=== PATIENT | male | born 1935 | race Caucasian/White ===

== ENCOUNTER → 2016-07-24 | Day surgery (SDC) | payer OTHER ==
[~2016-07-24] MED LIST: ASPI325T4 PO; ATEN25TA PO; CLON1TAB23 PO; CLOP75TA PO; CRESTOR40 MG PO; FAMO40TA4 PO; FENTANYL PF 100 MCG/2 ML VIAL. IV PRN; FLUT16SP2 NS; HYDR-2762 PO; HYDROMORPHONE 2 MG/ML VIAL. IV PRN; IV RINGERS,LACTATED 1000ML 1,000 ML IV SCH; LIDOCAINE 1% 1 ML SYRINGE. ID PRN; LIDOCAINE 2% PF Vial for OR 5 ML VIAL. ONE; METR70GE14 TOP; MIDAZOLAM HCL 2 MG/2 ML VIAL. IV PRN; MORPHINE SULFATE 2 MG/ML DISP.SYRIN. IV PRN; MULT-18 PO; NIFE30TA17 PO; NITR0.4T6 SL; OMEG-33 PO; OMEP40CA5 PO; ONABOTULINUMTOXINA 100 UNIT VIAL. ID ONE; ONDANSETRON PF 4 MG/2 ML VIAL. IV PRN; PROCHLORPERAZINE 10 MG/2 ML VIAL. IV PRN; PROPOFOL 20 ML IV ONE; PROPOFOL 40 ML IV ONE; TAMS0.4C2 PO; TRAM50TA PO
--- NOTE | 2016-07-24 09:49 | PDOC1 ---
HISTORY & PHYSICAL H&P Abdias Yeager [id number] 1935 07/05/2016 01:30 PM 05/14 [place] OUR PATIENTS COME FIRST [address] [place], [place] [id number] . [phone] Patient: Abdias Yeager Date of : 1935 Date: 07/05/2016 1:30 PM Visit Type: Consult This 81 year old male presents for H/o colorectal polyp and Dysphagia. History of Present Illness: 1. H/o colorectal polyp Prior screening: colonoscopy. Denies risk factors. Pertinent negatives include abdominal pain, change in bowel habits, change in stool caliber, constipation, decreased appetite, diarrhea, melena, nausea, rectal bleeding, vomiting, weight gain and weight loss. Additional information: No family history of colon cancer, No family history of Crohn's/colitis, No NSAID/ASA use and Patient had adenomatous colonic polyp removed 3 yrs ago. 2. Dysphagia The symptoms occur with solids and liquids which cause choking and gagging with food sticking in the lower chest. The symptoms are felt to be related to meals. The symptoms are not related to history of stroke. There is no history of Osullivan's esophagus, reflux or stroke. The patient denies aggravating factors. The patient denies relieving factors. The patient is also experiencing choking and food sticking. The patient denies anorexia, bloating, chest pain, decreased appetite, hoarseness, nausea, vomiting, weight gain or weight loss. Additional information: Patient had achalasia and had previous Botox injection and also had Heller's Myotomy. He has been having recurrent symptoms now. PROBLEM LIST: Problem Description Onset Date Right leg swelling 11/29/2015 Venous insufficiency of right leg 11/29/2015 Periodic limb movement disorder 01/09/2013 Ankle fracture, right, closed, with routine healing, subsequent encounter 2015 Diffuse spasm of esophagus 04/19/2012 Screening PSA (prostate specific antigen) 12/28/2015 GERD without esophagitis 06/29/2015 Venous insufficiency 12/13/2015 Coronary atherosclerosis 12/08/2009 Benign essential hypertension 12/08/2009 Hyperlipidemia 12/08/2009 Benign prostatic hyperplasia 12/28/2014 PAST MEDICAL/SURGICAL HISTORY (Detailed) Disease/disorder Onset Date Management Date Comments Angioplasty Shoulder Surgery Knee surgery EGD 03/2008 Hypertensive Lower esophageal sphincter, Botulinum toxin injection done with very good results. Diverticulosis, Tublar Adenoma cardiac cath 2011 Prostate Surgery 09/26/2011 right TKA 2010 bilateral rotator cuff surgery coronary angioplasty and stent circumflex 2007 coronary angioplasty LAD 1995 Tonsillectomy Achalasia laparoscopic Heller myotomy w\anterior fundoplication 05/22/2012 achalasia laparoscopy heller myotomy with anterior fundoplication 05/22/2012 Osullivan's esophagus 03/07/2012 EGD with biopsy (dilation) 03/07/2012 benign prostatic hypertrophy 2011 turp 2011 Colonic polyps colonoscopy with biopsy 07/2013 Coronary Artery Disease Diverticulosis Esophageal Dysmotility Disorder GERD High cholesterol Hypertension Internal hemorrhoids obesity DIAGNOSTICS HISTORY: Test Ordered Interpretation Result completed UPPER GI ENDOSCOPY, BIOPSY 12/02/2009 Abnormal Imp: Lower esphageal stricture.BX :Mild inflammation with small lymphoid aggregate involving glandular epithelium at GE junction.C 12/02/2009 ESOPH ENDOSCOPY, DILATION 08/04/2010 Abnormal BX: Rare H-pylori identified, Mild foveolar hyperplasia, gastritis. 08/04/2010 COLONOSCOPY AND BIOPSY 08/04/2010 Abnormal BX: Tubular Adenoma. 08/04/2010 UPPR GI SCOPE DILATE STRICTR 04/13/2011 Abnormal Imp:Esophageal motility disorder. Tortuous esophagus. tight ileus which was treated w\ Botox injections completely paralyzing the ileus and dilation done. BX: Osullivan's esophagus. 05/2010 UPPR GI SCOPE DILATE STRICTR 01/23/2012 abnormal 01/25/2012 UPPR GI SCOPE DILATE STRICTR 02/20/2012 abnormal Imp: Hypertensive LES. Tortuosity of the esophagus. Dilated esophagus secondary to motility disorder. Boxtox injection. BX:Osullivan's esophagus. 03/07/2012 COLONOSCOPY AND BIOPSY 07/21/2013 Imp: polyps, (bx). LImited diverticulosis. Internal hemorrhoids. BX: Tubular adenoma. 08/07/2013 UPPER GI ENDOSCOPY, BIOPSY 07/21/2013 Imp: Esophagitis, (bx). Status post fundoplication. Gastritis. No other lesions. BX: Osullivan's esophagus. 08/07/2013 Test Ordered Ordering Comments Modifier UPPER GI ENDOSCOPY, BIOPSY 12/02/2009 ESOPH ENDOSCOPY, DILATION 08/04/2010 COLONOSCOPY AND BIOPSY 08/04/2010 UPPR GI SCOPE DILATE STRICTR 04/13/2011 Gastroenterology UPPR GI SCOPE DILATE STRICTR 01/23/2012 UPPR GI SCOPE DILATE STRICTR 02/20/2012 COLONOSCOPY AND BIOPSY 07/21/2013 UPPER GI ENDOSCOPY, BIOPSY 07/21/2013 Medications (Active): Started Medication Directions Instruction Stopped 11/29/2015 aspirin 325 mg tablet take 1 tablet by oral route every day 06/27/2016 atenolol 25 mg tablet TAKE 1 TABLET TWICE DAILY 90 day supply - 06/27/2016 atorvastatin 80 mg tablet TAKE 1 TABLET EVERY DAY AT BEDTIME ( REPLACES CRESTOR) 90 Day Supply 06/27/2016 clonazepam 1 mg tablet 1 po every hs 90 day supply - 06/27/2016 clopidogrel 75 mg tablet take 1 tablet (75MG) by oral route every day 90 day supply 09/17/2015 famotidine 40 mg tablet TAKE 1 TABLET EVERY DAY AT BEDTIME 90 day supply - ID# [id number] 11/19/2013 Flomax 0.4 mg capsule TAKE 1 CAPSULE TWICE DAILY 07/18/2012 Flonase 50 mcg/actuation Nasal [place] spray 2 spray by intranasal route every day in each nostril 07/04/2016 FUROSEMIDE 20 MG TABLET TAKE 1 TABLET BY MOUTH EVERY DAY 07/18/2012 Metrogel 1 % Topical apply by topical route every day to the affected area(s) ; rub in gently and completely 04/15/2013 multivitamin Tab take 1 tablet by ORAL route every day with food 04/03/2016 nitroglycerin 0.[address] 1 tablet (0.4MG) by sublingual route before meals TID 03/28/2016 [place] 7.5 mg-325 mg tablet take 1 tablet by oral route every 6 hours as needed for pain 08/30/2009 omega-3 fatty acids-vitamin E 1,000 mg Cap 2 daily 06/27/2016 omeprazole 40 mg capsule,delayed release TAKE 1 CAPSULE EVERY DAY BEFORE A MEAL 90 Day Supply 12/28/2014 tramadol 50 mg tablet take 1 tablet (50MG) by ORAL route every 6 hours as needed 90 day supply - ID# [id number] Allergies: Ingredient Reaction Medication Name Comment POVIDONE-IODINE rash Betadine SOAP rash Betadine IODINATED CONTRAST MEDIA - ORAL AND IV DYE AMLODIPINE BESYLATE Norvasc SIMVASTATIN Zocor PENICILLINS hives NIACIN flushing REVIEW OF SYSTEMS System Neg/Pos Details Constitutional Negative Chills, fever, malaise, weight gain and weight loss. ENMT Negative Hoarseness and sore throat. Eyes Negative Double vision. Respiratory Negative Dyspnea and wheezing. Cardio Negative Chest pain and irregular heartbeat/palpitations. GI Positive Choking, Food sticking, See HPI. GI Negative Abdominal pain, anorexia, bloating, change in bowel habits, change in stool caliber, constipation, decreased appetite, diarrhea, melena, nausea, see HPI, rectal bleeding and vomiting. Negative Dysuria and hematuria. Endocrine Negative Cold intolerance and heat intolerance. Psych Negative Anxiety. Integumentary Negative Hives and rash. MS Negative Joint pain. Eriberto/Lymph Negative Easy bleeding and easy bruising. Allergic/Immuno Negative Food allergies. PHYSICAL EXAM: Exam Findings Details Constitutional Normal Well developed. Eyes Normal Conjunctiva - Right: Normal, Left: Normal. Sclera - Right: Normal, Left: Normal. Nasopharynx Normal Lips/teeth/gums - Normal. Neck Exam Normal Inspection - Normal. Thyroid gland - Normal. Respiratory Normal Inspection - Normal. Auscultation - Normal. Cardiovascular Normal Regular rate and rhythm. No murmurs, gallops, or rubs. Vascular Normal Pulses - Carotids: Normal, Femoral: Normal, Dorsalis pedis: Normal. Abdomen Normal Inspection - Normal. Anterior palpation - No guarding. No abdominal tenderness. No hepatic enlargement. No splenic enlargement. No hernia. No ascites. Skin Normal Inspection - Normal. Extremity Normal No edema. Psychiatric * Oriented to time, place, person and situation. Psychiatric Normal Appropriate mood and effect. Assessment/Plan # Detail Type Description 1. Assessment Achalasia (K22.0). Patient Plan EGD with Botox treatment. Plan Orders Further diagnostic evaluations ordered today include(s) EGD to be performed today. 2. Assessment Dysphagia, unspecified type (R13.10). Patient Plan Await EGD and treatment. 3. Assessment History of colon polyps (Z86.010). Patient Plan schedule colonoscopy at [facility] Plan Orders Further diagnostic evaluations ordered today include(s) Colonoscopy to be performed today. He is to schedule a follow-up visit with Konrad Yepez MD upon completion of work-up Electronically signed by: Konrad Yepez MD 07/05/2016 01:50 PM Document generated by: Konrad Yepez 07/05/2016 01:50 PM Ana Tracy MD, Family Practice; Elmo Lorenz MD Internal Medicine; Gale Lam MD, Internal Medicine; Ermelinda Yepez MD Internal Medicine; Konrad Yepez MD, Gastroenterology; Bran De La O MD, Rheumatology, S. Jayme Spencer, Physical Medicine/Rehab J. Ellen BANKSN ------ 07/24/16 Patient seen and examined. No change in H&P. KONRAD YEPEZ MD Jul 24, 2016 09:16
--- NOTE | 2016-07-24 10:50 | PDOC4 ---
GI OP Report - Dr. Cote Date/Time DATE: 07/24/16 TIME: 10:48 Attending Physician Konrad Cote MD Referring Physician Indications Dysphagia, Follow-up of achalasia Pre-Op See the Anesthesia note for documentation of the administered medications Procedures Upper GI endoscopy Findings - The esophageal examination was consistent with achalasia. Injected with botulinum toxin. - LA Grade A esophagitis. - A August fundoplication was found. - Normal examined duodenum. - No specimens collected. Plan - Discharge patient to home. - Patient has a contact number available for emergencies. The signs and symptoms of potential delayed complications were discussed with the patient. Return to normal activities tomorrow. Written discharge instructions were provided to the patient. - Resume regular diet. - Continue present medications. - Return to my office in 2 weeks. KONRAD COTE MD Jul 24, 2016 10:50
--- NOTE | 2016-07-24 10:55 | PDOC4 ---
GI OP Report - Dr. Cote Date/Time DATE: 07/24/16 TIME: 10:50 Attending Physician Konrad Cote MD Referring Physician Indications Personal history of colonic polyps Pre-Op See the Anesthesia note for documentation of the administered medications Procedures Colonoscopy Findings - One 7 mm polyp in the cecum. Resected and retrieved. - One 5 mm polyp in the transverse colon. Resected and retrieved. - The examination was otherwise normal on direct and retroflexion views. Plan - Discharge patient to home. - Patient has a contact number available for emergencies. The signs and symptoms of potential delayed complications were discussed with the patient. Return to normal activities tomorrow. Written discharge instructions were provided to the patient. - Resume regular diet. - Continue present medications. - Await pathology results. - Repeat colonoscopy in 3 - 5 years for surveillance based on pathology results. - Return to my office in 2 weeks. KONRAD COTE MD Jul 24, 2016 10:54
[2016-07-24 11:06] VITALS: BP 119/58
--- NOTE | 2016-07-25 13:25 | PATHOLOGY ---
PATHOLOGY REPORT * * * * * * * * FINAL DIAGNOSIS: A. Colon biopsy, cecal polyp: - Tubular adenoma. B. Colon biopsy, transverse colon polyp: - Consistent with hyperplastic polyp/prominent fold. COMMENT: There is no high-grade dysplasia or evidence of malignancy. (JPM:; d/t: 07/25/16) REPORT ELECTRONICALLY SIGNED BY: Nato Angeles M.D. DATE/TIME: 07/25/2016 13:23 * * * * * * * * GROSS PATHOLOGY: A. Received in formalin labeled "Abdias Orozco, cecal polyp," is a segment of moyer soft tissue measuring 0.3 cm in maximum dimension. The specimen is submitted entirely in cassette A1. B. Received in formalin labeled "Abdias Orozco, transverse colon polyp," is a segment of moyer soft tissue admixed with vegetative material measuring 0.4 cm in maximum dimension. The specimen is submitted entirely in cassette B1. (KAH; 07/24/2016) INITIAL CPT CODE(S): A; 04048 B; 77759 Professional services [place] [place] [address] Technical services performed by [facility] at [address] [place] [address], [facility] [address] [address]. SPECIMEN(S) RECEIVED: A.Cecal polyp B.Transverse colon polyp CLINICAL HISTORY: History of polyps PATIENT: ABDIAS OROZCO /AGE: 1 1935 (Age: 81) PATIENT #: [id number] ALT CASE #: SPECIMEN COLLECTION DATE: 07/24/2016 SPECIMEN RECEIVED DATE: 07/24/2016 [facility] - [address] [place] [address] - PHONE: [phone] * * * END OF REPORT * * *
== END | disposition home or self-care (01) ==
LOC: ENDOS 08:55
PROVIDERS: ATTEND Internal Medicine Gastroenterology
DX: D12.0 Benign neoplasm of cecum (principal); D12.3 Benign neoplasm of transverse colon; K20.9 Esophagitis, unspecified; K22.0 Achalasia of cardia; I25.10 Atherosclerotic heart disease of native coronary artery without angina pectoris; E78.00 Pure hypercholesterolemia, unspecified; I10 Essential (primary) hypertension
CPT/HCPCS: 43236; 45385; J0585; J2704; 88305

== ENCOUNTER 2016-08-13 07:49 | Inpatient (IN) | payer OTHER ==
[~2016-08-13] VITALS: Ht 177.8 cm; Wt 116.6 kg
[~2016-08-13 07:49] MED LIST changes: -FENTANYL PF 100 MCG/2 ML VIAL. IV PRN; -HYDROMORPHONE 2 MG/ML VIAL. IV PRN; -IV RINGERS,LACTATED 1000ML 1,000 ML IV SCH; -LIDOCAINE 1% 1 ML SYRINGE. ID PRN; -LIDOCAINE 2% PF Vial for OR 5 ML VIAL. ONE; -MIDAZOLAM HCL 2 MG/2 ML VIAL. IV PRN; -MORPHINE SULFATE 2 MG/ML DISP.SYRIN. IV PRN; -ONABOTULINUMTOXINA 100 UNIT VIAL. ID ONE; -ONDANSETRON PF 4 MG/2 ML VIAL. IV PRN; -PROCHLORPERAZINE 10 MG/2 ML VIAL. IV PRN; -PROPOFOL 20 ML IV ONE; -PROPOFOL 40 ML IV ONE
--- NOTE | 2016-08-13 08:14 | PHYS DOC ---
Past Medical History Past Medical History: GERD, High Cholesterol, Hypertension, Other Additional Past Medical Histor: ECHOLALIA Past Surgical History: Tonsillectomy, Other Additional Past Surgical Histo: R KNEE REPL, LEFT KNEE SX, BILATERAL SHOULDER, ESOPHAGUS, CARDIAC STENT X2 Alcohol Use: None Drug Use: None Adult General Chief Complaint Chief Complaint: CHEST PAIN HPI HPI Patient is a 81 year old male who presents with chest pressure and SOB. Patient reports for the past two days he has been having intermittent lower substernal chest pressure accompanied by SOB. Patient reports he has been sitting a lot over these two days to catch his breath as walking will bring the symptoms on (although not always). Does have h/o 2 coronary stents and says he has another known blockage that has not been stented as it was too dangerous to do so. He has not taken anything for symptoms today. No other acute complaints. Review of Systems Review of Systems Constitutional: Denies fever or chills Eyes: Denies change in visual acuity or eye pain HENT: Denies nasal congestion or sore throat Respiratory: Shortness of breath Cardiovascular: Lower chest pressure GI: Denies abdominal pain, nausea, vomiting, bloody stools or diarrhea : Denies dysuria or hematuria Musculoskeletal: Denies back pain or joint pain Integument: Denies rash or skin lesions Neurologic: Denies headache, focal weakness or sensory changes Current Medications Current Medications Current Medications Medications (Trade) Dose Ordered Sig/Lyric Start Time Stop Time Status Last Admin Dose Admin Aspirin (Children'S Aspirin) 324 mg 1X ONCE 08/13/16 09:00 08/13/16 09:01 08/13/16 08:19 324 MG Atenolol (Tenormin) 25 mg 1X ONCE 08/13/16 09:00 08/13/16 09:01 08/13/16 08:20 25 MG Allergies Allergies Allergies Coded Allergies Type Severity Reaction Last Updated Verified Iodinated Contrast Media - Oral and Allergy Mild Rash 07/24/16 Yes Penicillins Allergy Mild Hives 07/24/16 Yes amlodipine Allergy Mild Rash 07/24/16 Yes niacin Allergy Mild Unknown 07/24/16 Yes simvastatin Allergy Mild Hives 07/24/16 Yes Physical Exam Physical Exam Constitutional: Well developed, well nourished, no acute distress, non-toxic appearance HENT: Normocephalic, atraumatic, bilateral external ears normal Eyes: EOMI, conjunctiva normal, no discharge Neck: Normal range of motion, no stridor Cardiovascular: Heart rate normal, regular rhythm, no murmur Lungs & Thorax: Bilateral breath sounds clear to auscultation Abdomen: Bowel sounds normal, soft, non-distended, no TTP Skin: Warm, dry, no erythema, no rash Extremities: No obvious deformity, no edema Neurologic: Alert and oriented X 3, no gross deficits noted Psychologic: Affect normal, judgement normal, mood normal Current Patient Data Vital Signs Vital Signs Date Time Temp Pulse Resp B/P Pulse Ox O2 Delivery O2 Flow Rate FiO2 08/13/16 08:25 64 21 190/84 94 Room Air 08/13/16 07:56 98.4 98.4 Lab Values Laboratory Tests Test 08/13/16 08:00 White Blood Count 8.2x10^3/uL (4.0-11.0) Red Blood Count 4.37x10^6/uL (4.30-5.70) Hemoglobin 13.3g/dL (13.0-17.5) Hematocrit 40.5% (39.0-53.0) Mean Corpuscular Volume 93fL (79-100) Mean Corpuscular Hemoglobin 30pg (25-35) Mean Corpuscular Hemoglobin Concent 33g/dL (31-37) Red Cell Distribution Width 13.8% (11.5-14.5) Platelet Count 169x10^3/uL (140-400) Neutrophils (%) (Auto) 65% (31-73) Lymphocytes (%) (Auto) 23% (24-48) L Monocytes (%) (Auto) 8% (0-9) Eosinophils (%) (Auto) 3% (0-3) Basophils (%) (Auto) 1% (0-3) Neutrophils # (Auto) 5.4x10^3uL (1.8-7.7) Lymphocytes # (Auto) 1.9x10^3/uL (1.0-4.8) Monocytes # (Auto) 0.6x10^3/uL (0.0-1.1) Eosinophils # (Auto) 0.3x10^3/uL (0.0-0.7) Basophils # (Auto) 0.1x10^3/uL (0.0-0.2) Sodium Level 145mmol/L (136-145) Potassium Level 3.7mmol/L (3.5-5.1) Chloride Level 111mmol/L (98-107) H Carbon Dioxide Level 28mmol/L (21-32) Anion Gap 6 (6-14) Blood Urea Nitrogen 23mg/dL (8-26) Creatinine 1.1mg/dL (0.7-1.3) Estimated GFR (Cockcroft-Gault) 64.1 Glucose Level 110mg/dL (70-99) H Calcium Level 8.6mg/dL (8.5-10.1) Troponin I Quantitative < 0.017ng/mL (0.000-0.055) MZ-Bnp-J-Type Natriuretic Peptide 1951pg/mL (0-449) H Laboratory Tests 08/13/16 08:00 Laboratory Tests 08/13/16 08:00 EKG EKG EKG (my read): sinus rhythm, rate 90, borderline LAD, no acute ST/T changes Radiology/Procedures Radiology/Procedures CXR: IMPRESSION: No acute pulmonary finding. Course & Med Decision Making Course & Med Decision Making Pertinent Labs and Imaging studies reviewed. (See chart for details) Patient is 81 year old male who presents with chest pressure and SOB. Obvious concern for possibility of ACS. Will check EKG, CXR, labs to evaluate. ASA ordered as well as home dose of atenolol given hypertension. Patient declines need for nitro or other pain medication at this time. EKG and CXR reads as above. Labs notable for elevated BNP (nearly 2000); troponin wnl. As no overt pulmonary edema on CXR, will not diurese while in ED. Discussed results with patient and family. Discussed with Dr. Lorenz, will admit under his care for further evaluation and treatment. Dragon Disclaimer Dragon Disclaimer This electronic medical record was generated, in whole or in part, using a voice recognition dictation system. Departure Departure Impression: Primary Impression: Chest pressure Additional Impression: SOB (shortness of breath) Disposition: ADMITTED INPATIENT Admitting Physician: Elmo Lorenz Condition: STABLE Referrals: ELMO LORENZ MD (PCP) Problem Qualifiers MARIAJOSE BERG MD Aug 13, 2016 08:14
[2016-08-13 08:19] LABS: BASO # 0.1 x10^3/uL (0.0-0.2); BASO % 1 % (0-3); EOS % 3 % (0-3); HEMATOCRIT 40.5 % (39.0-53.0); HEMOGLOBIN 13.3 g/dL (13.0-17.5); LYMPH # 1.9 x10^3/uL (1.0-4.8); LYMPH % 23 % (24-48); MEAN CORPUSCULAR HEMOGLOBIN 30 pg (25-35); MEAN CORPUSCULAR HGB CONC 33 g/dL (31-37); MEAN CORPUSCULAR VOLUME 93 fL (79-100); MONO % 8 % (0-9); NEUT % 65 % (31-73); PLATELET COUNT 169 x10^3/uL (140-400); RED BLOOD COUNT 4.37 x10^6/uL (4.30-5.70); RED CELL DISTRIBUTION WIDTH 13.8 % (11.5-14.5); WHITE BLOOD COUNT 8.2 x10^3/uL (4.0-11.0)
--- NOTE | 2016-08-13 08:21 | RAD ---
EXAM: Chest, single view. HISTORY: Chest pressure. COMPARISON: 09/03/2015. FINDINGS: A frontal view of the chest is obtained. There is no infiltrate, effusion or pneumothorax. The heart is normal in size. IMPRESSION: No acute pulmonary finding.
--- NOTE | 2016-08-13 08:21 | EKG ---
[facility] [address] [place] [address] Test Date: 2016-08-13 Test Time: 07:58:21 Pat Name: MARIO OROZCO Department: Room: Gender: M Broth Mixer: : 1935 Requested By: MARIAJOSE BERG Order Number: [id number] Reading MD: Dawna Gabriel Measurements Intervals [place] Rate: 90 P: SC: QRS: -2 QRSD: 94 T: 30 QT: 372 QTc: 459 Interpretive Statements SINUS RHYTHM LEFTWARD AXIS Electronically Signed On 08-13-2016 19:28:26 CDT by Dawna Gabriel
[2016-08-13 08:23] LABS: CALCIUM 8.6 mg/dL (8.5-10.1); CREATININE 1.1 mg/dL (0.7-1.3); GFR 64.1; POTASSIUM 3.7 mmol/L (3.5-5.1)
[2016-08-13] MEDS ORDERED: ONDANSETRON PF 4 MG/2 ML VIAL. IV PRN (09:00)
[2016-08-13] MEDS ORDERED: ACETAMINOPHEN 325 MG TABLET. PO PRN ×2 (09:00→11:45)
[2016-08-13] MEDS ORDERED: ATENOLOL 50 MG TABLET. PO ONE (09:00)
[2016-08-13] MEDS ORDERED: NITROGLYCERIN SUBLINGUAL 0.4 MG BOTTLE OF 25. SL PRN ×2 (09:00→11:45)
[2016-08-13] MEDS ORDERED: MORPHINE SULFATE 4 MG/ML DISP.SYRIN. IV PRN (09:00)
[2016-08-13] MEDS ORDERED: ASPIRIN CHEWABLE 81 MG TABLET. PO ONE (09:00)
[2016-08-13 09:35] VITALS: BP 149/84
--- NOTE | 2016-08-13 11:35 | ACF ---
Admission Forms Criteria CARDIOLOGY GRG Clinical Indications for Admission to Inpatient Care ( Place 'X' for any and all applicable criteria): Hospital admission is needed for appropriate care of the patient because of ANY ONE of the following (1): [ ] I. Hemodynamic instability as indicated by ALL of the following (1)(2)(3) (4)(5) [ ]a) Vital signs or other findings not as expected for chronic patient condition or baseline [ ]b) Instability indicated by ANY ONE of the following: [ ]i) Hypotension [ ]ii) Symptomatic Tachycardia unresponsive to treatment ( e.g., analgesia, fluids, sedation as indicated) [ ]iii) Inadequate perfusion indicated by ANY ONE of the following: [ ] 1) Lactic acidosis (> 2 mmol/L) [ ] 2) New abnormal capillary refill (> 3 seconds) [ ] 3) Reduced urine output [ ] 4) New altered mental status [ ]iv) Orthostatic vital sign changes unresponsive to treatment (e.g., fluids) [ ]v) IV inotropic or vasopressor medication required to maintain adequate blood pressure or perfusion [ ] II. Severe heart failure as indicated by ANY ONE of the following(17)(18) [ ]a) Respiratory distress [ ]b) Hypotension [ ]c) Anasarca (refractory to outpatient therapy) [ ]d) Cardiac arrhythmias of immediate concern [ ]e) Myocardial ischemia [ ] III. Cardiac arrhythmias or findings of immediate concern indicated by ANY ONE of the following (19)(20): [ ] a) Heart rhythms that are inherently dangerous or unstable indicated by ANY ONE of the following (21)(22)(23): [ ] i) Resuscitated ventricular fibrillation or cardiac arrest [ ] ii) Ventricular escape rhythm [ ] iii) Sustained ventricular tachycardia (30 seconds or more of ventricular rhythm at greater than 100 beats per minute) [ ] iv) Nonsustained ventricular tachycardia and ANY ONE of the following: [ ] 1) Suspected cardiac ischemia as cause or consequence of ventricular tachycardia [ ] 2) In setting of acute myocarditis [ ] b) Unstable cardiac conduction defects indicated by ANY ONE of the following(23)(24)(25) [ ] i) Type II second-degree atrioventricular block [ ]ii) Third-degree atrioventricular block [ ]iii) New-onset left bundle branch block with suspected myocardial ischemia [ ]c) Any heart rhythm and ANY ONE of the following (21)(22)(26)(27) (28) [ ] i) Continuous long-term ECG monitoring needed (e.g., initiation of drug requiring monitoring for more than 24 hours) [ ] ii) Patient has automatic implanted cardioverter defibrillator that is repeatedly firing, malfunctioning, or in need of immediate adjustment of settings beyond the scope of ambulatory or observation care [ ]d) Heart rhythms of concern due to ANY ONE of the following: [ ] i) Hypotension [ ] ii) Respiratory distress [ ] iii) Association with other significant symptoms (e.g., bradycardia with syncope or ongoing dizziness, supraventricular tachycardia with chest pain (14)(15)(17) [ ] IV. Monitoring for cardiac contusion beyond the scope of observation care needed [A](30)(31)(32) [ ] V. Surgical or device complication (e.g., valve replacement complication , pacemaker dysfunction) (35)(41)(44)(45)(46) [ ] . Inpatient palliative care needed. [B](49) Also use Inpatient Palliative Care Criteria [ ] VII. Nonbacterial thrombotic (marantic) endocarditis (36)(43)(47)(48) [X] VIII. Cardiology condition, symptom, or finding for which emergency and observation care has failed or are not considered appropriate. [ ] IX. Acute valvular disease requiring inpatient as indicated by ANY ONE of the following (41) [ ]a) Acute valvular regurgitation (42) [ ]b) Noninfectious valvulitis (43) [ ]c) Obstructive valve thrombosis [ ]d) Paravalvular leak [ ]e) Other significant valvular disorder remaining after emergency or observation level of care (as appropriate) [ ]X. Pericardial disease requiring inpatient treatment as indicated by ANY ONE of the following (33)(34)(35)(36)(37) [ ]a) Suspected tamponade (38)(39)(40) [ ]b) Hemopericardium [ ]c) Other significant pericardial disorder remaining after emergency or observation level of care (as appropriate) [ ] XI. Cardiac ischemia beyond scope of emergency and observation care. [ ] XII. Hypertension requiring inpatient treatment as indicated by ANY ONE of the following (6)(7)(8) [ ]a) SBP greater than 220 mm Hg or DBP greater than 120 mmHg despite treatment [ ]b) SBP greater than 140 mm Hg or DBP greater than 100 mm Hg with evidence of acute end organ damage as indicated by ANY ONE of the following [ ] i) Encephalopathy [ ] ii) Acute renal failure as indicated by new onset of ANY ONE of the following (9)(10)(11)(12)(13) [ ]1) 3-fold rise in serum creatinine from baseline [ ]2) Serum creatinine greater than 4 mg/dL ( 354 micromoles/L) with acute rise greater than 0.5 mg/dL (44.2 micromoles/L) [ ]3) Reduction of more than 75% in estimated glomerular filtration rate from baseline [ ]4) Estimated glomerular filtration rate less than 35 mL/min/1.73m2 (0.59 mL/sec/1.73m2) in child up to 18 years of age [ ]5) Cessation of urine output indicated by ALL of the following [ ]A. Adequate volume status [ ]B. Inadequate urine output as indicated by ANY ONE of the following [ ]a. Urine output less than 0.3 mL/kg/hr for 24 hours [ ]b. Anuria (urine output less than 0.1 mL/kg/hr) for 12 hours [ ] iii) Aortic dissection [ ] iv) Myocardial Ischemia [ ] v) Left ventricular heart failure [ ]vi) Retinal Hemorrhage [ ]vii) Other significant finding [ ]c) Hypertension in child requiring inpatient treatment as indicated by ALL of the following(14)(15)(16) [ ] i) Outpatient treatment not effective, not available, or not appropriate [ ]ii) SBP or DBP greater than 95th percentile for age [ ]iii) Evidence of acute end organ damage as indicated by ANY ONE of the following [ ]1) Altered mental status [ ]2) Acute renal failure as indicated by new onset of ANY ONE of the following(9)(10)(11)(12)(13) [ ]A. 3-fold rise in serum creatinine from baseline [ ]B. Serum creatinine greater than 4 mg/dL (354 micromoles/L) with acute rise greater than 0.5 mg/dL (44.2 micromoles/L) [ ]C. Reduction of more than 75% in estimated glomerular filtration rate from baseline [ ]D. Estimated glomerular filtration rate less than 35 mL/min/1.73m2 (0.59 mL/sec/1.73m2) in child up to 18 years of age [ ]E. Cessation of urine output indicated by ALL of the following [ ]a. Adequate volume status [ ]b. Inadequate urine output as indicated by ANY ONE of the following [ ]i) Urine output less than 0.3 mL/kg/hr for 24 hours [ ]ii) Anuria ( urine output less than 0.1 mL/kg/hr) for 12 hours [ ]3) Severe headache [ ]4) Visual disturbance [ ]5) Retinal hemorrhage [ ]6) Other significant finding [ ]XIII. Complications of transplanted heart indicated by ANY ONE of the following(61): [ ]a) Acute graft rejection requiring inpatient management (eg, intravenous immunosuppression)(62)(63) [ ]b) Acute graft heart failure indicated by ANY ONE of the following(64): [ ]i) Hemodynamic instability [ ]ii) Cardiac arrhythmias of immediate concern [ ]iii) Pulmonary edema that is very severe (eg, mechanical ventilation needed, imminent or likely, need for 100% oxygen to keep oxygen saturation above 90%) [ ]iv) Pulmonary edema that is persistent as indicated by ALL of the following: [ ]1) New need for oxygen therapy to keep oxygen saturation above 90% (or increased FiO2 need from baseline) [ ]2) Has not improved sufficiently with emergency department or observation care IV diuretics or other heart failure treatments[E] [ ]v) Altered mental status that is severe or persistent [ ]vi) Increased creatinine (new on laboratory test) with reduction of more than 50% in estimated glomerular filtration rate from baseline [ ]vii) Progressively (ongoing) rising creatinine (known from past laboratory test) with reduction of more than 25% in estimated glomerular filtration rate from baseline [ ]viii) Acute renal failure [ ]ix) Acute peripheral ischemia (eg, examination shows pulseless, cool, mottled, or cyanotic extremity) [ ]x) Pulmonary artery catheter monitoring needed [ ]xi) Other sign or symptom of heart failure requiring inpatient treatment (ie, too severe or not responsive to outpatient and observation care treatment) [ ]c) Infection requiring inpatient management (eg, Hemodynamic instability, need for intravenous antimicrobial treatment)(66)(67)(68)(69)(70) [ ]d) Cardiac allograft vasculopathy requiring inpatient management ( eg evidence of cardiac ischemia)(71) [ ]e) Other complication of transplanted heart (eg, stroke, severe pulmonary hypertension, severe valvular dysfunction) requiring inpatient management(72) The original [facility] content created by [facility] has been revised. The portions of the content which have been revised are identified through the use of italic text or in bold, and [facility] has neither reviewed nor approved the modified material. All other unmodified content is copyright [facility]. Please see references footnoted in the original [facility] edition 2016 Admission Criteria Met?: Yes DEMI NEGRETE Aug 13, 2016 11:35
[2016-08-13] MEDS ORDERED: MAGNESIUM HYDROXIDE 2,400 MG/30 ML ORAL.SUSP. PO PRN (11:45)
--- NOTE | 2016-08-13 11:58 | PDOC ---
Provider Note Provider Note history and physical dictated # [id number] HELEN WARREN MD Aug 13, 2016 11:58
--- NOTE | 2016-08-13 12:55 | HP ---
ADMIT DATE: 08/13/2016 LOCATION: He is in room 207. HISTORY OF PRESENT ILLNESS: The patient is an 81-year-old white male with a history of coronary artery disease, hypertension, hyperlipidemia, esophageal dysmotility syndrome and periodic limb disorder who was admitted to [facility] through the Emergency Room on 08/13/2016 with a 2-day history of exertional chest pressure and shortness of breath. He says he can walk about 35 feet, develop chest pressure and shortness of breath which will continue after he stops walking and last about 5 minutes. He did not take sublingual nitroglycerin, which he does have at home. He does have a history of known coronary artery disease and has had 2 coronary artery angioplasty and stents. He does not believe he has had a cardiac catheterization for several years and he denies having a stress test in the last several years. His EKG showed no acute change. His troponin level was elevated, but his initial troponin level was negative. His EKG showed no acute change. Chest x-ray was negative and he was admitted to the hospital for further evaluation of his exertional chest pressure and shortness of breath. He did have an EGD about 3 weeks ago, as he has a history of esophageal dysmotility and had a Botox injection, which he has had before. Since the procedure, he is still having problems with dysphagia, especially with bread. ALLERGIES AND INTOLERANCES: INCLUDE IV IODINE, PENICILLIN, AMLODIPINE, NIACIN AND SIMVASTATIN. MEDICATIONS: Prior to admission include hydrochlorothiazide 25 mg every day, atorvastatin 80 mg at bedtime, aspirin 325 mg every day, Plavix 75 mg every day, atenolol 25 mg every day, clonazepam 1 mg at bedtime, Flomax 0.4 mg b.i.d., omeprazole 40 mg in the morning, famotidine 40 mg at bedtime and tramadol 50 mg every 6 hours p.r.n. PAST MEDICAL HISTORY: Significant for knee and shoulder surgery, coronary artery angioplasty and stent placed x 2. He had a cardiac catheterization in 2011. Prostate surgery in 2011, right knee arthroplasty in 2009, bilateral rotator cuff surgery and he had a coronary angioplasty and stent placed to the circumflex coronary artery in 2007 and also to his left anterior descending coronary artery in 1994. He had a tonsillectomy, laparoscopic Heller myotomy with an anterior fundoplication in 2013. He has had colon polyps in the past and Osullivan's esophagus in 2012 and has a history of internal hemorrhoids. He does have a history of coronary artery disease, hypertension, hyperlipidemia, gastroesophageal reflux disease, decreased hearing, periodic limb movement disorder, esophageal dysmotility disorder and benign prostatic hypertrophy. SOCIAL HISTORY: He is , retired. Does not drink any alcohol nor does he smoke cigarettes. FAMILY HISTORY: Noncontributory. REVIEW OF SYSTEMS: GENERAL: No fever, chills or sweats in the last 3 days. CARDIOVASCULAR: He has had the chest pressure and shortness of breath with exertion. PULMONARY: No cough. GASTROINTESTINAL: He has had problems with dysphagia with bread. ENDOCRINE: No diabetes mellitus. SKIN: No rashes. NEUROLOGIC: No focal weakness. The rest of systems reviewed, are negative except as stated in the history of present illness. PHYSICAL EXAMINATION: VITAL SIGNS: Temperature is 98.4 degrees, apical pulse is regular at 66, respiratory rate is 18, blood pressure is 174/84 earlier, but in the room was 149/86. Oxygen saturation is 94% room air. HEENT: Eyes: Gaze is conjugate. Mouth: Tongue is midline. He is edentulous. NECK: No cervical lymphadenopathy or carotid bruits. HEART: Reveals an S1, S2. There is no S3 or murmur. LUNGS: Clear. ABDOMEN: Soft in the sitting position. EXTREMITIES: Lower extremities without edema. Dorsalis pedis pulses are 2+ bilaterally. SKIN: No rashes. NEUROLOGIC: He is hard of hearing, incoherent. He has got no focal weakness in the arms or legs. LABORATORY DATA: White count 8.2, hemoglobin 13.3, platelet count 169,000 with 65 polys and 23 lymphocytes. Sodium 145, potassium 3.7, chloride 111, total CO2 was 28 with a BUN of 23, creatinine 1.1, blood sugar 110. BNP was increased to 1951. Troponin levels less than 0.017. Chest x-ray showed no acute pulmonary findings. There is no infiltrate, effusion or pneumothorax and heart size was normal. Lungs were clear. Electrocardiogram per the Emergency Room doctor showed no acute abnormality. I could not download the EKG in the computer. ASSESSMENT AND PLAN: 1. A 2-day history of exertional chest pressure and shortness of breath concerning for unstable angina pectoris. It should be noted that long-acting nitrates including nitro patch caused headaches in the past, but he can tolerate sublingual nitroglycerin. It should also be noted that he was off of his atenolol for a couple of weeks because of low blood pressure. According to his , it has been ____ atenolol once a day for the last week. 2. Coronary artery disease with previous history of coronary angioplasty and stent to the circumflex artery and left anterior descending coronary artery. 3. Hypertension. His blood pressure has been elevated. 4. Hyperlipidemia. 5. 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 6. Periodic limb movement disorder. PLAN: At this time is to proceed with cardiac enzymes x 3. We will obtain an echocardiogram. Consult with Dr. Dang and be evaluated for cardiac catheterization. We will also discontinue the atenolol and put him on metoprolol succinate 25 mg every day, sublingual nitroglycerin p.r.n. He was told to notify the nurse if he has any chest pressure or chest pain. We will order the hydrochlorothiazide and continue the metoprolol and adjust his blood pressure medicine accordingly. We will check a CBC, BMP and lipid profile tomorrow and get a D-dimer. Order an echocardiogram. Continue with his home medications and consult Dr. Michel for his dysphagia. Continue the omeprazole, which will be substituted with Protonix in the morning and famotidine at bedtime. We will decrease the Flomax to 0.4 mg once a day, as he was apparently having some problems with low blood pressure a couple weeks ago. We will continue with his aspirin and Plavix. HELEN WARREN MD DR: YANCI/raquel JOB#: [id number] / [id number]
[2016-08-13] MEDS: METOPROLOL SUCC 24HR ER 25 MG TAB.ER.24H. PO SCH (13:00)
[2016-08-13] MEDS: HYDROCHLOROTHIAZIDE 25 MG TABLET PO SCH (13:00)
--- NOTE | 2016-08-13 13:04 | PDOC2 ---
CONSULT Date of Consult Date of Consult DATE: 08/13/16 TIME: 12:42 Reason for Consult Reason for Consult: Achalasia Referring Physician Referring Physician: Dr. Lorenz Source Source: Chart review, Patient History of Present Illness Reason for Visit: 81 y/o male admitted for evaluation of exertional chest pain in setting of known CAD/prior PCI. Due a history of achalasia and some ongoing issues. we were asked to see. Diagnosis of achalasia made some years ago by Dr. Konrad Yepez and confirmed manometrically by Dr. Cornelius. Initially got BOTOX, I believe , but ultimately underwent Heller myotomy with partial fundoplication here by Dr. Conn. Has over time developed some recurrent issues. Describes occasional dysphagia, usually handled well with drinking extra fluid bolus and w /o regurgitation of the offending bolus. Of more import, has nocturnal/ recumbent coughing frequently. Never issue when upright. Recent EGD 07/[address] Yepez showed low-grade reflux and intact fundoplication apparently w/o stricture; BOTOX was injected. Patient reports perhaps mild improvement in swallowing with this. Has not had repeat esophageal imaging or manometry since time of surgery in 2012. Believes prior h/o PUD. On PPI in AM and H2RA in the evening chronically. Denies GB, liver or pancreatic history. Former smoker. Never alcohol. On ASA and Plavix; no NSAID use. Occasional constipation. No diarrhea or overt bleeding. Wt/appetite OK. Several colonoscopies in the past , last 07/28 this year; polyps often found, some adenomas. No nausea or vomiting. Past Medical History Cardiovascular: CAD, HTN, Hyperlipidemia Musculoskeletal: Osteoarthritis, Other (prior ankle fracture) Renal/: Benign prostatic enlarg. Past Surgical History Past Surgical History: Total knee replacement, Other (TURP) Family History Family History Non-contributory due to age. Social History Social History . Quit ALCOHOL: none Drugs: None Lives: with Family Current Problem List Problem List Problems Medical Problems: (1) CAD (coronary artery disease) Status: Acute (2) Chest pressure Status: Acute (3) Chest pressure Status: Acute (4) SOB (shortness of breath) Status: Acute Current Medications Current Medications Current Medications Aspirin (Children'S Aspirin) 324 mg 1X ONCE PO Last administered on 08/13/16t 08:19; Start 08/13/16 at 09:00; Stop 08/13/16 at 09:01; Status DC Atenolol (Tenormin) 25 mg 1X ONCE PO Last administered on 08/13/16t 08:20; Start 08/13/16 at 09:00; Stop 08/13/16 at 09:01; Status DC Ondansetron HCl (Zofran) 4 mg PRN Q8HRS PRN IV NAUSEA/VOMITING; Start 08/13/16 at 09:00; Stop 08/14/16 at 08:59 Morphine Sulfate 4 mg PRN Q2HR PRN IV PAIN; Start 08/13/16 at 09:00; Stop at 08:59 Acetaminophen (Tylenol) 650 mg PRN Q4HRS PRN PO FEVER; Start 08/13/16 at 09:00; Stop 08/13/16 at 11:58; Status DC Nitroglycerin (Nitrostat) 0.4 mg PRN Q5MIN PRN SL CHEST PAIN; Start 08/13/16 at 09:00; Stop 08/13/16 at 11:58; Status DC Acetaminophen (Tylenol) 650 mg PRN Q4HRS PRN PO MILD PAIN / TEMP; Start at 11:45 Aspirin (Ultriva Aspirin) 325 mg DAILYWBKFT PO ; Start 08/13/16 at 13:00 Hydrochlorothiazide (Hydrodiuril) 25 mg DAILY PO ; Start 08/13/16 at 13:00 Atorvastatin Calcium (Lipitor) 80 mg QHS PO ; Start 08/13/16 at 21:00 Famotidine (Pepcid) 40 mg QHS PO ; Start 08/13/16 at 21:00 Tamsulosin HCl (Flomax) 0.4 mg QHS PO ; Start 08/13/16 at 21:00 Pantoprazole Sodium (Protonix) 40 mg DAILYAC PO ; Start 08/13/16 at 13:00 Tramadol HCl (Ultram) 50 mg PRN Q6HRS PRN PO PAIN; Start 08/13/16 at 11:45 Nitroglycerin (Nitrostat) 0.4 mg PRN Q5MIN PRN SL CHEST PAIN; Start 08/13/16 at 11:45 Metoprolol Succinate (Toprol Xl) 25 mg DAILY PO ; Start 08/13/16 at 13:00 Clonazepam (Klonopin) 1 mg QHS PO ; Start 08/13/16 at 21:00 Clopidogrel Bisulfate (Plavix) 75 mg DAILYWBKFT PO ; Start 08/13/16 at 13:00 Magnesium Hydroxide (Milk Of Magnesia) 2,400 mg PRN DAILY PRN PO CONSTIPATION; Start 08/13/16 at 11:45 Active Scripts Active Reported Tramadol Hcl 50 Mg Tablet 50 Mg PO NEEDED Tamsulosin Hcl 0.4 Mg Cap.er.24h 0.4 Mg PO BID Omeprazole 40 Mg Capsule.dr 40 Mg PO DAILY NITROGLYCERIN SubLingual (Nitroglycerin) 0.4 Mg Tab.subl 0.4 Mg SL DAILY Nifedipine Er (Nifedipine) 30 Mg Tab.er.24 30 Mg PO DAILY Daily Vitamin (Multivitamin) 1 Each Tablet 1 Each PO DAILY Hydrocodone-Apap 7.5-325 (Hydrocodone Bit/Acetaminophen) 1 Each Tablet 1 Each PO NEEDED Flonase (Fluticasone Propionate) 16 Gm [place].susp 16 Gm NS DAILY Famotidine 40 Mg Tablet 40 Mg PO DAILY Crestor (Rosuvastatin Calcium) 40 Mg Tablet 40 Mg PO DAILY Clopidogrel (Clopidogrel Bisulfate) 75 Mg Tablet 75 Mg PO DAILY Clonazepam Odt (Clonazepam) 1 Mg Tab.rapdis 1 Mg PO HS Atenolol 25 Mg Tablet 25 Mg PO DAILY Allergies Allergies: Coded Allergies: Iodinated Contrast Media - Oral and (Verified Allergy, Mild, Rash, 07/24/16 ) Penicillins (Verified Allergy, Mild, Hives, 07/24/16) amlodipine (Verified Allergy, Mild, Rash, 07/24/16) niacin (Verified Allergy, Mild, Unknown, 07/24/16) FLUSHING simvastatin (Verified Allergy, Mild, Hives, 07/24/16) ROS Review of System Except for admitting complaints and above, 10-point review negative. Physical Exam General: Alert, Oriented X3, Cooperative, No acute distress Lungs: Clear to auscultation Heart: Regular rate, Normal S1, Normal S2, No murmurs Abdomen: Normal bowel sounds, Soft, No tenderness, No hepatosplenomegaly, No masses Extremities: No cyanosis, No edema Skin: No significant lesion Neuro: Normal speech, Strength at 5/5 X4 ext, Normal tone, Sensation intact, Cranial nerves 3-12 NL, Reflexes 2+ Psych/Mental Status: Mental status NL, Mood NL MUSCULOSKELETAL: No deformity, No swelling Vitals VITALS Vital Signs Date Time Temp Pulse Resp B/P Pulse Ox O2 Delivery O2 Flow Rate FiO2 08/13/16 09:18 50 23 174/84 94 Room Air 08/13/16 07:56 98.4 98.4 Labs Labs Laboratory Tests Test 08/13/16 08:00 White Blood Count 8.2x10^3/uL (4.0-11.0) Red Blood Count 4.37x10^6/uL (4.30-5.70) Hemoglobin 13.3g/dL (13.0-17.5) Hematocrit 40.5% (39.0-53.0) Mean Corpuscular Volume 93fL (79-100) Mean Corpuscular Hemoglobin 30pg (25-35) Mean Corpuscular Hemoglobin Concent 33g/dL (31-37) Red Cell Distribution Width 13.8% (11.5-14.5) Platelet Count 169x10^3/uL (140-400) Neutrophils (%) (Auto) 65% (31-73) Lymphocytes (%) (Auto) 23% (24-48) Monocytes (%) (Auto) 8% (0-9) Eosinophils (%) (Auto) 3% (0-3) Basophils (%) (Auto) 1% (0-3) Neutrophils # (Auto) 5.4x10^3uL (1.8-7.7) Lymphocytes # (Auto) 1.9x10^3/uL (1.0-4.8) Monocytes # (Auto) 0.6x10^3/uL (0.0-1.1) Eosinophils # (Auto) 0.3x10^3/uL (0.0-0.7) Basophils # (Auto) 0.1x10^3/uL (0.0-0.2) Sodium Level 145mmol/L (136-145) Potassium Level 3.7mmol/L (3.5-5.1) Chloride Level 111mmol/L (98-107) Carbon Dioxide Level 28mmol/L (21-32) Anion Gap 6 (6-14) Blood Urea Nitrogen 23mg/dL (8-26) Creatinine 1.1mg/dL (0.7-1.3) Estimated GFR (Cockcroft-Gault) 64.1 Glucose Level 110mg/dL (70-99) Calcium Level 8.6mg/dL (8.5-10.1) Troponin I Quantitative < 0.017ng/mL (0.000-0.055) GS-Ojf-Z-Type Natriuretic Peptide 1951pg/mL (0-449) Laboratory Tests Test 08/13/16 08:00 White Blood Count 8.2x10^3/uL (4.0-11.0) Red Blood Count 4.37x10^6/uL (4.30-5.70) Hemoglobin 13.3g/dL (13.0-17.5) Hematocrit 40.5% (39.0-53.0) Mean Corpuscular Volume 93fL (79-100) Mean Corpuscular Hemoglobin 30pg (25-35) Mean Corpuscular Hemoglobin Concent 33g/dL (31-37) Red Cell Distribution Width 13.8% (11.5-14.5) Platelet Count 169x10^3/uL (140-400) Neutrophils (%) (Auto) 65% (31-73) Lymphocytes (%) (Auto) 23% (24-48) Monocytes (%) (Auto) 8% (0-9) Eosinophils (%) (Auto) 3% (0-3) Basophils (%) (Auto) 1% (0-3) Neutrophils # (Auto) 5.4x10^3uL (1.8-7.7) Lymphocytes # (Auto) 1.9x10^3/uL (1.0-4.8) Monocytes # (Auto) 0.6x10^3/uL (0.0-1.1) Eosinophils # (Auto) 0.3x10^3/uL (0.0-0.7) Basophils # (Auto) 0.1x10^3/uL (0.0-0.2) Sodium Level 145mmol/L (136-145) Potassium Level 3.7mmol/L (3.5-5.1) Chloride Level 111mmol/L (98-107) Carbon Dioxide Level 28mmol/L (21-32) Anion Gap 6 (6-14) Blood Urea Nitrogen 23mg/dL (8-26) Creatinine 1.1mg/dL (0.7-1.3) Estimated GFR (Cockcroft-Gault) 64.1 Glucose Level 110mg/dL (70-99) Calcium Level 8.6mg/dL (8.5-10.1) Troponin I Quantitative < 0.017ng/mL (0.000-0.055) NW-Drk-A-Type Natriuretic Peptide 1951pg/mL (0-449) Assessment/Plan Assessment/Plan IMP: 1. Achalasia, s/p myotomy w/fundoplication, now with nocturnal issues. Suspect either retaining secretions in poorly-emptying esophagus or having nocturnal reflux to a large degree. Would expect even a full fundoplication to loosen over time. 2. Occasional dysphagia; suspect this is largely due to esophageal dysmotility as stricture not seen at last EGD. 3. H/o colonic adenomas, last surveillance 07/28/16. 4. Exertional chest pain as admitting issue. REC: 1. Continue cardiac evaluation. 2. Continue PPI 3. Should keep head up > or = 30 degrees at all times and bent only at hip, not torso (as this increases intra-abdominal pressure). 4. Would do barium esophagram once cardiac evaluation done; this will give us a better "functional" assessment of the esophagus than can really appreciate with EGD. --other pending. Thank you for allowing me to assist in the care of this patient. Please call if questions. HELEN RODRIGUEZ MD Aug 13, 2016 13:04
--- NOTE | 2016-08-13 14:44 | PDOC2 ---
CONSULT Date of Consult Date of Consult DATE: 08/13/16 TIME: 14:29 Reason for Consult Reason for Consult: Chest tightness Referring Physician Referring Physician: Dr. Lorenz Identification/Chief Complaint Chief Complaint Chest tightness History of Present Illness Reason for Visit: This patient is an 81-year-old gentleman that has a long cardiac history with known coronary artery disease. He's had stenting of the LAD in and the circumflex in 2007. The last heart catheterization I believe was around 2011. He has been having problems with hypotension at home for about 2 weeks and last week he called my office and I instructed him to cut down on the atenolol from twice a day to once a day to see how he would do. The patient started developing exertional chest tightness 2 days ago with dyspnea. The tightness is to the epigastric and subxiphoid area and he has taking some sublingual nitroglycerin in the past. He has had problems with long-acting nitrates before due to headaches. The patient came into the ER today after an episode of chest tightness and he was found to have the first troponin to be normal and no acute ST segment changes however he is in atrial flutter with bradycardia and having close to 2 second pauses at times. The patient denies having any loss of consciousness or syncope. No chest pains at the time that I examined him. No palpitations. No rest dyspnea. He has a history of multiple medical problems in addition to coronary artery disease. Past Medical History Cardiovascular: CAD, HTN, [place], Hyperlipidemia GI: GERD, Other (Osullivan's esophagus) Musculoskeletal: Osteoarthritis, Other (prior ankle fracture) Renal/: Benign prostatic enlarg. Past Surgical History Past Surgical History: Total knee replacement, Other (TURP) Social History Quit ALCOHOL: none Drugs: None Lives: with Family Current Problem List Problem List Problems Medical Problems: (1) CAD (coronary artery disease) Status: Acute (2) Chest pressure Status: Acute (3) Chest pressure Status: Acute (4) SOB (shortness of breath) Status: Acute Current Medications Current Medications Current Medications Aspirin (Children'S Aspirin) 324 mg 1X ONCE PO Last administered on 08/13/16 08:19; Start 08/13/16 at 09:00; Stop 08/13/16 at 09:01; Status DC Atenolol (Tenormin) 25 mg 1X ONCE PO Last administered on 4/2/17at 08:20; Start 08/13/16 at 09:00; Stop 08/13/16 at 09:01; Status DC Ondansetron HCl (Zofran) 4 mg PRN Q8HRS PRN IV NAUSEA/VOMITING; Start 08/13/16 at 09:00; Stop 08/14/16 at 08:59 Morphine Sulfate 4 mg PRN Q2HR PRN IV PAIN; Start 08/13/16 at 09:00; Stop at 08:59 Acetaminophen (Tylenol) 650 mg PRN Q4HRS PRN PO FEVER; Start 08/13/16 at 09:00; Stop 08/13/16 at 11:58; Status DC Nitroglycerin (Nitrostat) 0.4 mg PRN Q5MIN PRN SL CHEST PAIN; Start 08/13/16 at 09:00; Stop 08/13/16 at 11:58; Status DC Acetaminophen (Tylenol) 650 mg PRN Q4HRS PRN PO MILD PAIN / TEMP; Start at 11:45 Aspirin (Nel Aspirin) 325 mg DAILYWBKFT PO ; Start 08/13/16 at 13:00 Hydrochlorothiazide (Hydrodiuril) 25 mg DAILY PO ; Start 08/13/16 at 13:00 Atorvastatin Calcium (Lipitor) 80 mg QHS PO ; Start 08/13/16 at 21:00 Famotidine (Pepcid) 40 mg QHS PO ; Start 08/13/16 at 21:00 Tamsulosin HCl (Flomax) 0.4 mg QHS PO ; Start 08/13/16 at 21:00 Pantoprazole Sodium (Protonix) 40 mg DAILYAC PO ; Start 08/13/16 at 13:00 Tramadol HCl (Ultram) 50 mg PRN Q6HRS PRN PO PAIN; Start 08/13/16 at 11:45 Nitroglycerin (Nitrostat) 0.4 mg PRN Q5MIN PRN SL CHEST PAIN; Start 08/13/16 at 11:45 Metoprolol Succinate (Toprol Xl) 25 mg DAILY PO ; Start 08/13/16 at 13:00 Clonazepam (Klonopin) 1 mg QHS PO ; Start 08/13/16 at 21:00 Clopidogrel Bisulfate (Plavix) 75 mg DAILYWBKFT PO ; Start 08/13/16 at 13:00 Magnesium Hydroxide (Milk Of Magnesia) 2,400 mg PRN DAILY PRN PO CONSTIPATION; Start 08/13/16 at 11:45 Active Scripts Active Reported Tramadol Hcl 50 Mg Tablet 50 Mg PO NEEDED Tamsulosin Hcl 0.4 Mg Cap.er.24h 0.4 Mg PO BID Omeprazole 40 Mg Capsule.dr 40 Mg PO DAILY NITROGLYCERIN SubLingual (Nitroglycerin) 0.4 Mg Tab.subl 0.4 Mg SL DAILY Nifedipine Er (Nifedipine) 30 Mg Tab.er.24 30 Mg PO DAILY Daily Vitamin (Multivitamin) 1 Each Tablet 1 Each PO DAILY Hydrocodone-Apap 7.5-325 (Hydrocodone Bit/Acetaminophen) 1 Each Tablet 1 Each PO NEEDED Flonase (Fluticasone Propionate) 16 Gm [place].susp 16 Gm NS DAILY Famotidine 40 Mg Tablet 40 Mg PO DAILY Crestor (Rosuvastatin Calcium) 40 Mg Tablet 40 Mg PO DAILY Clopidogrel (Clopidogrel Bisulfate) 75 Mg Tablet 75 Mg PO DAILY Clonazepam Odt (Clonazepam) 1 Mg Tab.rapdis 1 Mg PO HS Atenolol 25 Mg Tablet 25 Mg PO DAILY Allergies Allergies: Coded Allergies: Iodinated Contrast Media - Oral and (Verified Allergy, Mild, Rash, 07/24/16 ) Penicillins (Verified Allergy, Mild, Hives, 07/24/16) amlodipine (Verified Allergy, Mild, Rash, 07/24/16) niacin (Verified Allergy, Mild, Unknown, 07/24/16) FLUSHING simvastatin (Verified Allergy, Mild, Hives, 07/24/16) Physical Exam General: Alert, Oriented X3, Cooperative HEENT: Atraumatic, PERRLA Lungs: Clear to auscultation, Normal air movement Heart: Other (irregularly irregular normal S1 normal S2 no murmur) Abdomen: Normal bowel sounds, Soft Extremities: No edema Psych/Mental Status: Mental status NL Vitals VITALS Vital Signs Date Time Temp Pulse Resp B/P Pulse Ox O2 Delivery O2 Flow Rate FiO2 08/13/16 09:35 98.0 61 20 149/84 96 Room Air 98.0 Labs Labs Laboratory Tests Test 08/13/16 08:00 White Blood Count 8.2x10^3/uL (4.0-11.0) Red Blood Count 4.37x10^6/uL (4.30-5.70) Hemoglobin 13.3g/dL (13.0-17.5) Hematocrit 40.5% (39.0-53.0) Mean Corpuscular Volume 93fL (79-100) Mean Corpuscular Hemoglobin 30pg (25-35) Mean Corpuscular Hemoglobin Concent 33g/dL (31-37) Red Cell Distribution Width 13.8% (11.5-14.5) Platelet Count 169x10^3/uL (140-400) Neutrophils (%) (Auto) 65% (31-73) Lymphocytes (%) (Auto) 23% (24-48) Monocytes (%) (Auto) 8% (0-9) Eosinophils (%) (Auto) 3% (0-3) Basophils (%) (Auto) 1% (0-3) Neutrophils # (Auto) 5.4x10^3uL (1.8-7.7) Lymphocytes # (Auto) 1.9x10^3/uL (1.0-4.8) Monocytes # (Auto) 0.6x10^3/uL (0.0-1.1) Eosinophils # (Auto) 0.3x10^3/uL (0.0-0.7) Basophils # (Auto) 0.1x10^3/uL (0.0-0.2) Sodium Level 145mmol/L (136-145) Potassium Level 3.7mmol/L (3.5-5.1) Chloride Level 111mmol/L (98-107) Carbon Dioxide Level 28mmol/L (21-32) Anion Gap 6 (6-14) Blood Urea Nitrogen 23mg/dL (8-26) Creatinine 1.1mg/dL (0.7-1.3) Estimated GFR (Cockcroft-Gault) 64.1 Glucose Level 110mg/dL (70-99) Calcium Level 8.6mg/dL (8.5-10.1) Troponin I Quantitative < 0.017ng/mL (0.000-0.055) NP-Pqq-H-Type Natriuretic Peptide 1951pg/mL (0-449) Laboratory Tests Test 08/13/16 08:00 White Blood Count 8.2x10^3/uL (4.0-11.0) Red Blood Count 4.37x10^6/uL (4.30-5.70) Hemoglobin 13.3g/dL (13.0-17.5) Hematocrit 40.5% (39.0-53.0) Mean Corpuscular Volume 93fL (79-100) Mean Corpuscular Hemoglobin 30pg (25-35) Mean Corpuscular Hemoglobin Concent 33g/dL (31-37) Red Cell Distribution Width 13.8% (11.5-14.5) Platelet Count 169x10^3/uL (140-400) Neutrophils (%) (Auto) 65% (31-73) Lymphocytes (%) (Auto) 23% (24-48) Monocytes (%) (Auto) 8% (0-9) Eosinophils (%) (Auto) 3% (0-3) Basophils (%) (Auto) 1% (0-3) Neutrophils # (Auto) 5.4x10^3uL (1.8-7.7) Lymphocytes # (Auto) 1.9x10^3/uL (1.0-4.8) Monocytes # (Auto) 0.6x10^3/uL (0.0-1.1) Eosinophils # (Auto) 0.3x10^3/uL (0.0-0.7) Basophils # (Auto) 0.1x10^3/uL (0.0-0.2) Sodium Level 145mmol/L (136-145) Potassium Level 3.7mmol/L (3.5-5.1) Chloride Level 111mmol/L (98-107) Carbon Dioxide Level 28mmol/L (21-32) Anion Gap 6 (6-14) Blood Urea Nitrogen 23mg/dL (8-26) Creatinine 1.1mg/dL (0.7-1.3) Estimated GFR (Cockcroft-Gault) 64.1 Glucose Level 110mg/dL (70-99) Calcium Level 8.6mg/dL (8.5-10.1) Troponin I Quantitative < 0.017ng/mL (0.000-0.055) UD-Qrh-T-Type Natriuretic Peptide 1951pg/mL (0-449) Assessment/Plan Assessment/Plan This patient with a known history of coronary artery disease and previous two- vessel stenting comes in with exertional chest tightness that may be angina but after arrival the patient was found to be in atrial flutter and to be having frequent pauses. Some of the patient's discomfort may be related to the bradycardia, I would like to DC the atenolol and see what his rhythm does as well as his symptoms and get an echocardiogram to evaluate the left ventricular function. At this time I don't think that the patient requires to have a stress test but very likely he will need to have a heart catheterization done but before that is done I'd like to see what his rhythm does as well as the left ventricular function. He may need a permanent pacemaker. Thank you very much for asking me to participate in the care of this patient MARISSA MCKEON MD Aug 13, 2016 14:44
[2016-08-13] MEDS: ASPIRIN 325 MG TABLET PO SCH (15:03)
[2016-08-13] MEDS: PANTOPRAZOLE 40 MG TABLET.DR. PO SCH (15:03)
[2016-08-13] MEDS: CLOPIDOGREL BISULFATE 75 MG TABLET PO SCH (15:03)
[2016-08-13 15:30] VITALS: BP 157/73
[2016-08-13 19:25] VITALS: BP 131/68
[2016-08-13] MEDS: ATORVASTATIN CALCIUM 40 MG TABLET. PO SCH (21:48)
[2016-08-13] MEDS: CLONAZEPAM 1 MG TABLET. PO SCH (21:49)
[2016-08-13] MEDS: TAMSULOSIN 0.4 MG CAP.ER.24H. PO SCH (21:49)
[2016-08-13] MEDS: FAMOTIDINE 20 MG TABLET. PO SCH (21:49)
[2016-08-13] MEDS ORDERED: MAG HYDROX/ALUMINUM HYD/SIMETH 30 ML ORAL.SUSP PO PRN (22:15)
[2016-08-13 23:30] VITALS: BP 116/62
[2016-08-14 03:20] VITALS: BP 141/83
[2016-08-14 03:59] LABS: BASO # 0.1 x10^3/uL (0.0-0.2); BASO % 1 % (0-3); EOS % 5 % (0-3); HEMATOCRIT 36.7 % (39.0-53.0); HEMOGLOBIN 12.2 g/dL (13.0-17.5); LYMPH % 29 % (24-48); MEAN CORPUSCULAR HEMOGLOBIN 31 pg (25-35); MEAN CORPUSCULAR HGB CONC 33 g/dL (31-37); MEAN CORPUSCULAR VOLUME 93 fL (79-100); MONO % 9 % (0-9); NEUT % 57 % (31-73); PLATELET COUNT 153 x10^3/uL (140-400); RED BLOOD COUNT 3.97 x10^6/uL (4.30-5.70); RED CELL DISTRIBUTION WIDTH 13.7 % (11.5-14.5); WHITE BLOOD COUNT 7.2 x10^3/uL (4.0-11.0)
[2016-08-14 04:08] LABS: INR 1.2 (0.8-1.1); PROTHROMBIN TIME PATIENT 14.4 SEC (11.7-14.0)
[2016-08-14 04:28] LABS: ALBUMIN 3.3 g/dL (3.4-5.0); ALBUMIN/GLOBULIN RATIO 1.2 (1.0-1.7); CALCIUM 8.3 mg/dL (8.5-10.1); CREATININE 1.1 mg/dL (0.7-1.3); GFR 64.1; POTASSIUM 4.1 mmol/L (3.5-5.1); TOTAL BILIRUBIN 0.6 mg/dL (0.2-1.0)
[2016-08-14 04:32] LABS: CHOLESTEROL/HDL RATIO 3.4
[2016-08-14 07:00] VITALS: BP 134/84
[2016-08-14] MEDS: METOPROLOL SUCC 24HR ER 25 MG TAB.ER.24H. PO SCH (09:00)
--- NOTE | 2016-08-14 10:44 | PDOC ---
PROGRESS NOTES Subjective Subjective he is in atrial flutter with slow VR 50s and 64 on my exam. blood pressure is okay. denies chest pain or shortness of breath. cardiac enzymes neg times 3. Objective Objective Vital Signs Date Time Temp Pulse Resp B/P Pulse Ox O2 Delivery O2 Flow Rate FiO2 08/14/16 08:00 Room Air 08/14/16 07:00 98.4 62 20 134/84 95 98.4 Intake and Output 08/14/16 07:00 Intake Total 1000 ml Output Total 1475 ml Balance -475 ml Intake Oral 1000 ml Output Urine Total 1475 ml # Voids 7 # Bowel Movements 2 Physical Exam Abdomen: Soft Heart: Normal S1, Normal S2 Extremities: Other (trace edema legs) General: Alert HEENT: Atraumatic Lungs: Clear to auscultation Neuro: Normal speech Psych/Mental Status: Mental status NL Skin: No rashes Assessment Assessment Problems Medical Problems:1. chest pain . acute AK ruled out. concern for unstable angina atrial flutter with slow ventricular response 2. Coronary artery disease with previous history of coronary angioplasty and stent to the circumflex artery and left anterior descending coronary artery. 3. Hypertension. His blood pressure has been elevated. 4. Hyperlipidemia. 5. 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 6. Periodic limb movement disorder. (1) CAD (coronary artery disease) Status: Acute (2) Chest pressure Status: Acute (3) Chest pressure Status: Acute (4) SOB (shortness of breath) Status: Acute Plan Plan of Care discussed with nurse who will call dr. galloway concerning plans for cardiac cath. and evaluate anticoagulation with lovenox and eventually coumadin. the novel anticoagulants will be too expensive for him. will decrease metoprolol and hold if AP less than 60. consider pacemaker if VR remains low. echocardiogram today. he is currently receiving aspirin and plavix. Comment Review of Relevant I have reviewed the following items gela (where applicable) has been applied. Labs Laboratory Tests Test 08/13/16 08:00 08/13/16 14:45 08/13/16 20:53 08/14/16 03:40 White Blood Count 8.2x10^3/uL (4.0-11.0) 7.2x10^3/uL (4.0-11.0) Red Blood Count 4.37x10^6/uL (4.30-5.70) 3.97x10^6/uL (4.30-5.70) Hemoglobin 13.3g/dL (13.0-17.5) 12.2g/dL (13.0-17.5) Hematocrit 40.5% (39.0-53.0) 36.7% (39.0-53.0) Mean Corpuscular Volume 93fL (79-100) 93fL (79-100) Mean Corpuscular Hemoglobin 30pg (25-35) 31pg (25-35) Mean Corpuscular Hemoglobin Concent 33g/dL (31-37) 33g/dL (31-37) Red Cell Distribution Width 13.8% (11.5-14.5) 13.7% (11.5-14.5) Platelet Count 169x10^3/uL (140-400) 153x10^3/uL (140-400) Neutrophils (%) (Auto) 65% (31-73) 57% (31-73) Lymphocytes (%) (Auto) 23% (24-48) 29% (24-48) Monocytes (%) (Auto) 8% (0-9) 9% (0-9) Eosinophils (%) (Auto) 3% (0-3) 5% (0-3) Basophils (%) (Auto) 1% (0-3) 1% (0-3) Neutrophils # (Auto) 5.4x10^3uL (1.8-7.7) 4.1x10^3uL (1.8-7.7) Lymphocytes # (Auto) 1.9x10^3/uL (1.0-4.8) 2.0x10^3/uL (1.0-4.8) Monocytes # (Auto) 0.6x10^3/uL (0.0-1.1) 0.6x10^3/uL (0.0-1.1) Eosinophils # (Auto) 0.3x10^3/uL (0.0-0.7) 0.4x10^3/uL (0.0-0.7) Basophils # (Auto) 0.1x10^3/uL (0.0-0.2) 0.1x10^3/uL (0.0-0.2) Sodium Level 145mmol/L (136-145) 145mmol/L (136-145) Potassium Level 3.7mmol/L (3.5-5.1) 4.1mmol/L (3.5-5.1) Chloride Level 111mmol/L (98-107) 110mmol/L (98-107) Carbon Dioxide Level 28mmol/L (21-32) 29mmol/L (21-32) Anion Gap 6 (6-14) 6 (6-14) Blood Urea Nitrogen 23mg/dL (8-26) 19mg/dL (8-26) Creatinine 1.1mg/dL (0.7-1.3) 1.1mg/dL (0.7-1.3) Estimated GFR (Cockcroft-Gault) 64.1 64.1 Glucose Level 110mg/dL (70-99) 96mg/dL (70-99) Calcium Level 8.6mg/dL (8.5-10.1) 8.3mg/dL (8.5-10.1) Troponin I Quantitative < 0.017ng/mL (0.000-0.055) < 0.017ng/mL (0.000-0.055) < 0.017ng/mL (0.000-0.055) BW-Crq-D-Type Natriuretic Peptide 1951pg/mL (0-449) Prothrombin Time 14.4SEC (11.7-14.0) Prothromb Time International Ratio 1.2 (0.8-1.1) Activated Partial Thromboplast Time 34SEC (24-38) D-Dimer (Cecile) 0.40ug/mlFEU (0.00-0.50) BUN/Creatinine Ratio 17 (6-20) Total Bilirubin 0.6mg/dL (0.2-1.0) Aspartate Amino Transf (AST/SGOT) 11U/L (15-37) Alanine Aminotransferase (ALT/SGPT) 17U/L (16-63) Alkaline Phosphatase 72U/L (46-116) Total Protein 6.0g/dL (6.4-8.2) Albumin 3.3g/dL (3.4-5.0) Albumin/Globulin Ratio 1.2 (1.0-1.7) Triglycerides Level 63mg/dL (0-150) Cholesterol Level 124mg/dL (0-200) LDL Cholesterol, Calculated 75mg/dL (0-100) VLDL Cholesterol, Calculated 13mg/dL (0-40) HDL Cholesterol 36mg/dL (40-60) Cholesterol/HDL Ratio 3.4 Laboratory Tests Test 08/13/16 14:45 08/13/16 20:53 08/14/16 03:40 Troponin I Quantitative < 0.017ng/mL (0.000-0.055) < 0.017ng/mL (0.000-0.055) White Blood Count 7.2x10^3/uL (4.0-11.0) Red Blood Count 3.97x10^6/uL (4.30-5.70) Hemoglobin 12.2g/dL (13.0-17.5) Hematocrit 36.7% (39.0-53.0) Mean Corpuscular Volume 93fL (79-100) Mean Corpuscular Hemoglobin 31pg (25-35) Mean Corpuscular Hemoglobin Concent 33g/dL (31-37) Red Cell Distribution Width 13.7% (11.5-14.5) Platelet Count 153x10^3/uL (140-400) Neutrophils (%) (Auto) 57% (31-73) Lymphocytes (%) (Auto) 29% (24-48) Monocytes (%) (Auto) 9% (0-9) Eosinophils (%) (Auto) 5% (0-3) Basophils (%) (Auto) 1% (0-3) Neutrophils # (Auto) 4.1x10^3uL (1.8-7.7) Lymphocytes # (Auto) 2.0x10^3/uL (1.0-4.8) Monocytes # (Auto) 0.6x10^3/uL (0.0-1.1) Eosinophils # (Auto) 0.4x10^3/uL (0.0-0.7) Basophils # (Auto) 0.1x10^3/uL (0.0-0.2) Prothrombin Time 14.4SEC (11.7-14.0) Prothromb Time International Ratio 1.2 (0.8-1.1) Activated Partial Thromboplast Time 34SEC (24-38) D-Dimer (Cecile) 0.40ug/mlFEU (0.00-0.50) Sodium Level 145mmol/L (136-145) Potassium Level 4.1mmol/L (3.5-5.1) Chloride Level 110mmol/L (98-107) Carbon Dioxide Level 29mmol/L (21-32) Anion Gap 6 (6-14) Blood Urea Nitrogen 19mg/dL (8-26) Creatinine 1.1mg/dL (0.7-1.3) Estimated GFR (Cockcroft-Gault) 64.1 BUN/Creatinine Ratio 17 (6-20) Glucose Level 96mg/dL (70-99) Calcium Level 8.3mg/dL (8.5-10.1) Total Bilirubin 0.6mg/dL (0.2-1.0) Aspartate Amino Transf (AST/SGOT) 11U/L (15-37) Alanine Aminotransferase (ALT/SGPT) 17U/L (16-63) Alkaline Phosphatase 72U/L (46-116) Total Protein 6.0g/dL (6.4-8.2) Albumin 3.3g/dL (3.4-5.0) Albumin/Globulin Ratio 1.2 (1.0-1.7) Triglycerides Level 63mg/dL (0-150) Cholesterol Level 124mg/dL (0-200) LDL Cholesterol, Calculated 75mg/dL (0-100) VLDL Cholesterol, Calculated 13mg/dL (0-40) HDL Cholesterol 36mg/dL (40-60) Cholesterol/HDL Ratio 3.4 Medications Current Medications Aspirin (Children'S Aspirin) 324 mg 1X ONCE PO Last administered on 08/13/16 08:19; Start 08/13/16 at 09:00; Stop 08/13/16 at 09:01; Status DC Atenolol (Tenormin) 25 mg 1X ONCE PO Last administered on 08/13/16 08:20; Start 08/13/16 at 09:00; Stop 08/13/16 at 09:01; Status DC Ondansetron HCl (Zofran) 4 mg PRN Q8HRS PRN IV NAUSEA/VOMITING; Start 08/13/16 at 09:00; Stop 08/14/16 at 08:59; Status DC Morphine Sulfate 4 mg PRN Q2HR PRN IV PAIN; Start 08/13/16 at 09:00; Stop at 08:59; Status DC Acetaminophen (Tylenol) 650 mg PRN Q4HRS PRN PO FEVER; Start 08/13/16 at 09:00; Stop 08/13/16 at 11:58; Status DC Nitroglycerin (Nitrostat) 0.4 mg PRN Q5MIN PRN SL CHEST PAIN; Start 08/13/16 at 09:00; Stop 08/13/16 at 11:58; Status DC Acetaminophen (Tylenol) 650 mg PRN Q4HRS PRN PO MILD PAIN / TEMP; Start at 11:45 Aspirin (Nel Aspirin) 325 mg DAILYWBKFT PO Last administered on 08/13/16 15: 03; Start 08/13/16 at 13:00 Hydrochlorothiazide (Hydrodiuril) 25 mg DAILY PO ; Start 08/13/16 at 13:00 Atorvastatin Calcium (Lipitor) 80 mg QHS PO Last administered on 08/13/16 21:48 ; Start 08/13/16 at 21:00 Famotidine (Pepcid) 40 mg QHS PO Last administered on 08/13/16 21:49; Start 08/13/16 at 21:00 Tamsulosin HCl (Flomax) 0.4 mg QHS PO Last administered on 08/13/16 21:49; Start 08/13/16 at 21:00 Pantoprazole Sodium (Protonix) 40 mg DAILYAC PO Last administered on 08/13/16 15:03; Start 08/13/16 at 13:00 Tramadol HCl (Ultram) 50 mg PRN Q6HRS PRN PO PAIN; Start 08/13/16 at 11:45 Nitroglycerin (Nitrostat) 0.4 mg PRN Q5MIN PRN SL CHEST PAIN; Start 08/13/16 at 11:45 Metoprolol Succinate (Toprol Xl) 25 mg DAILY PO ; Start 08/13/16 at 13:00 Clonazepam (Klonopin) 1 mg QHS PO Last administered on 08/13/16 21:49; Start at 21:00 Clopidogrel Bisulfate (Plavix) 75 mg DAILYWBKFT PO Last administered on t 15:03; Start 08/13/16 at 13:00 Magnesium Hydroxide (Milk Of Magnesia) 2,400 mg PRN DAILY PRN PO CONSTIPATION; Start 08/13/16 at 11:45 Al Hydroxide/Mg Hydroxide (Mylanta Plus Xs) 30 ml PRN Q2HR PRN PO HEARTBURN / GAS; Start 08/13/16 at 22:15 Active Scripts Active Reported Tramadol Hcl 50 Mg Tablet 50 Mg PO NEEDED Tamsulosin Hcl 0.4 Mg Cap.er.24h 0.4 Mg PO BID Omeprazole 40 Mg Capsule.dr 40 Mg PO DAILY NITROGLYCERIN SubLingual (Nitroglycerin) 0.4 Mg Tab.subl 0.4 Mg SL DAILY Nifedipine Er (Nifedipine) 30 Mg Tab.er.24 30 Mg PO DAILY Daily Vitamin (Multivitamin) 1 Each Tablet 1 Each PO DAILY Hydrocodone-Apap 7.5-325 (Hydrocodone Bit/Acetaminophen) 1 Each Tablet 1 Each PO NEEDED Flonase (Fluticasone Propionate) 16 Gm [place].susp 16 Gm NS DAILY Famotidine 40 Mg Tablet 40 Mg PO DAILY Crestor (Rosuvastatin Calcium) 40 Mg Tablet 40 Mg PO DAILY Clopidogrel (Clopidogrel Bisulfate) 75 Mg Tablet 75 Mg PO DAILY Clonazepam Odt (Clonazepam) 1 Mg Tab.rapdis 1 Mg PO HS Atenolol 25 Mg Tablet 25 Mg PO DAILY Vitals/I & O Vital Sign - Last 24 Hours 08/13/16 08/13/16 08/13/16 08/13/16 15:30 19:25 20:00 23:30 Temp 98.4 98.0 98.4 98.4 98.0 98.4 Pulse 47 61 49 Resp 20 20 16 B/P 157/73 131/68 116/62 Pulse Ox 96 97 95 O2 Delivery Room Air Room Air Room Air Room Air 08/14/16 08/14/16 08/14/16 03:20 07:00 08:00 Temp 98.4 98.4 98.4 98.4 Pulse 52 62 Resp 18 20 B/P 141/83 134/84 Pulse Ox 97 95 O2 Delivery Room Air Room Air Room Air Intake and Output 08/13/16 08/13/16 08/14/16 15:00 23:00 07:00 Intake Total 1000 ml Output Total 1100 ml 375 ml Balance -100 ml -375 ml HELEN WARREN MD Aug 14, 2016 10:44
[2016-08-14 11:44] VITALS: BP 169/68
[2016-08-14 11:55] VITALS: BP 160/93
[2016-08-14] MEDS: CLOPIDOGREL BISULFATE 75 MG TABLET PO SCH (12:04)
[2016-08-14] MEDS: HYDROCHLOROTHIAZIDE 25 MG TABLET PO SCH (12:05)
[2016-08-14] MEDS: ASPIRIN 325 MG TABLET PO SCH (12:06)
[2016-08-14] MEDS: PANTOPRAZOLE 40 MG TABLET.DR. PO SCH (12:06)
[2016-08-14] MEDS: TAMSULOSIN 0.4 MG CAP.ER.24H. PO SCH ×2 (12:30→21:00)
--- NOTE | 2016-08-14 13:11 | PDOC ---
G I PROGRESS NOTE Subjective Slept in chair last night, therefore no choking. Physical Exam Lungs clear. RRR Abdomen soft, not tender nor distended. Review of Relevant I have reviewed the following items gela (where applicable) has been applied. Labs Laboratory Tests Test 08/13/16 08:00 08/13/16 14:45 08/13/16 20:53 08/14/16 03:40 White Blood Count 8.2x10^3/uL (4.0-11.0) 7.2x10^3/uL (4.0-11.0) Red Blood Count 4.37x10^6/uL (4.30-5.70) 3.97x10^6/uL (4.30-5.70) Hemoglobin 13.3g/dL (13.0-17.5) 12.2g/dL (13.0-17.5) Hematocrit 40.5% (39.0-53.0) 36.7% (39.0-53.0) Mean Corpuscular Volume 93fL (79-100) 93fL (79-100) Mean Corpuscular Hemoglobin 30pg (25-35) 31pg (25-35) Mean Corpuscular Hemoglobin Concent 33g/dL (31-37) 33g/dL (31-37) Red Cell Distribution Width 13.8% (11.5-14.5) 13.7% (11.5-14.5) Platelet Count 169x10^3/uL (140-400) 153x10^3/uL (140-400) Neutrophils (%) (Auto) 65% (31-73) 57% (31-73) Lymphocytes (%) (Auto) 23% (24-48) 29% (24-48) Monocytes (%) (Auto) 8% (0-9) 9% (0-9) Eosinophils (%) (Auto) 3% (0-3) 5% (0-3) Basophils (%) (Auto) 1% (0-3) 1% (0-3) Neutrophils # (Auto) 5.4x10^3uL (1.8-7.7) 4.1x10^3uL (1.8-7.7) Lymphocytes # (Auto) 1.9x10^3/uL (1.0-4.8) 2.0x10^3/uL (1.0-4.8) Monocytes # (Auto) 0.6x10^3/uL (0.0-1.1) 0.6x10^3/uL (0.0-1.1) Eosinophils # (Auto) 0.3x10^3/uL (0.0-0.7) 0.4x10^3/uL (0.0-0.7) Basophils # (Auto) 0.1x10^3/uL (0.0-0.2) 0.1x10^3/uL (0.0-0.2) Sodium Level 145mmol/L (136-145) 145mmol/L (136-145) Potassium Level 3.7mmol/L (3.5-5.1) 4.1mmol/L (3.5-5.1) Chloride Level 111mmol/L (98-107) 110mmol/L (98-107) Carbon Dioxide Level 28mmol/L (21-32) 29mmol/L (21-32) Anion Gap 6 (6-14) 6 (6-14) Blood Urea Nitrogen 23mg/dL (8-26) 19mg/dL (8-26) Creatinine 1.1mg/dL (0.7-1.3) 1.1mg/dL (0.7-1.3) Estimated GFR (Cockcroft-Gault) 64.1 64.1 Glucose Level 110mg/dL (70-99) 96mg/dL (70-99) Calcium Level 8.6mg/dL (8.5-10.1) 8.3mg/dL (8.5-10.1) Troponin I Quantitative < 0.017ng/mL (0.000-0.055) < 0.017ng/mL (0.000-0.055) < 0.017ng/mL (0.000-0.055) SI-Zce-I-Type Natriuretic Peptide 1951pg/mL (0-449) Prothrombin Time 14.4SEC (11.7-14.0) Prothromb Time International Ratio 1.2 (0.8-1.1) Activated Partial Thromboplast Time 34SEC (24-38) D-Dimer (Cecile) 0.40ug/mlFEU (0.00-0.50) BUN/Creatinine Ratio 17 (6-20) Total Bilirubin 0.6mg/dL (0.2-1.0) Aspartate Amino Transf (AST/SGOT) 11U/L (15-37) Alanine Aminotransferase (ALT/SGPT) 17U/L (16-63) Alkaline Phosphatase 72U/L (46-116) Total Protein 6.0g/dL (6.4-8.2) Albumin 3.3g/dL (3.4-5.0) Albumin/Globulin Ratio 1.2 (1.0-1.7) Triglycerides Level 63mg/dL (0-150) Cholesterol Level 124mg/dL (0-200) LDL Cholesterol, Calculated 75mg/dL (0-100) VLDL Cholesterol, Calculated 13mg/dL (0-40) HDL Cholesterol 36mg/dL (40-60) Cholesterol/HDL Ratio 3.4 Laboratory Tests Test 08/13/16 14:45 08/13/16 20:53 08/14/16 03:40 Troponin I Quantitative < 0.017ng/mL (0.000-0.055) < 0.017ng/mL (0.000-0.055) White Blood Count 7.2x10^3/uL (4.0-11.0) Red Blood Count 3.97x10^6/uL (4.30-5.70) Hemoglobin 12.2g/dL (13.0-17.5) Hematocrit 36.7% (39.0-53.0) Mean Corpuscular Volume 93fL (79-100) Mean Corpuscular Hemoglobin 31pg (25-35) Mean Corpuscular Hemoglobin Concent 33g/dL (31-37) Red Cell Distribution Width 13.7% (11.5-14.5) Platelet Count 153x10^3/uL (140-400) Neutrophils (%) (Auto) 57% (31-73) Lymphocytes (%) (Auto) 29% (24-48) Monocytes (%) (Auto) 9% (0-9) Eosinophils (%) (Auto) 5% (0-3) Basophils (%) (Auto) 1% (0-3) Neutrophils # (Auto) 4.1x10^3uL (1.8-7.7) Lymphocytes # (Auto) 2.0x10^3/uL (1.0-4.8) Monocytes # (Auto) 0.6x10^3/uL (0.0-1.1) Eosinophils # (Auto) 0.4x10^3/uL (0.0-0.7) Basophils # (Auto) 0.1x10^3/uL (0.0-0.2) Prothrombin Time 14.4SEC (11.7-14.0) Prothromb Time International Ratio 1.2 (0.8-1.1) Activated Partial Thromboplast Time 34SEC (24-38) D-Dimer (Cecile) 0.40ug/mlFEU (0.00-0.50) Sodium Level 145mmol/L (136-145) Potassium Level 4.1mmol/L (3.5-5.1) Chloride Level 110mmol/L (98-107) Carbon Dioxide Level 29mmol/L (21-32) Anion Gap 6 (6-14) Blood Urea Nitrogen 19mg/dL (8-26) Creatinine 1.1mg/dL (0.7-1.3) Estimated GFR (Cockcroft-Gault) 64.1 BUN/Creatinine Ratio 17 (6-20) Glucose Level 96mg/dL (70-99) Calcium Level 8.3mg/dL (8.5-10.1) Total Bilirubin 0.6mg/dL (0.2-1.0) Aspartate Amino Transf (AST/SGOT) 11U/L (15-37) Alanine Aminotransferase (ALT/SGPT) 17U/L (16-63) Alkaline Phosphatase 72U/L (46-116) Total Protein 6.0g/dL (6.4-8.2) Albumin 3.3g/dL (3.4-5.0) Albumin/Globulin Ratio 1.2 (1.0-1.7) Triglycerides Level 63mg/dL (0-150) Cholesterol Level 124mg/dL (0-200) LDL Cholesterol, Calculated 75mg/dL (0-100) VLDL Cholesterol, Calculated 13mg/dL (0-40) HDL Cholesterol 36mg/dL (40-60) Cholesterol/HDL Ratio 3.4 Medications Current Medications Aspirin (Children'S Aspirin) 324 mg 1X ONCE PO Last administered on 08/13/16 08:19; Start 08/13/16 at 09:00; Stop 08/13/16 at 09:01; Status DC Atenolol (Tenormin) 25 mg 1X ONCE PO Last administered on 08/13/16 08:20; Start 08/13/16 at 09:00; Stop 08/13/16 at 09:01; Status DC Ondansetron HCl (Zofran) 4 mg PRN Q8HRS PRN IV NAUSEA/VOMITING; Start 08/13/16 at 09:00; Stop 08/14/16 at 08:59; Status DC Morphine Sulfate 4 mg PRN Q2HR PRN IV PAIN; Start 08/13/16 at 09:00; Stop at 08:59; Status DC Acetaminophen (Tylenol) 650 mg PRN Q4HRS PRN PO FEVER; Start 08/13/16 at 09:00; Stop 08/13/16 at 11:58; Status DC Nitroglycerin (Nitrostat) 0.4 mg PRN Q5MIN PRN SL CHEST PAIN; Start 08/13/16 at 09:00; Stop 08/13/16 at 11:58; Status DC Acetaminophen (Tylenol) 650 mg PRN Q4HRS PRN PO MILD PAIN / TEMP; Start at 11:45 Aspirin (Nel Aspirin) 325 mg DAILYWBKFT PO Last administered on 08/14/16 12: 06; Start 08/13/16 at 13:00 Hydrochlorothiazide (Hydrodiuril) 25 mg DAILY PO Last administered on 08/14/16 12:05; Start 08/13/16 at 13:00 Atorvastatin Calcium (Lipitor) 80 mg QHS PO Last administered on 08/13/16 21:48 ; Start 08/13/16 at 21:00 Famotidine (Pepcid) 40 mg QHS PO Last administered on 08/13/16 21:49; Start 08/13/16 at 21:00 Tamsulosin HCl (Flomax) 0.4 mg QHS PO Last administered on 08/13/16 21:49; Start 08/13/16 at 21:00 Pantoprazole Sodium (Protonix) 40 mg DAILYAC PO Last administered on 4/3/17at 12:06; Start 08/13/16 at 13:00 Tramadol HCl (Ultram) 50 mg PRN Q6HRS PRN PO PAIN; Start 08/13/16 at 11:45 Nitroglycerin (Nitrostat) 0.4 mg PRN Q5MIN PRN SL CHEST PAIN; Start 08/13/16 at 11:45 Metoprolol Succinate (Toprol Xl) 25 mg DAILY PO ; Start 08/13/16 at 13:00; Stop 08/14/16 at 10:38; Status DC Clonazepam (Klonopin) 1 mg QHS PO Last administered on 08/13/16 21:49; Start at 21:00 Clopidogrel Bisulfate (Plavix) 75 mg DAILYWBKFT PO Last administered on 12:04; Start 08/13/16 at 13:00 Magnesium Hydroxide (Milk Of Magnesia) 2,400 mg PRN DAILY PRN PO CONSTIPATION; Start 08/13/16 at 11:45 Al Hydroxide/Mg Hydroxide (Mylanta Plus Xs) 30 ml PRN Q2HR PRN PO HEARTBURN / GAS; Start 08/13/16 at 22:15 Metoprolol Succinate (Toprol Xl) 12.5 mg DAILY PO ; Start 08/15/16 at 09:00 Active Scripts Active Reported Tramadol Hcl 50 Mg Tablet 50 Mg PO NEEDED Tamsulosin Hcl 0.4 Mg Cap.er.24h 0.4 Mg PO BID Omeprazole 40 Mg Capsule.dr 40 Mg PO DAILY NITROGLYCERIN SubLingual (Nitroglycerin) 0.4 Mg Tab.subl 0.4 Mg SL DAILY Nifedipine Er (Nifedipine) 30 Mg Tab.er.24 30 Mg PO DAILY Daily Vitamin (Multivitamin) 1 Each Tablet 1 Each PO DAILY Hydrocodone-Apap 7.5-325 (Hydrocodone Bit/Acetaminophen) 1 Each Tablet 1 Each PO NEEDED Flonase (Fluticasone Propionate) 16 Gm [place].susp 16 Gm NS DAILY Famotidine 40 Mg Tablet 40 Mg PO DAILY Crestor (Rosuvastatin Calcium) 40 Mg Tablet 40 Mg PO DAILY Clopidogrel (Clopidogrel Bisulfate) 75 Mg Tablet 75 Mg PO DAILY Clonazepam Odt (Clonazepam) 1 Mg Tab.rapdis 1 Mg PO HS Atenolol 25 Mg Tablet 25 Mg PO DAILY Vitals/I & O Vital Sign - Last 24 Hours 08/13/16 08/13/16 08/13/16 08/13/16 15:30 19:25 20:00 23:30 Temp 98.4 98.0 98.4 98.4 98.0 98.4 Pulse 47 61 49 Resp 20 20 16 B/P 157/73 131/68 116/62 Pulse Ox 96 97 95 O2 Delivery Room Air Room Air Room Air Room Air 08/14/16 08/14/16 08/14/16 08/14/16 03:20 07:00 08:00 11:55 Temp 98.4 98.4 97.3 98.4 98.4 97.3 Pulse 52 62 62 Resp 18 20 18 B/P 141/83 134/84 160/93 Pulse Ox 97 95 92 O2 Delivery Room Air Room Air Room Air Room Air Intake and Output 08/13/16 08/13/16 08/14/16 15:00 23:00 07:00 Intake Total 1000 ml Output Total 1100 ml 375 ml Balance -100 ml -375 ml Problem List Problems Medical Problems: (1) CAD (coronary artery disease) Status: Acute (2) Chest pressure Status: Acute (3) Chest pressure Status: Acute (4) SOB (shortness of breath) Status: Acute Assessment Achalasia, post-repair, with nocturnal choking. Understandably better when upright. Plan of Care: Continue current Tx, Mgmt Plan of Care Note Continue cardiac w/u. Barium esophagram (not video swallow) when cardiac evaluation done or nearly so. HELEN RODRIGUEZ MD Aug 14, 2016 13:11
--- NOTE | 2016-08-14 13:20 | PDOC ---
PROGRESS NOTES Subjective Subjective Patient states that he is feeling well today. He denies any chest pain/pressure/ tightness this morning nor any shortness of breath. Patient also denies any palpitations, sweating, nausea or vomiting. Objective Objective Vital Signs Date Time Temp Pulse Resp B/P Pulse Ox O2 Delivery O2 Flow Rate FiO2 08/14/16 11:55 97.3 62 18 160/93 92 Room Air 97.3 Intake and Output 08/14/16 06:59 Intake Total 1000 ml Output Total 1475 ml Balance -475 ml Intake Oral 1000 ml Output Urine Total 1475 ml # Voids 7 # Bowel Movements 2 Physical Exam Physical Exam GENERAL: patient sitting up resting comfortably in chair, no acute distress HEART: irregularly irregular, bradycardia CHEST: no costochondral or epigastric tenderness to palpation LUNGS: clear bilaterally EXTREMITIES: no pedal edema noted bilaterally Assessment Assessment Patient still experiencing episodes of bradycardia with intermittent pauses and atrial flutter. Problems Medical Problems: (1) CAD (coronary artery disease) Status: Acute (2) Chest pressure Status: Acute (3) Chest pressure Status: Acute (4) SOB (shortness of breath) Status: Acute Plan Plan of Care Will start patient on Lovenox. Holding Warfarin at this time pending catheterization/pacemaker plans. Awaiting results of Echocardiogram. Comment Review of Relevant I have reviewed the following items gela (where applicable) has been applied. Labs Laboratory Tests Test 08/13/16 08:00 08/13/16 14:45 08/13/16 20:53 08/14/16 03:40 White Blood Count 8.2x10^3/uL (4.0-11.0) 7.2x10^3/uL (4.0-11.0) Red Blood Count 4.37x10^6/uL (4.30-5.70) 3.97x10^6/uL (4.30-5.70) Hemoglobin 13.3g/dL (13.0-17.5) 12.2g/dL (13.0-17.5) Hematocrit 40.5% (39.0-53.0) 36.7% (39.0-53.0) Mean Corpuscular Volume 93fL (79-100) 93fL (79-100) Mean Corpuscular Hemoglobin 30pg (25-35) 31pg (25-35) Mean Corpuscular Hemoglobin Concent 33g/dL (31-37) 33g/dL (31-37) Red Cell Distribution Width 13.8% (11.5-14.5) 13.7% (11.5-14.5) Platelet Count 169x10^3/uL (140-400) 153x10^3/uL (140-400) Neutrophils (%) (Auto) 65% (31-73) 57% (31-73) Lymphocytes (%) (Auto) 23% (24-48) 29% (24-48) Monocytes (%) (Auto) 8% (0-9) 9% (0-9) Eosinophils (%) (Auto) 3% (0-3) 5% (0-3) Basophils (%) (Auto) 1% (0-3) 1% (0-3) Neutrophils # (Auto) 5.4x10^3uL (1.8-7.7) 4.1x10^3uL (1.8-7.7) Lymphocytes # (Auto) 1.9x10^3/uL (1.0-4.8) 2.0x10^3/uL (1.0-4.8) Monocytes # (Auto) 0.6x10^3/uL (0.0-1.1) 0.6x10^3/uL (0.0-1.1) Eosinophils # (Auto) 0.3x10^3/uL (0.0-0.7) 0.4x10^3/uL (0.0-0.7) Basophils # (Auto) 0.1x10^3/uL (0.0-0.2) 0.1x10^3/uL (0.0-0.2) Sodium Level 145mmol/L (136-145) 145mmol/L (136-145) Potassium Level 3.7mmol/L (3.5-5.1) 4.1mmol/L (3.5-5.1) Chloride Level 111mmol/L (98-107) 110mmol/L (98-107) Carbon Dioxide Level 28mmol/L (21-32) 29mmol/L (21-32) Anion Gap 6 (6-14) 6 (6-14) Blood Urea Nitrogen 23mg/dL (8-26) 19mg/dL (8-26) Creatinine 1.1mg/dL (0.7-1.3) 1.1mg/dL (0.7-1.3) Estimated GFR (Cockcroft-Gault) 64.1 64.1 Glucose Level 110mg/dL (70-99) 96mg/dL (70-99) Calcium Level 8.6mg/dL (8.5-10.1) 8.3mg/dL (8.5-10.1) Troponin I Quantitative < 0.017ng/mL (0.000-0.055) < 0.017ng/mL (0.000-0.055) < 0.017ng/mL (0.000-0.055) WM-Lsx-Y-Type Natriuretic Peptide 1951pg/mL (0-449) Prothrombin Time 14.4SEC (11.7-14.0) Prothromb Time International Ratio 1.2 (0.8-1.1) Activated Partial Thromboplast Time 34SEC (24-38) D-Dimer (Cecile) 0.40ug/mlFEU (0.00-0.50) BUN/Creatinine Ratio 17 (6-20) Total Bilirubin 0.6mg/dL (0.2-1.0) Aspartate Amino Transf (AST/SGOT) 11U/L (15-37) Alanine Aminotransferase (ALT/SGPT) 17U/L (16-63) Alkaline Phosphatase 72U/L (46-116) Total Protein 6.0g/dL (6.4-8.2) Albumin 3.3g/dL (3.4-5.0) Albumin/Globulin Ratio 1.2 (1.0-1.7) Triglycerides Level 63mg/dL (0-150) Cholesterol Level 124mg/dL (0-200) LDL Cholesterol, Calculated 75mg/dL (0-100) VLDL Cholesterol, Calculated 13mg/dL (0-40) HDL Cholesterol 36mg/dL (40-60) Cholesterol/HDL Ratio 3.4 Laboratory Tests Test 08/13/16 14:45 08/13/16 20:53 08/14/16 03:40 Troponin I Quantitative < 0.017ng/mL (0.000-0.055) < 0.017ng/mL (0.000-0.055) White Blood Count 7.2x10^3/uL (4.0-11.0) Red Blood Count 3.97x10^6/uL (4.30-5.70) Hemoglobin 12.2g/dL (13.0-17.5) Hematocrit 36.7% (39.0-53.0) Mean Corpuscular Volume 93fL (79-100) Mean Corpuscular Hemoglobin 31pg (25-35) Mean Corpuscular Hemoglobin Concent 33g/dL (31-37) Red Cell Distribution Width 13.7% (11.5-14.5) Platelet Count 153x10^3/uL (140-400) Neutrophils (%) (Auto) 57% (31-73) Lymphocytes (%) (Auto) 29% (24-48) Monocytes (%) (Auto) 9% (0-9) Eosinophils (%) (Auto) 5% (0-3) Basophils (%) (Auto) 1% (0-3) Neutrophils # (Auto) 4.1x10^3uL (1.8-7.7) Lymphocytes # (Auto) 2.0x10^3/uL (1.0-4.8) Monocytes # (Auto) 0.6x10^3/uL (0.0-1.1) Eosinophils # (Auto) 0.4x10^3/uL (0.0-0.7) Basophils # (Auto) 0.1x10^3/uL (0.0-0.2) Prothrombin Time 14.4SEC (11.7-14.0) Prothromb Time International Ratio 1.2 (0.8-1.1) Activated Partial Thromboplast Time 34SEC (24-38) D-Dimer (Cecile) 0.40ug/mlFEU (0.00-0.50) Sodium Level 145mmol/L (136-145) Potassium Level 4.1mmol/L (3.5-5.1) Chloride Level 110mmol/L (98-107) Carbon Dioxide Level 29mmol/L (21-32) Anion Gap 6 (6-14) Blood Urea Nitrogen 19mg/dL (8-26) Creatinine 1.1mg/dL (0.7-1.3) Estimated GFR (Cockcroft-Gault) 64.1 BUN/Creatinine Ratio 17 (6-20) Glucose Level 96mg/dL (70-99) Calcium Level 8.3mg/dL (8.5-10.1) Total Bilirubin 0.6mg/dL (0.2-1.0) Aspartate Amino Transf (AST/SGOT) 11U/L (15-37) Alanine Aminotransferase (ALT/SGPT) 17U/L (16-63) Alkaline Phosphatase 72U/L (46-116) Total Protein 6.0g/dL (6.4-8.2) Albumin 3.3g/dL (3.4-5.0) Albumin/Globulin Ratio 1.2 (1.0-1.7) Triglycerides Level 63mg/dL (0-150) Cholesterol Level 124mg/dL (0-200) LDL Cholesterol, Calculated 75mg/dL (0-100) VLDL Cholesterol, Calculated 13mg/dL (0-40) HDL Cholesterol 36mg/dL (40-60) Cholesterol/HDL Ratio 3.4 Medications Current Medications Aspirin (Children'S Aspirin) 324 mg 1X ONCE PO Last administered on 08/13/16 08:19; Start 08/13/16 at 09:00; Stop 08/13/16 at 09:01; Status DC Atenolol (Tenormin) 25 mg 1X ONCE PO Last administered on 08/13/16 08:20; Start 08/13/16 at 09:00; Stop 08/13/16 at 09:01; Status DC Ondansetron HCl (Zofran) 4 mg PRN Q8HRS PRN IV NAUSEA/VOMITING; Start 08/13/16 at 09:00; Stop 08/14/16 at 08:59; Status DC Morphine Sulfate 4 mg PRN Q2HR PRN IV PAIN; Start 08/13/16 at 09:00; Stop at 08:59; Status DC Acetaminophen (Tylenol) 650 mg PRN Q4HRS PRN PO FEVER; Start 08/13/16 at 09:00; Stop 08/13/16 at 11:58; Status DC Nitroglycerin (Nitrostat) 0.4 mg PRN Q5MIN PRN SL CHEST PAIN; Start 08/13/16 at 09:00; Stop 08/13/16 at 11:58; Status DC Acetaminophen (Tylenol) 650 mg PRN Q4HRS PRN PO MILD PAIN / TEMP; Start at 11:45 Aspirin (Nel Aspirin) 325 mg DAILYWBKFT PO Last administered on 08/14/16 12: 06; Start 08/13/16 at 13:00 Hydrochlorothiazide (Hydrodiuril) 25 mg DAILY PO Last administered on 08/14/16 12:05; Start 08/13/16 at 13:00 Atorvastatin Calcium (Lipitor) 80 mg QHS PO Last administered on 08/13/16 21:48 ; Start 08/13/16 at 21:00 Famotidine (Pepcid) 40 mg QHS PO Last administered on 08/13/16 21:49; Start 08/13/16 at 21:00 Tamsulosin HCl (Flomax) 0.4 mg QHS PO Last administered on 08/13/16 21:49; Start 08/13/16 at 21:00 Pantoprazole Sodium (Protonix) 40 mg DAILYAC PO Last administered on 08/14/16 12:06; Start 08/13/16 at 13:00 Tramadol HCl (Ultram) 50 mg PRN Q6HRS PRN PO PAIN; Start 08/13/16 at 11:45 Nitroglycerin (Nitrostat) 0.4 mg PRN Q5MIN PRN SL CHEST PAIN; Start 08/13/16 at 11:45 Metoprolol Succinate (Toprol Xl) 25 mg DAILY PO ; Start 08/13/16 at 13:00; Stop 08/14/16 at 10:38; Status DC Clonazepam (Klonopin) 1 mg QHS PO Last administered on 08/13/16 21:49; Start at 21:00 Clopidogrel Bisulfate (Plavix) 75 mg DAILYWBKFT PO Last administered on 12:04; Start 08/13/16 at 13:00 Magnesium Hydroxide (Milk Of Magnesia) 2,400 mg PRN DAILY PRN PO CONSTIPATION; Start 08/13/16 at 11:45 Al Hydroxide/Mg Hydroxide (Mylanta Plus Xs) 30 ml PRN Q2HR PRN PO HEARTBURN / GAS; Start 08/13/16 at 22:15 Metoprolol Succinate (Toprol Xl) 12.5 mg DAILY PO ; Start 08/15/16 at 09:00 Active Scripts Active Reported Tramadol Hcl 50 Mg Tablet 50 Mg PO NEEDED Tamsulosin Hcl 0.4 Mg Cap.er.24h 0.4 Mg PO BID Omeprazole 40 Mg Capsule.dr 40 Mg PO DAILY NITROGLYCERIN SubLingual (Nitroglycerin) 0.4 Mg Tab.subl 0.4 Mg SL DAILY Nifedipine Er (Nifedipine) 30 Mg Tab.er.24 30 Mg PO DAILY Daily Vitamin (Multivitamin) 1 Each Tablet 1 Each PO DAILY Hydrocodone-Apap 7.5-325 (Hydrocodone Bit/Acetaminophen) 1 Each Tablet 1 Each PO NEEDED Flonase (Fluticasone Propionate) 16 Gm [place].susp 16 Gm NS DAILY Famotidine 40 Mg Tablet 40 Mg PO DAILY Crestor (Rosuvastatin Calcium) 40 Mg Tablet 40 Mg PO DAILY Clopidogrel (Clopidogrel Bisulfate) 75 Mg Tablet 75 Mg PO DAILY Clonazepam Odt (Clonazepam) 1 Mg Tab.rapdis 1 Mg PO HS Atenolol 25 Mg Tablet 25 Mg PO DAILY Vitals/I & O Vital Sign - Last 24 Hours 08/13/16 08/13/16 08/13/16 08/13/16 15:30 19:25 20:00 23:30 Temp 98.4 98.0 98.4 98.4 98.0 98.4 Pulse 47 61 49 Resp 20 20 16 B/P 157/73 131/68 116/62 Pulse Ox 96 97 95 O2 Delivery Room Air Room Air Room Air Room Air 08/14/16 08/14/16 08/14/16 08/14/16 03:20 07:00 08:00 11:55 Temp 98.4 98.4 97.3 98.4 98.4 97.3 Pulse 52 62 62 Resp 18 20 18 B/P 141/83 134/84 160/93 Pulse Ox 97 95 92 O2 Delivery Room Air Room Air Room Air Room Air Intake and Output 08/13/16 08/13/16 08/14/16 14:59 22:59 06:59 Intake Total 1000 ml Output Total 1100 ml 375 ml Balance -100 ml -375 ml MARISSA MCKEON MD Aug 14, 2016 13:20
--- NOTE | 2016-08-14 18:37 | CARD ---
APPROVED REPORT EXAM: Two-dimensional and M-mode echocardiogram with Doppler and color Doppler. Other Information Quality : GoodHR: 58bpm Rhythm : Bradycardia INDICATION Cardiac Disease: CAD Chest Pain Shortness of air, 2D DIMENSIONS RVDd2.7 (2.9-3.5cm)Left Atrium(2D)4.6 (1.6-4.0cm) IVSd1.1 (0.7-1.1cm)Aortic Root(2D)3.2 (2.0-3.7cm) LVDd6.5 (3.9-5.9cm)LVOT Diameter2.4 (1.8-2.4cm) PWd1.1 (0.7-1.1cm)LVDs4.0 (2.5-4.0cm) FS (%) 39.1 %SV150.2 ml LVEF(%)60.0 (>50%) Mitral Valve MV E Xsjfppoy906.0cm/sMV DECEL [id number] MV A Nbemfyku44.7cm/sE/A Ratio1.9 MV A Osfvctfu90gz Pulmonary Valve PV Peak Siqaathl064.9cm/s Tricuspid Valve TR P. Xdvossou427ll/sRAP [id number] TR Peak Gr.[id number] LEFT VENTRICLE The left ventricle is normal size. There is mild concentric left ventricular hypertrophy. The left ve ntricular systolic function is normal and the ejection fraction is within normal range. The Ejection Fraction is 60%. There is normal LV segmental wall motion. The left ventricular diastolic function an d filling is normal for age. RIGHT VENTRICLE The right ventricle is normal size. There is normal right ventricular wall thickness. The right ventr icular systolic function is normal. ATRIA The left atrium size is normal. The right atrium size is normal. The interatrial septum is intact wit h no evidence for an atrial septal defect or patent foramen ovale as noted on 2-D or Doppler imaging. AORTIC VALVE The aortic valve is mildly thickened. The aortic valve is trileaflet. Doppler and Color Flow revealed no significant aortic regurgitation. There is no significant aortic valvular stenosis. MITRAL VALVE The mitral valve leaflets are thickened. There is no evidence of mitral valve prolapse. There is no m itral valve stenosis. Doppler and Color Flow revealed trace mitral regurgitation. TRICUSPID VALVE Doppler and Color Flow revealed mild tricuspid regurgitation. The pulmonary artery systolic pressure is estimated at 44 mmHg. There is mild pulmonary hypertension. PULMONIC VALVE Doppler and Color Flow revealed mild pulmonic valvular regurgitation. GREAT VESSELS The aortic root is normal in size. The ascending aorta is normal in size. The pulmonary artery is nor mal. The IVC is normal in size and collapses >50% with inspiration. PERICARDIAL EFFUSION There is no evidence of significant pericardial effusion. Critical Notification Critical Value: No <Conclusion> The left ventricular systolic function is normal and the ejection fraction is within normal range. The Ejection Fraction is 60%. There is mild concentric left ventricular hypertrophy. The left atrium size is normal. The right atrium size is normal. The aortic valve is mildly thickened. The aortic valve is trileaflet. The mitral valve leaflets are thickened. Doppler and Color Flow revealed trace mitral regurgitation. Doppler and Color Flow revealed mild tricuspid regurgitation. The pulmonary artery systolic pressure is estimated at 44 mmHg. There is mild pulmonary hypertension. Doppler and Color Flow revealed mild pulmonic valvular regurgitation. There is no evidence of significant pericardial effusion.
[2016-08-14 19:40] VITALS: BP 142/79
[2016-08-14] MEDS: CLONAZEPAM 1 MG TABLET. PO SCH (20:36)
[2016-08-14] MEDS: FAMOTIDINE 20 MG TABLET. PO SCH (20:36)
[2016-08-14] MEDS: ATORVASTATIN CALCIUM 40 MG TABLET. PO SCH (20:37)
[2016-08-14 23:25] VITALS: BP 139/78
[2016-08-15 03:15] VITALS: BP 130/81
[2016-08-15 05:18] LABS: INR 1.3 (0.8-1.1); PROTHROMBIN TIME PATIENT 15.1 SEC (11.7-14.0)
[2016-08-15 05:40] LABS: CALCIUM 8.6 mg/dL (8.5-10.1); GFR 71.5; POTASSIUM 3.6 mmol/L (3.5-5.1)
[2016-08-15 07:18] VITALS: BP 144/74
--- NOTE | 2016-08-15 09:14 | PDOC ---
PROGRESS NOTES Subjective Subjective denies chest pain or shortness of breath. in atrial flutter VR 75. echocardiogram showed preserved LVEF. Objective Objective Vital Signs Date Time Temp Pulse Resp B/P Pulse Ox O2 Delivery O2 Flow Rate FiO2 08/15/16 07:45 Room Air 08/15/16 07:18 97.2 65 18 144/74 95 97.2 Intake and Output 08/15/16 07:00 Intake Total 480 ml Output Total 1300 ml Balance -820 ml Intake Oral 480 ml Output Urine Total 1300 ml Physical Exam Abdomen: Soft Heart: Normal S1, Normal S2 Extremities: No edema General: Alert HEENT: Atraumatic Lungs: Clear to auscultation Neuro: Normal speech Psych/Mental Status: Mental status NL Skin: No rashes Assessment Assessment Problems Medical Problems:. chest pain . acute IA ruled out. concern for unstable angina 2. Coronary artery disease with previous history of coronary angioplasty and stent to the circumflex artery and left anterior descending coronary artery. 3. Hypertension. 4. Hyperlipidemia. 5. 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 6. Periodic limb movement disorder. atrial flutter with controlled VR (1) CAD (coronary artery disease) Status: Acute (2) Chest pressure Status: Acute (3) Chest pressure Status: Acute (4) SOB (shortness of breath) Status: Acute Plan Plan of Care await dr. Dang input concerning cardiac cath and pacemaker continue lovenox continue metoprolol continue aspirin and plavix continue protonix and famotidine Comment Review of Relevant I have reviewed the following items gela (where applicable) has been applied. Labs Laboratory Tests Test 08/13/16 14:45 08/13/16 20:53 08/14/16 03:40 08/15/16 04:20 Troponin I Quantitative < 0.017ng/mL (0.000-0.055) < 0.017ng/mL (0.000-0.055) White Blood Count 7.2x10^3/uL (4.0-11.0) Red Blood Count 3.97x10^6/uL (4.30-5.70) Hemoglobin 12.2g/dL (13.0-17.5) Hematocrit 36.7% (39.0-53.0) Mean Corpuscular Volume 93fL (79-100) Mean Corpuscular Hemoglobin 31pg (25-35) Mean Corpuscular Hemoglobin Concent 33g/dL (31-37) Red Cell Distribution Width 13.7% (11.5-14.5) Platelet Count 153x10^3/uL (140-400) Neutrophils (%) (Auto) 57% (31-73) Lymphocytes (%) (Auto) 29% (24-48) Monocytes (%) (Auto) 9% (0-9) Eosinophils (%) (Auto) 5% (0-3) Basophils (%) (Auto) 1% (0-3) Neutrophils # (Auto) 4.1x10^3uL (1.8-7.7) Lymphocytes # (Auto) 2.0x10^3/uL (1.0-4.8) Monocytes # (Auto) 0.6x10^3/uL (0.0-1.1) Eosinophils # (Auto) 0.4x10^3/uL (0.0-0.7) Basophils # (Auto) 0.1x10^3/uL (0.0-0.2) Prothrombin Time 14.4SEC (11.7-14.0) 15.1SEC (11.7-14.0) Prothromb Time International Ratio 1.2 (0.8-1.1) 1.3 (0.8-1.1) Activated Partial Thromboplast Time 34SEC (24-38) D-Dimer (Cecile) 0.40ug/mlFEU (0.00-0.50) Sodium Level 145mmol/L (136-145) 145mmol/L (136-145) Potassium Level 4.1mmol/L (3.5-5.1) 3.6mmol/L (3.5-5.1) Chloride Level 110mmol/L (98-107) 108mmol/L (98-107) Carbon Dioxide Level 29mmol/L (21-32) 29mmol/L (21-32) Anion Gap 6 (6-14) 8 (6-14) Blood Urea Nitrogen 19mg/dL (8-26) 15mg/dL (8-26) Creatinine 1.1mg/dL (0.7-1.3) 1.0mg/dL (0.7-1.3) Estimated GFR (Cockcroft-Gault) 64.1 71.5 BUN/Creatinine Ratio 17 (6-20) Glucose Level 96mg/dL (70-99) 101mg/dL (70-99) Calcium Level 8.3mg/dL (8.5-10.1) 8.6mg/dL (8.5-10.1) Total Bilirubin 0.6mg/dL (0.2-1.0) Aspartate Amino Transf (AST/SGOT) 11U/L (15-37) Alanine Aminotransferase (ALT/SGPT) 17U/L (16-63) Alkaline Phosphatase 72U/L (46-116) Total Protein 6.0g/dL (6.4-8.2) Albumin 3.3g/dL (3.4-5.0) Albumin/Globulin Ratio 1.2 (1.0-1.7) Triglycerides Level 63mg/dL (0-150) Cholesterol Level 124mg/dL (0-200) LDL Cholesterol, Calculated 75mg/dL (0-100) VLDL Cholesterol, Calculated 13mg/dL (0-40) HDL Cholesterol 36mg/dL (40-60) Cholesterol/HDL Ratio 3.4 Thyroid Stimulating Hormone (TSH) 2.359uIU/mL (0.358-3.74) Laboratory Tests Test 08/15/16 04:20 Prothrombin Time 15.1SEC (11.7-14.0) Prothromb Time International Ratio 1.3 (0.8-1.1) Sodium Level 145mmol/L (136-145) Potassium Level 3.6mmol/L (3.5-5.1) Chloride Level 108mmol/L (98-107) Carbon Dioxide Level 29mmol/L (21-32) Anion Gap 8 (6-14) Blood Urea Nitrogen 15mg/dL (8-26) Creatinine 1.0mg/dL (0.7-1.3) Estimated GFR (Cockcroft-Gault) 71.5 Glucose Level 101mg/dL (70-99) Calcium Level 8.6mg/dL (8.5-10.1) Thyroid Stimulating Hormone (TSH) 2.359uIU/mL (0.358-3.74) Medications Current Medications Aspirin (Children'S Aspirin) 324 mg 1X ONCE PO Last administered on 08/13/16t 08:19; Start 08/13/16 at 09:00; Stop 08/13/16 at 09:01; Status DC Atenolol (Tenormin) 25 mg 1X ONCE PO Last administered on 08/13/16 08:20; Start 08/13/16 at 09:00; Stop 08/13/16 at 09:01; Status DC Ondansetron HCl (Zofran) 4 mg PRN Q8HRS PRN IV NAUSEA/VOMITING; Start 08/13/16 at 09:00; Stop 08/14/16 at 08:59; Status DC Morphine Sulfate 4 mg PRN Q2HR PRN IV PAIN; Start 08/13/16 at 09:00; Stop at 08:59; Status DC Acetaminophen (Tylenol) 650 mg PRN Q4HRS PRN PO FEVER; Start 08/13/16 at 09:00; Stop 08/13/16 at 11:58; Status DC Nitroglycerin (Nitrostat) 0.4 mg PRN Q5MIN PRN SL CHEST PAIN; Start 08/13/16 at 09:00; Stop 08/13/16 at 11:58; Status DC Acetaminophen (Tylenol) 650 mg PRN Q4HRS PRN PO MILD PAIN / TEMP; Start at 11:45 Aspirin (Nel Aspirin) 325 mg DAILYWBKFT PO Last administered on 08/14/16 12: 06; Start 08/13/16 at 13:00 Hydrochlorothiazide (Hydrodiuril) 25 mg DAILY PO Last administered on 08/14/16 12:05; Start 08/13/16 at 13:00 Atorvastatin Calcium (Lipitor) 80 mg QHS PO Last administered on 08/14/16 20:37 ; Start 08/13/16 at 21:00 Famotidine (Pepcid) 40 mg QHS PO Last administered on 08/14/16 20:36; Start 08/13/16 at 21:00 Tamsulosin HCl (Flomax) 0.4 mg QHS PO Last administered on 08/13/16 21:49; Start 08/13/16 at 21:00; Stop 08/14/16 at 20:50; Status DC Pantoprazole Sodium (Protonix) 40 mg DAILYAC PO Last administered on 08/14/16 12:06; Start 08/13/16 at 13:00 Tramadol HCl (Ultram) 50 mg PRN Q6HRS PRN PO PAIN; Start 08/13/16 at 11:45 Nitroglycerin (Nitrostat) 0.4 mg PRN Q5MIN PRN SL CHEST PAIN; Start 08/13/16 at 11:45 Metoprolol Succinate (Toprol Xl) 25 mg DAILY PO ; Start 08/13/16 at 13:00; Stop 08/14/16 at 10:38; Status DC Clonazepam (Klonopin) 1 mg QHS PO Last administered on 08/14/16 20:36; Start at 21:00 Clopidogrel Bisulfate (Plavix) 75 mg DAILYWBKFT PO Last administered on 12:04; Start 08/13/16 at 13:00 Magnesium Hydroxide (Milk Of Magnesia) 2,400 mg PRN DAILY PRN PO CONSTIPATION; Start 08/13/16 at 11:45 Al Hydroxide/Mg Hydroxide (Mylanta Plus Xs) 30 ml PRN Q2HR PRN PO HEARTBURN / GAS; Start 08/13/16 at 22:15 Metoprolol Succinate (Toprol Xl) 12.5 mg DAILY PO ; Start 08/15/16 at 09:00 Enoxaparin Sodium (Lovenox 120mg Syringe) 120 mg Q12HR SQ Last administered on 08/14/16 20:35; Start 08/14/16 at 21:00 Tamsulosin HCl (Flomax) 0.4 mg QHS PO Last administered on 08/14/16 21:00; Start 08/14/16 at 21:00 Active Scripts Active Reported Tramadol Hcl 50 Mg Tablet 50 Mg PO NEEDED Tamsulosin Hcl 0.4 Mg Cap.er.24h 0.4 Mg PO BID Omeprazole 40 Mg Capsule.dr 40 Mg PO DAILY NITROGLYCERIN SubLingual (Nitroglycerin) 0.4 Mg Tab.subl 0.4 Mg SL DAILY Nifedipine Er (Nifedipine) 30 Mg Tab.er.24 30 Mg PO DAILY Daily Vitamin (Multivitamin) 1 Each Tablet 1 Each PO DAILY Hydrocodone-Apap 7.5-325 (Hydrocodone Bit/Acetaminophen) 1 Each Tablet 1 Each PO NEEDED Flonase (Fluticasone Propionate) 16 Gm [place].susp 16 Gm NS DAILY Famotidine 40 Mg Tablet 40 Mg PO DAILY Crestor (Rosuvastatin Calcium) 40 Mg Tablet 40 Mg PO DAILY Clopidogrel (Clopidogrel Bisulfate) 75 Mg Tablet 75 Mg PO DAILY Clonazepam Odt (Clonazepam) 1 Mg Tab.rapdis 1 Mg PO HS Atenolol 25 Mg Tablet 25 Mg PO DAILY Vitals/I & O Vital Sign - Last 24 Hours 08/14/16 08/14/16 08/14/16 08/14/16 11:55 19:40 20:00 23:25 Temp 97.3 98.7 97.5 97.3 98.7 97.5 Pulse 62 58 65 Resp 18 20 18 B/P 160/93 142/79 139/78 Pulse Ox 92 97 96 O2 Delivery Room Air Room Air Room Air Room Air 08/15/16 08/15/16 08/15/16 03:15 07:18 07:45 Temp 98.2 97.2 98.2 97.2 Pulse 77 65 Resp 20 18 B/P 130/81 144/74 Pulse Ox 96 95 O2 Delivery Room Air Room Air Room Air Intake and Output 08/14/16 08/14/16 08/15/16 15:00 23:00 07:00 Intake Total 480 ml Output Total 950 ml 350 ml Balance -950 ml 130 ml HELEN WARREN MD Aug 15, 2016 09:14
[2016-08-15] MEDS: ASPIRIN 325 MG TABLET PO SCH (09:28)
[2016-08-15] MEDS: PANTOPRAZOLE 40 MG TABLET.DR. PO SCH (09:28)
[2016-08-15] MEDS: CLOPIDOGREL BISULFATE 75 MG TABLET PO SCH (09:28)
[2016-08-15] MEDS: HYDROCHLOROTHIAZIDE 25 MG TABLET PO SCH (09:31)
[2016-08-15] MEDS: METOPROLOL SUCC 24HR ER 25 MG TAB.ER.24H. PO SCH (09:31)
[2016-08-15] MEDS ORDERED: AMIODARONE 150 MG in IV DEXTROSE 5% 100 ML IV ONE (10:00)
[2016-08-15] MEDS ORDERED: AMIODARONE 900 MG in IV DEXTROSE 5% 500 ML IV PRN (10:00)
[2016-08-15 10:12] VITALS: BP 118/65
--- NOTE | 2016-08-15 13:00 | PDOC ---
Subjective: Subjective: Says plans for pacemaker placement tomorrow. Has concerns w/ multiple drug allergies, wonders about barium. Does recall esophagram in the past which he tolerated. Objective: Vital Signs: Vital Signs Date Time Temp Pulse Resp B/P Pulse Ox O2 Delivery O2 Flow Rate FiO2 08/15/16 10:36 76 143/79 08/15/16 10:12 97.9 20 94 Room Air 97.9 PE: GEN: NAD, up to chair LUNGS: CTAB HEART: RRR ABD: NABS, S/ND/NT NEURO/PSYCH: A & O 3 A/P: Achalasia post-repair w/ nocturnal choking -- Await pacemaker, complete cardiac workup. Barium esophagram later. VIRGEN BARNES Aug 15, 2016 13:00
--- NOTE | 2016-08-15 13:22 | PDOC ---
PROGRESS NOTES Subjective Subjective Patient denies any chest tightness/pressure, shortness of breath or palpitations. He states that he feels well and has been tolerating the current meds. Objective Objective Vital Signs Date Time Temp Pulse Resp B/P Pulse Ox O2 Delivery O2 Flow Rate FiO2 08/15/16 10:36 76 143/79 08/15/16 10:12 97.9 20 94 Room Air 97.9 Intake and Output 08/15/16 06:59 Intake Total 480 ml Output Total 1300 ml Balance -820 ml Intake Oral 480 ml Output Urine Total 1300 ml Physical Exam Physical Exam GENERAL: patient resting comfortably in recliner, no acute distress HEART: irregular rhythm at regular rate EXTREMITIES: no pedal edema noted bilaterally Assessment Assessment Echocardiogram showed LVEF 60%. Rhythm strip still showing intermittent rhythm changes and pauses. Problems Medical Problems: (1) CAD (coronary artery disease) Status: Acute (2) Chest pressure Status: Acute (3) Chest pressure Status: Acute (4) SOB (shortness of breath) Status: Acute Plan Plan of Care Continue Lovenox, hold Warfarin at this time in preparation for L Heart Cath and pacemaker placement tomorrow. I have discussed the situation, options and the procedure with the pt and he agrees with this approach. Comment Review of Relevant I have reviewed the following items gela (where applicable) has been applied. Labs Laboratory Tests Test 08/13/16 14:45 08/13/16 20:53 08/14/16 03:40 08/15/16 04:20 Troponin I Quantitative < 0.017ng/mL (0.000-0.055) < 0.017ng/mL (0.000-0.055) White Blood Count 7.2x10^3/uL (4.0-11.0) Red Blood Count 3.97x10^6/uL (4.30-5.70) Hemoglobin 12.2g/dL (13.0-17.5) Hematocrit 36.7% (39.0-53.0) Mean Corpuscular Volume 93fL (79-100) Mean Corpuscular Hemoglobin 31pg (25-35) Mean Corpuscular Hemoglobin Concent 33g/dL (31-37) Red Cell Distribution Width 13.7% (11.5-14.5) Platelet Count 153x10^3/uL (140-400) Neutrophils (%) (Auto) 57% (31-73) Lymphocytes (%) (Auto) 29% (24-48) Monocytes (%) (Auto) 9% (0-9) Eosinophils (%) (Auto) 5% (0-3) Basophils (%) (Auto) 1% (0-3) Neutrophils # (Auto) 4.1x10^3uL (1.8-7.7) Lymphocytes # (Auto) 2.0x10^3/uL (1.0-4.8) Monocytes # (Auto) 0.6x10^3/uL (0.0-1.1) Eosinophils # (Auto) 0.4x10^3/uL (0.0-0.7) Basophils # (Auto) 0.1x10^3/uL (0.0-0.2) Prothrombin Time 14.4SEC (11.7-14.0) 15.1SEC (11.7-14.0) Prothromb Time International Ratio 1.2 (0.8-1.1) 1.3 (0.8-1.1) Activated Partial Thromboplast Time 34SEC (24-38) D-Dimer (Cecile) 0.40ug/mlFEU (0.00-0.50) Sodium Level 145mmol/L (136-145) 145mmol/L (136-145) Potassium Level 4.1mmol/L (3.5-5.1) 3.6mmol/L (3.5-5.1) Chloride Level 110mmol/L (98-107) 108mmol/L (98-107) Carbon Dioxide Level 29mmol/L (21-32) 29mmol/L (21-32) Anion Gap 6 (6-14) 8 (6-14) Blood Urea Nitrogen 19mg/dL (8-26) 15mg/dL (8-26) Creatinine 1.1mg/dL (0.7-1.3) 1.0mg/dL (0.7-1.3) Estimated GFR (Cockcroft-Gault) 64.1 71.5 BUN/Creatinine Ratio 17 (6-20) Glucose Level 96mg/dL (70-99) 101mg/dL (70-99) Calcium Level 8.3mg/dL (8.5-10.1) 8.6mg/dL (8.5-10.1) Total Bilirubin 0.6mg/dL (0.2-1.0) Aspartate Amino Transf (AST/SGOT) 11U/L (15-37) Alanine Aminotransferase (ALT/SGPT) 17U/L (16-63) Alkaline Phosphatase 72U/L (46-116) Total Protein 6.0g/dL (6.4-8.2) Albumin 3.3g/dL (3.4-5.0) Albumin/Globulin Ratio 1.2 (1.0-1.7) Triglycerides Level 63mg/dL (0-150) Cholesterol Level 124mg/dL (0-200) LDL Cholesterol, Calculated 75mg/dL (0-100) VLDL Cholesterol, Calculated 13mg/dL (0-40) HDL Cholesterol 36mg/dL (40-60) Cholesterol/HDL Ratio 3.4 Thyroid Stimulating Hormone (TSH) 2.359uIU/mL (0.358-3.74) Laboratory Tests Test 08/15/16 04:20 Prothrombin Time 15.1SEC (11.7-14.0) Prothromb Time International Ratio 1.3 (0.8-1.1) Sodium Level 145mmol/L (136-145) Potassium Level 3.6mmol/L (3.5-5.1) Chloride Level 108mmol/L (98-107) Carbon Dioxide Level 29mmol/L (21-32) Anion Gap 8 (6-14) Blood Urea Nitrogen 15mg/dL (8-26) Creatinine 1.0mg/dL (0.7-1.3) Estimated GFR (Cockcroft-Gault) 71.5 Glucose Level 101mg/dL (70-99) Calcium Level 8.6mg/dL (8.5-10.1) Thyroid Stimulating Hormone (TSH) 2.359uIU/mL (0.358-3.74) Medications Current Medications Aspirin (Children'S Aspirin) 324 mg 1X ONCE PO Last administered on 08/13/16 08:19; Start 08/13/16 at 09:00; Stop 08/13/16 at 09:01; Status DC Atenolol (Tenormin) 25 mg 1X ONCE PO Last administered on 08/13/16 08:20; Start 08/13/16 at 09:00; Stop 08/13/16 at 09:01; Status DC Ondansetron HCl (Zofran) 4 mg PRN Q8HRS PRN IV NAUSEA/VOMITING; Start 08/13/16 at 09:00; Stop 08/14/16 at 08:59; Status DC Morphine Sulfate 4 mg PRN Q2HR PRN IV PAIN; Start 08/13/16 at 09:00; Stop at 08:59; Status DC Acetaminophen (Tylenol) 650 mg PRN Q4HRS PRN PO FEVER; Start 08/13/16 at 09:00; Stop 08/13/16 at 11:58; Status DC Nitroglycerin (Nitrostat) 0.4 mg PRN Q5MIN PRN SL CHEST PAIN; Start 08/13/16 at 09:00; Stop 08/13/16 at 11:58; Status DC Acetaminophen (Tylenol) 650 mg PRN Q4HRS PRN PO MILD PAIN / TEMP; Start at 11:45 Aspirin (Nel Aspirin) 325 mg DAILYWBKFT PO Last administered on 08/15/16 09: 28; Start 08/13/16 at 13:00 Hydrochlorothiazide (Hydrodiuril) 25 mg DAILY PO Last administered on 08/15/16 09:31; Start 08/13/16 at 13:00 Atorvastatin Calcium (Lipitor) 80 mg QHS PO Last administered on 08/14/16 20:37 ; Start 08/13/16 at 21:00 Famotidine (Pepcid) 40 mg QHS PO Last administered on 08/14/16 20:36; Start 08/13/16 at 21:00 Tamsulosin HCl (Flomax) 0.4 mg QHS PO Last administered on 08/13/16 21:49; Start 08/13/16 at 21:00; Stop 08/14/16 at 20:50; Status DC Pantoprazole Sodium (Protonix) 40 mg DAILYAC PO Last administered on 08/15/16 09:28; Start 08/13/16 at 13:00 Tramadol HCl (Ultram) 50 mg PRN Q6HRS PRN PO PAIN; Start 08/13/16 at 11:45 Nitroglycerin (Nitrostat) 0.4 mg PRN Q5MIN PRN SL CHEST PAIN; Start 08/13/16 at 11:45 Metoprolol Succinate (Toprol Xl) 25 mg DAILY PO ; Start 08/13/16 at 13:00; Stop 08/14/16 at 10:38; Status DC Clonazepam (Klonopin) 1 mg QHS PO Last administered on 08/14/16 20:36; Start at 21:00 Clopidogrel Bisulfate (Plavix) 75 mg DAILYWBKFT PO Last administered on 09:28; Start 08/13/16 at 13:00 Magnesium Hydroxide (Milk Of Magnesia) 2,400 mg PRN DAILY PRN PO CONSTIPATION; Start 08/13/16 at 11:45 Al Hydroxide/Mg Hydroxide (Mylanta Plus Xs) 30 ml PRN Q2HR PRN PO HEARTBURN / GAS; Start 08/13/16 at 22:15 Metoprolol Succinate (Toprol Xl) 12.5 mg DAILY PO Last administered on 09:31; Start 08/15/16 at 09:00 Enoxaparin Sodium (Lovenox 120mg Syringe) 120 mg Q12HR SQ Last administered on 08/15/16 09:32; Start 08/14/16 at 21:00 Tamsulosin HCl 0.4 mg 0.4 mg QHS PO Last administered on 08/14/16 21:00; Start 08/14/16 at 21:00 Amiodarone HCl 150 mg/Dextrose 103 ml @ 618 mls/hr 1X ONCE IV Last administered on 08/15/16 10:36; Start 08/15/16 at 10:00; Stop 08/15/16 at 10:09; Status DC Amiodarone HCl/ Dextrose (Cordarone) 518 ml @ 0 mls/hr CONT PRN IV SEE I/O RECORD Last administered on 08/15/16 10:32; Start 08/15/16 at 10:00; Stop at 10:36; Status DC Active Scripts Active Reported Tramadol Hcl 50 Mg Tablet 50 Mg PO NEEDED Tamsulosin Hcl 0.4 Mg Cap.er.24h 0.4 Mg PO BID Omeprazole 40 Mg Capsule.dr 40 Mg PO DAILY NITROGLYCERIN SubLingual (Nitroglycerin) 0.4 Mg Tab.subl 0.4 Mg SL DAILY Nifedipine Er (Nifedipine) 30 Mg Tab.er.24 30 Mg PO DAILY Daily Vitamin (Multivitamin) 1 Each Tablet 1 Each PO DAILY Hydrocodone-Apap 7.5-325 (Hydrocodone Bit/Acetaminophen) 1 Each Tablet 1 Each PO NEEDED Flonase (Fluticasone Propionate) 16 Gm [place].susp 16 Gm NS DAILY Famotidine 40 Mg Tablet 40 Mg PO DAILY Crestor (Rosuvastatin Calcium) 40 Mg Tablet 40 Mg PO DAILY Clopidogrel (Clopidogrel Bisulfate) 75 Mg Tablet 75 Mg PO DAILY Clonazepam Odt (Clonazepam) 1 Mg Tab.rapdis 1 Mg PO HS Atenolol 25 Mg Tablet 25 Mg PO DAILY Vitals/I & O Vital Sign - Last 24 Hours 08/14/16 08/14/16 08/14/16 08/15/16 19:40 20:00 23:25 03:15 Temp 98.7 97.5 98.2 98.7 97.5 98.2 Pulse 58 65 77 Resp 20 18 20 B/P 142/79 139/78 130/81 Pulse Ox 97 96 96 O2 Delivery Room Air Room Air Room Air Room Air 08/15/16 08/15/16 08/15/16 08/15/16 07:18 07:45 09:31 10:12 Temp 97.2 97.9 97.2 97.9 Pulse 65 79 80 Resp 18 20 B/P 144/74 144/79 118/65 Pulse Ox 95 94 O2 Delivery Room Air Room Air Room Air 08/15/16 10:36 Pulse 76 B/P 143/79 Intake and Output 08/14/16 08/14/16 08/15/16 14:59 22:59 06:59 Intake Total 480 ml Output Total 950 ml 350 ml Balance -950 ml 130 ml MARISSA MCKEON MD Aug 15, 2016 13:22
[2016-08-15 14:16] VITALS: BP 124/57
[2016-08-15] MEDS ORDERED: IV 1/2 NORMAL SALINE 1,000 ML IV SCH (17:17)
--- NOTE | 2016-08-15 17:17 | PDOC ---
MODERATE SEDATION ASSESSMENT RISKS/ALTERNATIVES Risks/Alternatives Risks and alternatives of this type of sedation and procedure discussed with: RISK/ALTERNATIVES: Patient H & P ON CHART H & P H & P on chart and reviewed for co-morbid conditions and appropriate labs. H&P ON CHART: Yes STATUS PREG STATUS ASSESSED: Yes MEDS/ALLERGIES REVIEWED Meds/Allergies Reviewed Medications and Allergies including time and route of recently administered narcotics and sedatives. MEDS/ALLERGIES REVIEWED: Yes ASA RATING ASA RATING: II AIRWAY ASSESSMENT Airway Assessment Airway patency, oral function limitations, presence of caps, crowns, dentures, partials, and ability to extend neck assessed. AIRWAY ASSESSMENT: Yes MALLAMPATI SCORE MALLAMPATI SCORE: II PRE-SEDATION ASSESSMENT PRE-SEDATION ASSESSMENT: Yes MARISSA MCKEON MD Aug 15, 2016 17:17
[2016-08-15] MEDS ORDERED: CEFAZOLIN 2GM PREMIX 50 ML IV ONE (17:45)
[2016-08-15 19:35] VITALS: BP 133/73
[2016-08-15] MEDS: TRAMADOL 50 MG TABLET. PO PRN (20:52)
[2016-08-15] MEDS: FAMOTIDINE 20 MG TABLET. PO SCH (20:52)
[2016-08-15] MEDS: TAMSULOSIN 0.4 MG CAP.ER.24H. PO SCH (20:52)
[2016-08-15] MEDS: ATORVASTATIN CALCIUM 40 MG TABLET. PO SCH (20:52)
[2016-08-15] MEDS: CLONAZEPAM 1 MG TABLET. PO SCH (20:52)
[2016-08-15 22:45] VITALS: BP 117/58
[2016-08-16] VITALS (14 sets, daily range): BP systolic 83–165; BP diastolic 49–80
[2016-08-16 08:49] LABS: BASO # 0.1 x10^3/uL (0.0-0.2); BASO % 1 % (0-3); EOS % 3 % (0-3); HEMATOCRIT 41.2 % (39.0-53.0); LYMPH # 1.9 x10^3/uL (1.0-4.8); LYMPH % 27 % (24-48); MEAN CORPUSCULAR HEMOGLOBIN 31 pg (25-35); MEAN CORPUSCULAR HGB CONC 34 g/dL (31-37); MEAN CORPUSCULAR VOLUME 90 fL (79-100); MONO % 9 % (0-9); NEUT % 61 % (31-73); PLATELET COUNT 179 x10^3/uL (140-400); RED BLOOD COUNT 4.57 x10^6/uL (4.30-5.70); RED CELL DISTRIBUTION WIDTH 13.6 % (11.5-14.5); WHITE BLOOD COUNT 7.1 x10^3/uL (4.0-11.0)
[2016-08-16 08:59] LABS: CALCIUM 8.9 mg/dL (8.5-10.1); CREATININE 1.2 mg/dL (0.7-1.3); POTASSIUM 4.2 mmol/L (3.5-5.1)
[2016-08-16] MEDS: METOPROLOL SUCC 24HR ER 25 MG TAB.ER.24H. PO SCH (09:00)
[2016-08-16] MEDS: HYDROCHLOROTHIAZIDE 25 MG TABLET PO SCH (09:00)
[2016-08-16] MEDS ORDERED: HYDROCORTISONE SOD SUCC/PF 100 MG/2 ML VIAL. IV ONE (09:30)
[2016-08-16] MEDS ORDERED: FAMOTIDINE 20 MG TABLET. PO ONE (09:30)
[2016-08-16] MEDS ORDERED: DIPHENHYDRAMINE HCL 25 MG CAPSULE PO ONE (09:30)
[2016-08-16] MEDS ORDERED: AMIODARONE 900 MG in IV DEXTROSE 5% 500 ML IV PRN (09:30)
--- NOTE | 2016-08-16 09:32 | PDOC ---
PROGRESS NOTES Subjective Subjective denies chest pain or shortness of breath. still in atrial flutter. on iv amiodarone drip.lab reviewed. Objective Objective Vital Signs Date Time Temp Pulse Resp B/P Pulse Ox O2 Delivery O2 Flow Rate FiO2 08/16/16 07:00 98.3 73 20 165/80 98 Room Air 98.3 Intake and Output 08/16/16 07:00 Intake Total 944 ml Output Total 2850 ml Balance -1906 ml Intake Oral 440 ml IV Total 504 ml Output Urine Total 2850 ml # Voids 1 Physical Exam Abdomen: Soft Heart: Regular rate, Normal S1, Normal S2 Extremities: No edema General: Alert HEENT: Atraumatic Lungs: Clear to auscultation Neuro: Normal speech Psych/Mental Status: Mental status NL Skin: No rashes Assessment Assessment Problems Medical Problems:chest pain . acute OR ruled out. concern for unstable angina 2. Coronary artery disease with previous history of coronary angioplasty and stent to the circumflex artery and left anterior descending coronary artery. 3. Hypertension. 4. Hyperlipidemia. 5. 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 6. Periodic limb movement disorder. atrial flutter with controlled VR (1) CAD (coronary artery disease) Status: Acute (2) Chest pressure Status: Acute (3) Chest pressure Status: Acute (4) SOB (shortness of breath) Status: Acute Plan Plan of Care cardiac cath today permanent pacemaker today iv amiodarone Comment Review of Relevant I have reviewed the following items gela (where applicable) has been applied. Labs Laboratory Tests Test 08/15/16 04:20 08/16/16 08:15 Prothrombin Time 15.1SEC (11.7-14.0) Prothromb Time International Ratio 1.3 (0.8-1.1) Sodium Level 145mmol/L (136-145) 142mmol/L (136-145) Potassium Level 3.6mmol/L (3.5-5.1) 4.2mmol/L (3.5-5.1) Chloride Level 108mmol/L (98-107) 107mmol/L (98-107) Carbon Dioxide Level 29mmol/L (21-32) 26mmol/L (21-32) Anion Gap 8 (6-14) 9 (6-14) Blood Urea Nitrogen 15mg/dL (8-26) 16mg/dL (8-26) Creatinine 1.0mg/dL (0.7-1.3) 1.2mg/dL (0.7-1.3) Estimated GFR (Cockcroft-Gault) 71.5 58.0 Glucose Level 101mg/dL (70-99) 100mg/dL (70-99) Calcium Level 8.6mg/dL (8.5-10.1) 8.9mg/dL (8.5-10.1) Thyroid Stimulating Hormone (TSH) 2.359uIU/mL (0.358-3.74) White Blood Count 7.1x10^3/uL (4.0-11.0) Red Blood Count 4.57x10^6/uL (4.30-5.70) Hemoglobin 14.0g/dL (13.0-17.5) Hematocrit 41.2% (39.0-53.0) Mean Corpuscular Volume 90fL (79-100) Mean Corpuscular Hemoglobin 31pg (25-35) Mean Corpuscular Hemoglobin Concent 34g/dL (31-37) Red Cell Distribution Width 13.6% (11.5-14.5) Platelet Count 179x10^3/uL (140-400) Neutrophils (%) (Auto) 61% (31-73) Lymphocytes (%) (Auto) 27% (24-48) Monocytes (%) (Auto) 9% (0-9) Eosinophils (%) (Auto) 3% (0-3) Basophils (%) (Auto) 1% (0-3) Neutrophils # (Auto) 4.3x10^3uL (1.8-7.7) Lymphocytes # (Auto) 1.9x10^3/uL (1.0-4.8) Monocytes # (Auto) 0.6x10^3/uL (0.0-1.1) Eosinophils # (Auto) 0.2x10^3/uL (0.0-0.7) Basophils # (Auto) 0.1x10^3/uL (0.0-0.2) Laboratory Tests Test 08/16/16 08:15 White Blood Count 7.1x10^3/uL (4.0-11.0) Red Blood Count 4.57x10^6/uL (4.30-5.70) Hemoglobin 14.0g/dL (13.0-17.5) Hematocrit 41.2% (39.0-53.0) Mean Corpuscular Volume 90fL (79-100) Mean Corpuscular Hemoglobin 31pg (25-35) Mean Corpuscular Hemoglobin Concent 34g/dL (31-37) Red Cell Distribution Width 13.6% (11.5-14.5) Platelet Count 179x10^3/uL (140-400) Neutrophils (%) (Auto) 61% (31-73) Lymphocytes (%) (Auto) 27% (24-48) Monocytes (%) (Auto) 9% (0-9) Eosinophils (%) (Auto) 3% (0-3) Basophils (%) (Auto) 1% (0-3) Neutrophils # (Auto) 4.3x10^3uL (1.8-7.7) Lymphocytes # (Auto) 1.9x10^3/uL (1.0-4.8) Monocytes # (Auto) 0.6x10^3/uL (0.0-1.1) Eosinophils # (Auto) 0.2x10^3/uL (0.0-0.7) Basophils # (Auto) 0.1x10^3/uL (0.0-0.2) Sodium Level 142mmol/L (136-145) Potassium Level 4.2mmol/L (3.5-5.1) Chloride Level 107mmol/L (98-107) Carbon Dioxide Level 26mmol/L (21-32) Anion Gap 9 (6-14) Blood Urea Nitrogen 16mg/dL (8-26) Creatinine 1.2mg/dL (0.7-1.3) Estimated GFR (Cockcroft-Gault) 58.0 Glucose Level 100mg/dL (70-99) Calcium Level 8.9mg/dL (8.5-10.1) Medications Current Medications Aspirin (Children'S Aspirin) 324 mg 1X ONCE PO Last administered on 08/13/16t 08:19; Start 08/13/16 at 09:00; Stop 08/13/16 at 09:01; Status DC Atenolol (Tenormin) 25 mg 1X ONCE PO Last administered on 08/13/16 08:20; Start 08/13/16 at 09:00; Stop 08/13/16 at 09:01; Status DC Ondansetron HCl (Zofran) 4 mg PRN Q8HRS PRN IV NAUSEA/VOMITING; Start 08/13/16 at 09:00; Stop 08/14/16 at 08:59; Status DC Morphine Sulfate 4 mg PRN Q2HR PRN IV PAIN; Start 08/13/16 at 09:00; Stop at 08:59; Status DC Acetaminophen (Tylenol) 650 mg PRN Q4HRS PRN PO FEVER; Start 08/13/16 at 09:00; Stop 08/13/16 at 11:58; Status DC Nitroglycerin (Nitrostat) 0.4 mg PRN Q5MIN PRN SL CHEST PAIN; Start 08/13/16 at 09:00; Stop 08/13/16 at 11:58; Status DC Acetaminophen (Tylenol) 650 mg PRN Q4HRS PRN PO MILD PAIN / TEMP; Start at 11:45 Aspirin ([employer] Aspirin) 325 mg DAILYWBKFT PO Last administered on 08/15/16 09: 28; Start 08/13/16 at 13:00 Hydrochlorothiazide (Hydrodiuril) 25 mg DAILY PO Last administered on 08/15/16 09:31; Start 08/13/16 at 13:00 Atorvastatin Calcium (Lipitor) 80 mg QHS PO Last administered on 08/15/16 20:52 ; Start 08/13/16 at 21:00 Famotidine (Pepcid) 40 mg QHS PO Last administered on 08/15/16 20:52; Start 08/13/16 at 21:00 Tamsulosin HCl (Flomax) 0.4 mg QHS PO Last administered on 08/13/16 21:49; Start 08/13/16 at 21:00; Stop 08/14/16 at 20:50; Status DC Pantoprazole Sodium (Protonix) 40 mg DAILYAC PO Last administered on 08/15/16 09:28; Start 08/13/16 at 13:00 Tramadol HCl (Ultram) 50 mg PRN Q6HRS PRN PO PAIN Last administered on 20:52; Start 08/13/16 at 11:45 Nitroglycerin (Nitrostat) 0.4 mg PRN Q5MIN PRN SL CHEST PAIN; Start 08/13/16 at 11:45 Metoprolol Succinate (Toprol Xl) 25 mg DAILY PO ; Start 08/13/16 at 13:00; Stop 08/14/16 at 10:38; Status DC Clonazepam (Klonopin) 1 mg QHS PO Last administered on 08/15/16 20:52; Start at 21:00 Clopidogrel Bisulfate (Plavix) 75 mg DAILYWBKFT PO Last administered on 09:28; Start 08/13/16 at 13:00 Magnesium Hydroxide (Milk Of Magnesia) 2,400 mg PRN DAILY PRN PO CONSTIPATION; Start 08/13/16 at 11:45 Al Hydroxide/Mg Hydroxide (Mylanta Plus Xs) 30 ml PRN Q2HR PRN PO HEARTBURN / GAS; Start 08/13/16 at 22:15 Metoprolol Succinate (Toprol Xl) 12.5 mg DAILY PO Last administered on 09:31; Start 08/15/16 at 09:00 Enoxaparin Sodium (Lovenox 120mg Syringe) 120 mg Q12HR SQ Last administered on 08/15/16 20:52; Start 08/14/16 at 21:00; Stop 08/16/16 at 08:38; Status DC Tamsulosin HCl 0.4 mg 0.4 mg QHS PO Last administered on 08/15/16 20:52; Start 08/14/16 at 21:00 Amiodarone HCl 150 mg/Dextrose 103 ml @ 618 mls/hr 1X ONCE IV Last administered on 08/15/16 10:36; Start 08/15/16 at 10:00; Stop 08/15/16 at 10:09; Status DC Amiodarone HCl 900 mg/Dextrose 518 ml @ 0 mls/hr CONT PRN IV SEE I/O RECORD Last administered on 08/15/16 10:32; Start 08/15/16 at 10:00; Stop 08/15/16 at 10: 36; Status DC Sodium Chloride 1,000 ml @ 60 mls/hr [id number] IV ; Start 08/15/16 at 17:17; Stop 08/16/16 at 09:56 Cefazolin Sodium/ Dextrose (Ancef 2gm Premix) 50 ml @ 100 mls/hr 1X ONCE IV ; Start 08/15/16 at 17:45; Stop 08/15/16 at 18:14; Status DC Diphenhydramine HCl (Benadryl) 50 mg 1X ONCE PO ; Start 08/16/16 at 09:30; Stop 08/16/16 at 09:31 Famotidine (Pepcid) 40 mg 1X ONCE PO ; Start 08/16/16 at 09:30; Stop 08/16/16 at 09:31 Hydrocortisone Sodium Succinate 125 mg 125 mg 1X ONCE IV ; Start 08/16/16 at 09: 30; Stop 08/16/16 at 09:31 Amiodarone HCl/ Dextrose (Cordarone) 518 ml @ 0 mls/hr CONT PRN IV SEE I/O RECORD; Start 08/16/16 at 09:30 Active Scripts Active Reported Tramadol Hcl 50 Mg Tablet 50 Mg PO NEEDED Tamsulosin Hcl 0.4 Mg Cap.er.24h 0.4 Mg PO BID Omeprazole 40 Mg Capsule.dr 40 Mg PO DAILY NITROGLYCERIN SubLingual (Nitroglycerin) 0.4 Mg Tab.subl 0.4 Mg SL DAILY Nifedipine Er (Nifedipine) 30 Mg Tab.er.24 30 Mg PO DAILY Daily Vitamin (Multivitamin) 1 Each Tablet 1 Each PO DAILY Hydrocodone-Apap 7.5-325 (Hydrocodone Bit/Acetaminophen) 1 Each Tablet 1 Each PO NEEDED Flonase (Fluticasone Propionate) 16 Gm [place].susp 16 Gm NS DAILY Famotidine 40 Mg Tablet 40 Mg PO DAILY Crestor (Rosuvastatin Calcium) 40 Mg Tablet 40 Mg PO DAILY Clopidogrel (Clopidogrel Bisulfate) 75 Mg Tablet 75 Mg PO DAILY Clonazepam Odt (Clonazepam) 1 Mg Tab.rapdis 1 Mg PO HS Atenolol 25 Mg Tablet 25 Mg PO DAILY Vitals/I & O Vital Sign - Last 24 Hours 08/15/16 08/15/16 08/15/16 08/15/16 09:31 10:12 10:36 14:16 Temp 97.9 97.6 97.9 97.6 Pulse 79 80 76 54 Resp 20 20 B/P 144/79 118/65 143/79 124/57 Pulse Ox 94 94 O2 Delivery Room Air Room Air 08/15/16 08/15/16 08/15/16 08/15/16 19:35 20:00 20:52 21:52 Temp 98.7 98.7 Pulse 62 Resp 18 B/P 133/73 Pulse Ox 96 96 96 O2 Delivery Room Air Room Air Room Air Room Air 08/15/16 08/16/16 08/16/16 22:45 03:10 07:00 Temp 98.3 97.8 98.3 98.3 97.8 98.3 Pulse 50 36 73 Resp 18 20 20 B/P 117/58 100/56 165/80 Pulse Ox 95 95 98 O2 Delivery Room Air Room Air Room Air Intake and Output 08/15/16 08/15/16 08/16/16 15:00 23:00 07:00 Intake Total 200 ml 744 ml Output Total 400 ml 2000 ml 450 ml Balance -400 ml -1800 ml 294 ml HELEN WARREN MD Aug 16, 2016 09:32
--- NOTE | 2016-08-16 09:37 | PDOC ---
Subjective: Subjective: No new GI issues. Objective: Objective: Per RN - pacemaker and cath today. He has questions about esophagram. Vital Signs: Vital Signs Date Time Temp Pulse Resp B/P Pulse Ox O2 Delivery O2 Flow Rate FiO2 08/16/16 07:00 98.3 73 20 165/80 98 Room Air 98.3 Labs: Laboratory Tests Test 08/16/16 08:15 White Blood Count 7.1x10^3/uL Red Blood Count 4.57x10^6/uL Hemoglobin 14.0g/dL Hematocrit 41.2% Mean Corpuscular Volume 90fL Mean Corpuscular Hemoglobin 31pg Mean Corpuscular Hemoglobin Concent 34g/dL Red Cell Distribution Width 13.6% Platelet Count 179x10^3/uL Neutrophils (%) (Auto) 61% Lymphocytes (%) (Auto) 27% Monocytes (%) (Auto) 9% Eosinophils (%) (Auto) 3% Basophils (%) (Auto) 1% Neutrophils # (Auto) 4.3x10^3uL Lymphocytes # (Auto) 1.9x10^3/uL Monocytes # (Auto) 0.6x10^3/uL Eosinophils # (Auto) 0.2x10^3/uL Basophils # (Auto) 0.1x10^3/uL Sodium Level 142mmol/L Potassium Level 4.2mmol/L Chloride Level 107mmol/L Carbon Dioxide Level 26mmol/L Anion Gap 9 Blood Urea Nitrogen 16mg/dL Creatinine 1.2mg/dL Estimated GFR (Cockcroft-Gault) 58.0 Glucose Level 100mg/dL Calcium Level 8.9mg/dL PE: GEN: NAD, up to chair LUNGS: clear anteriorly HEART: S1S2 ABD: S/ND/NT NEURO/PSYCH: A & O 3 A/P: Achalasia post-repair w/ nocturnal choking -- Pacemaker/cath today. Barium esophagram later on. VIRGEN BARNES Aug 16, 2016 09:37
[2016-08-16] MEDS ORDERED: FENTANYL PF 250 MCG/5 ML VIAL. ONE (10:37)
[2016-08-16] MEDS ORDERED: MIDAZOLAM HCL/PF 5 MG/5 ML VIAL. ONE (10:37)
[2016-08-16] MEDS ORDERED: DIPHENHYDRAMINE 50 MG/ML VIAL. ONE (10:59)
[2016-08-16] MEDS ORDERED: HYDROCORTISONE SOD SUCC/PF 250 MG/2 ML VIAL. ONE (10:59)
[2016-08-16] MEDS ORDERED: BACITRACIN 50,000 UNIT in IV NORMAL SALINE 250ML 250 ML IRR ONE ×2 (11:00→13:15)
[2016-08-16] MEDS ORDERED: IODIXANOL 320 MG/ML 100 ML VIAL. ONE (11:23)
[2016-08-16] MEDS ORDERED: VANCOMYCIN 1 GM in IV NORMAL SALINE 250ML 250 ML IV ONE (11:30)
[2016-08-16] MEDS ORDERED: LIDOCAINE 2%/EPI 1:100,000 20 ML VIAL. ONE (11:50)
[2016-08-16] MEDS ORDERED: METOPROLOL TARTRATE 5 MG/5 ML VIAL. ONE (12:15)
[2016-08-16] MEDS ORDERED: ADENOSINE 6 MG/2 ML VIAL. IV ONE ×4 (12:36→13:15)
[2016-08-16] MEDS ORDERED: HYDROCORTISONE SOD SUCC/PF 250 MG/2 ML VIAL. IV ONE (13:15)
[2016-08-16] MEDS ORDERED: DIPHENHYDRAMINE 50 MG/ML VIAL. IVP ONE (13:15)
[2016-08-16] MEDS ORDERED: FENTANYL PF 250 MCG/5 ML VIAL. IV ONE (13:15)
[2016-08-16] MEDS ORDERED: LIDOCAINE 2%/EPI 1:100,000 20 ML VIAL. IJ ONE (13:15)
[2016-08-16] MEDS ORDERED: MIDAZOLAM HCL/PF 5 MG/5 ML VIAL. IV ONE (13:15)
[2016-08-16] MEDS ORDERED: METOPROLOL TARTRATE 5 MG/5 ML VIAL. IVP ONE (13:15)
[2016-08-16] MEDS ORDERED: VANCOMYCIN 1GM IVPB FOR OMNI 250 ML IV ONE ×2 (13:15→19:00)
[2016-08-16] MEDS ORDERED: WARFARIN 10 MG TABLET. PO ONE (16:00)
[2016-08-16] MEDS: PANTOPRAZOLE 40 MG TABLET.DR. PO SCH (16:22)
[2016-08-16] MEDS: CLOPIDOGREL BISULFATE 75 MG TABLET PO SCH (16:22)
[2016-08-16] MEDS: ASPIRIN 325 MG TABLET PO SCH (16:22)
--- NOTE | 2016-08-16 16:34 | RAD ---
Exam: AP portable chest. History: Status post pacemaker placement. Comparison: 08/13/2016. Findings: The heart and mediastinal structures are within normal limits for size. Lungs are without infiltrate. No pneumothorax or pleural effusion is appreciated. There has been interval placement of single lead pacemaker by left subclavian approach. Course of the lead suggests that the tip may be at the posterior left ventricular wall. Impression: 1. Interval placement of single lead pacemaker by left subclavian approach. No acute cardiopulmonary process identified.
--- NOTE | 2016-08-16 18:56 | CARD ---
APPROVED REPORT HISTORY The Patient is a 81 year-old male with a history of PROCEDURES Insertion Single Chamber Ventricle Pacemaker INDICATIONS Pt with a Hx of CAD having bradycardia with pauses of over 2 seconds in A Fib/Flutter CONSCIOUS SEDATION AGENTS Fentanyl mg Versed mg IMPLANTED DEVICES [employer] single chamber MRI compatible pacer PROCEDURE After explaining the risks, benefits, and alternative options, informed consent was obtained from the patient. The patient was brought to the cardiac catheterization lab and the left chest and shoulder were prepp ed and draped in a sterile manner. The left subclavian region was infiltrated with 2% Lidocaine with Epinephrine, subcutaneous anesthesi a. A transverse incision was made in the left subclavicular area. During this case, Fluoroscopy and no contrast were used for imaging. The subcutaneous pocket was formed via blunt dissection, Percutaneous venous access was achieved and an introducer sheath was inserted into the leftSubclavian vein. Through the introducer sheath, the ventricular lead wire was postitioned in the right ventricular ape x utilizing fluoroscopic guidance. The ventricular lead was advanced over the wire under fluoroscopic guidance and positioned in the rig ht ventricle. Capturing and sensing thresholds were verified. THE VENTRICULAR ELECTRODE PARAMETERS The ventricular lead was then secured using sutures. The subcutaneous pocket was irrigated with Betad ine. The ventricular lead was attached to the appropriate receptacle on the pulse generator and set s crews firmly tightened to insure adequate contact and stability. The lead and pulse generator were pl aced into the subcutaneous pocket. Sharp and sponge counts were confirmed to be correct. At this time the pocket was closed subcutaneously with a runing suture and the skin was closed with a dermabond . The operative site was dressed in sterile fashion. The patient tolerated the procedure well and was t ransferred to the floor in stable condition. COMPLICATIONS The patient tolerated the procedure well and there were no complications associated with the procedur e. CONCLUSION Pt with bradycardia and pauses over 2 seconds in A Fib/Flutter had a single chamber pacer inserted.
--- NOTE | 2016-08-16 19:06 | CARD ---
APPROVED REPORT HISTORY The patient is a 81 year-old male with a history of : previous TN, coronary artery disease, previous PCI (The PCI date was ), hypertension, dyslipidemia. INDICATION The indication(s) include : non-STEMI , chest pain, abnormal ECG, arrhythmia. CASE TECHNIQUE The patient was brought electively into the cardiac catheterization lab. A timeout was performed conf irming the patient's name, date of , procedure, and site of procedure. All necessary parties wer e wearing the appropriate personal protective equipment and radiation monitoring devices. After expla ining the risks and benefits of the procedure, informed consent was obtained.(See nursing notes for m edications administered). The right groin was sterilely prepped and draped. The right femoral groin w as infiltrated with 2% Lidocaine subcutaneous anesthesia. During this case, Fluoroscopy and low osmol ar contrast were used for imaging. A sheath was inserted into the right femoral artery without diffic ulty. Coronary angiography was performed using coronary diagnostic catheters. The left coronary syste m was accessed and visualized with a Diagnostic catheter. The left ventricle was accessed and visuali zed with a Diagnostic catheter. Left ventricular/Aortic Valve gradient assessed on pullback. Left katelin triculogram was performed in MCCONNELL projection. Pre-demployment femoral angiogram was performed . Closur e device was deployed with a Angioseal without any complications. The patient tolerated the procedure well and there were no complications associated with the procedure. A view of the aortic root was do ne looking for the RCA and no RCA was seen, it is all comming from the left. Coronary Angiography The patient's coronary anatomy is left dominant. The left main coronary artery is a large size vessel free of disease. The left main trifurcates to th e left anterior descending, circumflex, and ramus. The left anterior descending artery is a large size vessel with intimal irregularities and without si gnificant stenosis. the site of the previous PTCA is open The first diagonal branch is a large size v essel free of disease. The second diagonal branch is a medium size vessel free of disease. The third diagonal branch is a small size vessel free of disease. The circumflex artery is a large size vessel with intimal irregularities and without significant sten osis. The first obtuse marginal branch is a large size vessel free of disease. The second obtuse andi inal branch is a large size vessel with intimal irregularities and without significant stenosis. The third obtuse marginal branch is a large size vessel with intimal irregularities and without significa nt stenosis. The left posterior descending artery is a medium size vessel with intimal irregularities and without significant stenosis. The ramus intermedius artery is a medium size vessel with intimal irregularities and without signific ant stenosis. No RCA was seen Left Ventriculography The left ventricle is mildly dilated in size with normal contractility. The left ventricular ejection fraction is estimated to be 60%. The left ventricular end diastolic pressure is 22 mmHg. There was n o gradient across the aortic valve upon pullback. Conclusion This pt has no significant CAD at this time, the RCA was not seen and the LV function is preserved. I would treat him medically and insert a pacer.
[2016-08-16] MEDS: CLONAZEPAM 1 MG TABLET. PO SCH (20:33)
[2016-08-16] MEDS: TAMSULOSIN 0.4 MG CAP.ER.24H. PO SCH (20:33)
[2016-08-16] MEDS: FAMOTIDINE 20 MG TABLET. PO SCH (20:33)
[2016-08-16] MEDS: AMIODARONE HCL 200 MG TABLET. PO SCH (20:33)
[2016-08-16] MEDS: ATORVASTATIN CALCIUM 40 MG TABLET. PO SCH (20:33)
[2016-08-16] MEDS: TRAMADOL 50 MG TABLET. PO PRN (20:34)
[2016-08-17] MEDS ORDERED: VANCOMYCIN 1 GM in IV NORMAL SALINE 250ML 250 ML IV ONE ×2
[2016-08-17 02:37] VITALS: BP 106/68
[2016-08-17 04:43] LABS: INR 1.2 (0.8-1.1); PROTHROMBIN TIME PATIENT 14.8 SEC (11.7-14.0)
[2016-08-17] MEDS: TRAMADOL 50 MG TABLET. PO PRN (05:32)
[2016-08-17 07:00] VITALS: BP 115/61
--- NOTE | 2016-08-17 08:30 | RAD ---
Exam: AP portable chest. History: Post pacemaker placement. Comparison: 08/16/2016. Findings: The heart and mediastinal structures are within normal limits for size. Lungs are without infiltrate. No pneumothorax or pleural effusion is appreciated. Single lead pacemaker by left subclavian approach is unchanged Impression: 1. No acute cardiopulmonary process.
[2016-08-17] MEDS: ASPIRIN 325 MG TABLET PO SCH (08:59)
[2016-08-17] MEDS: PANTOPRAZOLE 40 MG TABLET.DR. PO SCH (09:00)
[2016-08-17] MEDS: HYDROCHLOROTHIAZIDE 25 MG TABLET PO SCH (09:00)
[2016-08-17] MEDS: AMIODARONE HCL 200 MG TABLET. PO SCH ×2 (09:00→20:28)
[2016-08-17] MEDS: CLOPIDOGREL BISULFATE 75 MG TABLET PO SCH (09:00)
[2016-08-17] MEDS: METOPROLOL SUCC 24HR ER 25 MG TAB.ER.24H. PO SCH (09:00)
--- NOTE | 2016-08-17 10:21 | PDOC ---
Subjective: Subjective: Feeling okay, doesn't want esophagram. Objective: Objective: Per RN - possible DC today. Vital Signs: Vital Signs Date Time Temp Pulse Resp B/P Pulse Ox O2 Delivery O2 Flow Rate FiO2 08/17/16 09:00 73 115/61 08/17/16 07:00 97.9 18 94 Room Air 97.9 08/16/16 13:15 4.0 Labs: Laboratory Tests Test 08/17/16 04:00 Prothrombin Time 14.8SEC Prothromb Time International Ratio 1.2 PE: GEN: NAD, up in chair ABD: S/ND/NT NEURO/PSYCH: A & O 3 A/P: Achalasia post-repair w/ nocturnal choking -has PPI and H2 sara S/p pacemaker placement, cardiac cath -- Declines esophagram at this time. Follow-up PRN. Elevated HOB. VIRGEN BARNES Aug 17, 2016 10:21
[2016-08-17 10:56] VITALS: BP 116/66
--- NOTE | 2016-08-17 11:43 | PDOC ---
PROGRESS NOTES Subjective Subjective cardiac cath results noted with no significant coronary artery disease. permanent pacemaker placed. still in atrial flutter. declined esophagogram. coumadin started but also taking aspirin and plavix Objective Objective Vital Signs Date Time Temp Pulse Resp B/P Pulse Ox O2 Delivery O2 Flow Rate FiO2 08/17/16 10:56 97.9 61 19 116/66 94 Room Air 97.9 08/16/16 13:15 4.0 Intake and Output 08/17/16 07:00 Intake Total 1810 ml Output Total 1950 ml Balance -140 ml Intake Oral 580 ml IV Total 1230 ml Output Urine Total 1950 ml # Voids 1 Physical Exam Abdomen: Soft Heart: Normal S1, Normal S2 Extremities: No edema General: Alert HEENT: Atraumatic Lungs: Clear to auscultation Neuro: Normal speech Psych/Mental Status: Mental status NL Skin: No rashes Assessment Assessment Problems Medical Problems1. permanent pacemaker placed for atrial flutter with intermittent slow VR 2. Coronary artery disease with previous history of coronary angioplasty and stent to the circumflex artery and left anterior descending coronary artery. 3. Hypertension. 4. Hyperlipidemia. 5. achalasia 6. Periodic limb movement disorder. atrial flutter with controlled VR (1) CAD (coronary artery disease) Status: Acute (2) Chest pressure Status: Acute (3) Chest pressure Status: Acute (4) SOB (shortness of breath) Status: Acute Plan Plan of Care continue coumadin discussed with nurse about aspirin and plavix and coumadin as this can increase risk of bleeding. she will contact dr. galloway to see if he wants to d/c plavix and change to aspirin 81 mg daily. also to check to see if dr. galloway wants a lovenox bridge unitl inr therapeutic with coumadin monitor heart rate and for bleeding at pacemaker site Comment Review of Relevant I have reviewed the following items gela (where applicable) has been applied. Labs Laboratory Tests Test 08/16/16 08:15 08/17/16 04:00 White Blood Count 7.1x10^3/uL (4.0-11.0) Red Blood Count 4.57x10^6/uL (4.30-5.70) Hemoglobin 14.0g/dL (13.0-17.5) Hematocrit 41.2% (39.0-53.0) Mean Corpuscular Volume 90fL (79-100) Mean Corpuscular Hemoglobin 31pg (25-35) Mean Corpuscular Hemoglobin Concent 34g/dL (31-37) Red Cell Distribution Width 13.6% (11.5-14.5) Platelet Count 179x10^3/uL (140-400) Neutrophils (%) (Auto) 61% (31-73) Lymphocytes (%) (Auto) 27% (24-48) Monocytes (%) (Auto) 9% (0-9) Eosinophils (%) (Auto) 3% (0-3) Basophils (%) (Auto) 1% (0-3) Neutrophils # (Auto) 4.3x10^3uL (1.8-7.7) Lymphocytes # (Auto) 1.9x10^3/uL (1.0-4.8) Monocytes # (Auto) 0.6x10^3/uL (0.0-1.1) Eosinophils # (Auto) 0.2x10^3/uL (0.0-0.7) Basophils # (Auto) 0.1x10^3/uL (0.0-0.2) Sodium Level 142mmol/L (136-145) Potassium Level 4.2mmol/L (3.5-5.1) Chloride Level 107mmol/L (98-107) Carbon Dioxide Level 26mmol/L (21-32) Anion Gap 9 (6-14) Blood Urea Nitrogen 16mg/dL (8-26) Creatinine 1.2mg/dL (0.7-1.3) Estimated GFR (Cockcroft-Gault) 58.0 Glucose Level 100mg/dL (70-99) Calcium Level 8.9mg/dL (8.5-10.1) Prothrombin Time 14.8SEC (11.7-14.0) Prothromb Time International Ratio 1.2 (0.8-1.1) Laboratory Tests Test 08/17/16 04:00 Prothrombin Time 14.8SEC (11.7-14.0) Prothromb Time International Ratio 1.2 (0.8-1.1) Medications Current Medications Aspirin (Children'S Aspirin) 324 mg 1X ONCE PO Last administered on 08/13/16t 08:19; Start 08/13/16 at 09:00; Stop 08/13/16 at 09:01; Status DC Atenolol (Tenormin) 25 mg 1X ONCE PO Last administered on 08/13/16 08:20; Start 08/13/16 at 09:00; Stop 08/13/16 at 09:01; Status DC Ondansetron HCl (Zofran) 4 mg PRN Q8HRS PRN IV NAUSEA/VOMITING; Start 08/13/16 at 09:00; Stop 08/14/16 at 08:59; Status DC Morphine Sulfate 4 mg PRN Q2HR PRN IV PAIN; Start 08/13/16 at 09:00; Stop at 08:59; Status DC Acetaminophen (Tylenol) 650 mg PRN Q4HRS PRN PO FEVER; Start 08/13/16 at 09:00; Stop 08/13/16 at 11:58; Status DC Nitroglycerin (Nitrostat) 0.4 mg PRN Q5MIN PRN SL CHEST PAIN; Start 08/13/16 at 09:00; Stop 08/13/16 at 11:58; Status DC Acetaminophen (Tylenol) 650 mg PRN Q4HRS PRN PO MILD PAIN / TEMP Last administered on 08/17/16 09:03; Start 08/13/16 at 11:45 Aspirin (FullStory Aspirin) 325 mg DAILYWBKFT PO Last administered on 08/17/16 08: 59; Start 08/13/16 at 13:00 Hydrochlorothiazide (Hydrodiuril) 25 mg DAILY PO Last administered on 08/17/16 09:00; Start 08/13/16 at 13:00 Atorvastatin Calcium (Lipitor) 80 mg QHS PO Last administered on 08/16/16 20:33 ; Start 08/13/16 at 21:00 Famotidine (Pepcid) 40 mg QHS PO Last administered on 08/16/16 20:33; Start 08/13/16 at 21:00 Tamsulosin HCl (Flomax) 0.4 mg QHS PO Last administered on 08/13/16 21:49; Start 08/13/16 at 21:00; Stop 08/14/16 at 20:50; Status DC Pantoprazole Sodium (Protonix) 40 mg DAILYAC PO Last administered on 08/17/16 09:00; Start 08/13/16 at 13:00 Tramadol HCl (Ultram) 50 mg PRN Q6HRS PRN PO PAIN Last administered on 05:32; Start 08/13/16 at 11:45 Nitroglycerin (Nitrostat) 0.4 mg PRN Q5MIN PRN SL CHEST PAIN; Start 08/13/16 at 11:45 Metoprolol Succinate (Toprol Xl) 25 mg DAILY PO ; Start 08/13/16 at 13:00; Stop 08/14/16 at 10:38; Status DC Clonazepam (Klonopin) 1 mg QHS PO Last administered on 08/16/16 20:33; Start at 21:00 Clopidogrel Bisulfate (Plavix) 75 mg DAILYWBKFT PO Last administered on 09:00; Start 08/13/16 at 13:00 Magnesium Hydroxide (Milk Of Magnesia) 2,400 mg PRN DAILY PRN PO CONSTIPATION; Start 08/13/16 at 11:45 Al Hydroxide/Mg Hydroxide (Mylanta Plus Xs) 30 ml PRN Q2HR PRN PO HEARTBURN / GAS; Start 08/13/16 at 22:15 Metoprolol Succinate (Toprol Xl) 12.5 mg DAILY PO Last administered on 09:00; Start 08/15/16 at 09:00 Enoxaparin Sodium (Lovenox 120mg Syringe) 120 mg Q12HR SQ Last administered on 08/15/16 20:52; Start 08/14/16 at 21:00; Stop 08/16/16 at 08:38; Status DC Tamsulosin HCl 0.4 mg 0.4 mg QHS PO Last administered on 08/16/16 20:33; Start 08/14/16 at 21:00 Amiodarone HCl 150 mg/Dextrose 103 ml @ 618 mls/hr 1X ONCE IV Last administered on 08/15/16 10:36; Start 08/15/16 at 10:00; Stop 08/15/16 at 10:09; Status DC Amiodarone HCl 900 mg/Dextrose 518 ml @ 0 mls/hr CONT PRN IV SEE I/O RECORD Last administered on 08/15/16 10:32; Start 08/15/16 at 10:00; Stop 08/15/16 at 10: 36; Status DC Sodium Chloride 1,000 ml @ 60 mls/hr [id number] IV Last administered on 08/16/16 09:34; Start 08/15/16 at 17:17; Stop 08/16/16 at 09:56; Status DC Cefazolin Sodium/ Dextrose (Ancef 2gm Premix) 50 ml @ 100 mls/hr 1X ONCE IV ; Start 08/15/16 at 17:45; Stop 08/15/16 at 18:14; Status DC Diphenhydramine HCl (Benadryl) 50 mg 1X ONCE PO Last administered on 08/16/16 09:31; Start 08/16/16 at 09:30; Stop 08/16/16 at 09:31; Status DC Famotidine (Pepcid) 40 mg 1X ONCE PO Last administered on 08/16/16 09:31; Start 08/16/16 at 09:30; Stop 08/16/16 at 09:31; Status DC Hydrocortisone Sodium Succinate 125 mg 125 mg 1X ONCE IV Last administered on 08/16/16 09:32; Start 08/16/16 at 09:30; Stop 08/16/16 at 09:31; Status DC Amiodarone HCl 900 mg/Dextrose 518 ml @ 0 mls/hr CONT PRN IV SEE I/O RECORD Last administered on 08/16/16 09:33; Start 08/16/16 at 09:30; Stop 08/16/16 at 09: 36; Status DC Bacitracin 48101 unit/Sodium Chloride 250 ml @ 250 mls/hr 1X ONCE IRR ; Start 08/16/16 at 11:00; Stop 08/16/16 at 11:59; Status DC Vancomycin HCl/ Sodium Chloride (Iv Sodium Chloride 0.9% 250ml) 250 ml @ 250 mls/hr 1X ONCE IV ; Start 08/16/16 at 11:30; Stop 08/16/16 at 12:29; Status DC Midazolam HCl (Versed) 5 mg 1X ONCE IV Last administered on 08/16/16 13:15; Start 08/16/16 at 13:15; Stop 08/16/16 at 13:16; Status DC Fentanyl Citrate (Fentanyl 5ml Vial) 175 mcg 1X ONCE IV Last administered on 13:15; Start 08/16/16 at 13:15; Stop 08/16/16 at 13:16; Status DC Lidocaine/ Epinephrine 40 ml 40 ml 1X ONCE IJ Last administered on 08/16/16 11 :50; Start 08/16/16 at 13:15; Stop 08/16/16 at 13:16; Status DC Bacitracin 42113 unit/Sodium Chloride 250 ml @ 0 mls/hr 1X ONCE IRR Last administered on 08/16/16 12:30; Start 08/16/16 at 13:15; Stop 08/16/16 at 13:15; Status DC Vancomycin HCl 250 ml @ 250 mls/hr 1X ONCE IV Last administered on 08/16/16 11:53; Start 08/16/16 at 13:15; Stop 08/16/16 at 13:15; Status DC Metoprolol Tartrate (Lopressor) 5 mg 1X ONCE IVP Last administered on 12:18; Start 08/16/16 at 13:15; Stop 08/16/16 at 13:16; Status DC Adenosine (Adenocard) 6 mg 1X ONCE IV Last administered on 08/16/16 12:41; Start 08/16/16 at 13:15; Stop 08/16/16 at 13:16; Status DC Adenosine (Adenocard) 12 mg 1X ONCE IV Last administered on 08/16/16 12:41; Start 08/16/16 at 13:15; Stop 08/16/16 at 13:16; Status DC Diphenhydramine HCl (Benadryl) 25 mg 1X ONCE IVP Last administered on 11:48; Start 08/16/16 at 13:15; Stop 08/16/16 at 13:16; Status DC Hydrocortisone Sodium Succinate (Solu-Cortef) 125 mg 1X ONCE IV Last administered on 08/16/16 11:15; Start 08/16/16 at 13:15; Stop 08/16/16 at 13:16; Status DC Amiodarone HCl (Cordarone) 400 mg BID PO Last administered on 08/17/16 09:00; Start 08/16/16 at 21:00; Stop 08/23/16 at 21:00 Amiodarone HCl (Cordarone) 200 mg DAILY PO ; Start 08/24/16 at 09:00 Warfarin Sodium 10 mg 10 mg 1X ONCE PO Last administered on 08/16/16 16:22; Start 08/16/16 at 16:00; Stop 08/16/16 at 16:01; Status DC Vancomycin HCl 250 ml @ 250 mls/hr 1X ONCE IV ; Start 08/16/16 at 19:00; Stop 08/16/16 at 19:59; Status UNV Warfarin Sodium 1 each 1 each PRN DAILY PRN MC SEE COMMENTS Last administered on 08/16/16 15:56; Start 08/16/16 at 13:45 Vancomycin HCl/ Sodium Chloride (Iv Sodium Chloride 0.9% 250ml) 250 ml @ 250 mls/hr 1X ONCE IV Last administered on 08/16/16 23:20; Start 08/17/16 at 00:00 ; Stop 08/17/16 at 00:59; Status DC Midazolam HCl (Versed) 5 mg STK-MED ONCE .ROUTE ; Start 08/16/16 at 10:37; Stop 08/16/16 at 13:43; Status DC Fentanyl Citrate (Fentanyl 5ml Vial) 250 mcg STK-MED ONCE .ROUTE ; Start at 10:37; Stop 08/16/16 at 13:44; Status DC Diphenhydramine HCl (Benadryl) 50 mg STK-MED ONCE .ROUTE ; Start 08/16/16 at 10: 59; Stop 08/16/16 at 13:44; Status DC Hydrocortisone Sodium Succinate (Solu-Cortef) 250 mg STK-MED ONCE .ROUTE ; Start 08/16/16 at 10:59; Stop 08/16/16 at 13:44; Status DC Iodixanol (Visipaque 320) 100 ml STK-MED ONCE .ROUTE ; Start 08/16/16 at 11:23; Stop 08/16/16 at 13:44; Status DC Lidocaine/ Epinephrine (Xylocaine 2%-Epi 1:100,000) 20 ml STK-MED ONCE .ROUTE ; Start 08/16/16 at 11:50; Stop 08/16/16 at 13:44; Status DC Metoprolol Tartrate (Lopressor) 5 mg STK-MED ONCE .ROUTE ; Start 08/16/16 at 12: 15; Stop 08/16/16 at 13:44; Status DC Adenosine (Adenocard) 6 mg STK-MED ONCE IV ; Start 08/16/16 at 12:36; Stop at 13:44; Status DC Adenosine (Adenocard) 6 mg STK-MED ONCE IV ; Start 08/16/16 at 12:39; Stop at 13:44; Status DC Active Scripts Active Reported Tramadol Hcl 50 Mg Tablet 50 Mg PO NEEDED Tamsulosin Hcl 0.4 Mg Cap.er.24h 0.4 Mg PO BID Omeprazole 40 Mg Capsule.dr 40 Mg PO DAILY NITROGLYCERIN SubLingual (Nitroglycerin) 0.4 Mg Tab.subl 0.4 Mg SL DAILY Nifedipine Er (Nifedipine) 30 Mg Tab.er.24 30 Mg PO DAILY Daily Vitamin (Multivitamin) 1 Each Tablet 1 Each PO DAILY Hydrocodone-Apap 7.5-325 (Hydrocodone Bit/Acetaminophen) 1 Each Tablet 1 Each PO NEEDED Flonase (Fluticasone Propionate) 16 Gm [place].susp 16 Gm NS DAILY Famotidine 40 Mg Tablet 40 Mg PO DAILY Crestor (Rosuvastatin Calcium) 40 Mg Tablet 40 Mg PO DAILY Clopidogrel (Clopidogrel Bisulfate) 75 Mg Tablet 75 Mg PO DAILY Clonazepam Odt (Clonazepam) 1 Mg Tab.rapdis 1 Mg PO HS Atenolol 25 Mg Tablet 25 Mg PO DAILY Vitals/I & O Vital Sign - Last 24 Hours 08/16/16 08/16/16 08/16/16 08/16/16 12:18 13:05 13:15 13:30 Pulse 130 98 92 Resp 16 14 B/P 106/62 Pulse Ox 95 95 O2 Delivery Nasal Cannula Nasal Cannula O2 Flow Rate 4.0 4.0 08/16/16 08/16/16 08/16/16 08/16/16 13:45 14:00 14:15 14:45 Pulse 88 72 70 64 B/P 95/58 99/49 83/50 95/50 08/16/16 08/16/16 08/16/16 08/16/16 15:00 15:15 16:15 19:19 Temp 98.0 98.1 98.0 98.1 Pulse 72 64 72 71 Resp 18 18 B/P 98/54 116/62 116/63 102/55 Pulse Ox 92 92 O2 Delivery Room Air Room Air 08/16/16 08/16/16 08/16/16 08/16/16 20:00 20:33 20:34 22:25 Temp 97.8 97.8 Pulse 71 66 Resp 18 B/P 102/55 99/61 Pulse Ox 92 94 O2 Delivery Room Air Room Air Room Air 08/17/16 08/17/16 08/17/16 08/17/16 02:37 05:32 06:32 07:00 Temp 97.6 97.9 97.6 97.9 Pulse 69 71 Resp 18 18 B/P 106/68 115/61 Pulse Ox 93 93 93 94 O2 Delivery Room Air Room Air Room Air Room Air 08/17/16 08/17/16 08/17/16 08/17/16 08:00 09:00 09:00 10:56 Temp 97.9 97.9 Pulse 74 73 61 Resp 19 B/P 115/61 115/61 116/66 Pulse Ox 94 O2 Delivery Room Air Room Air Intake and Output 08/16/16 08/16/16 08/17/16 15:00 23:00 07:00 Intake Total 480 ml 1330 ml Output Total 1375 ml 575 ml Balance -895 ml 755 ml HELEN WARREN MD Aug 17, 2016 11:42
[2016-08-17] MEDS ORDERED: WARFARIN 7.5 MG TABLET. PO ONE (13:00)
[2016-08-17 15:00] VITALS: BP 137/72
--- NOTE | 2016-08-17 16:31 | PDOC ---
PROGRESS NOTES Subjective Subjective No new complaints, pacer working normally CXR : no pneumo. Objective Objective Vital Signs Date Time Temp Pulse Resp B/P Pulse Ox O2 Delivery O2 Flow Rate FiO2 08/17/16 15:00 98.2 68 17 137/72 98 Room Air 98.2 08/16/16 13:15 4.0 Intake and Output 08/17/16 07:00 Intake Total 1810 ml Output Total 1950 ml Balance -140 ml Intake Oral 580 ml IV Total 1230 ml Output Urine Total 1950 ml # Voids 1 Physical Exam Physical Exam No significant changes in cardiac exam Assessment Assessment Pt stable post pacer Need to continue with anticoagulation with Lovenox and warfarin. Home soon Problems Medical Problems: (1) CAD (coronary artery disease) Status: Acute (2) Chest pressure Status: Acute (3) Chest pressure Status: Acute (4) SOB (shortness of breath) Status: Acute Comment Review of Relevant I have reviewed the following items gela (where applicable) has been applied. Labs Laboratory Tests Test 08/16/16 08:15 08/17/16 04:00 White Blood Count 7.1x10^3/uL (4.0-11.0) Red Blood Count 4.57x10^6/uL (4.30-5.70) Hemoglobin 14.0g/dL (13.0-17.5) Hematocrit 41.2% (39.0-53.0) Mean Corpuscular Volume 90fL (79-100) Mean Corpuscular Hemoglobin 31pg (25-35) Mean Corpuscular Hemoglobin Concent 34g/dL (31-37) Red Cell Distribution Width 13.6% (11.5-14.5) Platelet Count 179x10^3/uL (140-400) Neutrophils (%) (Auto) 61% (31-73) Lymphocytes (%) (Auto) 27% (24-48) Monocytes (%) (Auto) 9% (0-9) Eosinophils (%) (Auto) 3% (0-3) Basophils (%) (Auto) 1% (0-3) Neutrophils # (Auto) 4.3x10^3uL (1.8-7.7) Lymphocytes # (Auto) 1.9x10^3/uL (1.0-4.8) Monocytes # (Auto) 0.6x10^3/uL (0.0-1.1) Eosinophils # (Auto) 0.2x10^3/uL (0.0-0.7) Basophils # (Auto) 0.1x10^3/uL (0.0-0.2) Sodium Level 142mmol/L (136-145) Potassium Level 4.2mmol/L (3.5-5.1) Chloride Level 107mmol/L (98-107) Carbon Dioxide Level 26mmol/L (21-32) Anion Gap 9 (6-14) Blood Urea Nitrogen 16mg/dL (8-26) Creatinine 1.2mg/dL (0.7-1.3) Estimated GFR (Cockcroft-Gault) 58.0 Glucose Level 100mg/dL (70-99) Calcium Level 8.9mg/dL (8.5-10.1) Prothrombin Time 14.8SEC (11.7-14.0) Prothromb Time International Ratio 1.2 (0.8-1.1) Laboratory Tests Test 08/17/16 04:00 Prothrombin Time 14.8SEC (11.7-14.0) Prothromb Time International Ratio 1.2 (0.8-1.1) Medications Current Medications Aspirin (Children'S Aspirin) 324 mg 1X ONCE PO Last administered on 08/13/16 08:19; Start 08/13/16 at 09:00; Stop 08/13/16 at 09:01; Status DC Atenolol (Tenormin) 25 mg 1X ONCE PO Last administered on 08/13/16 08:20; Start 08/13/16 at 09:00; Stop 08/13/16 at 09:01; Status DC Ondansetron HCl (Zofran) 4 mg PRN Q8HRS PRN IV NAUSEA/VOMITING; Start 08/13/16 at 09:00; Stop 08/14/16 at 08:59; Status DC Morphine Sulfate 4 mg PRN Q2HR PRN IV PAIN; Start 08/13/16 at 09:00; Stop at 08:59; Status DC Acetaminophen (Tylenol) 650 mg PRN Q4HRS PRN PO FEVER; Start 08/13/16 at 09:00; Stop 08/13/16 at 11:58; Status DC Nitroglycerin (Nitrostat) 0.4 mg PRN Q5MIN PRN SL CHEST PAIN; Start 08/13/16 at 09:00; Stop 08/13/16 at 11:58; Status DC Acetaminophen (Tylenol) 650 mg PRN Q4HRS PRN PO MILD PAIN / TEMP Last administered on 08/17/16 09:03; Start 08/13/16 at 11:45 Aspirin (Nel Aspirin) 325 mg DAILYWBKFT PO Last administered on 08/17/16 08: 59; Start 08/13/16 at 13:00; Stop 08/17/16 at 12:26; Status DC Hydrochlorothiazide (Hydrodiuril) 25 mg DAILY PO Last administered on 08/17/16 09:00; Start 08/13/16 at 13:00 Atorvastatin Calcium (Lipitor) 80 mg QHS PO Last administered on 08/16/16 20:33 ; Start 08/13/16 at 21:00 Famotidine (Pepcid) 40 mg QHS PO Last administered on 08/16/16 20:33; Start 08/13/16 at 21:00 Tamsulosin HCl (Flomax) 0.4 mg QHS PO Last administered on 08/13/16 21:49; Start 08/13/16 at 21:00; Stop 08/14/16 at 20:50; Status DC Pantoprazole Sodium (Protonix) 40 mg DAILYAC PO Last administered on 08/17/16 09:00; Start 08/13/16 at 13:00 Tramadol HCl (Ultram) 50 mg PRN Q6HRS PRN PO PAIN Last administered on 05:32; Start 08/13/16 at 11:45 Nitroglycerin (Nitrostat) 0.4 mg PRN Q5MIN PRN SL CHEST PAIN; Start 08/13/16 at 11:45 Metoprolol Succinate (Toprol Xl) 25 mg DAILY PO ; Start 08/13/16 at 13:00; Stop 08/14/16 at 10:38; Status DC Clonazepam (Klonopin) 1 mg QHS PO Last administered on 08/16/16 20:33; Start at 21:00 Clopidogrel Bisulfate (Plavix) 75 mg DAILYWBKFT PO Last administered on 09:00; Start 08/13/16 at 13:00; Stop 08/17/16 at 12:26; Status DC Magnesium Hydroxide (Milk Of Magnesia) 2,400 mg PRN DAILY PRN PO CONSTIPATION; Start 08/13/16 at 11:45 Al Hydroxide/Mg Hydroxide (Mylanta Plus Xs) 30 ml PRN Q2HR PRN PO HEARTBURN / GAS; Start 08/13/16 at 22:15 Metoprolol Succinate (Toprol Xl) 12.5 mg DAILY PO Last administered on 09:00; Start 08/15/16 at 09:00 Enoxaparin Sodium (Lovenox 120mg Syringe) 120 mg Q12HR SQ Last administered on 08/15/16 20:52; Start 08/14/16 at 21:00; Stop 08/16/16 at 08:38; Status DC Tamsulosin HCl 0.4 mg 0.4 mg QHS PO Last administered on 08/16/16 20:33; Start 08/14/16 at 21:00 Amiodarone HCl 150 mg/Dextrose 103 ml @ 618 mls/hr 1X ONCE IV Last administered on 08/15/16 10:36; Start 08/15/16 at 10:00; Stop 08/15/16 at 10:09; Status DC Amiodarone HCl 900 mg/Dextrose 518 ml @ 0 mls/hr CONT PRN IV SEE I/O RECORD Last administered on 08/15/16 10:32; Start 08/15/16 at 10:00; Stop 08/15/16 at 10: 36; Status DC Sodium Chloride 1,000 ml @ 60 mls/hr [id number] IV Last administered on 08/16/16 09:34; Start 08/15/16 at 17:17; Stop 08/16/16 at 09:56; Status DC Cefazolin Sodium/ Dextrose (Ancef 2gm Premix) 50 ml @ 100 mls/hr 1X ONCE IV ; Start 08/15/16 at 17:45; Stop 08/15/16 at 18:14; Status DC Diphenhydramine HCl (Benadryl) 50 mg 1X ONCE PO Last administered on 08/16/16 09:31; Start 08/16/16 at 09:30; Stop 08/16/16 at 09:31; Status DC Famotidine (Pepcid) 40 mg 1X ONCE PO Last administered on 08/16/16 09:31; Start 08/16/16 at 09:30; Stop 08/16/16 at 09:31; Status DC Hydrocortisone Sodium Succinate 125 mg 125 mg 1X ONCE IV Last administered on 08/16/16 09:32; Start 08/16/16 at 09:30; Stop 08/16/16 at 09:31; Status DC Amiodarone HCl 900 mg/Dextrose 518 ml @ 0 mls/hr CONT PRN IV SEE I/O RECORD Last administered on 08/16/16 09:33; Start 08/16/16 at 09:30; Stop 08/16/16 at 09: 36; Status DC Bacitracin 69305 unit/Sodium Chloride 250 ml @ 250 mls/hr 1X ONCE IRR ; Start 08/16/16 at 11:00; Stop 08/16/16 at 11:59; Status DC Vancomycin HCl/ Sodium Chloride (Iv Sodium Chloride 0.9% 250ml) 250 ml @ 250 mls/hr 1X ONCE IV ; Start 08/16/16 at 11:30; Stop 08/16/16 at 12:29; Status DC Midazolam HCl (Versed) 5 mg 1X ONCE IV Last administered on 08/16/16 13:15; Start 08/16/16 at 13:15; Stop 08/16/16 at 13:16; Status DC Fentanyl Citrate (Fentanyl 5ml Vial) 175 mcg 1X ONCE IV Last administered on 13:15; Start 08/16/16 at 13:15; Stop 08/16/16 at 13:16; Status DC Lidocaine/ Epinephrine 40 ml 40 ml 1X ONCE IJ Last administered on 08/16/16 11 :50; Start 08/16/16 at 13:15; Stop 08/16/16 at 13:16; Status DC Bacitracin 55474 unit/Sodium Chloride 250 ml @ 0 mls/hr 1X ONCE IRR Last administered on 08/16/16 12:30; Start 08/16/16 at 13:15; Stop 08/16/16 at 13:15; Status DC Vancomycin HCl 250 ml @ 250 mls/hr 1X ONCE IV Last administered on 08/16/16 11:53; Start 08/16/16 at 13:15; Stop 08/16/16 at 13:15; Status DC Metoprolol Tartrate (Lopressor) 5 mg 1X ONCE IVP Last administered on 12:18; Start 08/16/16 at 13:15; Stop 08/16/16 at 13:16; Status DC Adenosine (Adenocard) 6 mg 1X ONCE IV Last administered on 08/16/16 12:41; Start 08/16/16 at 13:15; Stop 08/16/16 at 13:16; Status DC Adenosine (Adenocard) 12 mg 1X ONCE IV Last administered on 08/16/16 12:41; Start 08/16/16 at 13:15; Stop 08/16/16 at 13:16; Status DC Diphenhydramine HCl (Benadryl) 25 mg 1X ONCE IVP Last administered on 11:48; Start 08/16/16 at 13:15; Stop 08/16/16 at 13:16; Status DC Hydrocortisone Sodium Succinate (Solu-Cortef) 125 mg 1X ONCE IV Last administered on 08/16/16 11:15; Start 08/16/16 at 13:15; Stop 08/16/16 at 13:16; Status DC Amiodarone HCl (Cordarone) 400 mg BID PO Last administered on 08/17/16 09:00; Start 08/16/16 at 21:00; Stop 08/23/16 at 21:00 Amiodarone HCl (Cordarone) 200 mg DAILY PO ; Start 08/24/16 at 09:00 Warfarin Sodium 10 mg 10 mg 1X ONCE PO Last administered on 08/16/16 16:22; Start 08/16/16 at 16:00; Stop 08/16/16 at 16:01; Status DC Vancomycin HCl 250 ml @ 250 mls/hr 1X ONCE IV ; Start 08/16/16 at 19:00; Stop 08/16/16 at 19:59; Status UNV Warfarin Sodium 1 each 1 each PRN DAILY PRN MC SEE COMMENTS Last administered on 08/17/16 13:50; Start 08/16/16 at 13:45 Vancomycin HCl/ Sodium Chloride (Iv Sodium Chloride 0.9% 250ml) 250 ml @ 250 mls/hr 1X ONCE IV Last administered on 4/5/17at 23:20; Start 08/17/16 at 00:00 ; Stop 08/17/16 at 00:59; Status DC Midazolam HCl (Versed) 5 mg STK-MED ONCE .ROUTE ; Start 08/16/16 at 10:37; Stop 08/16/16 at 13:43; Status DC Fentanyl Citrate (Fentanyl 5ml Vial) 250 mcg STK-MED ONCE .ROUTE ; Start at 10:37; Stop 08/16/16 at 13:44; Status DC Diphenhydramine HCl (Benadryl) 50 mg STK-MED ONCE .ROUTE ; Start 08/16/16 at 10: 59; Stop 08/16/16 at 13:44; Status DC Hydrocortisone Sodium Succinate (Solu-Cortef) 250 mg STK-MED ONCE .ROUTE ; Start 08/16/16 at 10:59; Stop 08/16/16 at 13:44; Status DC Iodixanol (Visipaque 320) 100 ml STK-MED ONCE .ROUTE ; Start 08/16/16 at 11:23; Stop 08/16/16 at 13:44; Status DC Lidocaine/ Epinephrine (Xylocaine 2%-Epi 1:100,000) 20 ml STK-MED ONCE .ROUTE ; Start 08/16/16 at 11:50; Stop 08/16/16 at 13:44; Status DC Metoprolol Tartrate (Lopressor) 5 mg STK-MED ONCE .ROUTE ; Start 08/16/16 at 12: 15; Stop 08/16/16 at 13:44; Status DC Adenosine (Adenocard) 6 mg STK-MED ONCE IV ; Start 08/16/16 at 12:36; Stop at 13:44; Status DC Adenosine (Adenocard) 6 mg STK-MED ONCE IV ; Start 08/16/16 at 12:39; Stop at 13:44; Status DC Enoxaparin Sodium (Lovenox 100mg Syringe) 100 mg Q12HR SQ Last administered on 08/17/16t 12:58; Start 08/17/16 at 13:00 Aspirin (Children'S Aspirin) 81 mg DAILYWBKFT PO ; Start 08/18/16 at 08:00; Stop 08/18/16 at 08:00; Status DC Warfarin Sodium (Coumadin) 7.5 mg 1X ONCE PO Last administered on 08/17/16t 12: 59; Start 08/17/16 at 13:00; Stop 08/17/16 at 13:01; Status DC Aspirin (Children'S Aspirin) 81 mg DAILYWBKFT PO ; Start 08/18/16 at 08:00 Active Scripts Active Reported Tramadol Hcl 50 Mg Tablet 50 Mg PO NEEDED Tamsulosin Hcl 0.4 Mg Cap.er.24h 0.4 Mg PO BID Omeprazole 40 Mg Capsule.dr 40 Mg PO DAILY NITROGLYCERIN SubLingual (Nitroglycerin) 0.4 Mg Tab.subl 0.4 Mg SL DAILY Nifedipine Er (Nifedipine) 30 Mg Tab.er.24 30 Mg PO DAILY Daily Vitamin (Multivitamin) 1 Each Tablet 1 Each PO DAILY Hydrocodone-Apap 7.5-325 (Hydrocodone Bit/Acetaminophen) 1 Each Tablet 1 Each PO NEEDED Flonase (Fluticasone Propionate) 16 Gm [place].susp 16 Gm NS DAILY Famotidine 40 Mg Tablet 40 Mg PO DAILY Crestor (Rosuvastatin Calcium) 40 Mg Tablet 40 Mg PO DAILY Clopidogrel (Clopidogrel Bisulfate) 75 Mg Tablet 75 Mg PO DAILY Clonazepam Odt (Clonazepam) 1 Mg Tab.rapdis 1 Mg PO HS Atenolol 25 Mg Tablet 25 Mg PO DAILY Vitals/I & O Vital Sign - Last 24 Hours 08/16/16 08/16/16 08/16/16 08/16/16 19:19 20:00 20:33 20:34 Temp 98.1 98.1 Pulse 71 71 Resp 18 B/P 102/55 102/55 Pulse Ox 92 92 O2 Delivery Room Air Room Air Room Air 08/16/16 08/17/16 08/17/16 08/17/16 22:25 02:37 05:32 06:32 Temp 97.8 97.6 97.8 97.6 Pulse 66 69 Resp 18 18 B/P 99/61 106/68 Pulse Ox 94 93 93 93 O2 Delivery Room Air Room Air Room Air Room Air 08/17/16 08/17/16 08/17/16 08/17/16 07:00 08:00 09:00 09:00 Temp 97.9 97.9 Pulse 71 74 73 Resp 18 B/P 115/61 115/61 115/61 Pulse Ox 94 O2 Delivery Room Air Room Air 08/17/16 08/17/16 10:56 15:00 Temp 97.9 98.2 97.9 98.2 Pulse 61 68 Resp 19 17 B/P 116/66 137/72 Pulse Ox 94 98 O2 Delivery Room Air Room Air Intake and Output 08/16/16 08/16/16 08/17/16 15:00 23:00 07:00 Intake Total 480 ml 1330 ml Output Total 1375 ml 575 ml Balance -895 ml 755 ml MARISSA MCKEON MD Aug 17, 2016 16:31
[2016-08-17 19:45] VITALS: BP 120/68
[2016-08-17] MEDS: CLONAZEPAM 1 MG TABLET. PO SCH (20:27)
[2016-08-17] MEDS: ATORVASTATIN CALCIUM 40 MG TABLET. PO SCH (20:27)
[2016-08-17] MEDS: FAMOTIDINE 20 MG TABLET. PO SCH (20:27)
[2016-08-17] MEDS: TAMSULOSIN 0.4 MG CAP.ER.24H. PO SCH (20:28)
[2016-08-17 23:00] VITALS: BP 108/61
[2016-08-18 02:29] VITALS: BP 120/69
[2016-08-18 04:09] LABS: INR 1.7 (0.8-1.1)
[2016-08-18 04:12] LABS: CALCIUM 8.7 mg/dL (8.5-10.1); CREATININE 1.4 mg/dL (0.7-1.3); GFR 48.5; POTASSIUM 4.1 mmol/L (3.5-5.1)
[2016-08-18 05:34] LABS: BASO # 0.1 x10^3/uL (0.0-0.2); BASO % 1 % (0-3); EOS % 3 % (0-3); HEMATOCRIT 38.5 % (39.0-53.0); HEMOGLOBIN 12.7 g/dL (13.0-17.5); LYMPH # 1.8 x10^3/uL (1.0-4.8); LYMPH % 22 % (24-48); MEAN CORPUSCULAR HEMOGLOBIN 31 pg (25-35); MEAN CORPUSCULAR HGB CONC 33 g/dL (31-37); MEAN CORPUSCULAR VOLUME 93 fL (79-100); MONO % 9 % (0-9); NEUT % 65 % (31-73); PLATELET COUNT 167 x10^3/uL (140-400); RED BLOOD COUNT 4.16 x10^6/uL (4.30-5.70); RED CELL DISTRIBUTION WIDTH 13.7 % (11.5-14.5); WHITE BLOOD COUNT 8.2 x10^3/uL (4.0-11.0)
[2016-08-18 07:45] VITALS: BP 136/74
[2016-08-18] MEDS ORDERED: ASPIRIN 81 MG TAB.CHEW PO SCH (08:00)
[2016-08-18] MEDS: ASPIRIN CHEWABLE 81 MG TABLET. PO SCH (09:05)
[2016-08-18] MEDS: HYDROCHLOROTHIAZIDE 25 MG TABLET PO SCH (09:05)
[2016-08-18] MEDS: PANTOPRAZOLE 40 MG TABLET.DR. PO SCH (09:06)
[2016-08-18] MEDS: AMIODARONE HCL 200 MG TABLET. PO SCH ×2 (09:06→21:18)
[2016-08-18] MEDS: METOPROLOL SUCC 24HR ER 25 MG TAB.ER.24H. PO SCH (09:07)
--- NOTE | 2016-08-18 10:20 | PDOC ---
Subjective: Subjective: No new GI issues. Objective: Objective: DC held for sub-therapeutic INR. Vital Signs: Vital Signs Date Time Temp Pulse Resp B/P Pulse Ox O2 Delivery O2 Flow Rate FiO2 08/18/16 09:07 72 08/18/16 07:45 98.0 20 136/74 97 Room Air 98.0 Labs: Laboratory Tests Test 08/18/16 03:30 08/18/16 05:00 Prothrombin Time 19.0SEC Prothromb Time International Ratio 1.7 Sodium Level 143mmol/L Potassium Level 4.1mmol/L Chloride Level 107mmol/L Carbon Dioxide Level 31mmol/L Anion Gap 5 Blood Urea Nitrogen 19mg/dL Creatinine 1.4mg/dL Estimated GFR (Cockcroft-Gault) 48.5 Glucose Level 98mg/dL Calcium Level 8.7mg/dL White Blood Count 8.2x10^3/uL Red Blood Count 4.16x10^6/uL Hemoglobin 12.7g/dL Hematocrit 38.5% Mean Corpuscular Volume 93fL Mean Corpuscular Hemoglobin 31pg Mean Corpuscular Hemoglobin Concent 33g/dL Red Cell Distribution Width 13.7% Platelet Count 167x10^3/uL Neutrophils (%) (Auto) 65% Lymphocytes (%) (Auto) 22% Monocytes (%) (Auto) 9% Eosinophils (%) (Auto) 3% Basophils (%) (Auto) 1% Neutrophils # (Auto) 5.3x10^3uL Lymphocytes # (Auto) 1.8x10^3/uL Monocytes # (Auto) 0.7x10^3/uL Eosinophils # (Auto) 0.2x10^3/uL Basophils # (Auto) 0.1x10^3/uL PE: GEN: NAD, up to chair ABD: non-tender NEURO/PSYCH: A & O 3 A/P: Achalasia post-repair w/ nocturnal choking -has PPI and H2 sara -- Declines esophagram at this time. VIRGEN BARNES Aug 18, 2016 10:20
--- NOTE | 2016-08-18 10:26 | PDOC ---
PROGRESS NOTES Subjective Subjective receiving lovenox IM every 12 hours until inr 2.0 or higher. inr 1.7. today. feels okay. denies chest pain or shortness of breath. lab reviewed. creatinine up to 1.4. Objective Objective Vital Signs Date Time Temp Pulse Resp B/P Pulse Ox O2 Delivery O2 Flow Rate FiO2 08/18/16 09:07 72 08/18/16 07:45 98.0 20 136/74 97 Room Air 98.0 08/16/16 13:15 4.0 Intake and Output 08/18/16 07:00 Intake Total 1400 ml Output Total 2875 ml Balance -1475 ml Intake Oral 1400 ml Output Urine Total 2875 ml Physical Exam Abdomen: Soft Heart: Normal S1, Normal S2 Extremities: No edema General: Alert HEENT: Atraumatic Lungs: Clear to auscultation Neuro: Normal speech Psych/Mental Status: Mental status NL Skin: No rashes Assessment Assessment Problems Medical Problems:. permanent pacemaker placed for atrial flutter with intermittent slow VR 2. Coronary artery disease with previous history of coronary angioplasty and stent to the circumflex artery and left anterior descending coronary artery. coronaries without significant new disease per cardiac catheterization 3. Hypertension. 4. Hyperlipidemia. 5. achalasia 6. Periodic limb movement disorder. atrial flutter with controlled VR (1) CAD (coronary artery disease) Status: Acute (2) Chest pressure Status: Acute (3) Chest pressure Status: Acute (4) SOB (shortness of breath) Status: Acute Plan Plan of Care continue lovenox bridge until inr 2 or higher continue coumadin anticipate dismissal tomorrow continue amiodarone and aspirin 81 mg daily off plavix check bmp tomorrow arrange home health when dismissed . Comment Review of Relevant I have reviewed the following items gela (where applicable) has been applied. Labs Laboratory Tests Test 08/17/16 04:00 08/18/16 03:30 08/18/16 05:00 Prothrombin Time 14.8SEC (11.7-14.0) 19.0SEC (11.7-14.0) Prothromb Time International Ratio 1.2 (0.8-1.1) 1.7 (0.8-1.1) Sodium Level 143mmol/L (136-145) Potassium Level 4.1mmol/L (3.5-5.1) Chloride Level 107mmol/L (98-107) Carbon Dioxide Level 31mmol/L (21-32) Anion Gap 5 (6-14) Blood Urea Nitrogen 19mg/dL (8-26) Creatinine 1.4mg/dL (0.7-1.3) Estimated GFR (Cockcroft-Gault) 48.5 Glucose Level 98mg/dL (70-99) Calcium Level 8.7mg/dL (8.5-10.1) White Blood Count 8.2x10^3/uL (4.0-11.0) Red Blood Count 4.16x10^6/uL (4.30-5.70) Hemoglobin 12.7g/dL (13.0-17.5) Hematocrit 38.5% (39.0-53.0) Mean Corpuscular Volume 93fL (79-100) Mean Corpuscular Hemoglobin 31pg (25-35) Mean Corpuscular Hemoglobin Concent 33g/dL (31-37) Red Cell Distribution Width 13.7% (11.5-14.5) Platelet Count 167x10^3/uL (140-400) Neutrophils (%) (Auto) 65% (31-73) Lymphocytes (%) (Auto) 22% (24-48) Monocytes (%) (Auto) 9% (0-9) Eosinophils (%) (Auto) 3% (0-3) Basophils (%) (Auto) 1% (0-3) Neutrophils # (Auto) 5.3x10^3uL (1.8-7.7) Lymphocytes # (Auto) 1.8x10^3/uL (1.0-4.8) Monocytes # (Auto) 0.7x10^3/uL (0.0-1.1) Eosinophils # (Auto) 0.2x10^3/uL (0.0-0.7) Basophils # (Auto) 0.1x10^3/uL (0.0-0.2) Laboratory Tests Test 08/18/16 03:30 08/18/16 05:00 Prothrombin Time 19.0SEC (11.7-14.0) Prothromb Time International Ratio 1.7 (0.8-1.1) Sodium Level 143mmol/L (136-145) Potassium Level 4.1mmol/L (3.5-5.1) Chloride Level 107mmol/L (98-107) Carbon Dioxide Level 31mmol/L (21-32) Anion Gap 5 (6-14) Blood Urea Nitrogen 19mg/dL (8-26) Creatinine 1.4mg/dL (0.7-1.3) Estimated GFR (Cockcroft-Gault) 48.5 Glucose Level 98mg/dL (70-99) Calcium Level 8.7mg/dL (8.5-10.1) White Blood Count 8.2x10^3/uL (4.0-11.0) Red Blood Count 4.16x10^6/uL (4.30-5.70) Hemoglobin 12.7g/dL (13.0-17.5) Hematocrit 38.5% (39.0-53.0) Mean Corpuscular Volume 93fL (79-100) Mean Corpuscular Hemoglobin 31pg (25-35) Mean Corpuscular Hemoglobin Concent 33g/dL (31-37) Red Cell Distribution Width 13.7% (11.5-14.5) Platelet Count 167x10^3/uL (140-400) Neutrophils (%) (Auto) 65% (31-73) Lymphocytes (%) (Auto) 22% (24-48) Monocytes (%) (Auto) 9% (0-9) Eosinophils (%) (Auto) 3% (0-3) Basophils (%) (Auto) 1% (0-3) Neutrophils # (Auto) 5.3x10^3uL (1.8-7.7) Lymphocytes # (Auto) 1.8x10^3/uL (1.0-4.8) Monocytes # (Auto) 0.7x10^3/uL (0.0-1.1) Eosinophils # (Auto) 0.2x10^3/uL (0.0-0.7) Basophils # (Auto) 0.1x10^3/uL (0.0-0.2) Medications Current Medications Aspirin (Children'S Aspirin) 324 mg 1X ONCE PO Last administered on 08/13/16t 08:19; Start 08/13/16 at 09:00; Stop 08/13/16 at 09:01; Status DC Atenolol (Tenormin) 25 mg 1X ONCE PO Last administered on 08/13/16 08:20; Start 08/13/16 at 09:00; Stop 08/13/16 at 09:01; Status DC Ondansetron HCl (Zofran) 4 mg PRN Q8HRS PRN IV NAUSEA/VOMITING; Start 08/13/16 at 09:00; Stop 08/14/16 at 08:59; Status DC Morphine Sulfate 4 mg PRN Q2HR PRN IV PAIN; Start 08/13/16 at 09:00; Stop at 08:59; Status DC Acetaminophen (Tylenol) 650 mg PRN Q4HRS PRN PO FEVER; Start 08/13/16 at 09:00; Stop 08/13/16 at 11:58; Status DC Nitroglycerin (Nitrostat) 0.4 mg PRN Q5MIN PRN SL CHEST PAIN; Start 08/13/16 at 09:00; Stop 08/13/16 at 11:58; Status DC Acetaminophen (Tylenol) 650 mg PRN Q4HRS PRN PO MILD PAIN / TEMP Last administered on 08/17/16 09:03; Start 08/13/16 at 11:45 Aspirin (Nel Aspirin) 325 mg DAILYWBKFT PO Last administered on 08/17/16 08: 59; Start 08/13/16 at 13:00; Stop 08/17/16 at 12:26; Status DC Hydrochlorothiazide (Hydrodiuril) 25 mg DAILY PO Last administered on 08/18/16 09:05; Start 08/13/16 at 13:00 Atorvastatin Calcium (Lipitor) 80 mg QHS PO Last administered on 08/17/16 20:27 ; Start 08/13/16 at 21:00 Famotidine (Pepcid) 40 mg QHS PO Last administered on 08/17/16 20:27; Start 08/13/16 at 21:00 Tamsulosin HCl (Flomax) 0.4 mg QHS PO Last administered on 08/13/16 21:49; Start 08/13/16 at 21:00; Stop 08/14/16 at 20:50; Status DC Pantoprazole Sodium (Protonix) 40 mg DAILYAC PO Last administered on 08/18/16 09:06; Start 08/13/16 at 13:00 Tramadol HCl (Ultram) 50 mg PRN Q6HRS PRN PO PAIN Last administered on 05:32; Start 08/13/16 at 11:45 Nitroglycerin (Nitrostat) 0.4 mg PRN Q5MIN PRN SL CHEST PAIN; Start 08/13/16 at 11:45 Metoprolol Succinate (Toprol Xl) 25 mg DAILY PO ; Start 08/13/16 at 13:00; Stop 08/14/16 at 10:38; Status DC Clonazepam (Klonopin) 1 mg QHS PO Last administered on 08/17/16 20:27; Start at 21:00 Clopidogrel Bisulfate (Plavix) 75 mg DAILYWBKFT PO Last administered on 09:00; Start 08/13/16 at 13:00; Stop 08/17/16 at 12:26; Status DC Magnesium Hydroxide (Milk Of Magnesia) 2,400 mg PRN DAILY PRN PO CONSTIPATION; Start 08/13/16 at 11:45 Al Hydroxide/Mg Hydroxide (Mylanta Plus Xs) 30 ml PRN Q2HR PRN PO HEARTBURN / GAS; Start 08/13/16 at 22:15 Metoprolol Succinate (Toprol Xl) 12.5 mg DAILY PO Last administered on 09:07; Start 08/15/16 at 09:00 Enoxaparin Sodium (Lovenox 120mg Syringe) 120 mg Q12HR SQ Last administered on 08/15/16 20:52; Start 08/14/16 at 21:00; Stop 08/16/16 at 08:38; Status DC Tamsulosin HCl 0.4 mg 0.4 mg QHS PO Last administered on 08/17/16 20:28; Start 08/14/16 at 21:00 Amiodarone HCl 150 mg/Dextrose 103 ml @ 618 mls/hr 1X ONCE IV Last administered on 08/15/16 10:36; Start 08/15/16 at 10:00; Stop 08/15/16 at 10:09; Status DC Amiodarone HCl 900 mg/Dextrose 518 ml @ 0 mls/hr CONT PRN IV SEE I/O RECORD Last administered on 08/15/16 10:32; Start 08/15/16 at 10:00; Stop 08/15/16 at 10: 36; Status DC Sodium Chloride 1,000 ml @ 60 mls/hr [id number] IV Last administered on 08/16/16 09:34; Start 08/15/16 at 17:17; Stop 08/16/16 at 09:56; Status DC Cefazolin Sodium/ Dextrose (Ancef 2gm Premix) 50 ml @ 100 mls/hr 1X ONCE IV ; Start 08/15/16 at 17:45; Stop 08/15/16 at 18:14; Status DC Diphenhydramine HCl (Benadryl) 50 mg 1X ONCE PO Last administered on 08/16/16 09:31; Start 08/16/16 at 09:30; Stop 08/16/16 at 09:31; Status DC Famotidine (Pepcid) 40 mg 1X ONCE PO Last administered on 08/16/16 09:31; Start 08/16/16 at 09:30; Stop 08/16/16 at 09:31; Status DC Hydrocortisone Sodium Succinate 125 mg 125 mg 1X ONCE IV Last administered on 08/16/16 09:32; Start 08/16/16 at 09:30; Stop 08/16/16 at 09:31; Status DC Amiodarone HCl 900 mg/Dextrose 518 ml @ 0 mls/hr CONT PRN IV SEE I/O RECORD Last administered on 08/16/16 09:33; Start 08/16/16 at 09:30; Stop 08/16/16 at 09: 36; Status DC Bacitracin 89207 unit/Sodium Chloride 250 ml @ 250 mls/hr 1X ONCE IRR ; Start 08/16/16 at 11:00; Stop 08/16/16 at 11:59; Status DC Vancomycin HCl/ Sodium Chloride (Iv Sodium Chloride 0.9% 250ml) 250 ml @ 250 mls/hr 1X ONCE IV ; Start 08/16/16 at 11:30; Stop 08/16/16 at 12:29; Status DC Midazolam HCl (Versed) 5 mg 1X ONCE IV Last administered on 08/16/16 13:15; Start 08/16/16 at 13:15; Stop 08/16/16 at 13:16; Status DC Fentanyl Citrate (Fentanyl 5ml Vial) 175 mcg 1X ONCE IV Last administered on 13:15; Start 08/16/16 at 13:15; Stop 08/16/16 at 13:16; Status DC Lidocaine/ Epinephrine 40 ml 40 ml 1X ONCE IJ Last administered on 08/16/16 11 :50; Start 08/16/16 at 13:15; Stop 08/16/16 at 13:16; Status DC Bacitracin 78305 unit/Sodium Chloride 250 ml @ 0 mls/hr 1X ONCE IRR Last administered on 08/16/16 12:30; Start 08/16/16 at 13:15; Stop 08/16/16 at 13:15; Status DC Vancomycin HCl 250 ml @ 250 mls/hr 1X ONCE IV Last administered on 08/16/16 11:53; Start 08/16/16 at 13:15; Stop 08/16/16 at 13:15; Status DC Metoprolol Tartrate (Lopressor) 5 mg 1X ONCE IVP Last administered on 12:18; Start 08/16/16 at 13:15; Stop 08/16/16 at 13:16; Status DC Adenosine (Adenocard) 6 mg 1X ONCE IV Last administered on 08/16/16 12:41; Start 08/16/16 at 13:15; Stop 08/16/16 at 13:16; Status DC Adenosine (Adenocard) 12 mg 1X ONCE IV Last administered on 08/16/16 12:41; Start 08/16/16 at 13:15; Stop 08/16/16 at 13:16; Status DC Diphenhydramine HCl (Benadryl) 25 mg 1X ONCE IVP Last administered on 11:48; Start 08/16/16 at 13:15; Stop 08/16/16 at 13:16; Status DC Hydrocortisone Sodium Succinate (Solu-Cortef) 125 mg 1X ONCE IV Last administered on 08/16/16 11:15; Start 08/16/16 at 13:15; Stop 08/16/16 at 13:16; Status DC Amiodarone HCl (Cordarone) 400 mg BID PO Last administered on 08/18/16 09:06; Start 08/16/16 at 21:00; Stop 08/23/16 at 21:00 Amiodarone HCl (Cordarone) 200 mg DAILY PO ; Start 08/24/16 at 09:00 Warfarin Sodium 10 mg 10 mg 1X ONCE PO Last administered on 08/16/16 16:22; Start 08/16/16 at 16:00; Stop 08/16/16 at 16:01; Status DC Vancomycin HCl 250 ml @ 250 mls/hr 1X ONCE IV ; Start 08/16/16 at 19:00; Stop 08/16/16 at 19:59; Status UNV Warfarin Sodium 1 each 1 each PRN DAILY PRN MC SEE COMMENTS Last administered on 08/17/16 13:50; Start 08/16/16 at 13:45 Vancomycin HCl/ Sodium Chloride (Iv Sodium Chloride 0.9% 250ml) 250 ml @ 250 mls/hr 1X ONCE IV Last administered on 08/16/16 23:20; Start 08/17/16 at 00:00 ; Stop 08/17/16 at 00:59; Status DC Midazolam HCl (Versed) 5 mg STK-MED ONCE .ROUTE ; Start 08/16/16 at 10:37; Stop 08/16/16 at 13:43; Status DC Fentanyl Citrate (Fentanyl 5ml Vial) 250 mcg STK-MED ONCE .ROUTE ; Start at 10:37; Stop 08/16/16 at 13:44; Status DC Diphenhydramine HCl (Benadryl) 50 mg STK-MED ONCE .ROUTE ; Start 08/16/16 at 10: 59; Stop 08/16/16 at 13:44; Status DC Hydrocortisone Sodium Succinate (Solu-Cortef) 250 mg STK-MED ONCE .ROUTE ; Start 08/16/16 at 10:59; Stop 08/16/16 at 13:44; Status DC Iodixanol (Visipaque 320) 100 ml STK-MED ONCE .ROUTE ; Start 08/16/16 at 11:23; Stop 08/16/16 at 13:44; Status DC Lidocaine/ Epinephrine (Xylocaine 2%-Epi 1:100,000) 20 ml STK-MED ONCE .ROUTE ; Start 08/16/16 at 11:50; Stop 08/16/16 at 13:44; Status DC Metoprolol Tartrate (Lopressor) 5 mg STK-MED ONCE .ROUTE ; Start 08/16/16 at 12: 15; Stop 08/16/16 at 13:44; Status DC Adenosine (Adenocard) 6 mg STK-MED ONCE IV ; Start 08/16/16 at 12:36; Stop at 13:44; Status DC Adenosine (Adenocard) 6 mg STK-MED ONCE IV ; Start 08/16/16 at 12:39; Stop at 13:44; Status DC Enoxaparin Sodium (Lovenox 100mg Syringe) 100 mg Q12HR SQ Last administered on 08/18/16 09:08; Start 08/17/16 at 13:00 Aspirin (Children'S Aspirin) 81 mg DAILYWBKFT PO ; Start 08/18/16 at 08:00; Stop 08/18/16 at 08:00; Status DC Warfarin Sodium (Coumadin) 7.5 mg 1X ONCE PO Last administered on 08/17/16 12: 59; Start 08/17/16 at 13:00; Stop 08/17/16 at 13:01; Status DC Aspirin (Children'S Aspirin) 81 mg DAILYWBKFT PO Last administered on 08/18/16 09:05; Start 08/18/16 at 08:00 Active Scripts Active Reported Tramadol Hcl 50 Mg Tablet 50 Mg PO NEEDED Tamsulosin Hcl 0.4 Mg Cap.er.24h 0.4 Mg PO BID Omeprazole 40 Mg Capsule.dr 40 Mg PO DAILY NITROGLYCERIN SubLingual (Nitroglycerin) 0.4 Mg Tab.subl 0.4 Mg SL DAILY Nifedipine Er (Nifedipine) 30 Mg Tab.er.24 30 Mg PO DAILY Daily Vitamin (Multivitamin) 1 Each Tablet 1 Each PO DAILY Hydrocodone-Apap 7.5-325 (Hydrocodone Bit/Acetaminophen) 1 Each Tablet 1 Each PO NEEDED Flonase (Fluticasone Propionate) 16 Gm [place].susp 16 Gm NS DAILY Famotidine 40 Mg Tablet 40 Mg PO DAILY Crestor (Rosuvastatin Calcium) 40 Mg Tablet 40 Mg PO DAILY Clopidogrel (Clopidogrel Bisulfate) 75 Mg Tablet 75 Mg PO DAILY Clonazepam Odt (Clonazepam) 1 Mg Tab.rapdis 1 Mg PO HS Atenolol 25 Mg Tablet 25 Mg PO DAILY Vitals/I & O Vital Sign - Last 24 Hours 08/17/16 08/17/16 08/17/16 08/17/16 10:56 15:00 19:45 20:00 Temp 97.9 98.2 97.6 97.9 98.2 97.6 Pulse 61 68 64 Resp 18 B/P 116/66 137/72 120/68 Pulse Ox 94 98 95 O2 Delivery Room Air Room Air Room Air Room Air 08/17/16 08/17/16 08/18/16 08/18/16 20:28 23:00 02:29 07:45 Temp 97.6 98.1 98.0 97.6 98.1 98.0 Pulse 64 61 60 98 Resp 20 B/P 120/68 108/61 120/69 136/74 Pulse Ox 95 96 97 O2 Delivery Room Air Room Air Room Air 08/18/16 08/18/16 09:06 09:07 Pulse 66 72 Intake and Output 08/17/16 08/17/16 08/18/16 15:00 23:00 07:00 Intake Total 1300 ml 100 ml Output Total 1600 ml 1275 ml Balance -300 ml -1175 ml HELEN WARREN MD Aug 18, 2016 10:26
[2016-08-18 10:57] VITALS: BP 126/77
--- NOTE | 2016-08-18 11:56 | PDOC ---
PROGRESS NOTES Subjective Subjective Pt denies having chest pain or SOB. Pt reports that the area where the pacemaker is sore. Pt denies any sharp and stabbing pains. Pt is still in the arm immobilizer. Pt is expressing he wants to go home. Objective Objective Vital Signs Date Time Temp Pulse Resp B/P Pulse Ox O2 Delivery O2 Flow Rate FiO2 08/18/16 10:57 98.3 67 19 126/77 95 Room Air 98.3 08/16/16 13:15 4.0 Intake and Output 08/18/16 07:00 Intake Total 1400 ml Output Total 2875 ml Balance -1475 ml Intake Oral 1400 ml Output Urine Total 2875 ml Physical Exam Abdomen: Normal bowel sounds, Soft, No tenderness Heart: Normal S1, Normal S2, Other (irregular irregular) Extremities: Other (bilateral lower leg edema) General: Alert, Oriented X3, Cooperative, No acute distress HEENT: Atraumatic, PERRLA Lungs: Clear to auscultation Neck: Supple Skin: Other (permanent pacemaker placed on left upper chest. 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 coronaries without significant new disease per cardiac catheterization - Hypertension. - Hyperlipidemia. - achalasia Plan Plan of Care - Agree with medicine to continue lovenox bridge until INR is 2 or higher - Continue Coumadin, Amiodarone, and Aspirin - Ok to discharge when primary team is ready - On discharge, pt will need prescription for Amiodarone 400mg BID for 1 week; After 1 week, switch to Amiodarone 200mg BID - Pt will need to have a follow up appointment in my office in 1 week for the pacemaker Comment Review of Relevant I have reviewed the following items gela (where applicable) has been applied. Labs Laboratory Tests Test 08/17/16 04:00 08/18/16 03:30 08/18/16 05:00 Prothrombin Time 14.8SEC (11.7-14.0) 19.0SEC (11.7-14.0) Prothromb Time International Ratio 1.2 (0.8-1.1) 1.7 (0.8-1.1) Sodium Level 143mmol/L (136-145) Potassium Level 4.1mmol/L (3.5-5.1) Chloride Level 107mmol/L (98-107) Carbon Dioxide Level 31mmol/L (21-32) Anion Gap 5 (6-14) Blood Urea Nitrogen 19mg/dL (8-26) Creatinine 1.4mg/dL (0.7-1.3) Estimated GFR (Cockcroft-Gault) 48.5 Glucose Level 98mg/dL (70-99) Calcium Level 8.7mg/dL (8.5-10.1) White Blood Count 8.2x10^3/uL (4.0-11.0) Red Blood Count 4.16x10^6/uL (4.30-5.70) Hemoglobin 12.7g/dL (13.0-17.5) Hematocrit 38.5% (39.0-53.0) Mean Corpuscular Volume 93fL (79-100) Mean Corpuscular Hemoglobin 31pg (25-35) Mean Corpuscular Hemoglobin Concent 33g/dL (31-37) Red Cell Distribution Width 13.7% (11.5-14.5) Platelet Count 167x10^3/uL (140-400) Neutrophils (%) (Auto) 65% (31-73) Lymphocytes (%) (Auto) 22% (24-48) Monocytes (%) (Auto) 9% (0-9) Eosinophils (%) (Auto) 3% (0-3) Basophils (%) (Auto) 1% (0-3) Neutrophils # (Auto) 5.3x10^3uL (1.8-7.7) Lymphocytes # (Auto) 1.8x10^3/uL (1.0-4.8) Monocytes # (Auto) 0.7x10^3/uL (0.0-1.1) Eosinophils # (Auto) 0.2x10^3/uL (0.0-0.7) Basophils # (Auto) 0.1x10^3/uL (0.0-0.2) Laboratory Tests Test 08/18/16 03:30 08/18/16 05:00 Prothrombin Time 19.0SEC (11.7-14.0) Prothromb Time International Ratio 1.7 (0.8-1.1) Sodium Level 143mmol/L (136-145) Potassium Level 4.1mmol/L (3.5-5.1) Chloride Level 107mmol/L (98-107) Carbon Dioxide Level 31mmol/L (21-32) Anion Gap 5 (6-14) Blood Urea Nitrogen 19mg/dL (8-26) Creatinine 1.4mg/dL (0.7-1.3) Estimated GFR (Cockcroft-Gault) 48.5 Glucose Level 98mg/dL (70-99) Calcium Level 8.7mg/dL (8.5-10.1) White Blood Count 8.2x10^3/uL (4.0-11.0) Red Blood Count 4.16x10^6/uL (4.30-5.70) Hemoglobin 12.7g/dL (13.0-17.5) Hematocrit 38.5% (39.0-53.0) Mean Corpuscular Volume 93fL (79-100) Mean Corpuscular Hemoglobin 31pg (25-35) Mean Corpuscular Hemoglobin Concent 33g/dL (31-37) Red Cell Distribution Width 13.7% (11.5-14.5) Platelet Count 167x10^3/uL (140-400) Neutrophils (%) (Auto) 65% (31-73) Lymphocytes (%) (Auto) 22% (24-48) Monocytes (%) (Auto) 9% (0-9) Eosinophils (%) (Auto) 3% (0-3) Basophils (%) (Auto) 1% (0-3) Neutrophils # (Auto) 5.3x10^3uL (1.8-7.7) Lymphocytes # (Auto) 1.8x10^3/uL (1.0-4.8) Monocytes # (Auto) 0.7x10^3/uL (0.0-1.1) Eosinophils # (Auto) 0.2x10^3/uL (0.0-0.7) Basophils # (Auto) 0.1x10^3/uL (0.0-0.2) Medications Current Medications Aspirin (Children'S Aspirin) 324 mg 1X ONCE PO Last administered on 08/13/16 08:19; Start 08/13/16 at 09:00; Stop 08/13/16 at 09:01; Status DC Atenolol (Tenormin) 25 mg 1X ONCE PO Last administered on 08/13/16 08:20; Start 08/13/16 at 09:00; Stop 08/13/16 at 09:01; Status DC Ondansetron HCl (Zofran) 4 mg PRN Q8HRS PRN IV NAUSEA/VOMITING; Start 08/13/16 at 09:00; Stop 08/14/16 at 08:59; Status DC Morphine Sulfate 4 mg PRN Q2HR PRN IV PAIN; Start 08/13/16 at 09:00; Stop at 08:59; Status DC Acetaminophen (Tylenol) 650 mg PRN Q4HRS PRN PO FEVER; Start 08/13/16 at 09:00; Stop 08/13/16 at 11:58; Status DC Nitroglycerin (Nitrostat) 0.4 mg PRN Q5MIN PRN SL CHEST PAIN; Start 08/13/16 at 09:00; Stop 08/13/16 at 11:58; Status DC Acetaminophen (Tylenol) 650 mg PRN Q4HRS PRN PO MILD PAIN / TEMP Last administered on 08/17/16 09:03; Start 08/13/16 at 11:45 Aspirin (Nel Aspirin) 325 mg DAILYWBKFT PO Last administered on 08/17/16 08: 59; Start 08/13/16 at 13:00; Stop 08/17/16 at 12:26; Status DC Hydrochlorothiazide (Hydrodiuril) 25 mg DAILY PO Last administered on 08/18/16 09:05; Start 08/13/16 at 13:00 Atorvastatin Calcium (Lipitor) 80 mg QHS PO Last administered on 08/17/16 20:27 ; Start 08/13/16 at 21:00 Famotidine (Pepcid) 40 mg QHS PO Last administered on 08/17/16 20:27; Start 08/13/16 at 21:00 Tamsulosin HCl (Flomax) 0.4 mg QHS PO Last administered on 08/13/16 21:49; Start 08/13/16 at 21:00; Stop 08/14/16 at 20:50; Status DC Pantoprazole Sodium (Protonix) 40 mg DAILYAC PO Last administered on 08/18/16 09:06; Start 08/13/16 at 13:00 Tramadol HCl (Ultram) 50 mg PRN Q6HRS PRN PO PAIN Last administered on 05:32; Start 08/13/16 at 11:45 Nitroglycerin (Nitrostat) 0.4 mg PRN Q5MIN PRN SL CHEST PAIN; Start 08/13/16 at 11:45 Metoprolol Succinate (Toprol Xl) 25 mg DAILY PO ; Start 08/13/16 at 13:00; Stop 08/14/16 at 10:38; Status DC Clonazepam (Klonopin) 1 mg QHS PO Last administered on 08/17/16 20:27; Start at 21:00 Clopidogrel Bisulfate (Plavix) 75 mg DAILYWBKFT PO Last administered on 09:00; Start 08/13/16 at 13:00; Stop 08/17/16 at 12:26; Status DC Magnesium Hydroxide (Milk Of Magnesia) 2,400 mg PRN DAILY PRN PO CONSTIPATION; Start 08/13/16 at 11:45 Al Hydroxide/Mg Hydroxide (Mylanta Plus Xs) 30 ml PRN Q2HR PRN PO HEARTBURN / GAS; Start 08/13/16 at 22:15 Metoprolol Succinate (Toprol Xl) 12.5 mg DAILY PO Last administered on 09:07; Start 08/15/16 at 09:00 Enoxaparin Sodium (Lovenox 120mg Syringe) 120 mg Q12HR SQ Last administered on 08/15/16 20:52; Start 08/14/16 at 21:00; Stop 08/16/16 at 08:38; Status DC Tamsulosin HCl 0.4 mg 0.4 mg QHS PO Last administered on 08/17/16 20:28; Start 08/14/16 at 21:00 Amiodarone HCl 150 mg/Dextrose 103 ml @ 618 mls/hr 1X ONCE IV Last administered on 08/15/16 10:36; Start 08/15/16 at 10:00; Stop 08/15/16 at 10:09; Status DC Amiodarone HCl 900 mg/Dextrose 518 ml @ 0 mls/hr CONT PRN IV SEE I/O RECORD Last administered on 08/15/16 10:32; Start 08/15/16 at 10:00; Stop 08/15/16 at 10: 36; Status DC Sodium Chloride 1,000 ml @ 60 mls/hr [id number] IV Last administered on 08/16/16 09:34; Start 08/15/16 at 17:17; Stop 08/16/16 at 09:56; Status DC Cefazolin Sodium/ Dextrose (Ancef 2gm Premix) 50 ml @ 100 mls/hr 1X ONCE IV ; Start 08/15/16 at 17:45; Stop 08/15/16 at 18:14; Status DC Diphenhydramine HCl (Benadryl) 50 mg 1X ONCE PO Last administered on 08/16/16 09:31; Start 08/16/16 at 09:30; Stop 08/16/16 at 09:31; Status DC Famotidine (Pepcid) 40 mg 1X ONCE PO Last administered on 08/16/16 09:31; Start 08/16/16 at 09:30; Stop 08/16/16 at 09:31; Status DC Hydrocortisone Sodium Succinate 125 mg 125 mg 1X ONCE IV Last administered on 08/16/16 09:32; Start 08/16/16 at 09:30; Stop 08/16/16 at 09:31; Status DC Amiodarone HCl 900 mg/Dextrose 518 ml @ 0 mls/hr CONT PRN IV SEE I/O RECORD Last administered on 08/16/16 09:33; Start 08/16/16 at 09:30; Stop 08/16/16 at 09: 36; Status DC Bacitracin 47162 unit/Sodium Chloride 250 ml @ 250 mls/hr 1X ONCE IRR ; Start 08/16/16 at 11:00; Stop 08/16/16 at 11:59; Status DC Vancomycin HCl/ Sodium Chloride (Iv Sodium Chloride 0.9% 250ml) 250 ml @ 250 mls/hr 1X ONCE IV ; Start 08/16/16 at 11:30; Stop 08/16/16 at 12:29; Status DC Midazolam HCl (Versed) 5 mg 1X ONCE IV Last administered on 08/16/16 13:15; Start 08/16/16 at 13:15; Stop 08/16/16 at 13:16; Status DC Fentanyl Citrate (Fentanyl 5ml Vial) 175 mcg 1X ONCE IV Last administered on 13:15; Start 08/16/16 at 13:15; Stop 08/16/16 at 13:16; Status DC Lidocaine/ Epinephrine 40 ml 40 ml 1X ONCE IJ Last administered on 08/16/16 11 :50; Start 08/16/16 at 13:15; Stop 08/16/16 at 13:16; Status DC Bacitracin 54896 unit/Sodium Chloride 250 ml @ 0 mls/hr 1X ONCE IRR Last administered on 08/16/16 12:30; Start 08/16/16 at 13:15; Stop 08/16/16 at 13:15; Status DC Vancomycin HCl 250 ml @ 250 mls/hr 1X ONCE IV Last administered on 08/16/16 11:53; Start 08/16/16 at 13:15; Stop 08/16/16 at 13:15; Status DC Metoprolol Tartrate (Lopressor) 5 mg 1X ONCE IVP Last administered on 12:18; Start 08/16/16 at 13:15; Stop 08/16/16 at 13:16; Status DC Adenosine (Adenocard) 6 mg 1X ONCE IV Last administered on 08/16/16 12:41; Start 08/16/16 at 13:15; Stop 08/16/16 at 13:16; Status DC Adenosine (Adenocard) 12 mg 1X ONCE IV Last administered on 08/16/16 12:41; Start 08/16/16 at 13:15; Stop 08/16/16 at 13:16; Status DC Diphenhydramine HCl (Benadryl) 25 mg 1X ONCE IVP Last administered on 11:48; Start 08/16/16 at 13:15; Stop 08/16/16 at 13:16; Status DC Hydrocortisone Sodium Succinate (Solu-Cortef) 125 mg 1X ONCE IV Last administered on 08/16/16 11:15; Start 08/16/16 at 13:15; Stop 08/16/16 at 13:16; Status DC Amiodarone HCl (Cordarone) 400 mg BID PO Last administered on 08/18/16 09:06; Start 08/16/16 at 21:00; Stop 08/23/16 at 21:00 Amiodarone HCl (Cordarone) 200 mg DAILY PO ; Start 08/24/16 at 09:00 Warfarin Sodium 10 mg 10 mg 1X ONCE PO Last administered on 08/16/16 16:22; Start 08/16/16 at 16:00; Stop 08/16/16 at 16:01; Status DC Vancomycin HCl 250 ml @ 250 mls/hr 1X ONCE IV ; Start 08/16/16 at 19:00; Stop 08/16/16 at 19:59; Status UNV Warfarin Sodium 1 each 1 each PRN DAILY PRN MC SEE COMMENTS Last administered on 08/17/16 13:50; Start 08/16/16 at 13:45 Vancomycin HCl/ Sodium Chloride (Iv Sodium Chloride 0.9% 250ml) 250 ml @ 250 mls/hr 1X ONCE IV Last administered on 08/16/16 23:20; Start 08/17/16 at 00:00 ; Stop 08/17/16 at 00:59; Status DC Midazolam HCl (Versed) 5 mg STK-MED ONCE .ROUTE ; Start 08/16/16 at 10:37; Stop 08/16/16 at 13:43; Status DC Fentanyl Citrate (Fentanyl 5ml Vial) 250 mcg STK-MED ONCE .ROUTE ; Start at 10:37; Stop 08/16/16 at 13:44; Status DC Diphenhydramine HCl (Benadryl) 50 mg STK-MED ONCE .ROUTE ; Start 08/16/16 at 10: 59; Stop 08/16/16 at 13:44; Status DC Hydrocortisone Sodium Succinate (Solu-Cortef) 250 mg STK-MED ONCE .ROUTE ; Start 08/16/16 at 10:59; Stop 08/16/16 at 13:44; Status DC Iodixanol (Visipaque 320) 100 ml STK-MED ONCE .ROUTE ; Start 08/16/16 at 11:23; Stop 08/16/16 at 13:44; Status DC Lidocaine/ Epinephrine (Xylocaine 2%-Epi 1:100,000) 20 ml STK-MED ONCE .ROUTE ; Start 08/16/16 at 11:50; Stop 08/16/16 at 13:44; Status DC Metoprolol Tartrate (Lopressor) 5 mg STK-MED ONCE .ROUTE ; Start 08/16/16 at 12: 15; Stop 08/16/16 at 13:44; Status DC Adenosine (Adenocard) 6 mg STK-MED ONCE IV ; Start 08/16/16 at 12:36; Stop at 13:44; Status DC Adenosine (Adenocard) 6 mg STK-MED ONCE IV ; Start 08/16/16 at 12:39; Stop at 13:44; Status DC Enoxaparin Sodium (Lovenox 100mg Syringe) 100 mg Q12HR SQ Last administered on 08/18/16 09:08; Start 08/17/16 at 13:00 Aspirin (Children'S Aspirin) 81 mg DAILYWBKFT PO ; Start 08/18/16 at 08:00; Stop 08/18/16 at 08:00; Status DC Warfarin Sodium (Coumadin) 7.5 mg 1X ONCE PO Last administered on 08/17/16 12: 59; Start 08/17/16 at 13:00; Stop 08/17/16 at 13:01; Status DC Aspirin (Children'S Aspirin) 81 mg DAILYWBKFT PO Last administered on 08/18/16 09:05; Start 08/18/16 at 08:00 Warfarin Sodium (Coumadin) 5 mg DAILY16 PO ; Start 08/18/16 at 16:00 Active Scripts Active Reported Tramadol Hcl 50 Mg Tablet 50 Mg PO NEEDED Tamsulosin Hcl 0.4 Mg Cap.er.24h 0.4 Mg PO BID Omeprazole 40 Mg Capsule.dr 40 Mg PO DAILY NITROGLYCERIN SubLingual (Nitroglycerin) 0.4 Mg Tab.subl 0.4 Mg SL DAILY Nifedipine Er (Nifedipine) 30 Mg Tab.er.24 30 Mg PO DAILY Daily Vitamin (Multivitamin) 1 Each Tablet 1 Each PO DAILY Hydrocodone-Apap 7.5-325 (Hydrocodone Bit/Acetaminophen) 1 Each Tablet 1 Each PO NEEDED Flonase (Fluticasone Propionate) 16 Gm Warren.susp 16 Gm NS DAILY Famotidine 40 Mg Tablet 40 Mg PO DAILY Crestor (Rosuvastatin Calcium) 40 Mg Tablet 40 Mg PO DAILY Clopidogrel (Clopidogrel Bisulfate) 75 Mg Tablet 75 Mg PO DAILY Clonazepam Odt (Clonazepam) 1 Mg Tab.rapdis 1 Mg PO HS Atenolol 25 Mg Tablet 25 Mg PO DAILY Vitals/I & O Vital Sign - Last 24 Hours 08/17/16 08/17/16 08/17/16 08/17/16 15:00 19:45 20:00 20:28 Temp 98.2 97.6 98.2 97.6 Pulse 68 64 64 Resp 18 B/P 137/72 120/68 120/68 Pulse Ox 98 95 O2 Delivery Room Air Room Air Room Air 08/17/16 08/18/16 08/18/16 08/18/16 23:00 02:29 07:45 08:00 Temp 97.6 98.1 98.0 97.6 98.1 98.0 Pulse 61 60 98 Resp 18 16 20 B/P 108/61 120/69 136/74 Pulse Ox 95 96 97 O2 Delivery Room Air Room Air Room Air Room Air 08/18/16 08/18/16 08/18/16 09:06 09:07 10:57 Temp 98.3 98.3 Pulse 66 72 67 Resp 19 B/P 126/77 Pulse Ox 95 O2 Delivery Room Air Intake and Output 08/17/16 08/17/16 08/18/16 15:00 23:00 07:00 Intake Total 1300 ml 100 ml Output Total 1600 ml 1275 ml Balance -300 ml -1175 ml MARISSA MCKEON MD Aug 18, 2016 11:56
[2016-08-18 15:45] VITALS: BP 111/65
[2016-08-18] MEDS ORDERED: WARFARIN 5 MG TABLET. PO SCH (16:00)
[2016-08-18 19:35] VITALS: BP 144/81
[2016-08-18] MEDS: ATORVASTATIN CALCIUM 40 MG TABLET. PO SCH (21:17)
[2016-08-18] MEDS: FAMOTIDINE 20 MG TABLET. PO SCH (21:18)
[2016-08-18] MEDS: TAMSULOSIN 0.4 MG CAP.ER.24H. PO SCH (21:18)
[2016-08-18] MEDS: CLONAZEPAM 1 MG TABLET. PO SCH (21:18)
[2016-08-18 23:30] VITALS: BP 122/84
[2016-08-19 03:40] VITALS: BP 135/84
[2016-08-19 05:32] LABS: BASO # 0.1 x10^3/uL (0.0-0.2); BASO % 1 % (0-3); EOS % 2 % (0-3); HEMATOCRIT 40.8 % (39.0-53.0); HEMOGLOBIN 13.8 g/dL (13.0-17.5); LYMPH # 2.1 x10^3/uL (1.0-4.8); LYMPH % 22 % (24-48); MEAN CORPUSCULAR HEMOGLOBIN 30 pg (25-35); MEAN CORPUSCULAR HGB CONC 34 g/dL (31-37); MEAN CORPUSCULAR VOLUME 90 fL (79-100); MONO % 9 % (0-9); NEUT % 65 % (31-73); PLATELET COUNT 177 x10^3/uL (140-400); RED BLOOD COUNT 4.53 x10^6/uL (4.30-5.70); RED CELL DISTRIBUTION WIDTH 13.9 % (11.5-14.5); WHITE BLOOD COUNT 9.3 x10^3/uL (4.0-11.0)
[2016-08-19 05:48] LABS: INR 2.1 (0.8-1.1); PROTHROMBIN TIME PATIENT 22.2 SEC (11.7-14.0)
[2016-08-19 05:57] LABS: CALCIUM 8.9 mg/dL (8.5-10.1); CREATININE 1.3 mg/dL (0.7-1.3); GFR 52.9; POTASSIUM 3.9 mmol/L (3.5-5.1)
[2016-08-19 07:00] VITALS: BP 130/73
[2016-08-19] MEDS: PANTOPRAZOLE 40 MG TABLET.DR. PO SCH (08:13)
[2016-08-19] MEDS: AMIODARONE HCL 200 MG TABLET. PO SCH (08:55)
[2016-08-19] MEDS: HYDROCHLOROTHIAZIDE 25 MG TABLET PO SCH (08:56)
[2016-08-19] MEDS: METOPROLOL SUCC 24HR ER 25 MG TAB.ER.24H. PO SCH (08:56)
[2016-08-19] MEDS: ASPIRIN CHEWABLE 81 MG TABLET. PO SCH (08:56)
[2016-08-19 10:46] VITALS: BP 126/74
--- NOTE | 2016-08-19 11:14 | PDOC ---
PROGRESS NOTES Subjective Subjective feels well. inr 2.1 ready for dismissal. lab reviewed. Objective Objective Vital Signs Date Time Temp Pulse Resp B/P Pulse Ox O2 Delivery O2 Flow Rate FiO2 08/19/16 10:46 98.1 69 20 126/74 96 Room Air 98.1 08/16/16 13:15 4.0 Intake and Output 08/19/16 07:00 Intake Total 900 ml Output Total 1800 ml Balance -900 ml Intake Oral 900 ml Output Urine Total 1800 ml Physical Exam Abdomen: Soft Heart: Regular rate, Normal S1, Normal S2 Extremities: No edema General: Alert HEENT: Atraumatic Lungs: Clear to auscultation Neuro: Normal speech Psych/Mental Status: Mental status NL Skin: No rashes, Other (pacemaker dressing dry. left shoulder immobilizer) Assessment Assessment Problems Medical Problems:permanent pacemaker placed for atrial flutter with intermittent slow VR 2. Coronary artery disease with previous history of coronary angioplasty and stent to the circumflex artery and left anterior descending coronary artery. coronaries without significant new disease per cardiac catheterization 3. Hypertension. 4. Hyperlipidemia. 5. achalasia 6. Periodic limb movement disorder. atrial flutter with controlled VR (1) CAD (coronary artery disease) Status: Acute (2) Chest pressure Status: Acute (3) Chest pressure Status: Acute (4) SOB (shortness of breath) Status: Acute Plan Plan of Care d/c lovenox continue coumadin dismiss today Comment Review of Relevant I have reviewed the following items gela (where applicable) has been applied. Labs Laboratory Tests Test 08/18/16 03:30 08/18/16 05:00 08/19/16 04:44 Prothrombin Time 19.0SEC (11.7-14.0) 22.2SEC (11.7-14.0) Prothromb Time International Ratio 1.7 (0.8-1.1) 2.1 (0.8-1.1) Sodium Level 143mmol/L (136-145) 141mmol/L (136-145) Potassium Level 4.1mmol/L (3.5-5.1) 3.9mmol/L (3.5-5.1) Chloride Level 107mmol/L (98-107) 103mmol/L (98-107) Carbon Dioxide Level 31mmol/L (21-32) 31mmol/L (21-32) Anion Gap 5 (6-14) 7 (6-14) Blood Urea Nitrogen 19mg/dL (8-26) 17mg/dL (8-26) Creatinine 1.4mg/dL (0.7-1.3) 1.3mg/dL (0.7-1.3) Estimated GFR (Cockcroft-Gault) 48.5 52.9 Glucose Level 98mg/dL (70-99) 103mg/dL (70-99) Calcium Level 8.7mg/dL (8.5-10.1) 8.9mg/dL (8.5-10.1) White Blood Count 8.2x10^3/uL (4.0-11.0) 9.3x10^3/uL (4.0-11.0) Red Blood Count 4.16x10^6/uL (4.30-5.70) 4.53x10^6/uL (4.30-5.70) Hemoglobin 12.7g/dL (13.0-17.5) 13.8g/dL (13.0-17.5) Hematocrit 38.5% (39.0-53.0) 40.8% (39.0-53.0) Mean Corpuscular Volume 93fL (79-100) 90fL (79-100) Mean Corpuscular Hemoglobin 31pg (25-35) 30pg (25-35) Mean Corpuscular Hemoglobin Concent 33g/dL (31-37) 34g/dL (31-37) Red Cell Distribution Width 13.7% (11.5-14.5) 13.9% (11.5-14.5) Platelet Count 167x10^3/uL (140-400) 177x10^3/uL (140-400) Neutrophils (%) (Auto) 65% (31-73) 65% (31-73) Lymphocytes (%) (Auto) 22% (24-48) 22% (24-48) Monocytes (%) (Auto) 9% (0-9) 9% (0-9) Eosinophils (%) (Auto) 3% (0-3) 2% (0-3) Basophils (%) (Auto) 1% (0-3) 1% (0-3) Neutrophils # (Auto) 5.3x10^3uL (1.8-7.7) 6.1x10^3uL (1.8-7.7) Lymphocytes # (Auto) 1.8x10^3/uL (1.0-4.8) 2.1x10^3/uL (1.0-4.8) Monocytes # (Auto) 0.7x10^3/uL (0.0-1.1) 0.9x10^3/uL (0.0-1.1) Eosinophils # (Auto) 0.2x10^3/uL (0.0-0.7) 0.2x10^3/uL (0.0-0.7) Basophils # (Auto) 0.1x10^3/uL (0.0-0.2) 0.1x10^3/uL (0.0-0.2) Laboratory Tests Test 08/19/16 04:44 White Blood Count 9.3x10^3/uL (4.0-11.0) Red Blood Count 4.53x10^6/uL (4.30-5.70) Hemoglobin 13.8g/dL (13.0-17.5) Hematocrit 40.8% (39.0-53.0) Mean Corpuscular Volume 90fL (79-100) Mean Corpuscular Hemoglobin 30pg (25-35) Mean Corpuscular Hemoglobin Concent 34g/dL (31-37) Red Cell Distribution Width 13.9% (11.5-14.5) Platelet Count 177x10^3/uL (140-400) Neutrophils (%) (Auto) 65% (31-73) Lymphocytes (%) (Auto) 22% (24-48) Monocytes (%) (Auto) 9% (0-9) Eosinophils (%) (Auto) 2% (0-3) Basophils (%) (Auto) 1% (0-3) Neutrophils # (Auto) 6.1x10^3uL (1.8-7.7) Lymphocytes # (Auto) 2.1x10^3/uL (1.0-4.8) Monocytes # (Auto) 0.9x10^3/uL (0.0-1.1) Eosinophils # (Auto) 0.2x10^3/uL (0.0-0.7) Basophils # (Auto) 0.1x10^3/uL (0.0-0.2) Prothrombin Time 22.2SEC (11.7-14.0) Prothromb Time International Ratio 2.1 (0.8-1.1) Sodium Level 141mmol/L (136-145) Potassium Level 3.9mmol/L (3.5-5.1) Chloride Level 103mmol/L (98-107) Carbon Dioxide Level 31mmol/L (21-32) Anion Gap 7 (6-14) Blood Urea Nitrogen 17mg/dL (8-26) Creatinine 1.3mg/dL (0.7-1.3) Estimated GFR (Cockcroft-Gault) 52.9 Glucose Level 103mg/dL (70-99) Calcium Level 8.9mg/dL (8.5-10.1) Medications Current Medications Aspirin (Children'S Aspirin) 324 mg 1X ONCE PO Last administered on 08/13/16 08:19; Start 08/13/16 at 09:00; Stop 08/13/16 at 09:01; Status DC Atenolol (Tenormin) 25 mg 1X ONCE PO Last administered on 08/13/16 08:20; Start 08/13/16 at 09:00; Stop 08/13/16 at 09:01; Status DC Ondansetron HCl (Zofran) 4 mg PRN Q8HRS PRN IV NAUSEA/VOMITING; Start 08/13/16 at 09:00; Stop 08/14/16 at 08:59; Status DC Morphine Sulfate 4 mg PRN Q2HR PRN IV PAIN; Start 08/13/16 at 09:00; Stop at 08:59; Status DC Acetaminophen (Tylenol) 650 mg PRN Q4HRS PRN PO FEVER; Start 08/13/16 at 09:00; Stop 08/13/16 at 11:58; Status DC Nitroglycerin (Nitrostat) 0.4 mg PRN Q5MIN PRN SL CHEST PAIN; Start 08/13/16 at 09:00; Stop 08/13/16 at 11:58; Status DC Acetaminophen (Tylenol) 650 mg PRN Q4HRS PRN PO MILD PAIN / TEMP Last administered on 08/17/16 09:03; Start 08/13/16 at 11:45 Aspirin (Nel Aspirin) 325 mg DAILYWBKFT PO Last administered on 08/17/16 08: 59; Start 08/13/16 at 13:00; Stop 08/17/16 at 12:26; Status DC Hydrochlorothiazide (Hydrodiuril) 25 mg DAILY PO Last administered on 08/19/16 08:56; Start 08/13/16 at 13:00 Atorvastatin Calcium (Lipitor) 80 mg QHS PO Last administered on 08/18/16 21:17 ; Start 08/13/16 at 21:00 Famotidine (Pepcid) 40 mg QHS PO Last administered on 08/18/16 21:18; Start 08/13/16 at 21:00 Tamsulosin HCl (Flomax) 0.4 mg QHS PO Last administered on 08/13/16 21:49; Start 08/13/16 at 21:00; Stop 08/14/16 at 20:50; Status DC Pantoprazole Sodium (Protonix) 40 mg DAILYAC PO Last administered on 08/19/16 08:13; Start 08/13/16 at 13:00 Tramadol HCl (Ultram) 50 mg PRN Q6HRS PRN PO PAIN Last administered on 05:32; Start 08/13/16 at 11:45 Nitroglycerin (Nitrostat) 0.4 mg PRN Q5MIN PRN SL CHEST PAIN; Start 08/13/16 at 11:45 Metoprolol Succinate (Toprol Xl) 25 mg DAILY PO ; Start 08/13/16 at 13:00; Stop 08/14/16 at 10:38; Status DC Clonazepam (Klonopin) 1 mg QHS PO Last administered on 08/18/16 21:18; Start at 21:00 Clopidogrel Bisulfate (Plavix) 75 mg DAILYWBKFT PO Last administered on 09:00; Start 08/13/16 at 13:00; Stop 08/17/16 at 12:26; Status DC Magnesium Hydroxide (Milk Of Magnesia) 2,400 mg PRN DAILY PRN PO CONSTIPATION; Start 08/13/16 at 11:45 Al Hydroxide/Mg Hydroxide (Mylanta Plus Xs) 30 ml PRN Q2HR PRN PO HEARTBURN / GAS; Start 08/13/16 at 22:15 Metoprolol Succinate (Toprol Xl) 12.5 mg DAILY PO Last administered on 08:56; Start 08/15/16 at 09:00 Enoxaparin Sodium (Lovenox 120mg Syringe) 120 mg Q12HR SQ Last administered on 08/15/16 20:52; Start 08/14/16 at 21:00; Stop 08/16/16 at 08:38; Status DC Tamsulosin HCl 0.4 mg 0.4 mg QHS PO Last administered on 08/18/16 21:18; Start 08/14/16 at 21:00 Amiodarone HCl 150 mg/Dextrose 103 ml @ 618 mls/hr 1X ONCE IV Last administered on 08/15/16 10:36; Start 08/15/16 at 10:00; Stop 08/15/16 at 10:09; Status DC Amiodarone HCl 900 mg/Dextrose 518 ml @ 0 mls/hr CONT PRN IV SEE I/O RECORD Last administered on 08/15/16 10:32; Start 08/15/16 at 10:00; Stop 08/15/16 at 10: 36; Status DC Sodium Chloride 1,000 ml @ 60 mls/hr [id number] IV Last administered on 08/16/16 09:34; Start 08/15/16 at 17:17; Stop 08/16/16 at 09:56; Status DC Cefazolin Sodium/ Dextrose (Ancef 2gm Premix) 50 ml @ 100 mls/hr 1X ONCE IV ; Start 08/15/16 at 17:45; Stop 08/15/16 at 18:14; Status DC Diphenhydramine HCl (Benadryl) 50 mg 1X ONCE PO Last administered on 08/16/16 09:31; Start 08/16/16 at 09:30; Stop 08/16/16 at 09:31; Status DC Famotidine (Pepcid) 40 mg 1X ONCE PO Last administered on 08/16/16 09:31; Start 08/16/16 at 09:30; Stop 08/16/16 at 09:31; Status DC Hydrocortisone Sodium Succinate 125 mg 125 mg 1X ONCE IV Last administered on 08/16/16 09:32; Start 08/16/16 at 09:30; Stop 08/16/16 at 09:31; Status DC Amiodarone HCl 900 mg/Dextrose 518 ml @ 0 mls/hr CONT PRN IV SEE I/O RECORD Last administered on 08/16/16 09:33; Start 08/16/16 at 09:30; Stop 08/16/16 at 09: 36; Status DC Bacitracin 83612 unit/Sodium Chloride 250 ml @ 250 mls/hr 1X ONCE IRR ; Start 08/16/16 at 11:00; Stop 08/16/16 at 11:59; Status DC Vancomycin HCl/ Sodium Chloride (Iv Sodium Chloride 0.9% 250ml) 250 ml @ 250 mls/hr 1X ONCE IV ; Start 08/16/16 at 11:30; Stop 08/16/16 at 12:29; Status DC Midazolam HCl (Versed) 5 mg 1X ONCE IV Last administered on 08/16/16 13:15; Start 08/16/16 at 13:15; Stop 08/16/16 at 13:16; Status DC Fentanyl Citrate (Fentanyl 5ml Vial) 175 mcg 1X ONCE IV Last administered on 13:15; Start 08/16/16 at 13:15; Stop 08/16/16 at 13:16; Status DC Lidocaine/ Epinephrine 40 ml 40 ml 1X ONCE IJ Last administered on 08/16/16 11 :50; Start 08/16/16 at 13:15; Stop 08/16/16 at 13:16; Status DC Bacitracin 28529 unit/Sodium Chloride 250 ml @ 0 mls/hr 1X ONCE IRR Last administered on 08/16/16 12:30; Start 08/16/16 at 13:15; Stop 08/16/16 at 13:15; Status DC Vancomycin HCl 250 ml @ 250 mls/hr 1X ONCE IV Last administered on 08/16/16 11:53; Start 08/16/16 at 13:15; Stop 08/16/16 at 13:15; Status DC Metoprolol Tartrate (Lopressor) 5 mg 1X ONCE IVP Last administered on 12:18; Start 08/16/16 at 13:15; Stop 08/16/16 at 13:16; Status DC Adenosine (Adenocard) 6 mg 1X ONCE IV Last administered on 08/16/16 12:41; Start 08/16/16 at 13:15; Stop 08/16/16 at 13:16; Status DC Adenosine (Adenocard) 12 mg 1X ONCE IV Last administered on 08/16/16 12:41; Start 08/16/16 at 13:15; Stop 08/16/16 at 13:16; Status DC Diphenhydramine HCl (Benadryl) 25 mg 1X ONCE IVP Last administered on 11:48; Start 08/16/16 at 13:15; Stop 08/16/16 at 13:16; Status DC Hydrocortisone Sodium Succinate (Solu-Cortef) 125 mg 1X ONCE IV Last administered on 08/16/16 11:15; Start 08/16/16 at 13:15; Stop 08/16/16 at 13:16; Status DC Amiodarone HCl (Cordarone) 400 mg BID PO Last administered on 08/19/16 08:55; Start 08/16/16 at 21:00; Stop 08/23/16 at 21:00 Amiodarone HCl (Cordarone) 200 mg DAILY PO ; Start 08/24/16 at 09:00 Warfarin Sodium 10 mg 10 mg 1X ONCE PO Last administered on 08/16/16 16:22; Start 08/16/16 at 16:00; Stop 08/16/16 at 16:01; Status DC Vancomycin HCl 250 ml @ 250 mls/hr 1X ONCE IV ; Start 08/16/16 at 19:00; Stop 08/16/16 at 19:59; Status UNV Warfarin Sodium 1 each 1 each PRN DAILY PRN MC SEE COMMENTS Last administered on 08/18/16 15:03; Start 08/16/16 at 13:45 Vancomycin HCl/ Sodium Chloride (Iv Sodium Chloride 0.9% 250ml) 250 ml @ 250 mls/hr 1X ONCE IV Last administered on 08/16/16 23:20; Start 08/17/16 at 00:00 ; Stop 08/17/16 at 00:59; Status DC Midazolam HCl (Versed) 5 mg STK-MED ONCE .ROUTE ; Start 08/16/16 at 10:37; Stop 08/16/16 at 13:43; Status DC Fentanyl Citrate (Fentanyl 5ml Vial) 250 mcg STK-MED ONCE .ROUTE ; Start at 10:37; Stop 08/16/16 at 13:44; Status DC Diphenhydramine HCl (Benadryl) 50 mg STK-MED ONCE .ROUTE ; Start 08/16/16 at 10: 59; Stop 08/16/16 at 13:44; Status DC Hydrocortisone Sodium Succinate (Solu-Cortef) 250 mg STK-MED ONCE .ROUTE ; Start 08/16/16 at 10:59; Stop 08/16/16 at 13:44; Status DC Iodixanol (Visipaque 320) 100 ml STK-MED ONCE .ROUTE ; Start 08/16/16 at 11:23; Stop 08/16/16 at 13:44; Status DC Lidocaine/ Epinephrine (Xylocaine 2%-Epi 1:100,000) 20 ml STK-MED ONCE .ROUTE ; Start 08/16/16 at 11:50; Stop 08/16/16 at 13:44; Status DC Metoprolol Tartrate (Lopressor) 5 mg STK-MED ONCE .ROUTE ; Start 08/16/16 at 12: 15; Stop 08/16/16 at 13:44; Status DC Adenosine (Adenocard) 6 mg STK-MED ONCE IV ; Start 08/16/16 at 12:36; Stop at 13:44; Status DC Adenosine (Adenocard) 6 mg STK-MED ONCE IV ; Start 08/16/16 at 12:39; Stop at 13:44; Status DC Enoxaparin Sodium (Lovenox 100mg Syringe) 100 mg Q12HR SQ Last administered on 08/18/16 21:18; Start 08/17/16 at 13:00 Aspirin (Children'S Aspirin) 81 mg DAILYWBKFT PO ; Start 08/18/16 at 08:00; Stop 08/18/16 at 08:00; Status DC Warfarin Sodium (Coumadin) 7.5 mg 1X ONCE PO Last administered on 08/17/16 12: 59; Start 08/17/16 at 13:00; Stop 08/17/16 at 13:01; Status DC Aspirin (Children'S Aspirin) 81 mg DAILYWBKFT PO Last administered on 08/19/16 08:56; Start 08/18/16 at 08:00 Warfarin Sodium (Coumadin) 5 mg DAILY16 PO Last administered on 08/18/16 16:22 ; Start 08/18/16 at 16:00 Active Scripts Active Reported Tramadol Hcl 50 Mg Tablet 50 Mg PO NEEDED Tamsulosin Hcl 0.4 Mg Cap.er.24h 0.4 Mg PO BID Omeprazole 40 Mg Capsule.dr 40 Mg PO DAILY NITROGLYCERIN SubLingual (Nitroglycerin) 0.4 Mg Tab.subl 0.4 Mg SL DAILY Nifedipine Er (Nifedipine) 30 Mg Tab.er.24 30 Mg PO DAILY Daily Vitamin (Multivitamin) 1 Each Tablet 1 Each PO DAILY Hydrocodone-Apap 7.5-325 (Hydrocodone Bit/Acetaminophen) 1 Each Tablet 1 Each PO NEEDED Flonase (Fluticasone Propionate) 16 Gm Clark.susp 16 Gm NS DAILY Famotidine 40 Mg Tablet 40 Mg PO DAILY Crestor (Rosuvastatin Calcium) 40 Mg Tablet 40 Mg PO DAILY Clopidogrel (Clopidogrel Bisulfate) 75 Mg Tablet 75 Mg PO DAILY Clonazepam Odt (Clonazepam) 1 Mg Tab.rapdis 1 Mg PO HS Atenolol 25 Mg Tablet 25 Mg PO DAILY Vitals/I & O Vital Sign - Last 24 Hours 08/18/16 08/18/16 08/18/16 08/18/16 15:45 19:35 20:10 21:18 Temp 98.5 98.3 98.5 98.3 Pulse 59 66 66 Resp 20 21 B/P 111/65 144/81 144/81 Pulse Ox 94 94 O2 Delivery Room Air Room Air Room Air 08/18/16 08/19/16 08/19/16 08/19/16 23:30 03:40 07:00 08:55 Temp 97.9 97.6 98.5 97.9 97.6 98.5 Pulse 65 68 63 63 Resp 22 22 20 B/P 122/84 135/84 130/73 130/73 Pulse Ox 97 96 98 O2 Delivery Room Air Room Air Room Air 08/19/16 08/19/16 08:56 10:46 Temp 98.1 98.1 Pulse 63 69 Resp 20 B/P 130/73 126/74 Pulse Ox 96 O2 Delivery Room Air Intake and Output 08/18/16 08/18/16 08/19/16 15:00 23:00 07:00 Intake Total 800 ml 100 ml Output Total 1300 ml 500 ml Balance -500 ml -400 ml HELEN WARREN MD Aug 19, 2016 11:14
--- NOTE | 2016-08-19 11:33 | PDOC ---
Provider Note Provider Note discharge summary dictated # [id number] HELEN WARREN MD Aug 19, 2016 11:33
--- NOTE | 2016-08-19 11:35 | DISCH ---
DISCHARGE INSTRUCTIONS Condition on Discharge Condition on Discharge: Stable Activity After Discharge Activity Instructions for Disc: Resume previous activity Diet after Discharge Diet after Discharge: Cardiac Contacting the DRBritney after DC Call your doctor for: If your condition worsens Follow-Up Follow up with: dr. hooker next week Follow Up With: dr. galloway in 1 week Warfarin Follow-Up Warfarin Follow UP: 08/21/16 HELEN HOOKER MD Aug 19, 2016 11:34
[2016-08-19] MEDS ORDERED: ATOR40TA59 PO (11:39)
[2016-08-19] MEDS ORDERED: TRAM50TA PO (11:39)
[2016-08-19] MEDS ORDERED: AMIO200T2 PO (11:39)
[2016-08-19] MEDS ORDERED: WARF4TAB PO (11:39)
[2016-08-19] MEDS ORDERED: METO25TA9 PO (11:39)
[2016-08-19] MEDS ORDERED: TAMS0.4C97 PO (11:39)
[2016-08-19] MEDS ORDERED: WARFARIN 4 MG TABLET. PO SCH (16:00)
--- NOTE | 2016-08-19 22:07 | DS ---
DATE OF DISCHARGE: 08/19/2016 INTERNAL GRINDER TENDER: Dr. Dang. PROCEDURE: Cardiac catheterization, placement of a permanent pacemaker. FINAL DIAGNOSES: 1. Chest pain, most likely secondary to esophageal spasm achalasia. 2. New onset atrial flutter with intermittent slow ventricular response. 3. Coronary artery disease without any new significant coronary artery disease on the cardiac catheterization. 4. Hypertension. 5. Hyperlipidemia. 6. Achalasia 7. Periodic limb movement disorder. HOSPITAL COURSE: The patient is an 81-year-old white male with a history of coronary artery disease, hypertension, hyperlipidemia, esophageal dysmotility syndrome was consistent with achalasia, periodic limb movement disorder who was admitted to [facility] through the Emergency Room on 08/13/2016 with 2-day history of exertional shortness of breath and chest pain. The patient admitted to the hospital. Cardiac enzymes were negative. Echocardiogram showed a preserved left ventricular ejection fraction with mild left ventricular hypertrophy and mild pulmonary hypertension. The patient underwent a cardiac catheterization, which showed no new significant disease. He was noted to be in atrial flutter, new onset with intermittent slow ventricular response and underwent a permanent pacemaker by Dr. Dang. He then also was started on Lovenox and then Coumadin and his INR was 2.1 today, so the Lovenox would be discontinued and be dismissed home today. He did not have any further chest pain or shortness of breath. His Flomax was decreased to 0.4 mg everyday and started on amiodarone and his Coumadin will be decreased to 4 mg today as his INR went up from 1.7 to 2.1 yesterday. His atenolol was discontinued and was started on metoprolol succinate 12.5 mg every day. He will be dismissed to home with home health today. We will have his protime and INR done every Sunday, Sunday and Sunday with a target INR of 2-3. He was told to make an appointment to see Dr. Dang in a week and myself next week. His Plavix was discontinued. He will be dismissed to home on Tylenol 650 mg every 4 hours p.r.n., amiodarone 400 mg b.i.d., which will be stopped on 08/24/2016 and starting 08/24/2016 through 09/06/2016 will take amiodarone 200 mg 1 tablet b.i.d., starting 09/07/2016 with the amiodarone 200 mg everyday thereafter and he will be dismissed on aspirin 81 mg every day, atorvastatin 80 mg at bedtime, clonazepam 1 mg at bedtime, famotidine 40 mg at bedtime, hydrochlorothiazide 25 mg every day, metoprolol succinate 25 mg half a tablet every day, omeprazole 40 mg every day, Flomax 0.4 mg at bedtime, tramadol 50 mg every 6 hours p.r.n., Coumadin 4 mg every day. Protime INR was done by the visiting nurse by [facility] on Mondays, Wednesdays and Fridays with results faxed to Dr. Lorenz, with the target INR 2-3 and the patient will be dismissed later today. HELEN LORENZ MD DR: YANCI/raquel JOB#: [id number] / [id number]
[2016-08-24] MEDS ORDERED: AMIODARONE HCL 200 MG TABLET. PO SCH (09:00)
== END 2016-08-19 14:30 | disposition home health service (06) | DRG 244 ==
LOC: ER 07:49 → 2 NORTH 08:57
PROVIDERS: ADMIT Internal Medicine; ATTEND Internal Medicine
PROC: 0JH604Z Insertion of Pacemaker, Single Chamber into Chest Subcutaneous Tissue and Fascia, Open Approach (ICD-10-PCS; principal; 2016-08-16)
PROC: 02HK3JZ Insertion of Pacemaker Lead into Right Ventricle, Percutaneous Approach (ICD-10-PCS; 2016-08-16)
PROC: 4A023N7 Measurement of Cardiac Sampling and Pressure, Left Heart, Percutaneous Approach (ICD-10-PCS; 2016-08-16)
PROC: B2111ZZ Fluoroscopy of Multiple Coronary Arteries using Low Osmolar Contrast (ICD-10-PCS; 2016-08-16)
DX: I48.92 Unspecified atrial flutter (principal); R00.1 Bradycardia, unspecified; E78.00 Pure hypercholesterolemia, unspecified; E78.5 Hyperlipidemia, unspecified; K22.70 Barrett's esophagus without dysplasia; K59.00 Constipation, unspecified; Z96.659 Presence of unspecified artificial knee joint; N40.0 Benign prostatic hyperplasia without lower urinary tract symptoms; I27.2 Other secondary pulmonary hypertension; I25.10 Atherosclerotic heart disease of native coronary artery without angina pectoris; K22.0 Achalasia of cardia; I48.91 Unspecified atrial fibrillation; I10 Essential (primary) hypertension; G47.61 Periodic limb movement disorder; M19.90 Unspecified osteoarthritis, unspecified site; I95.9 Hypotension, unspecified; K64.8 Other hemorrhoids; Z79.01 Long term (current) use of anticoagulants; Z79.82 Long term (current) use of aspirin; Z79.899 Other long term (current) drug therapy; Z86.010 Personal history of colon polyps; Z87.11 Personal history of peptic ulcer disease; Z87.891 Personal history of nicotine dependence; Z88.0 Allergy status to penicillin; Z88.8 Allergy status to other drugs, medicaments and biological substances; Z95.5 Presence of coronary angioplasty implant and graft; Z91.041 Radiographic dye allergy status; Z88.1 Allergy status to other antibiotic agents; Z79.1 Long term (current) use of non-steroidal anti-inflammatories (NSAID)
CPT/HCPCS: 33207; 36415; 71010; 80048; 80053; 80061; 83880; 84443; 84484; 85027; 85379; 85610; 85730; 93005; 93306; 93458; C1769; C1771; C1786; C1892; C1898; G0269; J0153; J0282; J1200; J1650; J1720; J2250; J3010; J3370; J3490; J7050; Q0163; 99285-25; J7030

== ENCOUNTER 2016-10-04 18:07 | Emergency (ER) | payer OTHER ==
[~2016-10-04] VITALS: Ht 177.8 cm; Wt 119.7 kg
[~2016-10-04 18:07] MED LIST changes: +AMIO200T2 PO; +ATOR40TA59 PO; +METO25TA9 PO; +TAMS0.4C97 PO; +WARF4TAB68 PO
[2016-10-04 19:00] VITALS: BP 148/83
[2016-10-04 19:07] LABS: BILIRUBIN,URINE SMALL (NEG); GLUCOSE,URINE NEGATIVE (NEG); NITRITE,URINE NEGATIVE (NEG); PROTEIN,URINE 100 mg/dL (NEG-TRACE)
--- NOTE | 2016-10-04 19:10 | PHYS DOC ---
Past Medical History Past Medical History: CAD, GERD, High Cholesterol, Heart Disease, Hypertension , Other Additional Past Medical Histor: ECHOLALIA Past Surgical History: Tonsillectomy, Other Additional Past Surgical Histo: R KNEE REPL, LEFT KNEE SX, BILATERAL SHOULDER, ESOPHAGUS, CARDIAC STENT X2 Alcohol Use: None Drug Use: None Adult General Chief Complaint Chief Complaint: BLOOD IN URINE [facility] HPI Patient is a 81 year old male who presents with complaint of hematuria. Patient states that his symptoms started approximately 1 hour prior to arrival. Patient states that he is currently on Coumadin therapy. Patient last had an INR checked 3 days ago and states that his INR was 2.3 at that time. Patient has a pacemaker in place with history of A. fib and bradycardia. The patient states that he has been having no difficulty tolerating the medications. Patient states that he has not had any previous history of hematuria. Upon seeing bright red blood in the urine, the patient became concerned and came to the emergency department for evaluation. Patient states he is not having any problems voiding. Patient states that the bleeding appears to have improved since onset. Patient is not experiencing any pain at this time. Review of Systems Review of Systems Constitutional: Denies fever or chills [] HENT: Denies nasal congestion or sore throat [] Respiratory: Denies cough or shortness of breath [] Cardiovascular: No additional information not addressed in HPI [] GI: Denies abdominal pain, nausea, vomiting, bloody stools or diarrhea [] : Hematuria, denies dysuria [] Musculoskeletal: Denies back pain or joint pain [] Integument: Denies rash or skin lesions [] Neurologic: Denies headache, focal weakness or sensory changes [] Allergies Allergies Allergies Coded Allergies Type Severity Reaction Last Updated Verified Iodinated Contrast Media - Oral and Allergy Intermediate Rash 08/13/16 Yes Penicillins Allergy Intermediate Hives 08/13/16 Yes amlodipine Allergy Intermediate Rash 08/13/16 Yes niacin Allergy Intermediate FLUSHING 08/13/16 Yes simvastatin Allergy Intermediate Hives 08/13/16 Yes Physical Exam Physical Exam Constitutional: Alert, afebrile, no acute distress. [] HENT: Normocephalic, atraumatic, bilateral external ears normal, oropharynx moist, no oral exudates, nose normal. [] Eyes: PERRLA, EOMI, conjunctiva normal, no discharge. [] Neck: Normal range of motion, no tenderness, supple, no stridor. [] Cardiovascular:Heart rate regular rhythm, no murmur [] Lungs & Thorax: Bilateral breath sounds clear to auscultation [] Abdomen: Bowel sounds normal, soft, no tenderness, no masses, no pulsatile masses. [] Skin: Warm, dry, no erythema, no rash. [] Back: No tenderness, no CVA tenderness. [] Extremities: No tenderness, no cyanosis, no clubbing, ROM intact, no edema. [] Neurologic: Alert and oriented X 3, normal motor function, normal sensory function, no focal deficits noted. [] Current Patient Data Vital Signs Vital Signs Date Time Temp Pulse Resp B/P (MAP) Pulse Ox O2 Delivery O2 Flow Rate FiO2 10/04/16 19:00 99.1 63 18 148/83 (104) 98 Room Air 99.1 Lab Values Laboratory Tests Test 10/04/16 18:45 10/04/16 19:05 Urine Collection Type Unknown Urine Color Isabelle Urine Clarity Clear Urine pH 6.0 Urine Specific [place] 1.025 Urine Protein 100 mg/dL (NEG-TRACE) Urine Glucose (UA) Negative mg/dL (NEG) Urine Ketones (Stick) Negative mg/dL (NEG) Urine Blood Large (NEG) Urine Nitrite Negative (NEG) Urine Bilirubin Small (NEG) Urine Urobilinogen Dipstick 1.0 mg/dL (0.2 mg/dL) Urine Leukocyte Esterase Small (NEG) Urine RBC Tntc /HPF (0-2) Urine WBC 5-10 /HPF (0-4) Urine Squamous Epithelial Cells Few /LPF Urine Bacteria Few /HPF (0-FEW) Urine Mucus Mod /LPF Prothrombin Time 26.6 SEC (11.7-14.0) H Prothrombin Time INR 2.6 (0.8-1.1) H PTT 43 SEC (24-38) H EKG EKG Not performed [] Radiology/Procedures Radiology/Procedures Not performed [] Course & Med Decision Making Course & Med Decision Making Pertinent Labs and Imaging studies reviewed. (See chart for details) The patient's INR is within the therapeutic range. Patient's UA shows blood and signs of possible urinary tract infection. Patient will be started on Vantin twice a day. I spoke with patient's primary physician, Dr. Lorenz, who agreed with plan of care and will follow-up with patient in his office within the next 5 days. Recommended return to the emergency department for any worsening symptoms. Patient voiced understanding and in agreement with treatment plan.. Lianet Disclaimer Lianet Disclaimer This electronic medical record was generated, in whole or in part, using a voice recognition dictation system. Departure Departure Impression: Primary Impression: Hematuria Additional Impression: Urinary tract infection Disposition: 01 HOME, SELF-CARE Condition: GOOD Referrals: HELEN LORENZ MD (PCP) Patient Instructions: Hematuria, Adult, Urinary Tract Infection Additional Instructions: Hold your Coumadin dose for one day until bleeding has completely resolved. Follow-up with your primary doctor in the next 5 days. Return to the emergency department for any worsening symptoms. Scripts Cefpodoxime Proxetil (CEFPODOXIME PROXETIL) 200 Mg Tablet 1 TAB PO BID, #14 TAB Prov: MJ HAMMER MD 10/04/16 Problem Qualifiers Additional Impression: Urinary tract infection Urinary tract infection type: site unspecified Hematuria presence: with hematuria Qualified Codes: N39.0 - Urinary tract infection, site not specified ; R31.9 - Hematuria, unspecified MJ HAMMER MD October 04, 2016 19:10
[2016-10-04 19:11] LABS: BACTERIA,URINE FEW /HPF (0-FEW); RBC,URINE TNTC /HPF (0-2); SQUAMOUS EPITHELIAL CELL,UR FEW /LPF
[2016-10-04 19:24] LABS: INR 2.6 (0.8-1.1); PROTHROMBIN TIME PATIENT 26.6 SEC (11.7-14.0)
[2016-10-04] MEDS ORDERED: NITR100C62 PO (19:39)
[2016-10-04] MEDS ORDERED: CEFP200T PO (20:02)
== END 2016-10-04 19:55 | disposition home or self-care (01) ==
LOC: ER 18:07
DX: N39.0 Urinary tract infection, site not specified (principal); R31.9 Hematuria, unspecified; I25.10 Atherosclerotic heart disease of native coronary artery without angina pectoris; K21.9 Gastro-esophageal reflux disease without esophagitis; E78.00 Pure hypercholesterolemia, unspecified; I11.9 Hypertensive heart disease without heart failure; Z95.5 Presence of coronary angioplasty implant and graft; Z88.0 Allergy status to penicillin; Z88.8 Allergy status to other drugs, medicaments and biological substances; Z91.041 Radiographic dye allergy status
CPT/HCPCS: 36415; 81001; 85610; 85730; 87086; 87186; 99284

== ENCOUNTER 2016-10-21 11:21 | Emergency (ER) | payer OTHER ==
[~2016-10-21] VITALS: Ht 177.8 cm; Wt 119.7 kg
[~2016-10-21 11:21] MED LIST changes: -ASPI325T4 PO; +ASPI325T8 PO; +CEFP200T PO; +NITR0.4T22 SL; -NITR0.4T6 SL; +NITR100C62 PO
[2016-10-21 11:37] VITALS: BP 139/73
[2016-10-21] MEDS ORDERED: PRED20TA PO (12:04)
--- NOTE | 2016-10-21 12:05 | PHYS DOC ---
Past Medical History Past Medical History: CAD, GERD, High Cholesterol, Heart Disease, Hypertension , Other Additional Past Medical Histor: ECHOLALIA Past Surgical History: Pacemaker, Tonsillectomy, Other Additional Past Surgical Histo: R KNEE REPL, LEFT KNEE SX, BILATERAL SHOULDER, ESOPHAGUS, CARDIAC STENT X2 Alcohol Use: None Drug Use: None Adult General Chief Complaint Chief Complaint: ALLERGIC REACTION [facility] HPI Patient is a 81 year old male presents to the emergency department with a history of rash on the left forearm. Patients states the rash developed after he had placed [place] lotion over the arm. He denies itching at this time. He has not take anything to help with redness or irritation. Denies SOA or difficulty breathing. Review of Systems Review of Systems Constitutional: Denies fever or chills [] Eyes: Denies change in visual acuity, redness, or eye pain [] HENT: Denies nasal congestion or sore throat [] Respiratory: Denies cough or shortness of breath [] Cardiovascular: No additional information not addressed in HPI [] GI: Denies abdominal pain, nausea, vomiting, bloody stools or diarrhea [] : Denies dysuria or hematuria [] Musculoskeletal: Denies back pain or joint pain [] Integument: rash denies skin lesions [] Neurologic: Denies headache, focal weakness or sensory changes [] Endocrine: Denies polyuria or polydipsia [] Allergies Allergies Allergies Coded Allergies Type Severity Reaction Last Updated Verified Iodinated Contrast- Oral and IV Dye Allergy Intermediate Rash 08/13/16 Yes Penicillins Allergy Intermediate Hives 08/13/16 Yes adhesive Allergy Intermediate Rash 10/21/16 Yes amlodipine Allergy Intermediate Rash 08/13/16 Yes fluorouracil Allergy Intermediate Swelling 10/21/16 Yes niacin Allergy Intermediate FLUSHING 08/13/16 Yes simvastatin Allergy Intermediate Hives 08/13/16 Yes Physical Exam Physical Exam Constitutional: Well developed, well nourished, no acute distress, non-toxic appearance. [] HENT: Normocephalic, atraumatic, bilateral external ears normal, oropharynx moist, no oral exudates, nose normal. [] Eyes: PERRLA, EOMI, conjunctiva normal, no discharge. [] Neck: Normal range of motion, no tenderness, supple, no stridor. [] Cardiovascular:Heart rate regular rhythm, no murmur [] Lungs & Thorax: Bilateral breath sounds clear to auscultation [] Skin: Warm, dry, no erythema,Patient with red raised pustule rash noted on the left forearm, no drainage or discharge noted from the site. Back: No tenderness Extremities: No tenderness, no cyanosis, no clubbing, ROM intact, no edema. Left wrist peripheral pulse 2+ cap refill brisk < 2 seconds. Neurologic: Alert and oriented X 3, normal motor function, normal sensory function, no focal deficits noted. [] Psychologic: Affect normal, judgement normal, mood normal. [] Current Patient Data Vital Signs Vital Signs Date Time Temp Pulse Resp B/P (MAP) Pulse Ox O2 Delivery O2 Flow Rate FiO2 10/21/16 11:37 98.5 80 18 95 Room Air 98.5 EKG EKG [] Radiology/Procedures Radiology/Procedures [] Course & Med Decision Making Course & Med Decision Making Pertinent Labs and Imaging studies reviewed. (See chart for details) Spoke with patient and in regards to use calmaine lotion to the area. is concerned about using the lotion as he has sensitive skin and she doesn' t want it to get worse. Spoke to them about the benadryl 25 mg every 6 hours as this may cause drowsiness do not take if you need to be alert and oriented, Patient will be placed on prednisone. Patient is on Coumadin with INR already scheduled for recheck on Sunday. Also recommended Aveeno baths to help soothe the skin. Patient was provided with signs and symptoms to return to the emergency department. Patient will be discharged home in stable condition. Patient agrees with discharge instructions, treatment regimen and followup recommendations. [] Dragon Disclaimer Dragon Disclaimer This electronic medical record was generated, in whole or in part, using a voice recognition dictation system. Departure Departure Impression: Primary Impression: Contact dermatitis Disposition: 01 HOME, SELF-CARE Condition: STABLE Referrals: HELEN WARREN MD (PCP) Patient Instructions: Contact Dermatitis, [id number] Additional Instructions: Activity as tolerated Benadryl 25 mg every 6 hours as needed for itching or irritation Medication as prescribed Continue to Monitor your INR for your Coumadin Aveeno baths may also help soothe the skin Calamine lotion to the rash may help dry the area up Followup with your primary care provider in 2-3 days Return to emergency department as needed for signs and symptoms that become worse. Scripts Prednisone (PREDNISONE) 20 Mg Tablet 40 MG PO DAILY, #14 TAB Prov: JULIO C FUENTES APRN 10/21/16 JULIO C FUENTES APRN Oct 21, 2016 12:04
== END 2016-10-21 12:17 | disposition home or self-care (01) ==
LOC: ER 11:21
DX: L25.9 Unspecified contact dermatitis, unspecified cause (principal); I25.10 Atherosclerotic heart disease of native coronary artery without angina pectoris; K21.9 Gastro-esophageal reflux disease without esophagitis; E78.00 Pure hypercholesterolemia, unspecified; I11.9 Hypertensive heart disease without heart failure; R48.8 Other symbolic dysfunctions; Z95.0 Presence of cardiac pacemaker; Z95.5 Presence of coronary angioplasty implant and graft; Z88.0 Allergy status to penicillin; Z96.653 Presence of artificial knee joint, bilateral; Z91.041 Radiographic dye allergy status; Z88.8 Allergy status to other drugs, medicaments and biological substances; Z91.048 Other nonmedicinal substance allergy status
CPT/HCPCS: 99283

== ENCOUNTER 2016-10-24 19:47 | Emergency (ER) | payer OTHER ==
[~2016-10-24] VITALS: Ht 177.8 cm; Wt 118.4 kg
[~2016-10-24 19:47] MED LIST changes: +PRED20TA PO
[2016-10-24 20:30] LABS: BILIRUBIN,URINE NEGATIVE (NEG); GLUCOSE,URINE NEGATIVE (NEG); NITRITE,URINE NEGATIVE (NEG); PH,URINE 5.5; PROTEIN,URINE 30 mg/dL (NEG-TRACE); UROBILINOGEN,URINE 0.2 mg/dL (0.2 mg/dL)
[2016-10-24 20:39] LABS: BACTERIA,URINE 0 /HPF (0-FEW); RBC,URINE TNTC /HPF (0-2); SQUAMOUS EPITHELIAL CELL,UR OCC /LPF
[2016-10-24 20:47] LABS: BASO % 0 % (0-3); EOS % 0 % (0-3); HEMATOCRIT 40.7 % (39.0-53.0); HEMOGLOBIN 13.6 g/dL (13.0-17.5); LYMPH # 0.6 x10^3/uL (1.0-4.8); LYMPH % 9 % (24-48); MEAN CORPUSCULAR HEMOGLOBIN 31 pg (25-35); MEAN CORPUSCULAR HGB CONC 34 g/dL (31-37); MEAN CORPUSCULAR VOLUME 92 fL (79-100); MONO % 4 % (0-9); NEUT % 88 % (31-73); PLATELET COUNT 179 x10^3/uL (140-400); RED BLOOD COUNT 4.42 x10^6/uL (4.30-5.70); RED CELL DISTRIBUTION WIDTH 13.9 % (11.5-14.5); WHITE BLOOD COUNT 7.3 x10^3/uL (4.0-11.0)
[2016-10-24 20:56] LABS: INR 3.8 (0.8-1.1); PROTHROMBIN TIME PATIENT 35.2 SEC (11.7-14.0)
[2016-10-24 20:59] LABS: CALCIUM 8.3 mg/dL (8.5-10.1); CREATININE 1.5 mg/dL (0.7-1.3); GFR 44.8; POTASSIUM 4.3 mmol/L (3.5-5.1)
[2016-10-24 21:05] LABS: ALBUMIN 3.9 g/dL (3.4-5.0); ALBUMIN/GLOBULIN RATIO 1.6 (1.0-1.7); TOTAL BILIRUBIN 0.3 mg/dL (0.2-1.0); TOTAL PROTEIN 6.4 g/dL (6.4-8.2)
[2016-10-24 21:26] LABS: PLT ESTIMATE ADEQUATE (ADEQUATE)
[2016-10-24] MEDS ORDERED: IV NORMAL SALINE 500ML BAG 500 ML IV ONE (21:30)
[2016-10-24 21:34] VITALS: BP 154/85
[2016-10-24] MEDS ORDERED: LEVO500T59 PO (21:46)
--- NOTE | 2016-10-24 21:46 | PHYS DOC ---
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 He is on coumadin and had a UTI 2 weeks ago. No pain , fevers, vomiting, or other systemic symptoms. His INR was 4.8 yesterday and he is not taking his Coumadin today or tomorrow and is to have it rechecked later this week. Review of Systems Review of Systems Constitutional: Denies fever or chills [] Cardiovascular: No additional information not addressed in HPI [] GI: Denies abdominal pain, nausea, vomiting, bloody stools or diarrhea [] : Denies dysuria. + hematuria [] Musculoskeletal: Denies back pain or joint pain [] Current Medications Current Medications Current Medications Medications (Trade) Dose Ordered Sig/Lyric Start Time Stop Time Status Last Admin Dose Admin Levofloxacin (Levaquin) 500 mg 1X ONCE 10/24/16 21:30 10/24/16 21:31 DC 10/24/16 21:32 500 MG Sodium Chloride 500 ml @ 500 mls/hr 1X ONCE 10/24/16 21:30 10/24/16 22:29 10/24/16 21:30 500 MLS/HR Allergies Allergies Allergies Coded Allergies Type Severity Reaction Last Updated Verified Iodinated Contrast- Oral and IV Dye Allergy Intermediate Rash 08/13/16 Yes Penicillins Allergy Intermediate Hives 08/13/16 Yes adhesive Allergy Intermediate Rash 10/21/16 Yes amlodipine Allergy Intermediate Rash 08/13/16 Yes fluorouracil Allergy Intermediate Swelling 10/21/16 Yes niacin Allergy Intermediate FLUSHING 08/13/16 Yes simvastatin Allergy Intermediate Hives 08/13/16 Yes Physical Exam Physical Exam Constitutional: Well developed, well nourished, no acute distress, non-toxic appearance. [] Cardiovascular:Heart rate regular rhythm, no murmur [] Lungs & Thorax: Bilateral breath sounds clear to auscultation [] Abdomen: Bowel sounds normal, soft, no tenderness, no masses, no pulsatile masses. [] Current Patient Data Vital Signs Vital Signs Date Time Temp Pulse Resp B/P (MAP) Pulse Ox O2 Delivery O2 Flow Rate FiO2 10/24/16 21:04 74 20 162/82 (108) 96 Room Air 10/24/16 20:03 98.6 98.6 Lab Values Laboratory Tests Test 10/24/16 19:56 10/24/16 20:30 Urine Collection Type Void Urine Color Isabelle Urine Clarity Clear Urine pH 5.5 Urine Specific [place] 1.025 Urine Protein 30 mg/dL (NEG-TRACE) Urine Glucose (UA) Negative mg/dL (NEG) Urine Ketones (Stick) Trace mg/dL (NEG) Urine Blood Large (NEG) Urine Nitrite Negative (NEG) Urine Bilirubin Negative (NEG) Urine Urobilinogen Dipstick 0.2 mg/dL (0.2 mg/dL) Urine Leukocyte Esterase Small (NEG) Urine RBC Tntc /HPF (0-2) Urine WBC 1-4 /HPF (0-4) Urine Squamous Epithelial Cells Occ /LPF Urine Bacteria 0 /HPF (0-FEW) Urine Mucus Slight /LPF White Blood Count 7.3 x10^3/uL (4.0-11.0) Red Blood Count 4.42 x10^6/uL (4.30-5.70) Hemoglobin 13.6 g/dL (13.0-17.5) Hematocrit 40.7 % (39.0-53.0) Mean Corpuscular Volume 92 fL (79-100) Mean Corpuscular Hemoglobin 31 pg (25-35) Mean Corpuscular Hemoglobin Concent 34 g/dL (31-37) Red Cell Distribution Width 13.9 % (11.5-14.5) Platelet Count 179 x10^3/uL (140-400) Neutrophils (%) (Auto) 88 % (31-73) H Lymphocytes (%) (Auto) 9 % (24-48) L Monocytes (%) (Auto) 4 % (0-9) Eosinophils (%) (Auto) 0 % (0-3) Basophils (%) (Auto) 0 % (0-3) Neutrophils # (Auto) 6.4 x10^3uL (1.8-7.7) Lymphocytes # (Auto) 0.6 x10^3/uL (1.0-4.8) L Monocytes # (Auto) 0.3 x10^3/uL (0.0-1.1) Eosinophils # (Auto) 0.0 x10^3/uL (0.0-0.7) Basophils # (Auto) 0.0 x10^3/uL (0.0-0.2) Segmented Neutrophils % 86 % (35-66) H Band Neutrophils % 4 % (0-9) Lymphocytes % 8 % (24-48) L Monocytes % 2 % (0-10) Platelet Estimate Adequate (ADEQUATE) Prothrombin Time 35.2 SEC (11.7-14.0) H Prothrombin Time INR 3.8 (0.8-1.1) H PTT 41 SEC (24-38) H Sodium Level 145 mmol/L (136-145) Potassium Level 4.3 mmol/L (3.5-5.1) Chloride Level 109 mmol/L (98-107) H Carbon Dioxide Level 24 mmol/L (21-32) Anion Gap 12 (6-14) Blood Urea Nitrogen 31 mg/dL (8-26) H Creatinine 1.5 mg/dL (0.7-1.3) H Estimated GFR (Cockcroft-Gault) 44.8 BUN/Creatinine Ratio 21 (6-20) H Glucose Level 183 mg/dL (70-99) H Calcium Level 8.3 mg/dL (8.5-10.1) L Total Bilirubin 0.3 mg/dL (0.2-1.0) Aspartate Amino Transferase (AST) 16 U/L (15-37) Alanine Aminotransferase (ALT) 31 U/L (16-63) Alkaline Phosphatase 78 U/L (46-116) Total Protein 6.4 g/dL (6.4-8.2) Albumin 3.9 g/dL (3.4-5.0) Albumin/Globulin Ratio 1.6 (1.0-1.7) Laboratory Tests 10/24/16 20:30 Laboratory Tests 10/24/16 20:30 EKG EKG [] Radiology/Procedures Radiology/Procedures [] Course & Med Decision Making Course & Med Decision Making Patient with hematuria from likely urinary tract infection or possibly prostatitis in the setting of elevated INR. His workup is remarkable only for mild dehydration so he will get a small fluid bolus here told to drink plenty of water at home will be given short course of Levaquin and told to follow with the urologist as an outpatient. Patient and aware and agreeable with plan for discharge and verbalized understanding of the need for short-term follow-up and strict ER return precautions discussed including worsening bleeding dizziness pain or other general concerns. Dragon Disclaimer Dragon Disclaimer This electronic medical record was generated, in whole or in part, using a voice recognition dictation system. Departure Departure Impression: Primary Impression: Hematuria Additional Impressions: Elevated INR Dehydration Disposition: 01 HOME, SELF-CARE Condition: GOOD Referrals: PIERRE FUNES DO Patient Instructions: Hematuria, Adult Scripts Levofloxacin (LEVAQUIN) 500 Mg Tablet 1 TAB PO DAILY, #4 TAB Prov: GUANAKO MORAN DO 10/24/16 Problem Qualifiers GUANAKO MORAN DO Oct 24, 2016 21:46
== END 2016-10-24 21:55 | disposition home or self-care (01) ==
LOC: ER 19:47
DX: R31.9 Hematuria, unspecified (principal); E86.0 Dehydration; R79.1 Abnormal coagulation profile; E78.00 Pure hypercholesterolemia, unspecified; I11.9 Hypertensive heart disease without heart failure; I25.10 Atherosclerotic heart disease of native coronary artery without angina pectoris; K21.9 Gastro-esophageal reflux disease without esophagitis; Z95.5 Presence of coronary angioplasty implant and graft; Z95.0 Presence of cardiac pacemaker; Z98.890 Other specified postprocedural states; Z87.440 Personal history of urinary (tract) infections; Z88.0 Allergy status to penicillin; Z79.01 Long term (current) use of anticoagulants; Z88.8 Allergy status to other drugs, medicaments and biological substances; Z88.1 Allergy status to other antibiotic agents; Z91.041 Radiographic dye allergy status
CPT/HCPCS: 36415; 80053; 81001; 85007; 85027; 85610; 85730; 87086; 99284; J7040

== ENCOUNTER 2017-01-16 03:45 | Observation (INO) | payer OTHER ==
[~2017-01-16] VITALS: Ht 172.7 cm; Wt 118.4 kg
[2017-01-16] VITALS (9 sets, daily range): BP systolic 139–171; BP diastolic 69–97
[~2017-01-16 03:45] MED LIST changes: +LEVO500T59 PO; +METO-239 PO; -METO25TA9 PO
[2017-01-16 04:26] LABS: BASO # 0.1 x10^3/uL (0.0-0.2); BASO % 1 % (0-3); EOS % 3 % (0-3); HEMATOCRIT 39.8 % (39.0-53.0); HEMOGLOBIN 13.6 g/dL (13.0-17.5); LYMPH # 2.2 x10^3/uL (1.0-4.8); LYMPH % 27 % (24-48); MEAN CORPUSCULAR HEMOGLOBIN 32 pg (25-35); MEAN CORPUSCULAR HGB CONC 34 g/dL (31-37); MEAN CORPUSCULAR VOLUME 92 fL (79-100); MONO % 7 % (0-9); NEUT % 63 % (31-73); PLATELET COUNT 177 x10^3/uL (140-400); RED BLOOD COUNT 4.32 x10^6/uL (4.30-5.70); RED CELL DISTRIBUTION WIDTH 14.4 % (11.5-14.5); WHITE BLOOD COUNT 8.1 x10^3/uL (4.0-11.0)
[2017-01-16 04:27] LABS: BILIRUBIN,URINE NEGATIVE (NEG); GLUCOSE,URINE NEGATIVE (NEG); NITRITE,URINE NEGATIVE (NEG); PH,URINE 5.5; PROTEIN,URINE NEGATIVE (NEG-TRACE)
[2017-01-16 04:32] LABS: INR 1.5 (0.8-1.1); PROTHROMBIN TIME PATIENT 17.2 SEC (11.7-14.0)
[2017-01-16 04:34] LABS: CALCIUM 8.8 mg/dL (8.5-10.1); CREATININE 1.3 mg/dL (0.7-1.3); GFR 52.9; POTASSIUM 3.8 mmol/L (3.5-5.1)
[2017-01-16 04:38] LABS: BACTERIA,URINE 0 /HPF (0-FEW); RBC,URINE 0 /HPF (0-2); SQUAMOUS EPITHELIAL CELL,UR FEW /LPF
[2017-01-16 04:40] LABS: ALBUMIN 3.9 g/dL (3.4-5.0); ALBUMIN/GLOBULIN RATIO 1.3 (1.0-1.7); TOTAL BILIRUBIN 0.6 mg/dL (0.2-1.0); TOTAL PROTEIN 6.8 g/dL (6.4-8.2)
[2017-01-16] MEDS ORDERED: MECLIZINE HCL 12.5 MG TABLET. PO ONE (05:00)
--- NOTE | 2017-01-16 05:00 | RAD ---
INDICATION: dizziness tonight COMPARISON: None. TECHNIQUE: Axial CT images obtained through the head without intravenous contrast. One or more of the following individualized dose reduction techniques were utilized for this examination: 1. Automated exposure control; 2. Adjustment of the mA and/or kV according to patient size; 3. Use of iterative reconstruction technique. FINDINGS: No intracranial hemorrhage. No midline shift. Basal cisterns patents. Ventricles and sulci are globally prominent. No acute osseous abnormality. Orbits and paranasal sinuses unremarkable. Scattered foci of low attenuation within the white matter. IMPRESSION: 1. No acute intracranial hemorrhage. 2. Scattered regions of low attenuation within the white matter. Non-specific in nature but frequently secondary to chronic small vessel ischemic disease. 3. Prominence of ventricles and sulci which is frequently secondary to age related volume loss. 4. Prominence of the subdural space frontally bilaterally. Could be from causes such as subdural hygroma. Electronically signed by: Terence Peralta MD (01/16/2017 4:57 AM) [id number]
[2017-01-16] MEDS ORDERED: ONDANSETRON PF 4 MG/2 ML VIAL. IV PRN (05:45)
[2017-01-16] MEDS ORDERED: ACETAMINOPHEN 325 MG TABLET. PO PRN ×2 (05:45→09:15)
--- NOTE | 2017-01-16 06:16 | PHYS DOC ---
Past Medical History Past Medical History: CAD, GERD, High Cholesterol, Heart Disease, Hypertension , Other Additional Past Medical Histor: ECHOLALIA Past Surgical History: Pacemaker, Tonsillectomy, Other Additional Past Surgical Histo: R KNEE REPL, LEFT KNEE SX, BILATERAL SHOULDER, ESOPHAGUS, CARDIAC STENT X2 Alcohol Use: None Drug Use: None Adult General Chief Complaint Chief Complaint: DIZZY/LIGHT HEADED HPI HPI Patient is a 81 year old male who presents with dizziness. The patient reports 1 day history of lightheadedness/vertigo sensation that causes unsteady gait. He says he thought he was going to lose consciousness or fall on several occasions though he did not experience syncope or fall. He does experience a spinning sensation. He denies headache, vision changes, chest pain, palpitations, shortness of breath, nausea, vomiting, diarrhea, extremity numbness/weakness. Has history of CAD, CHF, HTN. Denies previous history of similar symptoms. PCP is Dr. Lorenz. Review of Systems Review of Systems Constitutional: Denies fever or chills. Reports dizziness. Eyes: Denies change in visual acuity HENT: Denies nasal congestion or sore throat Respiratory: Denies cough or shortness of breath Cardiovascular: Denies chest pain or edema GI: Denies abdominal pain, nausea, vomiting, or diarrhea : Denies dysuria or hematuria Musculoskeletal: Denies back pain or joint pain Integument: Denies rash or skin lesions Neurologic: Denies headache, focal weakness or sensory changes Current Medications Current Medications Current Medications Medications (Trade) Dose Ordered Sig/Lyric Start Time Stop Time Status Last Admin Dose Admin Meclizine HCl (Antivert) 12.5 mg 1X ONCE 01/16/17 05:00 01/16/17 05:01 DC 01/16/17 04:25 12.5 MG Allergies Allergies Allergies Coded Allergies Type Severity Reaction Last Updated Verified Iodinated Contrast- Oral and IV Dye Allergy Intermediate Rash 08/13/16 Yes Penicillins Allergy Intermediate Hives 08/13/16 Yes adhesive Allergy Intermediate Rash 10/21/16 Yes amlodipine Allergy Intermediate Rash 08/13/16 Yes fluorouracil Allergy Intermediate Swelling 10/21/16 Yes niacin Allergy Intermediate FLUSHING 08/13/16 Yes simvastatin Allergy Intermediate Hives 08/13/16 Yes Physical Exam Physical Exam Constitutional: obese, no acute distress, non-toxic appearance. HENT: Normocephalic, atraumatic, bilateral external ears normal, moderate cerumen in bilateral ears but visualized portion of TM is normal in appearance bilaterally, oropharynx moist, nose normal. Eyes: PERRLA, EOMI, conjunctiva normal, no discharge. Neck: supple, no stridor. no carotid bruit Cardiovascular: RRR, no murmurs, no edema. Lungs & Thorax: LCTAB, no wheezing, no respiratory distress. Abdomen: soft, nontender, nondistended. Skin: Warm, dry, no erythema, no rash. Back: No tenderness. Extremities: No tenderness, no edema. Neurologic: Alert and oriented X 3, CN2-12 grossly intact, symmetric strength/ sensation to upper & lower extremities, no focal deficits noted. Psychologic: Affect normal, judgement normal, mood normal. Current Patient Data Vital Signs Vital Signs Date Time Temp Pulse Resp B/P (MAP) Pulse Ox O2 Delivery O2 Flow Rate FiO2 01/16/17 04:46 68 18 166/81 (109) 95 Room Air 01/16/17 03:52 98.8 98.8 Lab Values Laboratory Tests Test 01/16/17 03:50 01/16/17 04:03 White Blood Count 8.1 x10^3/uL (4.0-11.0) Red Blood Count 4.32 x10^6/uL (4.30-5.70) Hemoglobin 13.6 g/dL (13.0-17.5) Hematocrit 39.8 % (39.0-53.0) Mean Corpuscular Volume 92 fL (79-100) Mean Corpuscular Hemoglobin 32 pg (25-35) Mean Corpuscular Hemoglobin Concent 34 g/dL (31-37) Red Cell Distribution Width 14.4 % (11.5-14.5) Platelet Count 177 x10^3/uL (140-400) Neutrophils (%) (Auto) 63 % (31-73) Lymphocytes (%) (Auto) 27 % (24-48) Monocytes (%) (Auto) 7 % (0-9) Eosinophils (%) (Auto) 3 % (0-3) Basophils (%) (Auto) 1 % (0-3) Neutrophils # (Auto) 5.1 x10^3uL (1.8-7.7) Lymphocytes # (Auto) 2.2 x10^3/uL (1.0-4.8) Monocytes # (Auto) 0.6 x10^3/uL (0.0-1.1) Eosinophils # (Auto) 0.2 x10^3/uL (0.0-0.7) Basophils # (Auto) 0.1 x10^3/uL (0.0-0.2) Prothrombin Time 17.2 SEC (11.7-14.0) H Prothrombin Time INR 1.5 (0.8-1.1) H PTT 34 SEC (24-38) Sodium Level 144 mmol/L (136-145) Potassium Level 3.8 mmol/L (3.5-5.1) Chloride Level 107 mmol/L (98-107) Carbon Dioxide Level 29 mmol/L (21-32) Anion Gap 8 (6-14) Blood Urea Nitrogen 19 mg/dL (8-26) Creatinine 1.3 mg/dL (0.7-1.3) Estimated GFR (Cockcroft-Gault) 52.9 BUN/Creatinine Ratio 15 (6-20) Glucose Level 106 mg/dL (70-99) H Calcium Level 8.8 mg/dL (8.5-10.1) Total Bilirubin 0.6 mg/dL (0.2-1.0) Aspartate Amino Transferase (AST) 16 U/L (15-37) Alanine Aminotransferase (ALT) 22 U/L (16-63) Alkaline Phosphatase 81 U/L (46-116) Troponin I Quantitative < 0.017 ng/mL (0.000-0.055) TA-Tup-E-Type Natriuretic Peptide 1706 pg/mL (0-449) H Total Protein 6.8 g/dL (6.4-8.2) Albumin 3.9 g/dL (3.4-5.0) Albumin/Globulin Ratio 1.3 (1.0-1.7) Urine Collection Type Unknown Urine Color Yellow Urine Clarity Clear Urine pH 5.5 Urine Specific [place] 1.025 Urine Protein Negative mg/dL (NEG-TRACE) Urine Glucose (UA) Negative mg/dL (NEG) Urine Ketones (Stick) Negative mg/dL (NEG) Urine Blood Negative (NEG) Urine Nitrite Negative (NEG) Urine Bilirubin Negative (NEG) Urine Urobilinogen Dipstick 1.0 mg/dL (0.2 mg/dL) Urine Leukocyte Esterase Negative (NEG) Urine RBC 0 /HPF (0-2) Urine WBC 1-4 /HPF (0-4) Urine Squamous Epithelial Cells Few /LPF Urine Amorphous Sediment Present /HPF Urine Bacteria 0 /HPF (0-FEW) Urine Hyaline Casts Few /HPF Urine Mucus Mod /LPF Laboratory Tests 01/16/17 03:50 Laboratory Tests 01/16/17 03:50 EKG EKG Interpreted by me: Atrial flutter rate 73, no STEMI Radiology/Procedures Radiology/Procedures PROCEDURE: CT HEAD WO CONTRAST INDICATION: dizziness tonight COMPARISON: None. TECHNIQUE: Axial CT images obtained through the head without intravenous contrast. One or more of the following individualized dose reduction techniques were utilized for this examination: 1. Automated exposure control; 2. Adjustment of the mA and/or kV according to patient size; 3. Use of iterative reconstruction technique. FINDINGS: No intracranial hemorrhage. No midline shift. Basal cisterns patents. Ventricles and sulci are globally prominent. No acute osseous abnormality. Orbits and paranasal sinuses unremarkable. Scattered foci of low attenuation within the white matter. IMPRESSION: 1. No acute intracranial hemorrhage. 2. Scattered regions of low attenuation within the white matter. Non-specific in nature but frequently secondary to chronic small vessel ischemic disease. 3. Prominence of ventricles and sulci which is frequently secondary to age related volume loss. 4. Prominence of the subdural space frontally bilaterally. Could be from causes such as subdural hygroma. Electronically signed by: Siva Mosley MD (01/16/2017 4:57 AM) [facility] DICTATED and SIGNED BY: SIVA MOSLEY MD DATE: 01/16/17 0448 CXR, portable: interpreted by me: no cardiomegaly, no infiltrate, no pneumothorax, no acute process. [] Course & Med Decision Making Course & Med Decision Making Pertinent Labs and Imaging studies reviewed. (See chart for details) The patient presents with dizziness. He describes both lightheadedness & vertigo. Gave meclizine but his symptoms persisted. Obtained labs, EKG, CXR, head CT. BNP mildly elevated, CT shows chronic changes, EKG shows rate controlled atrial flutter which is known condition for this patient. As he is having unsteadiness & near falls, & given possibility of central cause of his symptoms, I did recommend admission for further evaluation. He agrees with plan of care. Discussed with Dr. Lorenz who agrees to admit to inpatient status. Cardiology consult to Dr. Dang & neurology consult to Dr. Mcintosh. The patient is admitted in stable condition. [] Dragon Disclaimer Dragon Disclaimer This electronic medical record was generated, in whole or in part, using a voice recognition dictation system. Departure Departure Impression: Primary Impression: Vertigo Additional Impressions: Dizziness Atrial flutter Elevated brain natriuretic peptide (BNP) level Disposition: ADMITTED INPATIENT Admitting Physician: Elmo Lorenz Condition: STABLE Referrals: ELMO LORENZ MD (PCP) Problem Qualifiers YOLANDA LAI MD Jan 16, 2017 06:16
--- NOTE | 2017-01-16 07:38 | EKG ---
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
--- NOTE | 2017-01-16 07:38 | RAD ---
Indication dizziness. Protocol study. Suspect CVA. A single view of the chest was obtained and is compared to an examination approximately 5 months earlier. Heart and pulmonary vessels are normal. A focal infiltrate is not seen. Cardiac pacing device is noted. There has not been a significant change compared to the previous exam. IMPRESSION: No acute or focal process. No significant change
[2017-01-16] MEDS ORDERED: APIX5TAB PO (08:00)
[2017-01-16] MEDS ORDERED: HYDROcodone/APAP 7.5/325MG 1 TAB TABLET PO PRN (08:00)
[2017-01-16] MEDS ORDERED: HYDR-2762 PO (08:00)
[2017-01-16] MEDS ORDERED: METO-239 PO (08:00)
[2017-01-16] MEDS ORDERED: traMADol 50 MG TABLET PO PRN (08:00)
[2017-01-16] MEDS ORDERED: AMIO400T4 PO (08:06)
[2017-01-16] MEDS ORDERED: AMIODARONE HCL 200 MG TABLET. PO SCH (09:00)
--- NOTE | 2017-01-16 09:29 | PDOC ---
Provider Note Provider Note history and physical dictated # [id number] HELEN WARREN MD Jan 16, 2017 09:29
[2017-01-16] MEDS: ASPIRIN ENTERIC COATED 81 MG TABLET.DR. PO SCH (09:59)
[2017-01-16] MEDS: METOPROLOL SUCC 24HR ER 25 MG TAB.ER.24H. PO SCH (10:01)
[2017-01-16] MEDS: PANTOPRAZOLE 40 MG TABLET.DR. PO SCH (10:01)
[2017-01-16] MEDS: APIXABAN 5 MG TABLET. PO SCH ×2 (10:02→21:04)
--- NOTE | 2017-01-16 10:03 | HP ---
ADMIT DATE: 01/16/2017 LOCATION: He is in room 261 HISTORY OF PRESENT ILLNESS: The patient is an 81-year-old white male with a history of coronary artery disease, hypertension and hyperlipidemia as well as chronic atrial flutter, maintained on Eliquis and metoprolol, who woke up around 12:30 this morning and complained of some difficulty walking. He says that he was walking forward that he was walking faster than he should and felt like he was going to fall over and faint. He had some initial dizziness temporarily when he stood up, but denied any vertigo. He has had no nausea, vomiting, melena, hematochezia. He has been taking his medications every day. He went to the [facility] Emergency Room. His laboratory tests were okay. EKG showed atrial flutter with a controlled ventricular rate of 72. Chest x-ray showed no acute abnormality but because of his mobility deficits and risk of falling and with his cardiac history was subsequently admitted to the hospital for further evaluation and treatment. ALLERGIES AND INTOLERANCES: IV and ORAL IODINE, PENICILLIN, ADHESIVE TAPE, AMLODIPINE, FLUOROURACIL, NIACIN and SIMVASTATIN. MEDICATIONS: Include amiodarone 200 mg every day, aspirin 81 mg every day, atorvastatin 80 mg at bedtime, Eliquis 5 mg b.i.d., famotidine 40 mg at bedtime, fish oil 1 g two daily, tamsulosin 0.4 mg at bedtime, Flonase 2 sprays each nostril every day, furosemide 20 mg every day p.r.n. for lower extremity edema, metoprolol succinate 12.5 mg every day, multiple vitamin every day, nitroglycerin 0.4 mg sublingual p.r.n., omeprazole 40 mg every day, and tramadol 50 mg every 6 hours p.r.n. PAST MEDICAL HISTORY: Significant for hyperlipidemia, gastroesophageal reflux disease, esophageal dysmotility, coronary artery disease, diverticulosis, benign prostatic hypertrophy, Osullivan's esophagus, achalasia, transurethral prostatectomy, hypertension, laparoscopy, Heller myotomy and anterior fundoplication, coronary angioplasty, right total knee arthroplasty, atrial flutter, tonsillectomy. SOCIAL HISTORY: Does not drink alcohol nor does he smoke cigarettes. He is retired, he is and he ambulates without any assistive device. FAMILY HISTORY: Noncontributory. REVIEW OF SYSTEMS: GENERAL: He denies any fever, chills or sweats in the last 3 days. CARDIOVASCULAR: No chest pain. PULMONARY: No cough or shortness of breath. GASTROINTESTINAL: No constipation. SKIN: No rashes. NEUROLOGIC: He had gait problems. Occasional dizziness. Denied vertigo. ENDOCRINE: No diabetes mellitus. SKIN: No rashes. The rest of systems reviewed are negative except as stated in history of present illness. PHYSICAL EXAMINATION: VITAL SIGNS: Temperature is 98.8 degrees. Apical pulse is 61 but it was 72 when I looked at his heart monitor, respiratory rate 18, blood pressure 151/80 earlier and then it is 171/81, oxygen saturation 97% on room air. HEENT: Eyes: Gaze is conjugate. Extraocular muscles are intact. There is no nystagmus. Mouth is symmetrical. Tongue is midline. He is edentulous. NECK: No cervical lymphadenopathy or thyroid enlargement. HEART: Reveals an S1, S2. There is no S3 or murmur. LUNGS: Clear. ABDOMEN: Soft in the sitting position. LOWER EXTREMITIES: Trace edema. SKIN: No rashes. NEUROLOGIC: He has got no focal weakness in the arms or legs. [id number] testing is normal bilaterally. SKIN: As mentioned no rashes. LABORATORY DATA: Review of his test results, his white count was 8.1, hemoglobin 13.6, platelet count 177,000, 63 polys and 22 lymphocytes. INR 1.5, PTT of 34. Sodium 144, potassium 3.8, chloride 107, total CO2 of 29, BUN 19, creatinine 1.3, estimated GFR 52.9. Liver function tests normal. Blood sugar 106. Troponin level is less than 0.017. Albumin 3.9 and proBNP was 1706. Urinalysis showed 1-4 white cells and 0 red blood cells. EKG showed atrial flutter with controlled ventricular rate of [address] of the head which showed no acute abnormality. There is no hemorrhage. He had some prominence of the subdural space bilaterally, but otherwise was unremarkable. He also had a chest x-ray done which showed no acute abnormality. ASSESSMENT: 1. Gait dysfunction associated with mild dizziness. 2. Coronary artery disease. 3. Hypertension. 4. Hyperlipidemia. 5. Chronic atrial flutter with a controlled ventricular rate. 6. Chronic kidney disease stage III. PLAN: At this time is to consult Dr. Wheat. We just saw the patient. We will also consult Dr. Dang, his route sales driver, continue to place him on a heart monitor. Physical and occupational therapy will see him regarding his gait dysfunction. We will also check for orthostatic hypotension. Repeat a CBC and BMP tomorrow. We will continue with his Eliquis and aspirin 81 mg every day and we will also continue with his famotidine and other current medicines including atorvastatin and also metoprolol and Protonix. HELEN WARREN MD DR: YANCI/raquel JOB#: [id number] / [id number]
--- NOTE | 2017-01-16 11:37 | PDOC2 ---
NEUROLOGY CONSULT Date of Admission Date of Admission DATE: 01/16/17 TIME: 11:29 Reason for Consult Reason for Consult: Dizziness Referring Physician Referring Physician: Dr. Lorenz Source Source: Caregiver, Chart review, Patient History of Present Illness History of Present Illness The patient is an 81-year-old right-handed male who felt dizzy this morning. He was concerned that his pacemaker recently placed was not working. He did feel lightheaded, and for me, denies any spinning vertigo sensation, but for the emergency department physician, did describe spinning in the past. There is no tinnitus, but he does have hearing loss. There is no history of stroke, seizure , or head injury. thinks he just gets nervous and works himself into an anxiety state with dizziness, worried about his pacemaker. Past Medical History Cardiovascular: CAD, CHF, HTN, [place], Other ( atrial flutter) GI: Diverticulosis, Other ( Osullivan's esophagus) ENT: Other (Bilateral hearing loss, wears hearing aids) Past Surgical History Past Surgical History: Pacemaker, Cataract Removal, Total knee replacement ( right), Tonsillectomy, Other ( coronary stents, fundoplication, TURP, bilateral rotator cuff, right ankle screws) Family History Family History: DM Social History Social History , non-smoker, nondrinker Current Medications Current Medications Current Medications Meclizine HCl (Antivert) 12.5 mg 1X ONCE PO Last administered on 01/16/17 04: 25; Start 01/16/17 at 05:00; Stop 01/16/17 at 05:01; Status DC Ondansetron HCl (Zofran) 4 mg PRN Q8HRS PRN IV NAUSEA/VOMITING; Start 01/16/17 at 05:45; Stop 01/17/17 at 05:44 Acetaminophen (Tylenol) 650 mg PRN Q4HRS PRN PO FEVER; Start 01/16/17 at 05:45; Stop 01/17/17 at 05:44 Apixaban (Eliquis) 5 mg BID PO Last administered on 01/16/17 10:02; Start at 09:00 Atorvastatin Calcium (Lipitor) 80 mg QHS PO ; Start 01/16/17 at 21:00 Acetaminophen/ Hydrocodone Bitart (Lortab 7.5/325) 1 tab PRN Q6HRS PRN PO PAIN ; Start 01/16/17 at 08:00; Stop 01/16/17 at 09:30; Status DC Metoprolol Succinate (Toprol Xl) 12.5 mg DAILY PO Last administered on 10:01; Start 01/16/17 at 09:00 Tamsulosin HCl (Flomax) 0.4 mg QHS PO ; Start 01/16/17 at 21:00 Tramadol HCl (Ultram) 50 mg PRN Q6HRS PRN PO MILD PAIN; Start 01/16/17 at 08:00 Amiodarone HCl (Cordarone) 400 mg DAILY PO ; Start 01/16/17 at 09:00; Stop at 09:25; Status DC Famotidine (Pepcid) 40 mg QHS PO ; Start 01/16/17 at 21:00 Pantoprazole Sodium (Protonix) 40 mg DAILYAC PO Last administered on 01/16/17 10:01; Start 01/16/17 at 09:00 Aspirin (Ecotrin) 81 mg DAILYWBKFT PO Last administered on 01/16/17 09:59; Start 01/16/17 at 10:00 Multivitamins (Thera M Plus) 1 tab DAILY PO ; Start 01/17/17 at 09:00 Acetaminophen (Tylenol) 650 mg PRN Q6HRS PRN PO MILD PAIN / TEMP; Start at 09:15 Amiodarone HCl (Cordarone) 200 mg DAILY PO ; Start 01/17/17 at 09:00 Active Scripts Active Levaquin (Levofloxacin) 500 Mg Tablet 1 Tab PO DAILY Prednisone 20 Mg Tablet 40 Mg PO DAILY Cefpodoxime Proxetil 200 Mg Tablet 1 Tab PO BID Coumadin (Warfarin Sodium) 4 Mg Tablet 4 Mg PO DAILY16 Tramadol Hcl 50 Mg Tablet 50 Mg PO PRN Q6HRS PRN Flomax (Tamsulosin Hcl) 0.4 Mg Cap.er.24h 0.4 Mg PO QHS Metoprolol Succinate ( Xl ) (Metoprolol Succinate) 25 Mg Tab.er.24h 12.5 Mg PO DAILY Atorvastatin Calcium 40 Mg Tablet 80 Mg PO QHS Amiodarone Hcl 200 Mg Tablet 400 Mg PO BID Reported Amiodarone Hcl 400 Mg Tablet 400 Mg PO DAILY Hydrocodone-Apap 7.5-325 (Hydrocodone Bit/Acetaminophen) 1 Each Tablet 1 Tab PO PRN Q6HRS PRN Eliquis (Apixaban) 5 Mg Tablet 5 Mg PO BID Metoprolol Succinate ( Xl ) (Metoprolol Succinate) 25 Mg Tab.er.24h 0.5 Tab PO BID Omeprazole 40 Mg Capsule.dr 40 Mg PO DAILY NITROGLYCERIN SubLingual (Nitroglycerin) 0.4 Mg Tab.subl 0.4 Mg SL DAILY Daily Vitamin (Multivitamin) 1 Each Tablet 1 Each PO DAILY Famotidine 40 Mg Tablet 40 Mg PO HS Clonazepam Odt (Clonazepam) 1 Mg Tab.rapdis 1 Mg PO HS Allergies Allergies: Coded Allergies: Iodinated Contrast- Oral and IV Dye (Verified Allergy, Intermediate, Rash , 08/13/16) Penicillins (Verified Allergy, Intermediate, Hives, 08/13/16) adhesive (Verified Allergy, Intermediate, Rash, 10/21/16) amlodipine (Verified Allergy, Intermediate, Rash, 08/13/16) fluorouracil (Verified Allergy, Intermediate, Swelling, 10/21/16) niacin (Verified Allergy, Intermediate, FLUSHING, 08/13/16) FLUSHING simvastatin (Verified Allergy, Intermediate, Hives, 08/13/16) ROS Review of System Negative for fevers, chills, weight loss, shortness of breath, chest pain, indigestion, hematochezia, melena, dysuria. Full 14-point review systems is negative. Physical Exam Physical Examination PHYSICAL EXAMINATION: Vital signs: see above. General appearance is normal and in no acute distress. HEENT: Normocephalic and nontraumatic. Eyes, nose, ears, and throat are unremarkable. Neck is supple. No lymphadenopathy. No bruits are heard over the carotid artery. No crepitus. NEUROLOGICAL EXAMINATION: Mental Status Examination: Alert. Oriented to time, place, and person. Answers questions and follows commends. Pupils are equal round and reactive to light and accommodation. Funduscopic exam: No papilledema. Extraocular movements are intact. Visual field exam shows no defect on the direct confrontation. No motor or sensory deficits on the facial exam. Uvula in the midline and the soft palate elevated symmetrically. Normal vestibular-ocular reflex without nystagmus. No deviation of the tongue to any direction. Gross hearing is normal. Shoulder shrug normal. Muscle tone is normal. Muscle strength is 5. Deep tendon reflexes are 1+ all around. Plantar reflex is with flexion response bilaterally. Amkkuw-jt-hvlt test performance is accurate. . Alternative movements are accurate. Romberg test is negative. Gait is normal for age, arthritic, a little unsteady, certainly not ataxic. Sensory exam shows no deficits. No cerebellar signs are elicited. Vitals VITALS Vital Signs Date Time Temp Pulse Resp B/P (MAP) Pulse Ox O2 Delivery O2 Flow Rate FiO2 01/16/17 10:01 61 139/75 01/16/17 08:00 Room Air 01/16/17 07:26 18 97 01/16/17 03:52 98.8 98.8 Labs Labs Laboratory Tests Test 01/16/17 03:50 01/16/17 04:03 White Blood Count 8.1 x10^3/uL (4.0-11.0) Red Blood Count 4.32 x10^6/uL (4.30-5.70) Hemoglobin 13.6 g/dL (13.0-17.5) Hematocrit 39.8 % (39.0-53.0) Mean Corpuscular Volume 92 fL (79-100) Mean Corpuscular Hemoglobin 32 pg (25-35) Mean Corpuscular Hemoglobin Concent 34 g/dL (31-37) Red Cell Distribution Width 14.4 % (11.5-14.5) Platelet Count 177 x10^3/uL (140-400) Neutrophils (%) (Auto) 63 % (31-73) Lymphocytes (%) (Auto) 27 % (24-48) Monocytes (%) (Auto) 7 % (0-9) Eosinophils (%) (Auto) 3 % (0-3) Basophils (%) (Auto) 1 % (0-3) Neutrophils # (Auto) 5.1 x10^3uL (1.8-7.7) Lymphocytes # (Auto) 2.2 x10^3/uL (1.0-4.8) Monocytes # (Auto) 0.6 x10^3/uL (0.0-1.1) Eosinophils # (Auto) 0.2 x10^3/uL (0.0-0.7) Basophils # (Auto) 0.1 x10^3/uL (0.0-0.2) Prothrombin Time 17.2 SEC (11.7-14.0) Prothromb Time International Ratio 1.5 (0.8-1.1) Activated Partial Thromboplast Time 34 SEC (24-38) Sodium Level 144 mmol/L (136-145) Potassium Level 3.8 mmol/L (3.5-5.1) Chloride Level 107 mmol/L (98-107) Carbon Dioxide Level 29 mmol/L (21-32) Anion Gap 8 (6-14) Blood Urea Nitrogen 19 mg/dL (8-26) Creatinine 1.3 mg/dL (0.7-1.3) Estimated GFR (Cockcroft-Gault) 52.9 BUN/Creatinine Ratio 15 (6-20) Glucose Level 106 mg/dL (70-99) Calcium Level 8.8 mg/dL (8.5-10.1) Total Bilirubin 0.6 mg/dL (0.2-1.0) Aspartate Amino Transf (AST/SGOT) 16 U/L (15-37) Alanine Aminotransferase (ALT/SGPT) 22 U/L (16-63) Alkaline Phosphatase 81 U/L (46-116) Troponin I Quantitative < 0.017 ng/mL (0.000-0.055) NU-Jkr-[id number]-Type Natriuretic Peptide 1706 pg/mL (0-449) Total Protein 6.8 g/dL (6.4-8.2) Albumin 3.9 g/dL (3.4-5.0) Albumin/Globulin Ratio 1.3 (1.0-1.7) Urine Collection Type Unknown Urine Color Yellow Urine Clarity Clear Urine pH 5.5 Urine Specific [place] 1.025 Urine Protein Negative mg/dL (NEG-TRACE) Urine Glucose (UA) Negative mg/dL (NEG) Urine Ketones (Stick) Negative mg/dL (NEG) Urine Blood Negative (NEG) Urine Nitrite Negative (NEG) Urine Bilirubin Negative (NEG) Urine Urobilinogen Dipstick 1.0 mg/dL (0.2 mg/dL) Urine Leukocyte Esterase Negative (NEG) Urine RBC 0 /HPF (0-2) Urine WBC 1-4 /HPF (0-4) Urine Squamous Epithelial Cells Few /LPF Urine Amorphous Sediment Present /HPF Urine Bacteria 0 /HPF (0-FEW) Urine Hyaline Casts Few /HPF Urine Mucus Mod /LPF Laboratory Tests Test 01/16/17 03:50 01/16/17 04:03 White Blood Count 8.1 x10^3/uL (4.0-11.0) Red Blood Count 4.32 x10^6/uL (4.30-5.70) Hemoglobin 13.6 g/dL (13.0-17.5) Hematocrit 39.8 % (39.0-53.0) Mean Corpuscular Volume 92 fL (79-100) Mean Corpuscular Hemoglobin 32 pg (25-35) Mean Corpuscular Hemoglobin Concent 34 g/dL (31-37) Red Cell Distribution Width 14.4 % (11.5-14.5) Platelet Count 177 x10^3/uL (140-400) Neutrophils (%) (Auto) 63 % (31-73) Lymphocytes (%) (Auto) 27 % (24-48) Monocytes (%) (Auto) 7 % (0-9) Eosinophils (%) (Auto) 3 % (0-3) Basophils (%) (Auto) 1 % (0-3) Neutrophils # (Auto) 5.1 x10^3uL (1.8-7.7) Lymphocytes # (Auto) 2.2 x10^3/uL (1.0-4.8) Monocytes # (Auto) 0.6 x10^3/uL (0.0-1.1) Eosinophils # (Auto) 0.2 x10^3/uL (0.0-0.7) Basophils # (Auto) 0.1 x10^3/uL (0.0-0.2) Prothrombin Time 17.2 SEC (11.7-14.0) Prothromb Time International Ratio 1.5 (0.8-1.1) Activated Partial Thromboplast Time 34 SEC (24-38) Sodium Level 144 mmol/L (136-145) Potassium Level 3.8 mmol/L (3.5-5.1) Chloride Level 107 mmol/L (98-107) Carbon Dioxide Level 29 mmol/L (21-32) Anion Gap 8 (6-14) Blood Urea Nitrogen 19 mg/dL (8-26) Creatinine 1.3 mg/dL (0.7-1.3) Estimated GFR (Cockcroft-Gault) 52.9 BUN/Creatinine Ratio 15 (6-20) Glucose Level 106 mg/dL (70-99) Calcium Level 8.8 mg/dL (8.5-10.1) Total Bilirubin 0.6 mg/dL (0.2-1.0) Aspartate Amino Transf (AST/SGOT) 16 U/L (15-37) Alanine Aminotransferase (ALT/SGPT) 22 U/L (16-63) Alkaline Phosphatase 81 U/L (46-116) Troponin I Quantitative < 0.017 ng/mL (0.000-0.055) DK-Uck-H-Type Natriuretic Peptide 1706 pg/mL (0-449) Total Protein 6.8 g/dL (6.4-8.2) Albumin 3.9 g/dL (3.4-5.0) Albumin/Globulin Ratio 1.3 (1.0-1.7) Urine Collection Type Unknown Urine Color Yellow Urine Clarity Clear Urine pH 5.5 Urine Specific [place] 1.025 Urine Protein Negative mg/dL (NEG-TRACE) Urine Glucose (UA) Negative mg/dL (NEG) Urine Ketones (Stick) Negative mg/dL (NEG) Urine Blood Negative (NEG) Urine Nitrite Negative (NEG) Urine Bilirubin Negative (NEG) Urine Urobilinogen Dipstick 1.0 mg/dL (0.2 mg/dL) Urine Leukocyte Esterase Negative (NEG) Urine RBC 0 /HPF (0-2) Urine WBC 1-4 /HPF (0-4) Urine Squamous Epithelial Cells Few /LPF Urine Amorphous Sediment Present /HPF Urine Bacteria 0 /HPF (0-FEW) Urine Hyaline Casts Few /HPF Urine Mucus Mod /LPF Images Images CT head: FINDINGS: No intracranial hemorrhage. No midline shift. Basal cisterns patents. Ventricles and sulci are globally prominent. No acute osseous abnormality. Orbits and paranasal sinuses unremarkable. Scattered foci of low attenuation within the white matter. IMPRESSION: 1. No acute intracranial hemorrhage. 2. Scattered regions of low attenuation within the white matter. Non-specific in nature but frequently secondary to chronic small vessel ischemic disease. 3. Prominence of ventricles and sulci which is frequently secondary to age related volume loss. 4. Prominence of the subdural space frontally bilaterally. Could be from causes such as subdural hygroma.FINDINGS: No intracranial hemorrhage. No midline shift. Basal cisterns patents. Ventricles and sulci are globally prominent. No acute osseous abnormality. Orbits and paranasal sinuses unremarkable. Scattered foci of low attenuation within the white matter. IMPRESSION: 1. No acute intracranial hemorrhage. 2. Scattered regions of low attenuation within the white matter. Non-specific in nature but frequently secondary to chronic small vessel ischemic disease. 3. Prominence of ventricles and sulci which is frequently secondary to age related volume loss. 4. Prominence of the subdural space frontally bilaterally. Could be from causes such as subdural hygroma. Assessment/Plan Assessment/Plan Impression: Dizziness, I find no evidence of central or peripheral vestibular dysfunction. I find no evidence of any stroke. Recommendations: Rehabilitation evaluations Agree with checking orthostatics Agree with vulcanizing press operator I am holding off on further neurological studies. He does have an MRI- compatible pacemaker, but I do not see a need for the study right now. Thank you for letting me help the patient care. WHIT RUIZ MD Jan 16, 2017 11:37
--- NOTE | 2017-01-16 12:51 | PDOC2 ---
CONSULT Date of Consult Date of Consult DATE: 01/16/17 TIME: 12:37 Reason for Consult Reason for Consult: dizziness Identification/Chief Complaint Chief Complaint dizziness Problems: History of Present Illness Reason for Visit: 81 year old male, presents with dizziness with exertion with some difficulty walking. Was walking forward and felt like would pass out. Denies vertigo. Denies chest pain, SOB, n/v Hx of CAD, HTN, hyperlipidemia, chronic atrial flutter Pt on Eliquis and metoprolol Pacemaker 5 mo ago placed by us Has had no repeat episodes since admission, and has been able to get up and walk , and working with PT/OT without further issues Past Medical History Cardiovascular: CAD, CHF, HTN, NV, Other ( atrial flutter) GI: Diverticulosis, Other ( Osullivan's esophagus) Musculoskeletal: Osteoarthritis, Other ENT: Other (Bilateral hearing loss, wears hearing aids) Renal/: Benign prostatic enlarg. Past Surgical History Past Surgical History: Pacemaker, Cataract Removal, Total knee replacement ( right), Tonsillectomy, Other ( coronary stents, fundoplication, TURP, bilateral rotator cuff, right ankle screws) Social History ALCOHOL: none Drugs: None Lives: with Family Current Problem List Problem List Problems Medical Problems: (1) Atrial flutter Status: Acute (2) Dizziness Status: Acute (3) Elevated brain natriuretic peptide (BNP) level Status: Acute (4) Vertigo Status: Acute Current Medications Current Medications Current Medications Meclizine HCl (Antivert) 12.5 mg 1X ONCE PO Last administered on 01/16/17 04: 25; Start 01/16/17 at 05:00; Stop 01/16/17 at 05:01; Status DC Ondansetron HCl (Zofran) 4 mg PRN Q8HRS PRN IV NAUSEA/VOMITING; Start 01/16/17 at 05:45; Stop 01/17/17 at 05:44 Acetaminophen (Tylenol) 650 mg PRN Q4HRS PRN PO FEVER; Start 01/16/17 at 05:45; Stop 01/17/17 at 05:44 Apixaban (Eliquis) 5 mg BID PO Last administered on 01/16/17 10:02; Start at 09:00 Atorvastatin Calcium (Lipitor) 80 mg QHS PO ; Start 01/16/17 at 21:00 Acetaminophen/ Hydrocodone Bitart (Lortab 7.5/325) 1 tab PRN Q6HRS PRN PO PAIN ; Start 01/16/17 at 08:00; Stop 01/16/17 at 09:30; Status DC Metoprolol Succinate (Toprol Xl) 12.5 mg DAILY PO Last administered on 10:01; Start 01/16/17 at 09:00 Tamsulosin HCl (Flomax) 0.4 mg QHS PO ; Start 01/16/17 at 21:00 Tramadol HCl (Ultram) 50 mg PRN Q6HRS PRN PO MILD PAIN; Start 01/16/17 at 08:00 Amiodarone HCl (Cordarone) 400 mg DAILY PO ; Start 01/16/17 at 09:00; Stop at 09:25; Status DC Famotidine (Pepcid) 40 mg QHS PO ; Start 01/16/17 at 21:00 Pantoprazole Sodium (Protonix) 40 mg DAILYAC PO Last administered on 01/16/17 10:01; Start 01/16/17 at 09:00 Aspirin (Ecotrin) 81 mg DAILYWBKFT PO Last administered on 01/16/17 09:59; Start 01/16/17 at 10:00 Multivitamins (Thera M Plus) 1 tab DAILY PO ; Start 01/17/17 at 09:00 Acetaminophen (Tylenol) 650 mg PRN Q6HRS PRN PO MILD PAIN / TEMP; Start at 09:15 Amiodarone HCl (Cordarone) 200 mg DAILY PO ; Start 01/17/17 at 09:00 Active Scripts Active Levaquin (Levofloxacin) 500 Mg Tablet 1 Tab PO DAILY Prednisone 20 Mg Tablet 40 Mg PO DAILY Cefpodoxime Proxetil 200 Mg Tablet 1 Tab PO BID Coumadin (Warfarin Sodium) 4 Mg Tablet 4 Mg PO DAILY16 Tramadol Hcl 50 Mg Tablet 50 Mg PO PRN Q6HRS PRN Flomax (Tamsulosin Hcl) 0.4 Mg Cap.er.24h 0.4 Mg PO QHS Metoprolol Succinate ( Xl ) (Metoprolol Succinate) 25 Mg Tab.er.24h 12.5 Mg PO DAILY Atorvastatin Calcium 40 Mg Tablet 80 Mg PO QHS Amiodarone Hcl 200 Mg Tablet 400 Mg PO BID Reported Amiodarone Hcl 400 Mg Tablet 400 Mg PO DAILY Hydrocodone-Apap 7.5-325 (Hydrocodone Bit/Acetaminophen) 1 Each Tablet 1 Tab PO PRN Q6HRS PRN Eliquis (Apixaban) 5 Mg Tablet 5 Mg PO BID Metoprolol Succinate ( Xl ) (Metoprolol Succinate) 25 Mg Tab.er.24h 0.5 Tab PO BID Omeprazole 40 Mg Capsule.dr 40 Mg PO DAILY NITROGLYCERIN SubLingual (Nitroglycerin) 0.4 Mg Tab.subl 0.4 Mg SL DAILY Daily Vitamin (Multivitamin) 1 Each Tablet 1 Each PO DAILY Famotidine 40 Mg Tablet 40 Mg PO HS Clonazepam Odt (Clonazepam) 1 Mg Tab.rapdis 1 Mg PO HS Allergies Allergies: Coded Allergies: Iodinated Contrast- Oral and IV Dye (Verified Allergy, Intermediate, Rash , 08/13/16) Penicillins (Verified Allergy, Intermediate, Hives, 08/13/16) adhesive (Verified Allergy, Intermediate, Rash, 10/21/16) amlodipine (Verified Allergy, Intermediate, Rash, 08/13/16) fluorouracil (Verified Allergy, Intermediate, Swelling, 10/21/16) niacin (Verified Allergy, Intermediate, FLUSHING, 08/13/16) FLUSHING simvastatin (Verified Allergy, Intermediate, Hives, 08/13/16) ROS Review of System Cardiovascular: yes Other (presyncope, lightheadness) Physical Exam Physical Exam Gen: Weak, no acute distress Heart: RRR no murmur. Normal S1 and S2 without S3 or S4. No gallops or rubs. Lungs: CTA bilat Vitals VITALS Vital Signs Date Time Temp Pulse Resp B/P (MAP) Pulse Ox O2 Delivery O2 Flow Rate FiO2 01/16/17 11:29 98.9 60 20 139/84 (102) 95 Room Air 98.9 Labs Labs Laboratory Tests Test 01/16/17 03:50 01/16/17 04:03 White Blood Count 8.1 x10^3/uL (4.0-11.0) Red Blood Count 4.32 x10^6/uL (4.30-5.70) Hemoglobin 13.6 g/dL (13.0-17.5) Hematocrit 39.8 % (39.0-53.0) Mean Corpuscular Volume 92 fL (79-100) Mean Corpuscular Hemoglobin 32 pg (25-35) Mean Corpuscular Hemoglobin Concent 34 g/dL (31-37) Red Cell Distribution Width 14.4 % (11.5-14.5) Platelet Count 177 x10^3/uL (140-400) Neutrophils (%) (Auto) 63 % (31-73) Lymphocytes (%) (Auto) 27 % (24-48) Monocytes (%) (Auto) 7 % (0-9) Eosinophils (%) (Auto) 3 % (0-3) Basophils (%) (Auto) 1 % (0-3) Neutrophils # (Auto) 5.1 x10^3uL (1.8-7.7) Lymphocytes # (Auto) 2.2 x10^3/uL (1.0-4.8) Monocytes # (Auto) 0.6 x10^3/uL (0.0-1.1) Eosinophils # (Auto) 0.2 x10^3/uL (0.0-0.7) Basophils # (Auto) 0.1 x10^3/uL (0.0-0.2) Prothrombin Time 17.2 SEC (11.7-14.0) Prothromb Time International Ratio 1.5 (0.8-1.1) Activated Partial Thromboplast Time 34 SEC (24-38) Sodium Level 144 mmol/L (136-145) Potassium Level 3.8 mmol/L (3.5-5.1) Chloride Level 107 mmol/L (98-107) Carbon Dioxide Level 29 mmol/L (21-32) Anion Gap 8 (6-14) Blood Urea Nitrogen 19 mg/dL (8-26) Creatinine 1.3 mg/dL (0.7-1.3) Estimated GFR (Cockcroft-Gault) 52.9 BUN/Creatinine Ratio 15 (6-20) Glucose Level 106 mg/dL (70-99) Calcium Level 8.8 mg/dL (8.5-10.1) Total Bilirubin 0.6 mg/dL (0.2-1.0) Aspartate Amino Transf (AST/SGOT) 16 U/L (15-37) Alanine Aminotransferase (ALT/SGPT) 22 U/L (16-63) Alkaline Phosphatase 81 U/L (46-116) Troponin I Quantitative < 0.017 ng/mL (0.000-0.055) HB-Lqw-M-Type Natriuretic Peptide 1706 pg/mL (0-449) Total Protein 6.8 g/dL (6.4-8.2) Albumin 3.9 g/dL (3.4-5.0) Albumin/Globulin Ratio 1.3 (1.0-1.7) Urine Collection Type Unknown Urine Color Yellow Urine Clarity Clear Urine pH 5.5 Urine Specific [place] 1.025 Urine Protein Negative mg/dL (NEG-TRACE) Urine Glucose (UA) Negative mg/dL (NEG) Urine Ketones (Stick) Negative mg/dL (NEG) Urine Blood Negative (NEG) Urine Nitrite Negative (NEG) Urine Bilirubin Negative (NEG) Urine Urobilinogen Dipstick 1.0 mg/dL (0.2 mg/dL) Urine Leukocyte Esterase Negative (NEG) Urine RBC 0 /HPF (0-2) Urine WBC 1-4 /HPF (0-4) Urine Squamous Epithelial Cells Few /LPF Urine Amorphous Sediment Present /HPF Urine Bacteria 0 /HPF (0-FEW) Urine Hyaline Casts Few /HPF Urine Mucus Mod /LPF Laboratory Tests Test 01/16/17 03:50 01/16/17 04:03 White Blood Count 8.1 x10^3/uL (4.0-11.0) Red Blood Count 4.32 x10^6/uL (4.30-5.70) Hemoglobin 13.6 g/dL (13.0-17.5) Hematocrit 39.8 % (39.0-53.0) Mean Corpuscular Volume 92 fL (79-100) Mean Corpuscular Hemoglobin 32 pg (25-35) Mean Corpuscular Hemoglobin Concent 34 g/dL (31-37) Red Cell Distribution Width 14.4 % (11.5-14.5) Platelet Count 177 x10^3/uL (140-400) Neutrophils (%) (Auto) 63 % (31-73) Lymphocytes (%) (Auto) 27 % (24-48) Monocytes (%) (Auto) 7 % (0-9) Eosinophils (%) (Auto) 3 % (0-3) Basophils (%) (Auto) 1 % (0-3) Neutrophils # (Auto) 5.1 x10^3uL (1.8-7.7) Lymphocytes # (Auto) 2.2 x10^3/uL (1.0-4.8) Monocytes # (Auto) 0.6 x10^3/uL (0.0-1.1) Eosinophils # (Auto) 0.2 x10^3/uL (0.0-0.7) Basophils # (Auto) 0.1 x10^3/uL (0.0-0.2) Prothrombin Time 17.2 SEC (11.7-14.0) Prothromb Time International Ratio 1.5 (0.8-1.1) Activated Partial Thromboplast Time 34 SEC (24-38) Sodium Level 144 mmol/L (136-145) Potassium Level 3.8 mmol/L (3.5-5.1) Chloride Level 107 mmol/L (98-107) Carbon Dioxide Level 29 mmol/L (21-32) Anion Gap 8 (6-14) Blood Urea Nitrogen 19 mg/dL (8-26) Creatinine 1.3 mg/dL (0.7-1.3) Estimated GFR (Cockcroft-Gault) 52.9 BUN/Creatinine Ratio 15 (6-20) Glucose Level 106 mg/dL (70-99) Calcium Level 8.8 mg/dL (8.5-10.1) Total Bilirubin 0.6 mg/dL (0.2-1.0) Aspartate Amino Transf (AST/SGOT) 16 U/L (15-37) Alanine Aminotransferase (ALT/SGPT) 22 U/L (16-63) Alkaline Phosphatase 81 U/L (46-116) Troponin I Quantitative < 0.017 ng/mL (0.000-0.055) UQ-Npc-X-Type Natriuretic Peptide 1706 pg/mL (0-449) Total Protein 6.8 g/dL (6.4-8.2) Albumin 3.9 g/dL (3.4-5.0) Albumin/Globulin Ratio 1.3 (1.0-1.7) Urine Collection Type Unknown Urine Color Yellow Urine Clarity Clear Urine pH 5.5 Urine Specific [place] 1.025 Urine Protein Negative mg/dL (NEG-TRACE) Urine Glucose (UA) Negative mg/dL (NEG) Urine Ketones (Stick) Negative mg/dL (NEG) Urine Blood Negative (NEG) Urine Nitrite Negative (NEG) Urine Bilirubin Negative (NEG) Urine Urobilinogen Dipstick 1.0 mg/dL (0.2 mg/dL) Urine Leukocyte Esterase Negative (NEG) Urine RBC 0 /HPF (0-2) Urine WBC 1-4 /HPF (0-4) Urine Squamous Epithelial Cells Few /LPF Urine Amorphous Sediment Present /HPF Urine Bacteria 0 /HPF (0-FEW) Urine Hyaline Casts Few /HPF Urine Mucus Mod /LPF Assessment/Plan Assessment/Plan Assessment: 1) Presyncope 2) Dizziness 3) HTN 4) Hyperlipidemia 5) Chronic A-flutter with controlled venricular rate 6) CKD Plan: No evidence of stroke or NV. Troponin undetectable Continue heart monitor. Continue to work with PT/OT. Pt improved, no further episodes of dizziness or presyncope. Testing looks okay. Will follow up regarding possibility of orthostatic hypotension. Can restart atorvastatin Will check the pacer memory to see if there have been any significant dysrhythmias. Thank you for the consult. MARISSA MCKEON MD Jan 16, 2017 12:51
[2017-01-16] MEDS ORDERED: ATORVASTATIN CALCIUM 40 MG TABLET. PO SCH (21:00)
[2017-01-16] MEDS ORDERED: FAMOTIDINE 20 MG TABLET. PO SCH (21:00)
[2017-01-16] MEDS ORDERED: TAMSULOSIN 0.4 MG CAP.ER.24H. PO SCH (21:00)
--- NOTE | 2017-01-17 00:41 | ACF ---
Admission Forms Criteria HYPERTENSION Clinical Indications for Admission to Inpatient Care ( Place "X" for any and all applicable criteria): Admission is indicated for 1 or more of the following(1)(2)(3)(4)(5)(6)(7)(8)(9) (10): [ ]I. Hypertensive emergency, with evidence of acute and progressing target organ disease as indicated by 1 or more of the following: [ ]a) Hypertensive encephalopathy (eg, confusion, altered mental status) [ ]b) Cerebral infarction [ ]c) Intracranial hemorrhage [ ]d) Myocardial ischemia or infarction [ ]e) Heart failure (eg. Pulmonary edema) [ ]f) Aortic dissection [ ]g) Increased creatinine (new) with reduction of more than 50% in estimated glomerular filtration rate from baseline [ ]h) Seizure [ ]i) Papilledema [ ]j) Retinal hemorrhage [ ]k) Microangiopathic hemolytic anemia [ ]l) Other significant finding secondary to hypertension [ ]II. Adrenergic or sympathomimetic crisis (eg, severe hypertension due to pheochromocytoma crisis, cocaine or amphetamine intoxication, or clonidine withdrawal) [ X]III. Severe hypertension (SBP greater than 180 mmHg or DBP greater than 110 mmHg or greater than the 95th percentile for age, gender, and height in pediatric patients) that cannot be controlled (eg, to SBP less than 160 mmHg and DBP less than 100 mmHg in adults) by treatment with oral medication in emergency department or observation care Extended stay beyond goal length of stay may be needed for(11)(12)(13): [ ]a) Persistent hypertensive encephalopathy [ ]b) Continuation of pulmonary edema [ ]c) Recurring or persistent severe hypertension [ ]d) Target organ damage (eg, angina, stroke, aortic dissection) The original [employer] content created by [employer] has been revised. The portions of the content which have been revised are identified through the use of italic text, and [email or web address] has neither reviewed nor approved the modified material. All other unmodified content is copyright [employer]. Please see references footnoted in the original [employer] edition 2014 Admission Criteria Met?: Yes HERNAN CORONEL Jan 17, 2017 00:41
[2017-01-17 03:00] VITALS: BP 142/84
[2017-01-17 05:04] LABS: BASO # 0.1 x10^3/uL (0.0-0.2); BASO % 1 % (0-3); EOS % 5 % (0-3); HEMATOCRIT 39.3 % (39.0-53.0); HEMOGLOBIN 13.4 g/dL (13.0-17.5); LYMPH # 2.4 x10^3/uL (1.0-4.8); LYMPH % 29 % (24-48); MEAN CORPUSCULAR HEMOGLOBIN 32 pg (25-35); MEAN CORPUSCULAR HGB CONC 34 g/dL (31-37); MEAN CORPUSCULAR VOLUME 92 fL (79-100); MONO % 8 % (0-9); NEUT % 57 % (31-73); PLATELET COUNT 173 x10^3/uL (140-400); RED BLOOD COUNT 4.26 x10^6/uL (4.30-5.70); RED CELL DISTRIBUTION WIDTH 14.1 % (11.5-14.5); WHITE BLOOD COUNT 8.3 x10^3/uL (4.0-11.0)
[2017-01-17 05:49] LABS: CREATININE 1.2 mg/dL (0.7-1.3); POTASSIUM 4.1 mmol/L (3.5-5.1)
[2017-01-17 07:00] VITALS: BP 143/80
[2017-01-17] MEDS ORDERED: MULTIVITAMIN with MINERAL TABLET. PO SCH (09:00)
[2017-01-17] MEDS ORDERED: AMIODARONE HCL 200 MG TABLET. PO SCH (09:00)
[2017-01-17] MEDS: PANTOPRAZOLE 40 MG TABLET.DR. PO SCH (09:13)
[2017-01-17] MEDS: ASPIRIN ENTERIC COATED 81 MG TABLET.DR. PO SCH (09:14)
[2017-01-17] MEDS: APIXABAN 5 MG TABLET. PO SCH (09:14)
[2017-01-17] MEDS: METOPROLOL SUCC 24HR ER 25 MG TAB.ER.24H. PO SCH (09:15)
--- NOTE | 2017-01-17 09:46 | PDOC ---
PROGRESS NOTES Subjective Subjective feels better. not dizzy. walking okay. discussed with and patients . blood pressure okay. nurse notes no orthostatic drop in blood pressure. Objective Objective Vital Signs Date Time Temp Pulse Resp B/P (MAP) Pulse Ox O2 Delivery O2 Flow Rate FiO2 01/17/17 09:15 65 143/80 01/17/17 07:00 98.2 18 98 Room Air 98.2 Physical Exam Abdomen: Soft Heart: Regular rate, Normal S1, Normal S2 Extremities: No edema General: Alert HEENT: Atraumatic Lungs: Clear to auscultation Neuro: Normal speech Psych/Mental Status: Mental status NL Skin: No rashes Assessment Assessment Problems1. Gait dysfunction associated with mild dizziness.resolved 2. Coronary artery disease. 3. Hypertension. 4. Hyperlipidemia. 5. Chronic atrial flutter with a controlled ventricular rate. 6. Chronic kidney disease stage III. Medical Problems: (1) Atrial flutter Status: Acute (2) Dizziness Status: Acute (3) Elevated brain natriuretic peptide (BNP) level Status: Acute (4) Vertigo Status: Acute Plan Plan of Care dismiss today Comment Review of Relevant I have reviewed the following items gela (where applicable) has been applied. Labs Laboratory Tests Test 01/16/17 03:50 01/16/17 04:03 01/17/17 03:30 White Blood Count 8.1 x10^3/uL (4.0-11.0) 8.3 x10^3/uL (4.0-11.0) Red Blood Count 4.32 x10^6/uL (4.30-5.70) 4.26 x10^6/uL (4.30-5.70) Hemoglobin 13.6 g/dL (13.0-17.5) 13.4 g/dL (13.0-17.5) Hematocrit 39.8 % (39.0-53.0) 39.3 % (39.0-53.0) Mean Corpuscular Volume 92 fL (79-100) 92 fL (79-100) Mean Corpuscular Hemoglobin 32 pg (25-35) 32 pg (25-35) Mean Corpuscular Hemoglobin Concent 34 g/dL (31-37) 34 g/dL (31-37) Red Cell Distribution Width 14.4 % (11.5-14.5) 14.1 % (11.5-14.5) Platelet Count 177 x10^3/uL (140-400) 173 x10^3/uL (140-400) Neutrophils (%) (Auto) 63 % (31-73) 57 % (31-73) Lymphocytes (%) (Auto) 27 % (24-48) 29 % (24-48) Monocytes (%) (Auto) 7 % (0-9) 8 % (0-9) Eosinophils (%) (Auto) 3 % (0-3) 5 % (0-3) Basophils (%) (Auto) 1 % (0-3) 1 % (0-3) Neutrophils # (Auto) 5.1 x10^3uL (1.8-7.7) 4.8 x10^3uL (1.8-7.7) Lymphocytes # (Auto) 2.2 x10^3/uL (1.0-4.8) 2.4 x10^3/uL (1.0-4.8) Monocytes # (Auto) 0.6 x10^3/uL (0.0-1.1) 0.6 x10^3/uL (0.0-1.1) Eosinophils # (Auto) 0.2 x10^3/uL (0.0-0.7) 0.4 x10^3/uL (0.0-0.7) Basophils # (Auto) 0.1 x10^3/uL (0.0-0.2) 0.1 x10^3/uL (0.0-0.2) Prothrombin Time 17.2 SEC (11.7-14.0) Prothromb Time International Ratio 1.5 (0.8-1.1) Activated Partial Thromboplast Time 34 SEC (24-38) Sodium Level 144 mmol/L (136-145) 146 mmol/L (136-145) Potassium Level 3.8 mmol/L (3.5-5.1) 4.1 mmol/L (3.5-5.1) Chloride Level 107 mmol/L (98-107) 107 mmol/L (98-107) Carbon Dioxide Level 29 mmol/L (21-32) 32 mmol/L (21-32) Anion Gap 8 (6-14) 7 (6-14) Blood Urea Nitrogen 19 mg/dL (8-26) 16 mg/dL (8-26) Creatinine 1.3 mg/dL (0.7-1.3) 1.2 mg/dL (0.7-1.3) Estimated GFR (Cockcroft-Gault) 52.9 58.0 BUN/Creatinine Ratio 15 (6-20) Glucose Level 106 mg/dL (70-99) 88 mg/dL (70-99) Calcium Level 8.8 mg/dL (8.5-10.1) 9.0 mg/dL (8.5-10.1) Total Bilirubin 0.6 mg/dL (0.2-1.0) Aspartate Amino Transf (AST/SGOT) 16 U/L (15-37) Alanine Aminotransferase (ALT/SGPT) 22 U/L (16-63) Alkaline Phosphatase 81 U/L (46-116) Troponin I Quantitative < 0.017 ng/mL (0.000-0.055) IE-Qft-V-Type Natriuretic Peptide 1706 pg/mL (0-449) Total Protein 6.8 g/dL (6.4-8.2) Albumin 3.9 g/dL (3.4-5.0) Albumin/Globulin Ratio 1.3 (1.0-1.7) Urine Collection Type Unknown Urine Color Yellow Urine Clarity Clear Urine pH 5.5 Urine Specific [place] 1.025 Urine Protein Negative mg/dL (NEG-TRACE) Urine Glucose (UA) Negative mg/dL (NEG) Urine Ketones (Stick) Negative mg/dL (NEG) Urine Blood Negative (NEG) Urine Nitrite Negative (NEG) Urine Bilirubin Negative (NEG) Urine Urobilinogen Dipstick 1.0 mg/dL (0.2 mg/dL) Urine Leukocyte Esterase Negative (NEG) Urine RBC 0 /HPF (0-2) Urine WBC 1-4 /HPF (0-4) Urine Squamous Epithelial Cells Few /LPF Urine Amorphous Sediment Present /HPF Urine Bacteria 0 /HPF (0-FEW) Urine Hyaline Casts Few /HPF Urine Mucus Mod /LPF Magnesium Level 1.9 mg/dL (1.8-2.4) Laboratory Tests Test 01/17/17 03:30 White Blood Count 8.3 x10^3/uL (4.0-11.0) Red Blood Count 4.26 x10^6/uL (4.30-5.70) Hemoglobin 13.4 g/dL (13.0-17.5) Hematocrit 39.3 % (39.0-53.0) Mean Corpuscular Volume 92 fL (79-100) Mean Corpuscular Hemoglobin 32 pg (25-35) Mean Corpuscular Hemoglobin Concent 34 g/dL (31-37) Red Cell Distribution Width 14.1 % (11.5-14.5) Platelet Count 173 x10^3/uL (140-400) Neutrophils (%) (Auto) 57 % (31-73) Lymphocytes (%) (Auto) 29 % (24-48) Monocytes (%) (Auto) 8 % (0-9) Eosinophils (%) (Auto) 5 % (0-3) Basophils (%) (Auto) 1 % (0-3) Neutrophils # (Auto) 4.8 x10^3uL (1.8-7.7) Lymphocytes # (Auto) 2.4 x10^3/uL (1.0-4.8) Monocytes # (Auto) 0.6 x10^3/uL (0.0-1.1) Eosinophils # (Auto) 0.4 x10^3/uL (0.0-0.7) Basophils # (Auto) 0.1 x10^3/uL (0.0-0.2) Sodium Level 146 mmol/L (136-145) Potassium Level 4.1 mmol/L (3.5-5.1) Chloride Level 107 mmol/L (98-107) Carbon Dioxide Level 32 mmol/L (21-32) Anion Gap 7 (6-14) Blood Urea Nitrogen 16 mg/dL (8-26) Creatinine 1.2 mg/dL (0.7-1.3) Estimated GFR (Cockcroft-Gault) 58.0 Glucose Level 88 mg/dL (70-99) Calcium Level 9.0 mg/dL (8.5-10.1) Magnesium Level 1.9 mg/dL (1.8-2.4) Medications Current Medications Meclizine HCl (Antivert) 12.5 mg 1X ONCE PO Last administered on 01/16/17t 04: 25; Start 01/16/17 at 05:00; Stop 01/16/17 at 05:01; Status DC Ondansetron HCl (Zofran) 4 mg PRN Q8HRS PRN IV NAUSEA/VOMITING; Start 01/16/17 at 05:45; Stop 01/17/17 at 05:44; Status DC Acetaminophen (Tylenol) 650 mg PRN Q4HRS PRN PO FEVER; Start 01/16/17 at 05:45; Stop 01/17/17 at 05:44; Status DC Apixaban (Eliquis) 5 mg BID PO Last administered on 01/17/17 09:14; Start at 09:00 Atorvastatin Calcium (Lipitor) 80 mg QHS PO Last administered on 01/16/17 21:04 ; Start 01/16/17 at 21:00 Acetaminophen/ Hydrocodone Bitart (Lortab 7.5/325) 1 tab PRN Q6HRS PRN PO PAIN ; Start 01/16/17 at 08:00; Stop 01/16/17 at 09:30; Status DC Metoprolol Succinate (Toprol Xl) 12.5 mg DAILY PO Last administered on 09:15; Start 01/16/17 at 09:00 Tamsulosin HCl (Flomax) 0.4 mg QHS PO Last administered on 01/16/17 21:04; Start 01/16/17 at 21:00 Tramadol HCl (Ultram) 50 mg PRN Q6HRS PRN PO MILD PAIN; Start 01/16/17 at 08:00 Amiodarone HCl (Cordarone) 400 mg DAILY PO ; Start 01/16/17 at 09:00; Stop at 09:25; Status DC Famotidine (Pepcid) 40 mg QHS PO Last administered on 01/16/17 21:04; Start 01/16/17 at 21:00 Pantoprazole Sodium (Protonix) 40 mg DAILYAC PO Last administered on 01/17/17 09:13; Start 01/16/17 at 09:00 Aspirin (Ecotrin) 81 mg DAILYWBKFT PO Last administered on 01/17/17 09:14; Start 01/16/17 at 10:00 Multivitamins (Thera M Plus) 1 tab DAILY PO Last administered on 9/6/17at 09:13 ; Start 01/17/17 at 09:00 Acetaminophen (Tylenol) 650 mg PRN Q6HRS PRN PO MILD PAIN / TEMP; Start at 09:15 Amiodarone HCl (Cordarone) 200 mg DAILY PO Last administered on 01/17/17t 09:14 ; Start 01/17/17 at 09:00 Active Scripts Active Levaquin (Levofloxacin) 500 Mg Tablet 1 Tab PO DAILY Prednisone 20 Mg Tablet 40 Mg PO DAILY Cefpodoxime Proxetil 200 Mg Tablet 1 Tab PO BID Coumadin (Warfarin Sodium) 4 Mg Tablet 4 Mg PO DAILY16 Tramadol Hcl 50 Mg Tablet 50 Mg PO PRN Q6HRS PRN Flomax (Tamsulosin Hcl) 0.4 Mg Cap.er.24h 0.4 Mg PO QHS Metoprolol Succinate ( Xl ) (Metoprolol Succinate) 25 Mg Tab.er.24h 12.5 Mg PO DAILY Atorvastatin Calcium 40 Mg Tablet 80 Mg PO QHS Amiodarone Hcl 200 Mg Tablet 400 Mg PO BID Reported Amiodarone Hcl 400 Mg Tablet 400 Mg PO DAILY Hydrocodone-Apap 7.5-325 (Hydrocodone Bit/Acetaminophen) 1 Each Tablet 1 Tab PO PRN Q6HRS PRN Eliquis (Apixaban) 5 Mg Tablet 5 Mg PO BID Metoprolol Succinate ( Xl ) (Metoprolol Succinate) 25 Mg Tab.er.24h 0.5 Tab PO BID Omeprazole 40 Mg Capsule.dr 40 Mg PO DAILY NITROGLYCERIN SubLingual (Nitroglycerin) 0.4 Mg Tab.subl 0.4 Mg SL DAILY Daily Vitamin (Multivitamin) 1 Each Tablet 1 Each PO DAILY Famotidine 40 Mg Tablet 40 Mg PO HS Clonazepam Odt (Clonazepam) 1 Mg Tab.rapdis 1 Mg PO HS Vitals/I & O Vital Sign - Last 24 Hours 01/16/17 01/16/17 01/16/17 01/16/17 09:55 10:00 10:01 10:04 Pulse 61 60 61 64 B/P (MAP) 139/75 (96) 145/80 (101) 139/75 139/69 (92) 01/16/17 01/16/17 01/16/17 01/16/17 11:29 14:57 19:35 23:15 Temp 98.9 97.7 98.4 98.0 98.9 97.7 98.4 98.0 Pulse 60 65 60 60 Resp 20 20 20 20 B/P (MAP) 139/84 (102) 146/86 (106) 160/83 (108) 139/97 (111) Pulse Ox 95 95 97 96 O2 Delivery Room Air Room Air Room Air Room Air 01/17/17 01/17/17 01/17/17 01/17/17 03:00 07:00 09:14 09:15 Temp 98.4 98.2 98.4 98.2 Pulse 61 60 60 65 Resp 18 18 B/P (MAP) 142/84 (103) 143/80 (101) 143/80 143/80 Pulse Ox 96 98 O2 Delivery Room Air Room Air HELEN WARREN MD Jan 17, 2017 09:45
--- NOTE | 2017-01-17 09:48 | DISCH ---
DISCHARGE INSTRUCTIONS Condition on Discharge Condition on Discharge: Stable Activity After Discharge Activity Instructions for Disc: Resume previous activity Diet after Discharge Diet after Discharge: Cardiac Contacting the DRBritney after DC Call your doctor for: If your condition worsens Follow-Up Follow up with: dr. warren in 1 week HELEN WARREN MD Jan 17, 2017 09:48
[2017-01-17] MEDS ORDERED: AMIO200T2 PO (09:50)
[2017-01-17] MEDS ORDERED: ASPI-612 PO (09:50)
--- NOTE | 2017-01-17 09:54 | PDOC ---
Provider Note Provider Note discharge summary dictated # [id number] HELEN WARREN MD Jan 17, 2017 09:54
--- NOTE | 2017-01-17 10:20 | DS ---
DATE OF DISCHARGE: 01/17/2017 CONSULTANTS: Dr. Dang and Dr. Miller. FINAL DIAGNOSES: 1. Gait dysfunction. 2. Dizziness. 3. Near syncope. 4. Coronary artery disease. 5. Chronic atrial fibrillation with a controlled ventricular rate. 6. Hypertension. 7. Hyperlipidemia. 8. Coronary artery disease. 9. Chronic kidney disease stage 3. HOSPITAL COURSE: The patient is an 81-year-old white male with a history of coronary artery disease; hypertension; hyperlipidemia; and chronic atrial flutter, maintained on Eliquis, metoprolol and amiodarone, woke up around 12:30 in the morning, complained of some difficulty walking. He says that he was walking forward and seemed like he was walking faster than he should and felt like he might fall over and faint. He denied any vertigo; however, on further questioning, he had a little bit of vertigo when he went down to a supine position temporarily before he came into the hospital, but not since admission. The patient had denied any nausea, vomiting, melena or hematochezia. He went to the [facility] Emergency Room, where laboratory test and EKG were unremarkable except for his chronic atrial flutter with a controlled ventricular rate of 72. EKG showed no acute change. Troponin level was negative. He had a CAT scan of the head, which showed no acute abnormality. Chest x-ray was unremarkable. EKG showed atrial flutter and the patient was seen by Dr. Dang for Cardiology and Dr. Wheat for Neurology. He received physical and occupational therapy. He did not have an orthostatic drop in his blood pressure per the nurse, who I spoke with, this morning and he was ambulating well. His labs looked okay. His blood pressure was okay this morning and he will be dismissed to home on the same medications that he took prior to admission and make an appointment to see Dr. Lorenz in the office next week. He will be dismissed on amiodarone 200 mg everyday, aspirin 81 mg everyday, atorvastatin 80 mg at bedtime, Eliquis 5 mg b.i.d., famotidine 40 mg at bedtime, fish oil 1 g two day, tamsulosin 0.4 mg at bedtime, Flonase 2 sprays each nostril everyday p.r.n., furosemide 20 mg everyday p.r.n. for lower extremity edema, metoprolol succinate 12.5 mg everyday, multiple vitamin everyday, nitroglycerin 0.4 mg sublingual p.r.n., omeprazole 40 mg everyday and tramadol 50 mg every 6 hours p.r.n. HELEN LORENZ MD DR: YANCI/raquel JOB#: [id number] / [id number]
--- NOTE | 2017-01-17 10:33 | PDOC ---
PROGRESS NOTES Assessment Problems Medical Problems: (1) Atrial flutter Status: Acute (2) Dizziness Status: Acute (3) Elevated brain natriuretic peptide (BNP) level Status: Acute (4) Vertigo Status: Acute Dizziness, I find no evidence of central or peripheral vestibular dysfunction. I find no evidence of any stroke. He is better Plan Agree with discharge Subjective Still has occasional dizziness, occasionally it is room-spinning type, mostly just lightheaded, he feels much better now and wants to go home Objective Vital Signs Date Time Temp Pulse Resp B/P (MAP) Pulse Ox O2 Delivery O2 Flow Rate FiO2 01/17/17 09:15 65 143/80 01/17/17 07:00 98.2 18 98 Room Air 98.2 PHYSICAL EXAM Alert. Oriented to time, place and person. PERRL. EOMI. CN: no focal findings. I elicit no nystagmus, vestibular-ocular reflex is normal Muscle tone: normal. Muscle strength: 4/5 DTR: 1+ Plantar reflex: flexor Gait: not examined in bed. Sensory exam: no abnormal findings. No cerebellar signs elicited. Review of Relevant I have reviewed the following items gela (where applicable) has been applied. Labs Laboratory Tests Test 01/16/17 03:50 01/16/17 04:03 01/17/17 03:30 White Blood Count 8.1 x10^3/uL (4.0-11.0) 8.3 x10^3/uL (4.0-11.0) Red Blood Count 4.32 x10^6/uL (4.30-5.70) 4.26 x10^6/uL (4.30-5.70) Hemoglobin 13.6 g/dL (13.0-17.5) 13.4 g/dL (13.0-17.5) Hematocrit 39.8 % (39.0-53.0) 39.3 % (39.0-53.0) Mean Corpuscular Volume 92 fL (79-100) 92 fL (79-100) Mean Corpuscular Hemoglobin 32 pg (25-35) 32 pg (25-35) Mean Corpuscular Hemoglobin Concent 34 g/dL (31-37) 34 g/dL (31-37) Red Cell Distribution Width 14.4 % (11.5-14.5) 14.1 % (11.5-14.5) Platelet Count 177 x10^3/uL (140-400) 173 x10^3/uL (140-400) Neutrophils (%) (Auto) 63 % (31-73) 57 % (31-73) Lymphocytes (%) (Auto) 27 % (24-48) 29 % (24-48) Monocytes (%) (Auto) 7 % (0-9) 8 % (0-9) Eosinophils (%) (Auto) 3 % (0-3) 5 % (0-3) Basophils (%) (Auto) 1 % (0-3) 1 % (0-3) Neutrophils # (Auto) 5.1 x10^3uL (1.8-7.7) 4.8 x10^3uL (1.8-7.7) Lymphocytes # (Auto) 2.2 x10^3/uL (1.0-4.8) 2.4 x10^3/uL (1.0-4.8) Monocytes # (Auto) 0.6 x10^3/uL (0.0-1.1) 0.6 x10^3/uL (0.0-1.1) Eosinophils # (Auto) 0.2 x10^3/uL (0.0-0.7) 0.4 x10^3/uL (0.0-0.7) Basophils # (Auto) 0.1 x10^3/uL (0.0-0.2) 0.1 x10^3/uL (0.0-0.2) Prothrombin Time 17.2 SEC (11.7-14.0) Prothromb Time International Ratio 1.5 (0.8-1.1) Activated Partial Thromboplast Time 34 SEC (24-38) Sodium Level 144 mmol/L (136-145) 146 mmol/L (136-145) Potassium Level 3.8 mmol/L (3.5-5.1) 4.1 mmol/L (3.5-5.1) Chloride Level 107 mmol/L (98-107) 107 mmol/L (98-107) Carbon Dioxide Level 29 mmol/L (21-32) 32 mmol/L (21-32) Anion Gap 8 (6-14) 7 (6-14) Blood Urea Nitrogen 19 mg/dL (8-26) 16 mg/dL (8-26) Creatinine 1.3 mg/dL (0.7-1.3) 1.2 mg/dL (0.7-1.3) Estimated GFR (Cockcroft-Gault) 52.9 58.0 BUN/Creatinine Ratio 15 (6-20) Glucose Level 106 mg/dL (70-99) 88 mg/dL (70-99) Calcium Level 8.8 mg/dL (8.5-10.1) 9.0 mg/dL (8.5-10.1) Total Bilirubin 0.6 mg/dL (0.2-1.0) Aspartate Amino Transf (AST/SGOT) 16 U/L (15-37) Alanine Aminotransferase (ALT/SGPT) 22 U/L (16-63) Alkaline Phosphatase 81 U/L (46-116) Troponin I Quantitative < 0.017 ng/mL (0.000-0.055) VA-[place]go-B-Type Natriuretic Peptide 1706 pg/mL (0-449) Total Protein 6.8 g/dL (6.4-8.2) Albumin 3.9 g/dL (3.4-5.0) Albumin/Globulin Ratio 1.3 (1.0-1.7) Urine Collection Type Unknown Urine Color Yellow Urine Clarity Clear Urine pH 5.5 Urine Specific [place] 1.025 Urine Protein Negative mg/dL (NEG-TRACE) Urine Glucose (UA) Negative mg/dL (NEG) Urine Ketones (Stick) Negative mg/dL (NEG) Urine Blood Negative (NEG) Urine Nitrite Negative (NEG) Urine Bilirubin Negative (NEG) Urine Urobilinogen Dipstick 1.0 mg/dL (0.2 mg/dL) Urine Leukocyte Esterase Negative (NEG) Urine RBC 0 /HPF (0-2) Urine WBC 1-4 /HPF (0-4) Urine Squamous Epithelial Cells Few /LPF Urine Amorphous Sediment Present /HPF Urine Bacteria 0 /HPF (0-FEW) Urine Hyaline Casts Few /HPF Urine Mucus Mod /LPF Magnesium Level 1.9 mg/dL (1.8-2.4) Laboratory Tests Test 01/17/17 03:30 White Blood Count 8.3 x10^3/uL (4.0-11.0) Red Blood Count 4.26 x10^6/uL (4.30-5.70) Hemoglobin 13.4 g/dL (13.0-17.5) Hematocrit 39.3 % (39.0-53.0) Mean Corpuscular Volume 92 fL (79-100) Mean Corpuscular Hemoglobin 32 pg (25-35) Mean Corpuscular Hemoglobin Concent 34 g/dL (31-37) Red Cell Distribution Width 14.1 % (11.5-14.5) Platelet Count 173 x10^3/uL (140-400) Neutrophils (%) (Auto) 57 % (31-73) Lymphocytes (%) (Auto) 29 % (24-48) Monocytes (%) (Auto) 8 % (0-9) Eosinophils (%) (Auto) 5 % (0-3) Basophils (%) (Auto) 1 % (0-3) Neutrophils # (Auto) 4.8 x10^3uL (1.8-7.7) Lymphocytes # (Auto) 2.4 x10^3/uL (1.0-4.8) Monocytes # (Auto) 0.6 x10^3/uL (0.0-1.1) Eosinophils # (Auto) 0.4 x10^3/uL (0.0-0.7) Basophils # (Auto) 0.1 x10^3/uL (0.0-0.2) Sodium Level 146 mmol/L (136-145) Potassium Level 4.1 mmol/L (3.5-5.1) Chloride Level 107 mmol/L (98-107) Carbon Dioxide Level 32 mmol/L (21-32) Anion Gap 7 (6-14) Blood Urea Nitrogen 16 mg/dL (8-26) Creatinine 1.2 mg/dL (0.7-1.3) Estimated GFR (Cockcroft-Gault) 58.0 Glucose Level 88 mg/dL (70-99) Calcium Level 9.0 mg/dL (8.5-10.1) Magnesium Level 1.9 mg/dL (1.8-2.4) Medications Current Medications Meclizine HCl (Antivert) 12.5 mg 1X ONCE PO Last administered on 01/16/17t 04: 25; Start 01/16/17 at 05:00; Stop 01/16/17 at 05:01; Status DC Ondansetron HCl (Zofran) 4 mg PRN Q8HRS PRN IV NAUSEA/VOMITING; Start 01/16/17 at 05:45; Stop 01/17/17 at 05:44; Status DC Acetaminophen (Tylenol) 650 mg PRN Q4HRS PRN PO FEVER; Start 01/16/17 at 05:45; Stop 01/17/17 at 05:44; Status DC Apixaban (Eliquis) 5 mg BID PO Last administered on 01/17/17 09:14; Start at 09:00 Atorvastatin Calcium (Lipitor) 80 mg QHS PO Last administered on 01/16/17 21:04 ; Start 01/16/17 at 21:00 Acetaminophen/ Hydrocodone Bitart (Lortab 7.5/325) 1 tab PRN Q6HRS PRN PO PAIN ; Start 01/16/17 at 08:00; Stop 01/16/17 at 09:30; Status DC Metoprolol Succinate (Toprol Xl) 12.5 mg DAILY PO Last administered on 09:15; Start 01/16/17 at 09:00 Tamsulosin HCl (Flomax) 0.4 mg QHS PO Last administered on 01/16/17 21:04; Start 01/16/17 at 21:00 Tramadol HCl (Ultram) 50 mg PRN Q6HRS PRN PO MILD PAIN; Start 01/16/17 at 08:00 Amiodarone HCl (Cordarone) 400 mg DAILY PO ; Start 01/16/17 at 09:00; Stop at 09:25; Status DC Famotidine (Pepcid) 40 mg QHS PO Last administered on 01/16/17 21:04; Start 01/16/17 at 21:00 Pantoprazole Sodium (Protonix) 40 mg DAILYAC PO Last administered on 01/17/17 09:13; Start 01/16/17 at 09:00 Aspirin (Ecotrin) 81 mg DAILYWBKFT PO Last administered on 01/17/17 09:14; Start 01/16/17 at 10:00 Multivitamins (Thera M Plus) 1 tab DAILY PO Last administered on 01/17/17 09:13 ; Start 01/17/17 at 09:00 Acetaminophen (Tylenol) 650 mg PRN Q6HRS PRN PO MILD PAIN / TEMP; Start at 09:15 Amiodarone HCl (Cordarone) 200 mg DAILY PO Last administered on 01/17/17t 09:14 ; Start 01/17/17 at 09:00 Active Scripts Active Aspirin Ec (Aspirin) 81 Mg Tablet.dr 81 Mg PO DAILYWBKFT 30 Days Amiodarone Hcl 200 Mg Tablet 200 Mg PO DAILY 30 Days Tramadol Hcl 50 Mg Tablet 50 Mg PO PRN Q6HRS PRN Flomax (Tamsulosin Hcl) 0.4 Mg Cap.er.24h 0.4 Mg PO QHS Metoprolol Succinate ( Xl ) (Metoprolol Succinate) 25 Mg Tab.er.24h 12.5 Mg PO DAILY Atorvastatin Calcium 40 Mg Tablet 80 Mg PO QHS Reported Hydrocodone-Apap 7.5-325 (Hydrocodone Bit/Acetaminophen) 1 Each Tablet 1 Tab PO PRN Q6HRS PRN Eliquis (Apixaban) 5 Mg Tablet 5 Mg PO BID Omeprazole 40 Mg Capsule.dr 40 Mg PO DAILY NITROGLYCERIN SubLingual (Nitroglycerin) 0.4 Mg Tab.subl 0.4 Mg SL DAILY Daily Vitamin (Multivitamin) 1 Each Tablet 1 Each PO DAILY Famotidine 40 Mg Tablet 40 Mg PO HS Vitals/I & O Vital Sign - Last 24 Hours 01/16/17 01/16/17 01/16/17 01/16/17 11:29 14:57 19:35 23:15 Temp 98.9 97.7 98.4 98.0 98.9 97.7 98.4 98.0 Pulse 60 65 60 60 Resp 20 20 20 20 B/P (MAP) 139/84 (102) 146/86 (106) 160/83 (108) 139/97 (111) Pulse Ox 95 95 97 96 O2 Delivery Room Air Room Air Room Air Room Air 01/17/17 01/17/17 01/17/17 01/17/17 03:00 07:00 09:14 09:15 Temp 98.4 98.2 98.4 98.2 Pulse 61 60 60 65 Resp 18 18 B/P (MAP) 142/84 (103) 143/80 (101) 143/80 143/80 Pulse Ox 96 98 O2 Delivery Room Air Room Air APPELBAUM,WHIT S MD Jan 17, 2017 10:33
[2017-01-17 11:00] VITALS: BP 130/80
--- NOTE | 2017-01-17 11:14 | PDOC ---
PROGRESS NOTES Subjective Subjective Pt feeling much better today Working with PT/OT, no episodes of presyncope/syncope, lightheadedness, chest pain, SOB, or any other symptoms Feels like he can go home No other concerns or complaints Objective Objective Vital Signs Date Time Temp Pulse Resp B/P (MAP) Pulse Ox O2 Delivery O2 Flow Rate FiO2 01/17/17 09:15 65 143/80 01/17/17 07:00 98.2 18 98 Room Air 98.2 Physical Exam Physical Exam No significant changes Assessment Assessment 1) Presyncope 2) Dizziness 3) HTN 4) Hyperlipidemia 5) Chronic A-flutter with controlled venricular rate 6) CKD Plan Plan of Care Pt significantly better, no further episodes of presyncope Pt has been doing well with PT/OT without further problems Testing looks okay, no evidence of orthostatic hypotension I have called [facility] rep to see him. If no arrhythmias, okay to discharge from my standpoint. If any findings, I will evaluate at that time. I f/u with the rep regarding findings. Comment Review of Relevant I have reviewed the following items gela (where applicable) has been applied. Labs Laboratory Tests Test 01/16/17 03:50 01/16/17 04:03 01/17/17 03:30 White Blood Count 8.1 x10^3/uL (4.0-11.0) 8.3 x10^3/uL (4.0-11.0) Red Blood Count 4.32 x10^6/uL (4.30-5.70) 4.26 x10^6/uL (4.30-5.70) Hemoglobin 13.6 g/dL (13.0-17.5) 13.4 g/dL (13.0-17.5) Hematocrit 39.8 % (39.0-53.0) 39.3 % (39.0-53.0) Mean Corpuscular Volume 92 fL (79-100) 92 fL (79-100) Mean Corpuscular Hemoglobin 32 pg (25-35) 32 pg (25-35) Mean Corpuscular Hemoglobin Concent 34 g/dL (31-37) 34 g/dL (31-37) Red Cell Distribution Width 14.4 % (11.5-14.5) 14.1 % (11.5-14.5) Platelet Count 177 x10^3/uL (140-400) 173 x10^3/uL (140-400) Neutrophils (%) (Auto) 63 % (31-73) 57 % (31-73) Lymphocytes (%) (Auto) 27 % (24-48) 29 % (24-48) Monocytes (%) (Auto) 7 % (0-9) 8 % (0-9) Eosinophils (%) (Auto) 3 % (0-3) 5 % (0-3) Basophils (%) (Auto) 1 % (0-3) 1 % (0-3) Neutrophils # (Auto) 5.1 x10^3uL (1.8-7.7) 4.8 x10^3uL (1.8-7.7) Lymphocytes # (Auto) 2.2 x10^3/uL (1.0-4.8) 2.4 x10^3/uL (1.0-4.8) Monocytes # (Auto) 0.6 x10^3/uL (0.0-1.1) 0.6 x10^3/uL (0.0-1.1) Eosinophils # (Auto) 0.2 x10^3/uL (0.0-0.7) 0.4 x10^3/uL (0.0-0.7) Basophils # (Auto) 0.1 x10^3/uL (0.0-0.2) 0.1 x10^3/uL (0.0-0.2) Prothrombin Time 17.2 SEC (11.7-14.0) Prothromb Time International Ratio 1.5 (0.8-1.1) Activated Partial Thromboplast Time 34 SEC (24-38) Sodium Level 144 mmol/L (136-145) 146 mmol/L (136-145) Potassium Level 3.8 mmol/L (3.5-5.1) 4.1 mmol/L (3.5-5.1) Chloride Level 107 mmol/L (98-107) 107 mmol/L (98-107) Carbon Dioxide Level 29 mmol/L (21-32) 32 mmol/L (21-32) Anion Gap 8 (6-14) 7 (6-14) Blood Urea Nitrogen 19 mg/dL (8-26) 16 mg/dL (8-26) Creatinine 1.3 mg/dL (0.7-1.3) 1.2 mg/dL (0.7-1.3) Estimated GFR (Cockcroft-Gault) 52.9 58.0 BUN/Creatinine Ratio 15 (6-20) Glucose Level 106 mg/dL (70-99) 88 mg/dL (70-99) Calcium Level 8.8 mg/dL (8.5-10.1) 9.0 mg/dL (8.5-10.1) Total Bilirubin 0.6 mg/dL (0.2-1.0) Aspartate Amino Transf (AST/SGOT) 16 U/L (15-37) Alanine Aminotransferase (ALT/SGPT) 22 U/L (16-63) Alkaline Phosphatase 81 U/L (46-116) Troponin I Quantitative < 0.017 ng/mL (0.000-0.055) IN-Hyw-H-Type Natriuretic Peptide 1706 pg/mL (0-449) Total Protein 6.8 g/dL (6.4-8.2) Albumin 3.9 g/dL (3.4-5.0) Albumin/Globulin Ratio 1.3 (1.0-1.7) Urine Collection Type Unknown Urine Color Yellow Urine Clarity Clear Urine pH 5.5 Urine Specific [place] 1.025 Urine Protein Negative mg/dL (NEG-TRACE) Urine Glucose (UA) Negative mg/dL (NEG) Urine Ketones (Stick) Negative mg/dL (NEG) Urine Blood Negative (NEG) Urine Nitrite Negative (NEG) Urine Bilirubin Negative (NEG) Urine Urobilinogen Dipstick 1.0 mg/dL (0.2 mg/dL) Urine Leukocyte Esterase Negative (NEG) Urine RBC 0 /HPF (0-2) Urine WBC 1-4 /HPF (0-4) Urine Squamous Epithelial Cells Few /LPF Urine Amorphous Sediment Present /HPF Urine Bacteria 0 /HPF (0-FEW) Urine Hyaline Casts Few /HPF Urine Mucus Mod /LPF Magnesium Level 1.9 mg/dL (1.8-2.4) Laboratory Tests Test 01/17/17 03:30 White Blood Count 8.3 x10^3/uL (4.0-11.0) Red Blood Count 4.26 x10^6/uL (4.30-5.70) Hemoglobin 13.4 g/dL (13.0-17.5) Hematocrit 39.3 % (39.0-53.0) Mean Corpuscular Volume 92 fL (79-100) Mean Corpuscular Hemoglobin 32 pg (25-35) Mean Corpuscular Hemoglobin Concent 34 g/dL (31-37) Red Cell Distribution Width 14.1 % (11.5-14.5) Platelet Count 173 x10^3/uL (140-400) Neutrophils (%) (Auto) 57 % (31-73) Lymphocytes (%) (Auto) 29 % (24-48) Monocytes (%) (Auto) 8 % (0-9) Eosinophils (%) (Auto) 5 % (0-3) Basophils (%) (Auto) 1 % (0-3) Neutrophils # (Auto) 4.8 x10^3uL (1.8-7.7) Lymphocytes # (Auto) 2.4 x10^3/uL (1.0-4.8) Monocytes # (Auto) 0.6 x10^3/uL (0.0-1.1) Eosinophils # (Auto) 0.4 x10^3/uL (0.0-0.7) Basophils # (Auto) 0.1 x10^3/uL (0.0-0.2) Sodium Level 146 mmol/L (136-145) Potassium Level 4.1 mmol/L (3.5-5.1) Chloride Level 107 mmol/L (98-107) Carbon Dioxide Level 32 mmol/L (21-32) Anion Gap 7 (6-14) Blood Urea Nitrogen 16 mg/dL (8-26) Creatinine 1.2 mg/dL (0.7-1.3) Estimated GFR (Cockcroft-Gault) 58.0 Glucose Level 88 mg/dL (70-99) Calcium Level 9.0 mg/dL (8.5-10.1) Magnesium Level 1.9 mg/dL (1.8-2.4) Medications Current Medications Meclizine HCl (Antivert) 12.5 mg 1X ONCE PO Last administered on 01/16/17t 04: 25; Start 01/16/17 at 05:00; Stop 01/16/17 at 05:01; Status DC Ondansetron HCl (Zofran) 4 mg PRN Q8HRS PRN IV NAUSEA/VOMITING; Start 01/16/17 at 05:45; Stop 01/17/17 at 05:44; Status DC Acetaminophen (Tylenol) 650 mg PRN Q4HRS PRN PO FEVER; Start 01/16/17 at 05:45; Stop 01/17/17 at 05:44; Status DC Apixaban (Eliquis) 5 mg BID PO Last administered on 01/17/17 09:14; Start at 09:00 Atorvastatin Calcium (Lipitor) 80 mg QHS PO Last administered on 01/16/17 21:04 ; Start 01/16/17 at 21:00 Acetaminophen/ Hydrocodone Bitart (Lortab 7.5/325) 1 tab PRN Q6HRS PRN PO PAIN ; Start 01/16/17 at 08:00; Stop 01/16/17 at 09:30; Status DC Metoprolol Succinate (Toprol Xl) 12.5 mg DAILY PO Last administered on 09:15; Start 01/16/17 at 09:00 Tamsulosin HCl (Flomax) 0.4 mg QHS PO Last administered on 01/16/17 21:04; Start 01/16/17 at 21:00 Tramadol HCl (Ultram) 50 mg PRN Q6HRS PRN PO MILD PAIN; Start 01/16/17 at 08:00 Amiodarone HCl (Cordarone) 400 mg DAILY PO ; Start 01/16/17 at 09:00; Stop at 09:25; Status DC Famotidine (Pepcid) 40 mg QHS PO Last administered on 01/16/17 21:04; Start 01/16/17 at 21:00 Pantoprazole Sodium (Protonix) 40 mg DAILYAC PO Last administered on 01/17/17 09:13; Start 01/16/17 at 09:00 Aspirin (Ecotrin) 81 mg DAILYWBKFT PO Last administered on 01/17/17 09:14; Start 01/16/17 at 10:00 Multivitamins (Thera M Plus) 1 tab DAILY PO Last administered on 01/17/17 09:13 ; Start 01/17/17 at 09:00 Acetaminophen (Tylenol) 650 mg PRN Q6HRS PRN PO MILD PAIN / TEMP; Start at 09:15 Amiodarone HCl (Cordarone) 200 mg DAILY PO Last administered on 01/17/17t 09:14 ; Start 01/17/17 at 09:00 Active Scripts Active Aspirin Ec (Aspirin) 81 Mg Tablet. 81 Mg PO DAILYWBKFT 30 Days Amiodarone Hcl 200 Mg Tablet 200 Mg PO DAILY 30 Days Tramadol Hcl 50 Mg Tablet 50 Mg PO PRN Q6HRS PRN Flomax (Tamsulosin Hcl) 0.4 Mg Cap.er.24h 0.4 Mg PO QHS Metoprolol Succinate ( Xl ) (Metoprolol Succinate) 25 Mg Tab.er.24h 12.5 Mg PO DAILY Atorvastatin Calcium 40 Mg Tablet 80 Mg PO QHS Reported Hydrocodone-Apap 7.5-325 (Hydrocodone Bit/Acetaminophen) 1 Each Tablet 1 Tab PO PRN Q6HRS PRN Eliquis (Apixaban) 5 Mg Tablet 5 Mg PO BID Omeprazole 40 Mg Capsule. 40 Mg PO DAILY NITROGLYCERIN SubLingual (Nitroglycerin) 0.4 Mg Tab.subl 0.4 Mg SL DAILY Daily Vitamin (Multivitamin) 1 Each Tablet 1 Each PO DAILY Famotidine 40 Mg Tablet 40 Mg PO HS Vitals/I & O Vital Sign - Last 24 Hours 01/16/17 01/16/17 01/16/17 01/16/17 11:29 14:57 19:35 23:15 Temp 98.9 97.7 98.4 98.0 98.9 97.7 98.4 98.0 Pulse 60 65 60 60 Resp 20 20 20 20 B/P (MAP) 139/84 (102) 146/86 (106) 160/83 (108) 139/97 (111) Pulse Ox 95 95 97 96 O2 Delivery Room Air Room Air Room Air Room Air 01/17/17 01/17/17 01/17/17 01/17/17 03:00 07:00 09:14 09:15 Temp 98.4 98.2 98.4 98.2 Pulse 61 60 60 65 Resp 18 18 B/P (MAP) 142/84 (103) 143/80 (101) 143/80 143/80 Pulse Ox 96 98 O2 Delivery Room Air Room Air MARISSA MCKEON MD Jan 17, 2017 11:14
== END 2017-01-17 15:45 | disposition home or self-care (01) ==
LOC: ER 03:45 → 2 SOUTH 05:04 → INTOOBSV 05:04 → 2 SOUTH 07:14
PROVIDERS: ADMIT Internal Medicine; ATTEND Internal Medicine
DX: R26.9 Unspecified abnormalities of gait and mobility (principal); R42 Dizziness and giddiness; I25.10 Atherosclerotic heart disease of native coronary artery without angina pectoris; E78.5 Hyperlipidemia, unspecified; K21.9 Gastro-esophageal reflux disease without esophagitis; K57.90 Diverticulosis of intestine, part unspecified, without perforation or abscess without bleeding; N40.0 Benign prostatic hyperplasia without lower urinary tract symptoms; K22.70 Barrett's esophagus without dysplasia; K22.0 Achalasia of cardia; E78.00 Pure hypercholesterolemia, unspecified; I13.0 Hypertensive heart and chronic kidney disease with heart failure and stage 1 through stage 4 chronic kidney disease, or unspecified chronic kidney disease; I50.9 Heart failure, unspecified; K22.4 Dyskinesia of esophagus; H91.93 Unspecified hearing loss, bilateral; N18.3 Chronic kidney disease, stage 3 (moderate); R55 Syncope and collapse; I48.2 Chronic atrial fibrillation; I48.92 Unspecified atrial flutter; Z98.890 Other specified postprocedural states; Z83.3 Family history of diabetes mellitus; Z95.5 Presence of coronary angioplasty implant and graft; Z96.651 Presence of right artificial knee joint
CPT/HCPCS: 36415; 70450; 71010; 80048; 80053; 81001; 83735; 83880; 84484; 85025; 85610; 85730; 93005; 97110; 97116; 97162; 97166; 97530; 99285; G0378; G8978; G8979; G8987; G8988; J8597; G0379

== ENCOUNTER 2018-02-01 05:48 | Observation (INO) | payer OTHER ==
[~2018-02-01] VITALS: Ht 180.3 cm; Wt 118.2 kg
[~2018-02-01 05:48] MED LIST changes: -AMIO200T2 PO; +AMIO200T4 PO; +AMIO400T5 PO; +APIX5TAB PO; +ASPI-612 PO
--- NOTE | 2018-02-01 06:16 | EKG ---
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
[2018-02-01 06:36] LABS: BILIRUBIN,URINE SMALL (NEG); CLARITY,URINE CLEAR; COLOR,URINE YELLOW; NITRITE,URINE NEGATIVE (NEG); PH,URINE 5.5; PROTEIN,URINE NEGATIVE (NEG-TRACE)
[2018-02-01 06:36] LABS: BASO # 0.1 x10^3/uL (0.0-0.2); BASO % 1 % (0-3); EOS # 0.1 x10^3/uL (0.0-0.7); EOS % 1 % (0-3); HEMATOCRIT 40.2 % (39.0-53.0); LYMPH # 1.3 x10^3/uL (1.0-4.8); LYMPH % 15 % (24-48); MEAN CORPUSCULAR HEMOGLOBIN 34 pg (25-35); MEAN CORPUSCULAR HGB CONC 35 g/dL (31-37); MEAN CORPUSCULAR VOLUME 96 fL (79-100); MONO # 0.7 x10^3/uL (0.0-1.1); MONO % 7 % (0-9); NEUT # 6.7 x10^3uL (1.8-7.7); NEUT % 76 % (31-73); PLATELET COUNT 151 x10^3/uL (140-400); RED BLOOD COUNT 4.17 x10^6/uL (4.30-5.70); RED CELL DISTRIBUTION WIDTH 14.4 % (11.5-14.5); WHITE BLOOD COUNT 8.8 x10^3/uL (4.0-11.0)
[2018-02-01 06:44] LABS: CALCIUM 8.2 mg/dL (8.5-10.1); CREATININE 1.3 mg/dL (0.7-1.3); GFR 52.7
[2018-02-01] MEDS ORDERED: IV NORMAL SALINE 500ML BAG 500 ML IV ONE (06:45)
--- NOTE | 2018-02-01 06:47 | PHYS DOC ---
Past Medical History Past Medical History: CAD, GERD, High Cholesterol, Heart Disease, Hypertension , Other Additional Past Medical Histor: ECHOLALIA Past Surgical History: Pacemaker, Tonsillectomy, Other Additional Past Surgical Histo: R KNEE REPL, LEFT KNEE SX, BILATERAL SHOULDER, ESOPHAGUS, CARDIAC STENT X2 Alcohol Use: None Drug Use: None Adult General Chief Complaint Chief Complaint: WEAKNESS/GENERALIZED HPI HPI 82-year-old male presenting to the emergency department today with generalized weakness and lightheadedness intermittently since last night. He reports having a few falls yesterday at home without hitting his head or losing consciousness. He has chronic low back pain but denies any other pain. He reports a mild pain in his knee from his fall. He describes the pain in his left knee is mild nonradiating. He reports that his fall was a gradual fall. He was able to ambulate after the event. He arrives today by EMS. He denies chest pain or shortness of breath. Review of systems is negative for headache loss of consciousness neck pain chest pain shortness of breath. All other review of systems is negative unless otherwise noted in history of present illness. ED course: 82-year-old male presenting with generalized weakness and lightheadedness. On arrival the patient is afebrile with a normal heart rate. Blood pressure mildly elevated. On examination he is well-appearing. Regular rate and rhythm. Abdomen is soft nondistended nontender palpation. The knee is nontender with normal range of motion. Palpable pulse distally with 2 second cap refill. Neurovascularly intact. The remainder the exam is unremarkable. EKG obtained and reviewed by myself shows atrial flutter. Ventricular rate is within normal limits. T-wave inversions in the lateral leads. Possible ST depression in leads 3 and aVF potentially secondary to artifactual a flutter versus ventricular strain. Previous EKG compared from January 162016. T- wave inversions in the lateral leads were present then. A little bit more ST depression in V4 through 6. No sign of depression in lead 3 and aVF. Patient has a cardiac catheterization history in August [address] Dang was reviewed. Chest x-ray reviewed by myself shows no obvious infiltrate or pneumothorax. Pacer noted. Blood work unremarkable. Urinalysis not suggestive of infection. On reexamination the patient continues to feel generally weak. Given the difference in the patient's EKG we will admit the patient for observation to have Dr. Dang consult and start the patient on maintenance fluids. I spoke with Dr. Lorenz who accepts patient for admission. Review of Systems Review of Systems SEE ABOVE. Current Medications Current Medications Current Medications Medications (Trade) Dose Ordered Sig/Lyric Start Time Stop Time Status Last Admin Dose Admin Morphine Sulfate (Morphine Sulfate) 2 mg PRN Q2HR PRN 02/01/18 07:15 02/02/18 07:14 Ondansetron HCl (Zofran) 4 mg PRN Q8HRS PRN 02/01/18 07:15 02/02/18 07:14 Sodium Chloride 1,000 ml @ 100 mls/hr Q10H 02/01/18 07:15 02/02/18 07:14 Allergies Allergies Allergies Coded Allergies Type Severity Reaction Last Updated Verified Iodinated Contrast- Oral and IV Dye Allergy Intermediate Rash 08/13/16 Yes Penicillins Allergy Intermediate Hives 08/13/16 Yes adhesive Allergy Intermediate Rash 10/21/16 Yes amlodipine Allergy Intermediate Rash 08/13/16 Yes fluorouracil Allergy Intermediate Swelling 10/21/16 Yes niacin Allergy Intermediate FLUSHING 08/13/16 Yes simvastatin Allergy Intermediate Hives 08/13/16 Yes Physical Exam Physical Exam SEE ABOVE Constitutional: Well developed, well nourished, no acute distress, non-toxic appearance. HENT: Normocephalic, atraumatic, bilateral external ears normal, oropharynx moist, no oral exudates, nose normal. Eyes: PERRLA, EOMI, conjunctiva normal, no discharge. [] Neck: Normal range of motion, no tenderness, supple, no stridor. Cardiovascular:Heart rate regular rhythm, no murmur [] Lungs & Thorax: Bilateral breath sounds clear to auscultation Abdomen: Bowel sounds normal, soft, no tenderness, no masses, no pulsatile masses. [] Skin: Warm, dry, no erythema, no rash. Back: No tenderness, no CVA tenderness. [] Extremities: No tenderness, no cyanosis, no clubbing, ROM intact, no edema. Neurologic: Mental status: Awake oriented and alert x3 Cranial nerves: Extraocular movements intact, eyebrows jasmin bilaterally, smile symmetric, uvula elevation nl, shoulder shrug intact bilaterally, tongue protrusion normal DTRs: 2+ Sensation: equal and normal in all extremities Strength: 5/5 in upper and lower extremities bilaterally Psychologic: Affect normal, judgement normal, mood normal. Current Patient Data Vital Signs Vital Signs Date Time Temp Pulse Resp B/P (MAP) Pulse Ox O2 Delivery O2 Flow Rate FiO2 02/01/18 05:50 99.3 72 17 155/75 (101) 96 Room Air 99.3 Lab Values Laboratory Tests Test 02/01/18 06:17 02/01/18 06:25 White Blood Count 8.8 x10^3/uL (4.0-11.0) Red Blood Count 4.17 x10^6/uL (4.30-5.70) L Hemoglobin 14.0 g/dL (13.0-17.5) Hematocrit 40.2 % (39.0-53.0) Mean Corpuscular Volume 96 fL (79-100) Mean Corpuscular Hemoglobin 34 pg (25-35) Mean Corpuscular Hemoglobin Concent 35 g/dL (31-37) Red Cell Distribution Width 14.4 % (11.5-14.5) Platelet Count 151 x10^3/uL (140-400) Neutrophils (%) (Auto) 76 % (31-73) H Lymphocytes (%) (Auto) 15 % (24-48) L Monocytes (%) (Auto) 7 % (0-9) Eosinophils (%) (Auto) 1 % (0-3) Basophils (%) (Auto) 1 % (0-3) Neutrophils # (Auto) 6.7 x10^3uL (1.8-7.7) Lymphocytes # (Auto) 1.3 x10^3/uL (1.0-4.8) Monocytes # (Auto) 0.7 x10^3/uL (0.0-1.1) Eosinophils # (Auto) 0.1 x10^3/uL (0.0-0.7) Basophils # (Auto) 0.1 x10^3/uL (0.0-0.2) Sodium Level 143 mmol/L (136-145) Potassium Level 4.0 mmol/L (3.5-5.1) Chloride Level 106 mmol/L (98-107) Carbon Dioxide Level 27 mmol/L (21-32) Anion Gap 10 (6-14) Blood Urea Nitrogen 22 mg/dL (8-26) Creatinine 1.3 mg/dL (0.7-1.3) Estimated GFR (Cockcroft-Gault) 52.7 Glucose Level 106 mg/dL (70-99) H Lactic Acid Level 2.1 mmol/L (0.4-2.0) H Calcium Level 8.2 mg/dL (8.5-10.1) L Total Bilirubin 0.7 mg/dL (0.2-1.0) Direct Bilirubin 0.2 mg/dL (0.0-0.2) Aspartate Amino Transferase (AST) 16 U/L (15-37) Alanine Aminotransferase (ALT) 13 U/L (16-63) L Alkaline Phosphatase 80 U/L (46-116) Troponin I Quantitative < 0.017 ng/mL (0.000-0.055) Total Protein 6.4 g/dL (6.4-8.2) Albumin 3.9 g/dL (3.4-5.0) Lipase 97 U/L (73-393) Urine Collection Type Unknown Urine Color Yellow Urine Clarity Clear Urine pH 5.5 Urine Specific [place] 1.025 Urine Protein Negative mg/dL (NEG-TRACE) Urine Glucose (UA) Negative mg/dL (NEG) Urine Ketones (Stick) Negative mg/dL (NEG) Urine Blood Negative (NEG) Urine Nitrite Negative (NEG) Urine Bilirubin Small (NEG) Urine Urobilinogen Dipstick 2.0 mg/dL (0.2 mg/dL) Urine Leukocyte Esterase Small (NEG) Urine RBC 0 /HPF (0-2) Urine WBC 5-10 /HPF (0-4) Urine Squamous Epithelial Cells Occ /LPF Urine Bacteria Few /HPF (0-FEW) Urine Hyaline Casts Few /HPF Urine Mucus Mod /LPF Laboratory Tests 02/01/18 06:17 Laboratory Tests 02/01/18 06:17 EKG EKG [] Radiology/Procedures Radiology/Procedures [] Course & Med Decision Making Course & Med Decision Making Pertinent Labs and Imaging studies reviewed. (See chart for details) [] Dragon Disclaimer Dragon Disclaimer This electronic medical record was generated, in whole or in part, using a voice recognition dictation system. Departure Departure Impression: Primary Impression: Lightheaded Additional Impression: EKG abnormality Disposition: ADMITTED INPATIENT Admitting Physician: Elmo Lorenz Condition: STABLE Referrals: ELMO LORENZ MD (PCP) Problem Qualifiers CHAU ALONZO MD Feb 01, 2018 06:47
[2018-02-01 06:49] LABS: ALBUMIN 3.9 g/dL (3.4-5.0); DIRECT BILIRUBIN 0.2 mg/dL (0.0-0.2); TOTAL BILIRUBIN 0.7 mg/dL (0.2-1.0); TOTAL PROTEIN 6.4 g/dL (6.4-8.2)
[2018-02-01 07:00] VITALS: BP 114/70
[2018-02-01 07:03] LABS: BACTERIA,URINE FEW /HPF (0-FEW); HYALINE CASTS, URINE FEW /HPF; RBC,URINE 0 /HPF (0-2); SQUAMOUS EPITHELIAL CELL,UR OCC /LPF
[2018-02-01] MEDS ORDERED: ONDANSETRON PF 4 MG/2 ML VIAL. IV PRN (07:15)
[2018-02-01] MEDS ORDERED: MORPHINE SULFATE 2 MG/ML VIAL. IV PRN (07:15)
--- NOTE | 2018-02-01 07:43 | RAD ---
Left knee, 3 views, 02/01/2018: HISTORY: Fall, pain There is narrowing of the medial compartment of the knee joint with moderate marginal spurring. There is moderate hypertrophic degenerative change at the patellofemoral articulation. No acute fracture or dislocation is identified. There is subcutaneous edema anteriorly. Scattered arterial calcifications are present. IMPRESSION: 1. Moderate degenerative change. 2. No acute bony abnormality is detected. Portable chest, 02/01/2018: HISTORY: Fall, pain Comparison is made to a study from 01/16/2017. A left-sided transvenous pacemaker remains in place with its single lead extending into the right ventricle. The heart size and pulmonary vascularity are normal. No pulmonary infiltrate is seen. There is no evidence of pneumothorax or pleural fluid. Degenerative changes are present in the spine and at both shoulders. IMPRESSION: No acute cardiopulmonary abnormality is detected. Electronically signed by: Iftikhar Robles MD (02/01/2018 7:39 AM) [facility]
[2018-02-01] MEDS ORDERED: NITROGLYCERIN SUBLINGUAL 0.4 MG BOTTLE OF 25. SL PRN (09:00)
--- NOTE | 2018-02-01 10:11 | PDOC ---
Provider Note Provider Note history and physical dictated # [id number] HELEN WARREN MD Feb 01, 2018 10:11
--- NOTE | 2018-02-01 10:47 | HP ---
ADMIT DATE: 02/01/2018 LOCATION: He is in room 676. HISTORY OF PRESENT ILLNESS: The patient is an 82-year-old white male who has a history of chronic atrial flutter, on Eliquis; coronary artery disease; hypertension; hyperlipidemia and chronic kidney disease stage 3 who was admitted to the [facility] through the Emergency Room 02/01/2018 with generalized weakness and lightheadedness. The patient apparently has had a fall yesterday without loss of consciousness. He felt weak when he went for walking from one room to another room. He does use a cane at home. He denied any chest pain or shortness of breath or vomiting or diarrhea. There has been no fever yet. His lactic acid in the Emergency Room was elevated at 2.1. He does have an occasional cough, no sputum and denies any dysuria. The patient was seen in the [facility] Emergency Room and his EKG did show some change of some T-wave inversion noted in the lateral precordial leads per the ER doctor, and the patient's other labs were okay and he was admitted to the hospital for further evaluation and treatment. ALLERGIES AND INTOLERANCES: INCLUDE IV IODINE, PENICILLIN, ADHESIVES, AMLODIPINE, FLUOROURACIL, NIACIN AND SIMVASTATIN. MEDICATIONS: Include aspirin 81 mg every day, amiodarone 200 mg every day, atorvastatin 40 mg at bedtime, Eliquis 5 mg b.i.d., ranitidine 150 mg b.i.d., fish oil 1 g 2 capsules daily, tamsulosin 0.4 mg at bedtime, Flonase 2 sprays every day p.r.n., metoprolol succinate 12.5 mg b.i.d., nitroglycerin 0.4 mg sublingual p.r.n., omeprazole 40 mg every day. PAST MEDICAL HISTORY: Significant for hospitalization in January 2017 with gait dysfunction, dizziness and near syncope. He also has chronic atrial flutter, treated with Eliquis, coronary artery disease, hypertension, hyperlipidemia, chronic kidney disease stage 3. He also has a history of gastroesophageal reflux disease, diverticulosis, benign prostatic hypertrophy, Osullivan's esophagus, achalasia. He had a transurethral prostatectomy, Heller myotomy and anterior fundoplication, coronary angioplasty, right total knee arthroplasty, atrial flutter and tonsillectomy. SOCIAL HISTORY: Does not drink alcohol nor does he smoke cigarettes, ambulates with a cane and is . FAMILY HISTORY: Noncontributory. REVIEW OF SYSTEMS: GENERAL: He denies any fever, chills or sweats. CARDIOVASCULAR: No chest pain. PULMONARY: Occasional cough. No shortness of breath. GASTROINTESTINAL: No constipation. ENDOCRINE: No diabetes mellitus. SKIN: No rashes. GENITOURINARY: No dysuria, and the rest of systems reviewed are negative except as stated in history of present illness. PHYSICAL EXAMINATION: VITAL SIGNS: Temperature is 99.3 degrees, pulse 72, respiratory rate 17, blood pressure 155/75, oxygen saturation 96% on room air. HEENT: Eyes: Gaze is conjugate. Extraocular muscles are intact. Mouth: Tongue is midline. He is edentulous. NECK: No cervical lymphadenopathy or thyroid enlargement. HEART: Reveals an S1, S2. There is no S3 or murmur. LUNGS: Clear. ABDOMEN: Soft, hepatosplenomegaly, masses or tenderness. EXTREMITIES: Lower extremities without edema. SKIN: No rashes. Dorsalis pedis pulses are 2+ bilaterally. NEUROLOGIC: Revealed no facial weakness. 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 LABORATORY DATA: White count 8.8, hemoglobin 14, platelet count 151,000, 76 polys and 15 lymphocytes. Sodium 143, potassium 4.0, chloride 106, total CO2 was 27, BUN 22, creatinine 1.3, blood sugar is 106. Lactic acid increased at 2.1. Liver function tests normal. Troponin level less than 0.017 and his albumin 3.9, lipase was 97. Urinalysis showed 5-10 white cells and 0 red blood cells. EKG showed atrial flutter with some T-wave inversions in lead V4 through V6, which apparently is new. His chest x-ray showed no acute abnormality. X-ray of the left knee was unremarkable. ASSESSMENT: 1. Gait dysfunction with a recent fall. 2. Dizziness. 3. Generalized weakness. 4. Chronic atrial flutter with controlled ventricular rate, currently on Eliquis. 5. Coronary artery disease. 6. Hypertension. 7. Hyperlipidemia. 8. Chronic kidney disease stage 3. PLAN: At this time is to consult Dr. Dang, and we will do serial cardiac enzymes. We will order an echocardiogram, physical and occupational therapy. We will also order urine culture for his pyuria. He does have a low grade fever, however. Does not have a leukocytosis. He will continue with his home medications. Check an orthostatic blood pressure. HELEN WARREN MD DR: YANCI/raquel JOB#: [id number] / [id number]
[2018-02-01] MEDS ORDERED: METO-239 PO (10:49)
[2018-02-01] MEDS ORDERED: RANI150T2 PO (10:49)
[2018-02-01] MEDS ORDERED: ATOR40TA59 PO (11:00)
[2018-02-01] MEDS: PANTOPRAZOLE 40 MG TABLET.DR. PO SCH (14:14)
[2018-02-01] MEDS: MULTIVITAMIN with MINERAL TABLET. PO SCH (14:15)
[2018-02-01] MEDS: APIXABAN 5 MG TABLET. PO SCH ×2 (14:15→21:45)
[2018-02-01] MEDS: METOPROLOL SUCC 24HR ER 25 MG TAB.ER.24H. PO SCH ×2 (14:15→21:45)
[2018-02-01] MEDS: ASPIRIN ENTERIC COATED 81 MG TABLET.DR. PO SCH (14:15)
[2018-02-01] MEDS: AMIODARONE HCL 200 MG TABLET. PO SCH (14:16)
[2018-02-01] MEDS: IV NORMAL SALINE 1000ML BAG 1,000 ML IV SCH ×2 (14:17→21:46)
[2018-02-01 15:00] VITALS: BP_SYST 119; BP_SYST 146; BP_SYST 158; BP_DIAS 67; BP_DIAS 79; BP_DIAS 80
--- NOTE | 2018-02-01 17:31 | PDOC2 ---
CONSULT Date of Consult Date of Consult DATE: 02/01/18 TIME: 17:24 Reason for Consult Reason for Consult: Near syncope Referring Physician Referring Physician: Dr. Lorenz Identification/Chief Complaint Chief Complaint Near syncope History of Present Illness Reason for Visit: This patient is an 82-year-old gentleman that has a known history of coronary artery disease status post PTCA and chronic atrial flutter. He has had some episodes where he feels weak and lightheaded and had one today that caused him to have a fall. He did not have any loss of consciousness. He's had similar episodes in the past without loss of consciousness. Usually is associated with pronounced fatigue and some lightheadedness. The patient admits that he has not been taking much fluids in and that he has been taking all of his medications. At the time that I saw the patient he denies any chest pains, he denies any dyspnea, no palpitations. Past Medical History Cardiovascular: CAD, CHF, HTN, SD, Other Pulmonary: Bronchitis GI: Diverticulosis, GERD, Other Musculoskeletal: Osteoarthritis, Other Renal/: Chronic renal insuff, Benign prostatic enlarg. Past Surgical History Past Surgical History: Pacemaker, Cataract Removal, Total knee replacement, Tonsillectomy, Other Social History ALCOHOL: none Drugs: None Lives: with Family Current Problem List Problem List Problems Medical Problems: (1) EKG abnormality Status: Acute (2) Lightheaded Status: Acute Current Medications Current Medications Current Medications Sodium Chloride 500 ml @ 500 mls/hr 1X ONCE IV Last administered on at 06:49; Start 02/01/18 at 06:45; Stop 02/01/18 at 07:44; Status DC Ondansetron HCl (Zofran) 4 mg PRN Q8HRS PRN IV NAUSEA/VOMITING; Start 02/01/18 at 07:15; Stop 02/02/18 at 07:14 Morphine Sulfate (Morphine Sulfate) 2 mg PRN Q2HR PRN IV PAIN; Start 02/01/18 at 07:15; Stop 02/02/18 at 07:14 Sodium Chloride 1,000 ml @ 100 mls/hr Q10H IV Last administered on 02/01/18at 14:17; Start 02/01/18 at 07:15; Stop 02/02/18 at 07:14 Amiodarone HCl (Cordarone) 200 mg DAILY PO Last administered on 02/01/18at 14:16 ; Start 02/01/18 at 12:00 Apixaban (Eliquis) 5 mg BID PO Last administered on 02/01/18at 14:15; Start at 12:00 Aspirin (Ecotrin) 81 mg DAILYWBKFT PO Last administered on 02/01/18at 14:15; Start 02/01/18 at 12:00 Metoprolol Succinate (Toprol Xl) 12.5 mg BID PO Last administered on 02/01/18at 14:15; Start 02/01/18 at 12:00 Nitroglycerin (Nitrostat) 0.4 mg PRN DAILY PRN SL CHEST PAIN; Start 02/01/18 at 09:00 Tamsulosin HCl (Flomax) 0.4 mg QHS PO ; Start 02/01/18 at 21:00 Multivitamins (Thera M Plus) 1 tab DAILY PO Last administered on 02/01/18at 14: 15; Start 02/01/18 at 12:00 Pantoprazole Sodium (Protonix) 40 mg DAILYAC PO Last administered on 02/01/18at 14:14; Start 02/01/18 at 12:00 Famotidine (Pepcid) 20 mg QHS PO ; Start 02/01/18 at 21:00 Atorvastatin Calcium (Lipitor) 40 mg HS PO ; Start 02/01/18 at 21:00 Active Scripts Active Aspirin Ec (Aspirin) 81 Mg Tablet. 81 Mg PO DAILYWBKFT 30 Days Amiodarone Hcl 200 Mg Tablet 200 Mg PO DAILY 30 Days Flomax (Tamsulosin Hcl) 0.4 Mg Cap.er.24h 0.4 Mg PO QHS Reported Atorvastatin Calcium 40 Mg Tablet 40 Mg PO HS Ranitidine Hcl 150 Mg Tablet 150 Mg PO HS Metoprolol Succinate ( Xl ) (Metoprolol Succinate) 25 Mg Tab.er.24h 12.5 Mg PO BID Eliquis (Apixaban) 5 Mg Tablet 5 Mg PO BID Omeprazole 40 Mg Capsule.dr 40 Mg PO DAILY NITROGLYCERIN SubLingual (Nitroglycerin) 0.4 Mg Tab.subl 0.4 Mg SL DAILY Daily Vitamin (Multivitamin) 1 Each Tablet 1 Each PO DAILY Allergies Allergies: Coded Allergies: Iodinated Contrast- Oral and IV Dye (Verified Allergy, Intermediate, Rash , 08/13/16) Penicillins (Verified Allergy, Intermediate, Hives, 08/13/16) adhesive (Verified Allergy, Intermediate, Rash, 10/21/16) amlodipine (Verified Allergy, Intermediate, Rash, 08/13/16) fluorouracil (Verified Allergy, Intermediate, Swelling, 10/21/16) niacin (Verified Allergy, Intermediate, FLUSHING, 08/13/16) FLUSHING simvastatin (Verified Allergy, Intermediate, Hives, 08/13/16) Physical Exam General: Alert, Oriented X3, Cooperative HEENT: PERRLA Lungs: Clear to auscultation Heart: Other (irregular, S1, S2, no clicks no rubs) Abdomen: Normal bowel sounds, Soft Extremities: Other (1+ edema worse on the right than on the left) Psych/Mental Status: Mental status NL Vitals VITALS Vital Signs Date Time Temp Pulse Resp B/P (MAP) Pulse Ox O2 Delivery O2 Flow Rate FiO2 02/01/18 15:00 98.6 59 16 146/79 (101) 97 98.6 158/80 (106) 119/67 (84) 02/01/18 10:02 Room Air Labs Labs Laboratory Tests Test 02/01/18 06:17 02/01/18 06:25 02/01/18 10:00 02/01/18 13:05 White Blood Count 8.8 x10^3/uL (4.0-11.0) Red Blood Count 4.17 x10^6/uL (4.30-5.70) Hemoglobin 14.0 g/dL (13.0-17.5) Hematocrit 40.2 % (39.0-53.0) Mean Corpuscular Volume 96 fL (79-100) Mean Corpuscular Hemoglobin 34 pg (25-35) Mean Corpuscular Hemoglobin Concent 35 g/dL (31-37) Red Cell Distribution Width 14.4 % (11.5-14.5) Platelet Count 151 x10^3/uL (140-400) Neutrophils (%) (Auto) 76 % (31-73) Lymphocytes (%) (Auto) 15 % (24-48) Monocytes (%) (Auto) 7 % (0-9) Eosinophils (%) (Auto) 1 % (0-3) Basophils (%) (Auto) 1 % (0-3) Neutrophils # (Auto) 6.7 x10^3uL (1.8-7.7) Lymphocytes # (Auto) 1.3 x10^3/uL (1.0-4.8) Monocytes # (Auto) 0.7 x10^3/uL (0.0-1.1) Eosinophils # (Auto) 0.1 x10^3/uL (0.0-0.7) Basophils # (Auto) 0.1 x10^3/uL (0.0-0.2) Sodium Level 143 mmol/L (136-145) Potassium Level 4.0 mmol/L (3.5-5.1) Chloride Level 106 mmol/L (98-107) Carbon Dioxide Level 27 mmol/L (21-32) Anion Gap 10 (6-14) Blood Urea Nitrogen 22 mg/dL (8-26) Creatinine 1.3 mg/dL (0.7-1.3) Estimated GFR (Cockcroft-Gault) 52.7 Glucose Level 106 mg/dL (70-99) Lactic Acid Level 2.1 mmol/L (0.4-2.0) Calcium Level 8.2 mg/dL (8.5-10.1) Total Bilirubin 0.7 mg/dL (0.2-1.0) Direct Bilirubin 0.2 mg/dL (0.0-0.2) Aspartate Amino Transf (AST/SGOT) 16 U/L (15-37) Alanine Aminotransferase (ALT/SGPT) 13 U/L (16-63) Alkaline Phosphatase 80 U/L (46-116) Troponin I Quantitative < 0.017 ng/mL (0.000-0.055) < 0.017 ng/mL (0.000-0.055) < 0.017 ng/mL (0.000-0.055) Total Protein 6.4 g/dL (6.4-8.2) Albumin 3.9 g/dL (3.4-5.0) Lipase 97 U/L (73-393) Urine Collection Type Unknown Urine Color Yellow Urine Clarity Clear Urine pH 5.5 Urine Specific [place] 1.025 Urine Protein Negative mg/dL (NEG-TRACE) Urine Glucose (UA) Negative mg/dL (NEG) Urine Ketones (Stick) Negative mg/dL (NEG) Urine Blood Negative (NEG) Urine Nitrite Negative (NEG) Urine Bilirubin Small (NEG) Urine Urobilinogen Dipstick 2.0 mg/dL (0.2 mg/dL) Urine Leukocyte Esterase Small (NEG) Urine RBC 0 /HPF (0-2) Urine WBC 5-10 /HPF (0-4) Urine Squamous Epithelial Cells Occ /LPF Urine Bacteria Few /HPF (0-FEW) Urine Hyaline Casts Few /HPF Urine Mucus Mod /LPF Laboratory Tests Test 02/01/18 06:17 02/01/18 06:25 02/01/18 10:00 02/01/18 13:05 White Blood Count 8.8 x10^3/uL (4.0-11.0) Red Blood Count 4.17 x10^6/uL (4.30-5.70) Hemoglobin 14.0 g/dL (13.0-17.5) Hematocrit 40.2 % (39.0-53.0) Mean Corpuscular Volume 96 fL (79-100) Mean Corpuscular Hemoglobin 34 pg (25-35) Mean Corpuscular Hemoglobin Concent 35 g/dL (31-37) Red Cell Distribution Width 14.4 % (11.5-14.5) Platelet Count 151 x10^3/uL (140-400) Neutrophils (%) (Auto) 76 % (31-73) Lymphocytes (%) (Auto) 15 % (24-48) Monocytes (%) (Auto) 7 % (0-9) Eosinophils (%) (Auto) 1 % (0-3) Basophils (%) (Auto) 1 % (0-3) Neutrophils # (Auto) 6.7 x10^3uL (1.8-7.7) Lymphocytes # (Auto) 1.3 x10^3/uL (1.0-4.8) Monocytes # (Auto) 0.7 x10^3/uL (0.0-1.1) Eosinophils # (Auto) 0.1 x10^3/uL (0.0-0.7) Basophils # (Auto) 0.1 x10^3/uL (0.0-0.2) Sodium Level 143 mmol/L (136-145) Potassium Level 4.0 mmol/L (3.5-5.1) Chloride Level 106 mmol/L (98-107) Carbon Dioxide Level 27 mmol/L (21-32) Anion Gap 10 (6-14) Blood Urea Nitrogen 22 mg/dL (8-26) Creatinine 1.3 mg/dL (0.7-1.3) Estimated GFR (Cockcroft-Gault) 52.7 Glucose Level 106 mg/dL (70-99) Lactic Acid Level 2.1 mmol/L (0.4-2.0) Calcium Level 8.2 mg/dL (8.5-10.1) Total Bilirubin 0.7 mg/dL (0.2-1.0) Direct Bilirubin 0.2 mg/dL (0.0-0.2) Aspartate Amino Transf (AST/SGOT) 16 U/L (15-37) Alanine Aminotransferase (ALT/SGPT) 13 U/L (16-63) Alkaline Phosphatase 80 U/L (46-116) Troponin I Quantitative < 0.017 ng/mL (0.000-0.055) < 0.017 ng/mL (0.000-0.055) < 0.017 ng/mL (0.000-0.055) Total Protein 6.4 g/dL (6.4-8.2) Albumin 3.9 g/dL (3.4-5.0) Lipase 97 U/L (73-393) Urine Collection Type Unknown Urine Color Yellow Urine Clarity Clear Urine pH 5.5 Urine Specific [place] 1.025 Urine Protein Negative mg/dL (NEG-TRACE) Urine Glucose (UA) Negative mg/dL (NEG) Urine Ketones (Stick) Negative mg/dL (NEG) Urine Blood Negative (NEG) Urine Nitrite Negative (NEG) Urine Bilirubin Small (NEG) Urine Urobilinogen Dipstick 2.0 mg/dL (0.2 mg/dL) Urine Leukocyte Esterase Small (NEG) Urine RBC 0 /HPF (0-2) Urine WBC 5-10 /HPF (0-4) Urine Squamous Epithelial Cells Occ /LPF Urine Bacteria Few /HPF (0-FEW) Urine Hyaline Casts Few /HPF Urine Mucus Mod /LPF Assessment/Plan Assessment/Plan This patient with a known history of chronic atrial flutter comes in and appears to be dry. He has chronic renal insufficiency stage III. His near syncope may be secondary to dehydration. I would recommend to hold his medications for the blood pressure and give him some IV fluids and then see how the patient responds. I will follow the patient with you. Thank you very much for asking me to participate in the care of this patient. MARISSA MCKEON MD Feb 01, 2018 17:31
[2018-02-01 19:49] VITALS: BP 145/71
[2018-02-01] MEDS ORDERED: ATORVASTATIN CALCIUM 40 MG TABLET. PO SCH (21:00)
[2018-02-01] MEDS ORDERED: FAMOTIDINE 20 MG TABLET. PO SCH (21:00)
[2018-02-01] MEDS ORDERED: TAMSULOSIN 0.4 MG CAP.ER.24H. PO SCH (21:00)
[2018-02-01 23:21] VITALS: BP 142/80
[2018-02-02] MEDS: IV NORMAL SALINE 1000ML BAG 1,000 ML IV SCH (03:30)
[2018-02-02 03:43] VITALS: BP 130/67
[2018-02-02 04:24] LABS: BASO # 0.1 x10^3/uL (0.0-0.2); BASO % 1 % (0-3); EOS # 0.1 x10^3/uL (0.0-0.7); EOS % 2 % (0-3); HEMATOCRIT 36.1 % (39.0-53.0); HEMOGLOBIN 12.6 g/dL (13.0-17.5); LYMPH # 1.5 x10^3/uL (1.0-4.8); LYMPH % 20 % (24-48); MEAN CORPUSCULAR HEMOGLOBIN 34 pg (25-35); MEAN CORPUSCULAR HGB CONC 35 g/dL (31-37); MEAN CORPUSCULAR VOLUME 97 fL (79-100); MONO # 0.7 x10^3/uL (0.0-1.1); MONO % 9 % (0-9); NEUT # 5.1 x10^3uL (1.8-7.7); NEUT % 69 % (31-73); PLATELET COUNT 130 x10^3/uL (140-400); RED BLOOD COUNT 3.72 x10^6/uL (4.30-5.70); RED CELL DISTRIBUTION WIDTH 14.3 % (11.5-14.5); WHITE BLOOD COUNT 7.4 x10^3/uL (4.0-11.0)
[2018-02-02 04:44] LABS: CALCIUM 8.1 mg/dL (8.5-10.1); CREATININE 1.1 mg/dL (0.7-1.3); GFR 63.9; POTASSIUM 4.4 mmol/L (3.5-5.1)
[2018-02-02 07:00] VITALS: BP 141/80
[2018-02-02] MEDS: MULTIVITAMIN with MINERAL TABLET. PO SCH (08:56)
[2018-02-02] MEDS: ASPIRIN ENTERIC COATED 81 MG TABLET.DR. PO SCH (08:56)
[2018-02-02] MEDS: APIXABAN 5 MG TABLET. PO SCH (08:56)
[2018-02-02] MEDS: PANTOPRAZOLE 40 MG TABLET.DR. PO SCH (08:56)
[2018-02-02] MEDS: AMIODARONE HCL 200 MG TABLET. PO SCH (08:57)
[2018-02-02] MEDS: METOPROLOL SUCC 24HR ER 25 MG TAB.ER.24H. PO SCH (08:57)
[2018-02-02 09:06] VITALS: BP 141/80
--- NOTE | 2018-02-02 10:19 | PDOC ---
PROGRESS NOTES Subjective Subjective feels better . receiving iv fluids. ambulated in hallway without dizziness. lab reviewed. hydration status better, he was taking metoprolol 12.5 mg daily at home and not bid. Objective Objective Vital Signs Date Time Temp Pulse Resp B/P (MAP) Pulse Ox O2 Delivery O2 Flow Rate FiO2 02/02/18 09:06 97.7 60 16 141/80 (100) 96 Room Air 97.7 Intake and Output 02/02/18 07:00 Intake Total 240 ml Output Total 1900 ml Balance -1660 ml Intake Oral 240 ml Output Urine Total 1900 ml Physical Exam Abdomen: Soft Heart: Normal S1, Normal S2 Extremities: No edema General: Alert HEENT: Atraumatic Lungs: Clear to auscultation Neuro: Normal speech Psych/Mental Status: Mental status NL Skin: No rashes Assessment Assessment Problems1. near syncope 2. Dehydration resolved 3. Generalized weakness. 4. Chronic atrial flutter with controlled ventricular rate, currently on Eliquis. 5. Coronary artery disease. 6. Hypertension. 7. Hyperlipidemia. 8. Chronic kidney disease stage 3. Medical Problems: (1) EKG abnormality Status: Acute (2) Lightheaded Status: Acute Plan Plan of Care dismiss today if okay with dr. galloway d/c iv fluids Comment Review of Relevant I have reviewed the following items gela (where applicable) has been applied. Labs Laboratory Tests Test 02/01/18 06:17 02/01/18 06:25 02/01/18 10:00 02/01/18 13:05 White Blood Count 8.8 x10^3/uL (4.0-11.0) Red Blood Count 4.17 x10^6/uL (4.30-5.70) Hemoglobin 14.0 g/dL (13.0-17.5) Hematocrit 40.2 % (39.0-53.0) Mean Corpuscular Volume 96 fL (79-100) Mean Corpuscular Hemoglobin 34 pg (25-35) Mean Corpuscular Hemoglobin Concent 35 g/dL (31-37) Red Cell Distribution Width 14.4 % (11.5-14.5) Platelet Count 151 x10^3/uL (140-400) Neutrophils (%) (Auto) 76 % (31-73) Lymphocytes (%) (Auto) 15 % (24-48) Monocytes (%) (Auto) 7 % (0-9) Eosinophils (%) (Auto) 1 % (0-3) Basophils (%) (Auto) 1 % (0-3) Neutrophils # (Auto) 6.7 x10^3uL (1.8-7.7) Lymphocytes # (Auto) 1.3 x10^3/uL (1.0-4.8) Monocytes # (Auto) 0.7 x10^3/uL (0.0-1.1) Eosinophils # (Auto) 0.1 x10^3/uL (0.0-0.7) Basophils # (Auto) 0.1 x10^3/uL (0.0-0.2) Sodium Level 143 mmol/L (136-145) Potassium Level 4.0 mmol/L (3.5-5.1) Chloride Level 106 mmol/L (98-107) Carbon Dioxide Level 27 mmol/L (21-32) Anion Gap 10 (6-14) Blood Urea Nitrogen 22 mg/dL (8-26) Creatinine 1.3 mg/dL (0.7-1.3) Estimated GFR (Cockcroft-Gault) 52.7 Glucose Level 106 mg/dL (70-99) Lactic Acid Level 2.1 mmol/L (0.4-2.0) Calcium Level 8.2 mg/dL (8.5-10.1) Total Bilirubin 0.7 mg/dL (0.2-1.0) Direct Bilirubin 0.2 mg/dL (0.0-0.2) Aspartate Amino Transf (AST/SGOT) 16 U/L (15-37) Alanine Aminotransferase (ALT/SGPT) 13 U/L (16-63) Alkaline Phosphatase 80 U/L (46-116) Troponin I Quantitative < 0.017 ng/mL (0.000-0.055) < 0.017 ng/mL (0.000-0.055) < 0.017 ng/mL (0.000-0.055) Total Protein 6.4 g/dL (6.4-8.2) Albumin 3.9 g/dL (3.4-5.0) Lipase 97 U/L (73-393) Urine Collection Type Unknown Urine Color Yellow Urine Clarity Clear Urine pH 5.5 Urine Specific Wilbur 1.025 Urine Protein Negative mg/dL (NEG-TRACE) Urine Glucose (UA) Negative mg/dL (NEG) Urine Ketones (Stick) Negative mg/dL (NEG) Urine Blood Negative (NEG) Urine Nitrite Negative (NEG) Urine Bilirubin Small (NEG) Urine Urobilinogen Dipstick 2.0 mg/dL (0.2 mg/dL) Urine Leukocyte Esterase Small (NEG) Urine RBC 0 /HPF (0-2) Urine WBC 5-10 /HPF (0-4) Urine Squamous Epithelial Cells Occ /LPF Urine Bacteria Few /HPF (0-FEW) Urine Hyaline Casts Few /HPF Urine Mucus Mod /LPF Test 02/02/18 04:10 White Blood Count 7.4 x10^3/uL (4.0-11.0) Red Blood Count 3.72 x10^6/uL (4.30-5.70) Hemoglobin 12.6 g/dL (13.0-17.5) Hematocrit 36.1 % (39.0-53.0) Mean Corpuscular Volume 97 fL (79-100) Mean Corpuscular Hemoglobin 34 pg (25-35) Mean Corpuscular Hemoglobin Concent 35 g/dL (31-37) Red Cell Distribution Width 14.3 % (11.5-14.5) Platelet Count 130 x10^3/uL (140-400) Neutrophils (%) (Auto) 69 % (31-73) Lymphocytes (%) (Auto) 20 % (24-48) Monocytes (%) (Auto) 9 % (0-9) Eosinophils (%) (Auto) 2 % (0-3) Basophils (%) (Auto) 1 % (0-3) Neutrophils # (Auto) 5.1 x10^3uL (1.8-7.7) Lymphocytes # (Auto) 1.5 x10^3/uL (1.0-4.8) Monocytes # (Auto) 0.7 x10^3/uL (0.0-1.1) Eosinophils # (Auto) 0.1 x10^3/uL (0.0-0.7) Basophils # (Auto) 0.1 x10^3/uL (0.0-0.2) Sodium Level 145 mmol/L (136-145) Potassium Level 4.4 mmol/L (3.5-5.1) Chloride Level 109 mmol/L (98-107) Carbon Dioxide Level 29 mmol/L (21-32) Anion Gap 7 (6-14) Blood Urea Nitrogen 15 mg/dL (8-26) Creatinine 1.1 mg/dL (0.7-1.3) Estimated GFR (Cockcroft-Gault) 63.9 Glucose Level 97 mg/dL (70-99) Calcium Level 8.1 mg/dL (8.5-10.1) Laboratory Tests Test 02/01/18 13:05 02/02/18 04:10 Troponin I Quantitative < 0.017 ng/mL (0.000-0.055) White Blood Count 7.4 x10^3/uL (4.0-11.0) Red Blood Count 3.72 x10^6/uL (4.30-5.70) Hemoglobin 12.6 g/dL (13.0-17.5) Hematocrit 36.1 % (39.0-53.0) Mean Corpuscular Volume 97 fL (79-100) Mean Corpuscular Hemoglobin 34 pg (25-35) Mean Corpuscular Hemoglobin Concent 35 g/dL (31-37) Red Cell Distribution Width 14.3 % (11.5-14.5) Platelet Count 130 x10^3/uL (140-400) Neutrophils (%) (Auto) 69 % (31-73) Lymphocytes (%) (Auto) 20 % (24-48) Monocytes (%) (Auto) 9 % (0-9) Eosinophils (%) (Auto) 2 % (0-3) Basophils (%) (Auto) 1 % (0-3) Neutrophils # (Auto) 5.1 x10^3uL (1.8-7.7) Lymphocytes # (Auto) 1.5 x10^3/uL (1.0-4.8) Monocytes # (Auto) 0.7 x10^3/uL (0.0-1.1) Eosinophils # (Auto) 0.1 x10^3/uL (0.0-0.7) Basophils # (Auto) 0.1 x10^3/uL (0.0-0.2) Sodium Level 145 mmol/L (136-145) Potassium Level 4.4 mmol/L (3.5-5.1) Chloride Level 109 mmol/L (98-107) Carbon Dioxide Level 29 mmol/L (21-32) Anion Gap 7 (6-14) Blood Urea Nitrogen 15 mg/dL (8-26) Creatinine 1.1 mg/dL (0.7-1.3) Estimated GFR (Cockcroft-Gault) 63.9 Glucose Level 97 mg/dL (70-99) Calcium Level 8.1 mg/dL (8.5-10.1) Medications Current Medications Sodium Chloride 500 ml @ 500 mls/hr 1X ONCE IV Last administered on at 06:49; Start 02/01/18 at 06:45; Stop 02/01/18 at 07:44; Status DC Ondansetron HCl (Zofran) 4 mg PRN Q8HRS PRN IV NAUSEA/VOMITING; Start 02/01/18 at 07:15; Stop 02/02/18 at 07:14; Status DC Morphine Sulfate (Morphine Sulfate) 2 mg PRN Q2HR PRN IV PAIN; Start 02/01/18 at 07:15; Stop 02/02/18 at 07:14; Status DC Sodium Chloride 1,000 ml @ 100 mls/hr Q10H IV Last administered on 02/01/18at 21:46; Start 02/01/18 at 07:15; Stop 02/02/18 at 07:14; Status DC Amiodarone HCl (Cordarone) 200 mg DAILY PO Last administered on 02/01/18at 14:16 ; Start 02/01/18 at 12:00 Apixaban (Eliquis) 5 mg BID PO Last administered on 02/02/18at 08:56; Start at 12:00 Aspirin (Ecotrin) 81 mg DAILYWBKFT PO Last administered on 02/02/18at 08:56; Start 02/01/18 at 12:00 Metoprolol Succinate (Toprol Xl) 12.5 mg BID PO Last administered on 02/01/18at 14:15; Start 02/01/18 at 12:00 Nitroglycerin (Nitrostat) 0.4 mg PRN DAILY PRN SL CHEST PAIN; Start 02/01/18 at 09:00 Tamsulosin HCl (Flomax) 0.4 mg QHS PO Last administered on 9/21/18at 21:45; Start 02/01/18 at 21:00 Multivitamins (Thera M Plus) 1 tab DAILY PO Last administered on 02/02/18at 08: 56; Start 02/01/18 at 12:00 Pantoprazole Sodium (Protonix) 40 mg DAILYAC PO Last administered on 02/02/18at 08:56; Start 02/01/18 at 12:00 Famotidine (Pepcid) 20 mg QHS PO Last administered on 02/01/18at 21:45; Start at 21:00 Atorvastatin Calcium (Lipitor) 40 mg HS PO Last administered on 02/01/18at 21:45 ; Start 02/01/18 at 21:00 Active Scripts Active Aspirin Ec (Aspirin) 81 Mg Tablet.dr 81 Mg PO DAILYWBKFT 30 Days Amiodarone Hcl 200 Mg Tablet 200 Mg PO DAILY 30 Days Flomax (Tamsulosin Hcl) 0.4 Mg Cap.er.24h 0.4 Mg PO QHS Reported Atorvastatin Calcium 40 Mg Tablet 40 Mg PO HS Ranitidine Hcl 150 Mg Tablet 150 Mg PO HS Metoprolol Succinate ( Xl ) (Metoprolol Succinate) 25 Mg Tab.er.24h 12.5 Mg PO BID Eliquis (Apixaban) 5 Mg Tablet 5 Mg PO BID Omeprazole 40 Mg Capsule.dr 40 Mg PO DAILY NITROGLYCERIN SubLingual (Nitroglycerin) 0.4 Mg Tab.subl 0.4 Mg SL DAILY Daily Vitamin (Multivitamin) 1 Each Tablet 1 Each PO DAILY Vitals/I & O Vital Sign - Last 24 Hours 02/01/18 02/01/18 02/01/18 02/01/18 14:15 14:16 15:00 19:49 Temp 98.6 98.8 98.6 98.8 Pulse 60 60 59 63 Resp 16 18 B/P (MAP) 114/70 114/70 146/79 (101) 145/71 (95) 158/80 (106) 119/67 (84) Pulse Ox 97 96 O2 Delivery Room Air 02/01/18 02/01/18 02/02/18 02/02/18 20:15 23:21 03:43 09:06 Temp 99.0 97.9 97.7 99.0 97.9 97.7 Pulse 64 60 60 Resp 18 18 16 B/P (MAP) 142/80 (100) 130/67 (88) 141/80 (100) Pulse Ox 96 96 96 O2 Delivery Room Air Room Air Room Air Room Air Intake and Output 02/01/18 02/01/18 02/02/18 15:00 23:00 07:00 Intake Total 240 ml Output Total 800 ml 1100 ml Balance -560 ml -1100 ml HELEN WARREN MD Feb 02, 2018 10:19
[2018-02-02] MEDS ORDERED: METO-239 PO (10:25)
--- NOTE | 2018-02-02 10:29 | PDOC ---
Provider Note Provider Note discharge summary dictated # [id number] HELEN WARREN MD Feb 02, 2018 10:29
[2018-02-02] MEDS ORDERED: ANTI-COAG MONITOR BY PHARMACY. MC PRN (10:45)
[2018-02-02 11:00] VITALS: BP 130/75
[2018-02-02] MEDS ORDERED: METOPROLOL SUCC 24HR ER 25 MG TAB.ER.24H. PO SCH (11:00)
--- NOTE | 2018-02-02 11:48 | DS ---
DATE OF DISCHARGE: 02/02/2018 CONSULTANTS: Dr. Dang. FINAL DIAGNOSES: 1. Near syncope, most likely secondary to dehydration. 2. Dehydration from decreased oral fluid intake. 3. Generalized weakness and dizziness due to dehydration. 4. Chronic atrial flutter with a controlled ventricular rate, currently treated with Eliquis. 5. Coronary artery disease. 6. Hypertension. 7. Hyperlipidemia. 8. Chronic kidney disease stage 3. HOSPITAL COURSE: The patient is an 82-year-old white male with a history of chronic atrial flutter, on Eliquis; coronary artery disease; hypertension; hyperlipidemia and chronic kidney disease stage 3, admitted to [facility] through the Emergency Room on 02/01/2018 with generalized weakness and lightheadedness. Apparently, he had a fall with near syncope, without loss of consciousness, while walking from one room to another and he uses a cane at home. There is no chest pain, shortness of breath, nausea, vomiting or diarrhea. There is no fever. His lactic acid level is slightly high at 2.1. He denied any cough or dysuria. He was seen in the [facility] Emergency Room. EKG showed some T-wave inversion, more prominent on his lateral precordial aspect. The patient was seen by Dr. Dang in consultation, who felt that he had near syncope secondary to dehydration and gave him IV fluids. His BUN and creatinine improved and he was able to ambulate in the hallway without disease and felt better. He had an echocardiogram done, the results of which are pending. His troponin levels were negative x 3. His labs were okay and he will be dismissed to home. He was told to make an appointment to see Dr. Lorenz in the office in about one week and follow up with Dr. Dang in the office too. DISCHARGE MEDICATIONS: He will be dismissed on aspirin 81 mg every day, amiodarone 200 mg every day, atorvastatin 40 mg at bedtime, Eliquis 5 mg b.i.d., ranitidine 150 mg b.i.d., tamsulosin 0.4 mg at bedtime, metoprolol succinate 12.5 mg once a day, nitroglycerin 0.4 mg sublingual p.r.n. and omeprazole 40 mg every day. It should be noted that his dose of metoprolol succinate actually was 12.5 mg once a day at home, which is what we will continue when he goes home. When I did the reconciliation of his medications, it did not allow me to give a 12.5 mg dose once a day, just had 25 mg once a day, but I told the nurse and we told the patient to continue with the metoprolol succinate 12.5 mg every day. He was told to drink more fluids and will be dismissed later today if it is okay with Dr. Dang. HELEN LORENZ MD DR: Shandra JOB#: [id number] / [id number]
--- NOTE | 2018-02-03 14:09 | CARD ---
MR#: [id number] Date of Study: 02/01/2018 Ordering Physician: HELEN WARREN, Referring Physician: HELEN WARREN Tech: Shirlene Chou RDCS APPROVED REPORT EXAM: Two-dimensional and M-mode echocardiogram with Doppler and color Doppler. Other Information Quality : Good INDICATION Atrial Flutter 2D DIMENSIONS RVDd2.7 (2.9-3.5cm)Left Atrium(2D)4.7 (1.6-4.0cm) IVSd1.7 (0.7-1.1cm)Aortic Root(2D)3.3 (2.0-3.7cm) LVDd5.4 (3.9-5.9cm)LVOT Diameter2.3 (1.8-2.4cm) PWd1.1 (0.7-1.1cm)LVDs3.8 (2.5-4.0cm) FS (%) 30.6 %SV83.0 ml LVEF(%)50.0 (>50%) Aortic Valve AoV Peak Arturo.124.7cm/sAoV VTI23.9cm AO Peak GR.6.2mmHgLVOT Peak Arturo.92.9cm/s LVOT VTI 20.48cmAO Mean GR.4mmHg CLARITZA (VMAX)3.10kx8JZE (VTI)3.55cm2 Mitral Valve MV E Cccwcjyp424.2cm/sMV DECEL JBQJ725so MV A Hvfeaqie63.0cm/sMV XCJ18hy E/A Ratio2.4MVA (PHT)4.82cm2 Tricuspid Valve TR P. Snztdeqs435aj/sRAP FHZDZNYU4ktDk TR Peak Gr.16xzUlLJPE44xkQv Pulmonary Vein S1 Raixwlaf49.5cm/sD2 Okvvdonm48.6cm/s LEFT VENTRICLE The left ventricle is normal size. There is mild to moderate concentric left ventricular hypertrophy. Left ventricle systolic function is low normal. The Ejection Fraction is 50%. There is normal LV seg mental wall motion. Transmitral Doppler flow pattern is Grade I-abnormal relaxation pattern. RIGHT VENTRICLE The right ventricle is normal size. The right ventricular systolic function is normal. ATRIA The left atrium is mildly dilated. The right atrium size is normal. The interatrial septum is intact with no evidence for an atrial septal defect or patent foramen ovale as noted on 2-D or Doppler imagi ng. AORTIC VALVE The aortic valve is calcified but opens well. Doppler and Color Flow revealed no significant aortic r egurgitation. There is no significant aortic valvular stenosis. MITRAL VALVE The mitral valve is calcified but opens well. There is no evidence of mitral valve prolapse. There is no mitral valve stenosis. Doppler and Color-flow revealed mild mitral regurgitation. TRICUSPID VALVE The tricuspid valve is normal in structure and function. Doppler and Color Flow revealed mild tricusp id regurgitation. There is moderate pulmonary hypertension. The PA pressure was estimated at 53 mmHg. There is no tricuspid valve stenosis. PULMONIC VALVE The pulmonary valve is normal in structure Doppler and Color Flow revealed mild pulmonic valvular reg urgitation. There is no pulmonic valvular stenosis. GREAT VESSELS The aortic root is normal in size. The ascending aorta is mildly dilated at 3.5 cm. The IVC is normal in size and collapses >50% with inspiration. PERICARDIAL EFFUSION There is no evidence of significant pericardial effusion. Critical Notification Critical Value: No <Conclusion> There is mild to moderate concentric left ventricular hypertrophy. Left ventricle systolic function is low normal. The Ejection Fraction is 50%. Transmitral Doppler flow pattern is Grade I-abnormal relaxation pattern. The left atrium is mildly dilated. The right atrium size is normal. The aortic valve is calcified but opens well. Doppler and Color-flow revealed mild mitral regurgitation. The mitral valve is calcified but opens well. Doppler and Color Flow revealed mild tricuspid regurgitation. There is moderate pulmonary hypertension. The PA pressure was estimated at 53 mmHg. Doppler and Color Flow revealed mild pulmonic valvular regurgitation. The ascending aorta is mildly dilated at 3.5 cm. There is no evidence of significant pericardial effusion. Signed by : Darrick Dang MD Electronically Approved : 02/03/2018 14:08:53
== END 2018-02-02 13:07 | disposition home or self-care (01) ==
LOC: ER 05:48 → INTOOBSV 07:09 → 6 SOUTH 07:09
PROVIDERS: ADMIT Internal Medicine; ATTEND Internal Medicine
DX: R55 Syncope and collapse (principal); E86.0 Dehydration; R26.9 Unspecified abnormalities of gait and mobility; R42 Dizziness and giddiness; I48.92 Unspecified atrial flutter; N40.0 Benign prostatic hyperplasia without lower urinary tract symptoms; I25.10 Atherosclerotic heart disease of native coronary artery without angina pectoris; I13.0 Hypertensive heart and chronic kidney disease with heart failure and stage 1 through stage 4 chronic kidney disease, or unspecified chronic kidney disease; N18.3 Chronic kidney disease, stage 3 (moderate); E78.00 Pure hypercholesterolemia, unspecified; E78.5 Hyperlipidemia, unspecified; G89.29 Other chronic pain; I50.9 Heart failure, unspecified; K21.9 Gastro-esophageal reflux disease without esophagitis; K22.70 Barrett's esophagus without dysplasia; Z95.5 Presence of coronary angioplasty implant and graft; Z96.651 Presence of right artificial knee joint; Z79.01 Long term (current) use of anticoagulants
CPT/HCPCS: 36415; 71045; 73562; 80048; 80076; 81001; 83605; 83690; 84484; 85025; 87086; 93005; 93306; 96360; 96361; 97110; 97116; 97161; 97166; 97530; 99285; G0378; J7030; J7040; G0379

== ENCOUNTER → 2019-05-16 | Outpatient (CLI) | payer MEDICARE ==
[2018-03-25 15:00] VITALS: BP 109/64
[~2019-05-16] MED LIST changes: +ACET325T9 PO; +CEFP100T PO; +CLON-77 PO; +DOCU-109 PO; -HYDR-2762 PO; +HYDR-2765 PO; +LACT1CAP19 PO; +LEVE500T56 PO; +MAG30ORA2 PO; +MINO100C61 PO; -NIFE30TA17 PO; +NIFE30TA95 PO; +NITR0.4T24 SL; +OMEP40CA45 PO; -OMEP40CA5 PO; +RANI150T2 PO; +TRAZ-118 PO
--- NOTE | 2019-05-16 09:42 | CARD ---
MR#: [id number] Date of Study: 05/16/2019 Ordering Physician: JULIANNA BAIG, Referring Physician: JULIANNA BAIG Tech: Shirlene Chou RDCS APPROVED REPORT EXAM: Two-dimensional and M-mode echocardiogram with Doppler and color Doppler. Other Information Quality : Good Rhythm : Atrial Fibrillation INDICATION Atrial Fibrillation Surgery/Intervention Pacemaker: Date: 2017 2D DIMENSIONS RVDd3.0 (2.9-3.5cm)Left Atrium(2D)4.7 (1.6-4.0cm) IVSd1.6 (0.7-1.1cm)Aortic Root(2D)2.9 (2.0-3.7cm) LVDd4.6 (3.9-5.9cm)LVOT Diameter2.4 (1.8-2.4cm) PWd1.2 (0.7-1.1cm)LVDs3.1 (2.5-4.0cm) FS (%) 31.8 %SV57.3 ml LVEF(%)59.9 (>50%) Aortic Valve AoV Peak Arturo.126.1cm/sAoV VTI21.6cm AO Peak GR.6.4mmHgLVOT Peak Arturo.93.5cm/s AO Mean GR.4mmHgAVA (VMAX)3.31cm2 CLARITZA (VTI)3.60cm2 Mitral Valve MV E Unljxhwj40.6cm/sMV DECEL MTEO599ww MV A Qstkfljy66.2cm/sE/A Ratio1.9 Tricuspid Valve TR P. Gookxxbk236ti/sRAP AQFKPBCW7kiEv TR Peak Gr.61dkLkDBLH24ueVy Pulmonary Vein S1 Mkxihuzl80.9cm/sD2 Tdsdfwnd51.0cm/s LEFT VENTRICLE The left ventricle is normal size. There is mild to moderate concentric left ventricular hypertrophy. The left ventricular systolic function is normal. The Ejection Fraction is 55-60%. There is normal L V segmental wall motion. RIGHT VENTRICLE The right ventricle is normal size. The right ventricular systolic function is normal. There is a pac emaker lead in the right ventricle. ATRIA The left atrium is mildly dilated. The right atrium size is normal. A pacemaker is seen in the right atrium consistent with history. The interatrial septum is intact with no evidence for an atrial septa l defect or patent foramen ovale as noted on 2-D or Doppler imaging. AORTIC VALVE The aortic valve is calcified but opens well. Doppler and Color Flow revealed no significant aortic r egurgitation. There is no significant aortic valvular stenosis. MITRAL VALVE The mitral valve is calcified but opens well. There is no evidence of mitral valve prolapse. There is no mitral valve stenosis. Doppler and Color-flow revealed trace mitral regurgitation. TRICUSPID VALVE The tricuspid valve is normal in structure and function. Doppler and Color Flow revealed trace tricus pid regurgitation. There is mild pulmonary hypertension. The PA pressure was estimated at 38 mmHg. Th ere is no tricuspid valve stenosis. PULMONIC VALVE The pulmonary valve is normal in structure and function. Doppler and Color Flow revealed mild pulmoni c valvular regurgitation. There is no pulmonic valvular stenosis. GREAT VESSELS The aortic root is normal in size. The ascending aorta is normal in size. The IVC is normal in size a nd collapses >50% with inspiration. PERICARDIAL EFFUSION There is no evidence of significant pericardial effusion. Critical Notification Critical Value: No <Conclusion> The left ventricular systolic function is normal. The Ejection Fraction is 55-60%. There is normal LV segmental wall motion. Pacer lead noted RA/RV. Trace mitral regurgitation. Trace tricuspid regurgitation. The PA pressure was estimated at 38 mmHg. There is no evidence of significant pericardial effusion. Signed by : Julianna Baig, Electronically Approved : 05/16/2019 09:41:58
== END | disposition home or self-care (01) ==
LOC: ECHO 08:14
PROVIDERS: ATTEND Internal Medicine Cardiovascular Disease
DX: I08.8 Other rheumatic multiple valve diseases (principal); I27.20 Pulmonary hypertension, unspecified; I48.91 Unspecified atrial fibrillation
CPT/HCPCS: 93306

== ENCOUNTER → 2020-01-08 | Outpatient (CLI) | payer MEDICARE ==
[2018-03-25 15:00] VITALS: BP 109/64
[~2020-01-08] MED LIST changes: -ASPI-612 PO; +ASPI-886 PO
--- NOTE | 2020-01-08 10:26 | KCIC ---
EXAM: Chest, 2 views. HISTORY: Night sweats. Weight loss. COMPARISON: 03/18/2018 FINDINGS: 2 views of the chest are obtained. There is bilateral lower lobe infiltrate. There is no pleural effusion or pneumothorax. There is a stable cardiac silhouette. There is a cardiac pacemaker with single lead in expected position. IMPRESSION: Bilateral lower lobe infiltrate. Follow-up to confirm resolution. Electronically signed by: Lisette White MD (01/08/2020 10:24 AM) [facility]
== END ==
LOC: KCIC 09:42
PROVIDERS: ATTEND Internal Medicine
DX: R91.8 Other nonspecific abnormal finding of lung field (principal)
CPT/HCPCS: 71046

== ENCOUNTER → 2020-01-21 | Outpatient (CLI) | payer MEDICARE ==
[2018-03-25 15:00] VITALS: BP 109/64
--- NOTE | 2020-01-21 13:56 | KCIC ---
Chest radiograph 01/21/2020 12:00 AM INDICATION: Bilateral lobe infiltrates COMPARISON: 01/08/2020 TECHNIQUE: Frontal and lateral views of the chest are provided. FINDINGS: The cardiomediastinal silhouette is within normal limits. Left chest wall cardiac device is in similar position. There are no pleural effusions. There is no pulmonary vascular congestion. There is no pneumothorax. There is improving aeration of the lung bases with persistent patchy interstitial airspace disease bilaterally. No significant osseous abnormality is identified. IMPRESSION: Improving aeration of the lungs with persistent bilateral by basilar interstitial airspace disease. Electronically signed by: Alexandria Tafoya MD (01/21/2020 1:54 PM) [id number]
== END | disposition home or self-care (01) ==
LOC: KCIC 09:50
PROVIDERS: ATTEND Internal Medicine
DX: J84.89 Other specified interstitial pulmonary diseases (principal)
CPT/HCPCS: 71046

== ENCOUNTER → 2020-05-19 | Outpatient (CLI) | payer MEDICARE ==
[2018-03-25 15:00] VITALS: BP 109/64
[~2020-05-19] MED LIST changes: -AMIO200T4 PO; +AMIO200T6 PO
--- NOTE | 2020-05-19 10:13 | CARD ---
MR#: [id number] Date of Study: 05/19/2020 Ordering Physician: JULIANNA BAIG, Referring Physician: JULIANNA BAIG, Tech: Lisa Delgado APPROVED REPORT EXAM: Two-dimensional and M-mode echocardiogram with Doppler and color Doppler. Other Information Quality : AverageHR: 80bpm Technically limited study due to body habitus. INDICATION Atrial Fibrillation Surgery/Intervention Pacemaker: Date: 2016 RISK FACTORS Hypertension Hyperlipidemia 2D DIMENSIONS Left Atrium(2D)3.8 (1.6-4.0cm)IVSd0.9 (0.7-1.1cm) Aortic Root(2D)3.4 (2.0-3.7cm)LVDd5.0 (3.9-5.9cm) LVOT Diameter2.1 (1.8-2.4cm)PWd1.1 (0.7-1.1cm) LVDs3.1 (2.5-4.0cm)FS (%) 37.8 % SV78.2 ml Aortic Valve AoV Peak Arturo.128.1cm/sAoV VTI24.2cm AO Peak GR.6.6mmHgLVOT Peak Arturo.90.7cm/s LVOT VTI 17.19cmAO Mean GR.4mmHg CLARITZA (VMAX)1.26pm9EIY (VTI)2.39cm2 Mitral Valve MV E Zwxqrokj296.9cm/sMV DECEL OKSA077ie MV A Wspckjyz58.9cm/sMV KSD33pn E/A Ratio2.4MVA (PHT)3.81cm2 TDI E/Lateral E'7.9E/Medial E'9.7 Pulmonary Valve PV Peak Luwlqptv24.9cm/sPV Peak Grad.4mmHg Tricuspid Valve TR P. Xpdqtoww540wl/sRAP GCVIRIWX8bbLw TR Peak Gr.11tgBcIOZR95blDu LEFT VENTRICLE The left ventricle is normal size. There is normal left ventricular wall thickness. The left ventricu lar systolic function is normal and the ejection fraction is within normal range. The Ejection Fracti on is 55-60%. There is normal LV segmental wall motion. The left ventricular diastolic function and f illing is normal for age. RIGHT VENTRICLE The right ventricle is normal size. There is normal right ventricular wall thickness. The right ventr icular systolic function is normal. There is a pacemaker lead in the right ventricle. ATRIA The left atrium is mildly dilated. The right atrium is borderline dilated. The interatrial septum is intact with no evidence for an atrial septal defect or patent foramen ovale as noted on 2-D or Dopple r imaging. AORTIC VALVE The aortic valve is thickened but opens well. Doppler and Color Flow revealed no significant aortic r egurgitation. There is no significant aortic valvular stenosis. Calculated aortic valve area is 2.63 cm2 with maximum pressure gradient of 8 mmHg and mean pressure gradient of 4 mmHg. MITRAL VALVE The mitral valve is normal in structure and function. There is no evidence of mitral valve prolapse. There is no mitral valve stenosis. Doppler and Color-flow revealed trace mitral regurgitation. TRICUSPID VALVE The tricuspid valve is normal in structure and function. Doppler and Color Flow revealed trace tricus pid regurgitation with an estimated PAP of 35 mmHg. There is no tricuspid valve stenosis. PULMONIC VALVE The pulmonic valve is not well visualized. Doppler and Color Flow revealed no pulmonic valvular regur gitation. GREAT VESSELS The aortic root is normal in size. The IVC is normal in size and collapses >50% with inspiration. PERICARDIAL EFFUSION There is no evidence of significant pericardial effusion. Critical Notification Critical Value: No <Conclusion> The left ventricle is normal size. The left ventricular systolic function is normal and the ejection fraction is within normal range. The Ejection Fraction is 55-60%. There is a pacemaker lead in the right ventricle. Doppler and Color Flow revealed no significant aortic regurgitation. There is no significant aortic valvular stenosis. Doppler and Color-flow revealed trace mitral regurgitation. Doppler and Color Flow revealed trace tricuspid regurgitation with an estimated PAP of 35 mmHg. Signed by : Edwin Richards MD Electronically Approved : 05/19/2020 10:12:58
== END ==
LOC: ECHO 08:38
PROVIDERS: ATTEND Internal Medicine Cardiovascular Disease
DX: I48.91 Unspecified atrial fibrillation (principal); E78.5 Hyperlipidemia, unspecified; Z95.0 Presence of cardiac pacemaker
CPT/HCPCS: 93306

== ENCOUNTER → 2021-04-21 | Outpatient (CLI) | payer MEDICARE ==
[2018-03-25 15:00] VITALS: BP 109/64
[~2021-04-21] MED LIST changes: +AMIO200T53 PO; -AMIO200T6 PO; -OMEP40CA45 PO; +OMEP40CA7 PO
--- NOTE | 2021-04-21 13:55 | KCIC ---
EXAM: PA and Lateral Views of the Chest DATE: 04/21/2021 9:46 AM INDICATION: Reason: PRODUCTIVE COUGH XS 3 WEEKS / Spl. Instructions: / History: COMPARISON: 01/21/2020 01/08/2020 FINDINGS: Cardiac generator pack obscures a portion of the chest with leads single lead in stable position.. The heart is not enlarged. Mediastinal and hilar contours are normal. Nodular opacity right upper lung. No pleural effusion or pneumothorax. IMPRESSION: Nodular opacity right upper lung. Further evaluation with nonemergent CT is recommended as underlying mass is a consideration. Electronically signed by: Jonny Escobar MD (04/21/2021 1:53 PM) [facility]
== END ==
LOC: KCIC 09:44
PROVIDERS: ATTEND Internal Medicine
DX: R91.8 Other nonspecific abnormal finding of lung field (principal); R05.9 Cough, unspecified
CPT/HCPCS: 71046

== ENCOUNTER → 2021-04-28 | Outpatient (CLI) | payer MEDICARE ==
[2018-03-25 15:00] VITALS: BP 109/64
--- NOTE | 2021-04-28 15:39 | KCIC ---
CT THORAX WO History: Solitary lung nodule. Cough. Comparison: Chest radiograph 04/21/2021 Technique: Noncontrast CT of the chest. Findings: Assessment is limited by lack of IV contrast. Cardiovascular: Left chest single lead cardiac pacemaker with lead tip terminating in the right ventr icular apex. Normal caliber aorta with moderate calcification. Heart size at the upper limits of norm al with trace pericardial fluid and heavy coronary artery calcification. Mediastinum and alan: Unremarkable thyroid. Patulous esophagus with thickened wall, fluid level and m oderate sliding hiatal hernia. No mediastinal adenopathy. Airways, lungs and pleura: Mild bronchial wall thickening. Mild paraseptal emphysematous change. No a irspace consolidation. Benign right minor fissural lymph node. Multiple small calcified parenchymal g ranulomata, primarily in the right lower lobe. Upper abdomen: A few partially visualized left upper pole renal cysts. Postsurgical changes at the fo r metastatic hiatus. Osseous structures and soft tissues: Flowing osteophytes in the thoracic spine. No acute findings. Impression: 1. No significant pulmonary nodule or airspace consolidation. Findings on comparison chest radiograp h likely related to superimposed vessels. 2. Patulous esophagus with diffusely thickened wall, fluid level and moderate hiatal hernia. Concern for aspiration risk and possible cause of chronic cough. Recommend endoscopy for further evaluation. 3. Calcified granulomatous disease in the lungs. 4. Heavy coronary artery calcification. 5. Mild emphysematous change. ------ Exposure: One or more of the following individualized dose reduction techniques were utilized for thi s examination: 1. Automated exposure control 2. Adjustment of the mA and/or kV according to patient size 3. Use of iterative reconstruction technique. Electronically signed by: Elvis Reynolds MD (04/28/2021 3:37 PM) [facility]
== END ==
LOC: KCIC CT 14:03
PROVIDERS: ATTEND Internal Medicine
DX: J84.10 Pulmonary fibrosis, unspecified (principal); I25.10 Atherosclerotic heart disease of native coronary artery without angina pectoris; J43.9 Emphysema, unspecified; K22.89 Other specified disease of esophagus; K44.9 Diaphragmatic hernia without obstruction or gangrene; M25.78 Osteophyte, vertebrae; Z95.0 Presence of cardiac pacemaker
CPT/HCPCS: 71250

== ENCOUNTER → 2021-07-25 | Outpatient (CLI) | payer MEDICARE ==
[2018-03-25 15:00] VITALS: BP 109/64
--- NOTE | 2021-07-25 16:01 | CARD ---
MR#: [id number] Date of Study: 07/25/2021 Ordering Physician: JULIANNA BAIG, Referring Physician: JULIANNA BAIG Tech: Jil Callejas [facility] APPROVED REPORT EXAM: Two-dimensional and M-mode echocardiogram with Doppler and color Doppler. Other Information Quality : AverageHR: 77bpm Rhythm : Atrial Flutter INDICATION Atrial Fibrillation RISK FACTORS Hypertension Obesity 2D DIMENSIONS RVDd3.4 (2.9-3.5cm)Left Atrium(2D)4.5 (1.6-4.0cm) IVSd1.3 (0.7-1.1cm)Aortic Root(2D)3.8 (2.0-3.7cm) LVDd5.2 (3.9-5.9cm)LVOT Diameter2.6 (1.8-2.4cm) PWd1.3 (0.7-1.1cm)LVDs3.3 (2.5-4.0cm) FS (%) 36.5 %SV86.2 ml LVEF(%)65.8 (>50%) Aortic Valve AoV Peak Arturo.138.9cm/sAoV VTI25.8cm AO Peak GR.7.7mmHgLVOT Peak Arturo.98.1cm/s AO Mean GR.3mmHgAVA (VMAX)3.73cm2 Mitral Valve MV E Sgrihgms723.2cm/sMV DECEL MIYT280xa MV A Lqxizvwn32.5cm/sE/A Ratio2.3 Pulmonary Valve PV Peak Evgeeztg085.1cm/s Tricuspid Valve TR P. Vdqoqjte217jq/sTR Peak Gr.41mmHg LEFT VENTRICLE The left ventricle is normal size. There is borderline to mild concentric left ventricular hypertroph y. The left ventricular systolic function is normal. The ejection fraction is 60-65%. There is normal LV segmental wall motion. RIGHT VENTRICLE The right ventricle is normal size. There is normal right ventricular wall thickness. The right ventr icular systolic function is normal. ATRIA The left atrium is moderately enlarged. The right atrium is mildly dilated. AORTIC VALVE The aortic valve is normal in structure and function. Doppler and Color Flow revealed no significant aortic regurgitation. There is no significant aortic valvular stenosis. MITRAL VALVE The mitral valve is normal in structure and function. There is no evidence of mitral valve prolapse. There is no mitral valve stenosis. Doppler and Color-flow revealed mild mitral regurgitation. TRICUSPID VALVE The tricuspid valve is normal in structure and function. Doppler and Color Flow revealed mild tricusp id regurgitation. Estimated PAP 45 mmHg. There is no tricuspid valve stenosis. PULMONIC VALVE The pulmonary valve is normal in structure and function. Doppler and Color Flow revealed mild pulmoni c valvular regurgitation. GREAT VESSELS The aortic root is mildly enlarged. The ascending aorta is Mildly dilated. The IVC is normal in size and collapses >50% with inspiration. PERICARDIAL EFFUSION There is no evidence of significant pericardial effusion. Critical Notification Critical Value: No <Conclusion> The left ventricular systolic function is normal. The ejection fraction is 60-65%. There is normal LV segmental wall motion. Mild mitral regurgitation. Mild tricuspid regurgitation. Estimated PAP 45 mmHg. There is no evidence of significant pericardial effusion. Signed by : Julianna Baig, Electronically Approved : 07/25/2021 16:01:17
== END ==
LOC: ECHO 09:29
PROVIDERS: ATTEND Internal Medicine Cardiovascular Disease
DX: I08.8 Other rheumatic multiple valve diseases (principal); I77.810 Thoracic aortic ectasia; I48.91 Unspecified atrial fibrillation
CPT/HCPCS: 93306; C8929